=== PATIENT | male | born 1965 | race Caucasian/White ===

== ENCOUNTER 2017-03-09 23:55 | Emergency (ER) | payer MEDICARE, MEDICAID, SELFPAY ==
[2017-03-10 00:05] VITALS: BP 138/107; PULSE 102; RESP 16; TEMP 36.5; O2SAT 100; BMI 23.1
--- NOTE | 2017-03-10 01:13 | PC.NURSE ---
PT WALKED OUT STATED HE WAS LEAVING AND HE HAD NOT BEEN SEEN.
== END 2017-03-10 01:16 | disposition left against medical advice (07) ==
PROVIDERS: Emergency Provider Emergency Medicine; Family Provider Family Medicine
DX: Z53.29 Procedure and treatment not carried out because of patient's decision for other reasons (principal)
CPT/HCPCS: 99282

== ENCOUNTER 2017-05-23 21:53 | Emergency (ER) | payer MEDICARE, MEDICAID, SELFPAY ==
[2017-05-23 22:00] VITALS: BP 139/90; PULSE 92; RESP 20; TEMP 37.1; O2SAT 98; BMI 23.1
--- NOTE | 2017-05-23 22:14 | HMH.EDGENADL ---
ED Disposition Clinical Impression: IDDM (insulin dependent diabetes mellitus) Sinusitis Qualifiers: Sinusitis location: unspecified location Chronicity: acute Recurrence: not specified as recurrent Qualified Code(s): J01.90 - Acute sinusitis, unspecified Disposition: Home, Self-Care Condition on Discharge: Good Instructions: DI for Sinusitis Additional Instructions: use meds and see pcp this week and use regular meds Prescriptions: cephALEXin [Keflex 500mg Cap] 500 mg PO QID #40 cap Sulfamethoxazole/Trimethoprim [Bactrim DS tablet] 1 each PO BID #20 tab Referrals: Madelin Franz MD [Primary Care Provider] - - Critical Care Critical Care Time: No Attestation: On , the high probability of a clinically significant, sudden or life threatening deterioration of the following system(s) required my full and direct attention, intervention and personal management. The time I documented below is in addition to time spent performing reported procedures but includes the following listed in this critical care notation. Medical Decision Making - Medical Records Medical records reviewed: Yes: I reviewed the patient's medical records. - [place] Inquiry Pt receiving controlled substance: No Vital Signs: 05/23/17 22:00 Temperature 98.7 F Temperature Source Oral Pulse Rate [Right Radial] 92 H Respiratory Rate 20 Blood Pressure [Right Arm] 139/90 Blood Pressure Mean [Right Arm] 106 Blood Pressure Position [Right Arm] Sitting 02 Sat by Pulse Oximetry 98 - Lab Data Lab results reviewed: Yes: I reviewed the patient's lab results. Lab Results 05/23/17 22:30: WBC 8.6, RBC 5.48, Hgb 16.9, Hct 52.0, MCV 94.9 H, MCH 30.9, MCHC 32.6, RDW 12.4, Plt Count 168, MPV 8.7, Neut % (Auto) 79.0, Lymph % (Auto) 13.7, [place] % (Auto) 3.9, Eos % (Auto) 2.9, Baso % (Auto) 0.4, Neut # (Auto) 6.8, Lymph # (Auto) 1.2, [place] # (Auto) 0.3, Eos # (Auto) 0.3, Baso # (Auto) 0.0, ESR 15 05/23/17 22:30: Sodium 128 L, Potassium 4.0, Chloride 90 L, Carbon Dioxide 32, Anion Gap 10.0, BUN 12, Creatinine 1.23, Estimated Creat Clear 89, Estimated GFR 63, Est GFR ( Amer) 76, Glucose 731 H*, Calcium 9.4, Total Bilirubin 0.3, AST 16, ALT 37, Alkaline Phosphatase 173 H, Total Protein 7.6, Albumin 3.5, Globulin 4.1 H, Albumin/Globulin Ratio 0.9 L Result diagrams: 05/23/17 22:30 05/23/17 22:30 Orders (Tests/Meds): ED MEDICATIONS Discontinued Medications Generic Name Dose Route Start Last Admin Trade Name Diomedesq PRN Reason Stop Dose Admin Insulin Human Regular 8 unit 05/23/17 22:59 05/23/17 23:06 Humulin R Insulin 100 Units/Ml 10ml Vial IVP 05/23/17 23:00 8 unit ONCE ONE Administration ORDERS Category Date Time Status CT facial bones wo con Stat Cat Scan 05/23/17 22:15 Taken Blood Culture Stat Micro 05/23/17 22:30 Received - CT Data CT Scan: Sinus Time Received: 23:[address] Reviewed: Yes: I have viewed the radiologist's interpretation Preliminary Findings: Abnormal (sinusitis) General Adult HPI - General Chief complaint: PAIN Stated complaint: pain in left face,neck,shoulder Time Seen by Provider: 05/23/17 22:14 Mode of Arrival: Family Vehicle Source of Information: Patient, Spouse, Medical Record Limitations: No Limitations Description of Symptoms (Recalled from ER Triage Doc. by RN): left sided facial pain that begins above left eyebrow and radiates into left face, neck, and left shoulder. family member states that she seen some white puffy infection like stuff in the left upper mouth. - History of Present Illness HPI narrative: lt facial pain with no trauma and no fever or rash - pt with hx of prev infection and he has iddm - no sz or focal neuro sx Onset (ago): day(s) Location: face Severity: moderate - Related Data Home Medications Medication Instructions Recorded Confirmed Baclofen [Lioresal 10mg tablet] 1 tab PO TID 03/10/17 05/23/17 Cetirizine HCl [Zyrtec] 10 mg PO DAILY 03/10
--- NOTE | 2017-05-23 22:15 | CT_ITS ---
CT facial bones wo con CLINICAL INDICATION: Facial pain ITS.REASON: facial pain ORDERING PHYSICIAN: Eran Mitchell MD PATIENT AGE: 51 years COMPARISON: None TECHNIQUE:Axial, sagittal, and coronal images are generated and reviewed without contrast. All CT scans at the facility use one or more dose reduction, viz: automated exposure control; ma/kV adjustment per patient size (including targeted exams where dose is matched to indication; i.e. head); or iterative reconstruction technique. FINDINGS: Moderate mucosal thickening involving the left maxillary sinus and frontal ethmoid recess. There is occlusion of left ostiomeatal complex. No air-fluid levels are evident. No bony destructive process. There is mild leftward nasal septal deviation with a small septal spur projecting toward the left involving the bony nasal septum. There is mild opacification of left mastoid sinus inferiorly and posteriorly. The orbits have an unremarkable appearance. There is degenerative disc disease cervical spine at C3-C4 and C5-C6. IMPRESSION: 1. Left maxillary and frontoethmoid sinus mucosal thickening consistent with inflammatory change. 2. Mild opacification of left mastoid sinus.
[2017-05-23 22:38] LABS: Basophils % 0.4 % (0.1-2.0); Eosinophils # 0.3 K/mm3 (0.0-0.4); Eosinophils % 2.9 % (0.1-12.0); Hemoglobin 16.9 g/dL (14.1-18.0); Lymphocytes # 1.2 K/mm3 (0.7-4.5); Lymphocytes % 13.7 K/mm3 (10-50); Mean Corpuscular HGB Conc 32.6 g/dL (31.8-35.4); Mean Corpuscular Hemoglobin 30.9 pg (27.0-31.2); Mean Corpuscular Volume 94.9 fl (80-94); Mean Platelet Volume 8.7 fl (7.4-10.4); Monocytes # 0.3 K/mm3 (0.1-1.0); Monocytes % 3.9 % (1.7-9.3); Neutrophils # 6.8 K/mm3 (1.8-7.8); Platelet Count 168 K/mm3 (142-424); Red Blood Count 5.48 M/mm3 (4.60-6.20); Red Cell Distribution Width 12.4 % (11.5-17.5); White Blood Count 8.6 K/mm3 (4.8-10.8)
[2017-05-23 22:52] LABS: Alanine Aminotransferase 37 U/L (12-78); Albumin Level 3.5 gm/dL (3.4-5.0); Albumin/Globulin Ratio 0.9 (1.1-1.8); Alkaline Phosphatase 173 U/L (46-116); Aspartate Amino Transferase 16 U/L (15-37); Bilirubin,Total 0.3 mg/dL (0.2-1.0); Blood Urea Nitrogen 12 mg/dL (7-18); Calcium 9.4 mg/dL (8.5-10.1); Carbon Dioxide 32 mmol/L (21.0-32.0); Chloride 90 mmol/L (98-107); Creatinine Clearance Estimated 89 mL/min (0-300); Creatinine,Serum 1.23 mg/dL (0.70-1.30); Estimated Glomerular Filt Rate 63 ml/min (>60); GFR (African American) 76 ML/MIN (>60); Globulin 4.1 gm/dl (1.3-3.2); Sodium 128 mmol/L (136-145); Total Protein,Serum 7.6 gm/dL (6.4-8.2)
[2017-05-23 22:54] LABS: Glucose 731 mg/dL (74-106)
[2017-05-23 23:19] LABS: Erythrocyte Sedimentation Rate 15 mm/hr (0-15)
[2017-05-24 00:07] VITALS: BP 135/96; PULSE 93; RESP 15; TEMP 36.7; O2SAT 99
== END 2017-05-24 00:07 | disposition home or self-care (01) ==
PROVIDERS: Emergency Provider Emergency Medicine; Family Provider Family Medicine; PCP Family Medicine
DX: J01.90 Acute sinusitis, unspecified (principal); E11.65 Type 2 diabetes mellitus with hyperglycemia; Z79.4 Long term (current) use of insulin; I10 Essential (primary) hypertension; Z88.1 Allergy status to other antibiotic agents; Z88.6 Allergy status to analgesic agent; Z88.8 Allergy status to other drugs, medicaments and biological substances; F17.210 Nicotine dependence, cigarettes, uncomplicated
CPT/HCPCS: 70486; 80053; 85025; 85651; 87040; 96365; 96375; 99283

== ENCOUNTER 2019-02-21 01:59 | Observation (INO) ==
--- NOTE | 2019-02-21 02:09 | Emergency Department Note ---
ED Disposition Instructions: DI for Syncope in Adults (Fainting), DI for Syncope in Children (Fainting) Referrals: Maged Aburto MD [Primary Care Provider] - Attestation: On 02/21/19, the high probability of a clinically significant, sudden or life threatening deterioration of the following system(s) required my full and direct attention, intervention and personal management. The time I documented below is in addition to time spent performing reported procedures but includes the following listed in this critical care notation. Syncope HPI - General Chief Complaint: Syncope Stated Complaint: syncope - Related Data Home Medications Medication Instructions Recorded Confirmed Baclofen [Lioresal 10mg tablet] 1 tab PO TID 03/10/17 01/17/19 Cetirizine HCl [Zyrtec] 10 mg PO DAILY 03/10/17 01/17/19 Mirtazapine 1 tab PO DAILY 03/10/17 01/17/19 Omeprazole [Omeprazole 40mg 1 tab PO DAILY 03/10/17 01/17/19 Capsule] Ondansetron HCl [Ondansetron 4mg 4 mg PO Q8HP PRN 03/10/17 01/17/19 Tab] Sitagliptin Phos/Metformin HCl 1 tab PO BID 03/10/17 01/17/19 [Janumet 50-500 mg Tablet] Trazodone HCl 150 mg PO HS 03/10/17 01/17/19 lisinopriL [Lisinopril 2.5mg Tab] 4 tab PO DAILY 03/10/17 01/17/19 Duloxetine HCl 60 mg PO DAILY 11/24/17 01/17/19 Cane 1 each MC DIRECTED 01/17/19 01/17/19 Cane Tips 1 each MC DIRECTED 01/17/19 01/17/19 Allergies Allergy/AdvReac Type Severity Reaction Status Date / Time levofloxacin [From LEVAQUIN] Allergy Unknown Verified 01/17/19 11:06 metformin [METFORMIN] Allergy Unknown Verified 01/17/19 11:06 NSAIDS (Non-Steroidal Allergy Unknown UNKNOWN Verified 01/17/19 11:06 Anti-Inflamma [NSAIDS (NON-STEROIDAL ANTI-INFLAMMA] morphine Allergy Verified 01/17/19 11:06 [facility] History - Hepatitis A Screen Attestation statement:: This patient has been screened for Hepatitis A risk factors. Medical History: Reports:: Diabetes Mellitus Type 2 Denies:: Cancer, Diabetes Mellitus Type 1, MRSA Amputation: No Fractures: No - Social History Smoking Status: Current every day smoker Tobacco Type: cigarettes # Packs/Day (cigarettes): 1 Alcohol Intake: never Occupational Status: disabled Housing: house Household Members: spouse
[2019-02-21 02:40] LABS: Basophils % 0.6 % (0.1-2.0); Eosinophils # 0.1 K/mm3 (0.0-0.4); Eosinophils % 1.6 % (0.1-12.0); Hematocrit 43.1 % (42.0-52.0); Hemoglobin 14.6 g/dL (14.1-18.0); Lymphocytes % 14.9 % (10-50); Mean Corpuscular HGB Conc 33.8 g/dL (31.8-35.4); Mean Corpuscular Volume 89.6 fl (80-94); Mean Platelet Volume 11.6 fl (7.4-10.4); Monocytes # 0.6 K/mm3 (0.1-1.0); Monocytes % 9.4 % (1.7-9.3); Neutrophils # 4.8 K/mm3 (1.8-7.8); Neutrophils % 73.6 % (37.0-80.0); Platelet Count 180 K/mm3 (142-424); Red Blood Count 4.81 M/mm3 (4.60-6.20); Red Cell Distribution Width 13.1 % (11.5-17.5); White Blood Count 6.6 K/mm3 (4.8-10.8)
--- NOTE | 2019-02-21 02:44 | Emergency Department Note ---
ED Disposition Clinical Impression: IDDM (insulin dependent diabetes mellitus), RBBB Syncope Qualifiers: Syncope type: unspecified Qualified Code(s): R55 - Syncope and collapse Disposition: Admitted as Observation Condition on Discharge: Good Instructions: DI for Syncope in Adults (Fainting), DI for Syncope in Children (Fainting) Referrals: Maged Aburto MD [Primary Care Provider] - - Critical Care Critical Care Time: No Attestation: On 02/21/19, the high probability of a clinically significant, sudden or life threatening deterioration of the following system(s) required my full and direct attention, intervention and personal management. The time I documented below is in addition to time spent performing reported procedures but includes the following listed in this critical care notation. Medical Decision Making - Medical Records Medical records reviewed: Yes: I reviewed the patient's medical records. - [place] Inquiry Pt receiving controlled substance: No Vital Signs: 02/21/19 02:02 Temperature 98.1 F Temperature Source Oral Pulse Rate [Right Brachial] 108 H Respiratory Rate 20 Blood Pressure [Right Arm] 95/56 L Blood Pressure Mean [Right Arm] 69 Blood Pressure Source [Right Arm] Automatic Cuff Blood Pressure Position [Right Arm] Sitting 02 Sat by Pulse Oximetry 97 Oxygen Delivery Method Room Air - Lab Data Lab results reviewed: Yes: I reviewed the patient's lab results. Lab Results 02/21/19 02:10: WBC 6.6, RBC 4.81, Hgb 14.6, Hct 43.1, MCV 89.6, MCH 30.3, MCHC 33.8, RDW 13.1, Plt Count 180, MPV 11.6 H, Neut % (Auto) 73.6, Lymph % (Auto) 14.9, [place] % (Auto) 9.4 H, Eos % (Auto) 1.6, Baso % (Auto) 0.6, Neut # (Auto) 4.8, Lymph # (Auto) 1.0, [place] # (Auto) 0.6, Eos # (Auto) 0.1, Baso # (Auto) 0.0, ESR 37 H 02/21/19 02:10: Lactate 1.5 02/21/19 02:50: Sodium 135 L, Potassium 4.0, Chloride 96 L, Carbon Dioxide 30, Anion Gap 13.0, BUN 15, Creatinine 0.84, Estimated Creat Clear 120, Estimated GFR 96, Est GFR ( Amer) 117, Glucose 163 H, Calcium 8.6, Total Bilirubin 0.3, AST 9 L, ALT 23, Alkaline Phosphatase 74, Troponin I < 0.02, C-Reactive Protein 15.4 H, Total Protein 6.7, Albumin 2.6 L, Globulin 4.1 H, Albumin/Globulin Ratio 0.6 L Result diagrams: 02/21/19 02:10 02/21/19 02:50 Orders (Tests/Meds): ED MEDICATIONS Generic Name Dose Route Start Last Admin Trade Name Freq PRN Reason Stop Dose Admin Sodium Chloride 1,000 mls @ 999 mls/hr 02/21/19 02:15 02/21/19 02:24 Sod Chlor 0.9% 1000ml Bag IV 02/21/19 03:15 999 mls/hr .Q1H1M JAVIER Administration ORDERS Category Date Time Status Troponin I Q3H Lab 02/21/19 05:15 Ordered Troponin I Q3H Lab 02/21/19 08:15 Ordered Blood Culture Stat Micro 02/21/19 02:12 Received - ECG Data Tracing #1 Normal Sinus Rhythm: Yes Ischemic changes: non-specific ST-T wave changes Conduction abnormalities present: RBBB - Physician Consults Physician Consulted: juana Reason -: Admission Syncope HPI - General Chief Complaint: Syncope Stated Complaint: syncope Time Seen by Provider: 02/21/19 02:10 Mode of Arrival: EMS Source of Information: Patient, Relative, EMS, Medical Record Limitations: No Limitations Description of Symptoms (Recalled from ER Triage Doc. by RN): PATIENT PRESENTS TO TRAUMA 2 VIA EMS FROM HOME AFTER A SYNCOPAL EPISODE. PATIENT REPORTS RECENTLY BEING DIAGNOSED WITH UTI ON TUESDAY AND HAS GENERALLY FELT UNWELL OVER THE LAST COUPLE OF DAYS. TONIGHT, EMS REPORTS PATIENT ATTEMPTED TO GET UP FROM THE BED TO HIS WHEELCHAIR WHEN HE BECAME DIAPHORETIC AND HAD A SYNCOPAL EPISODE PROMPTING FAMILY TO CALL EMS. PATIENT IS A/OX4 UPON ARRIVAL. FSBS 120. PATIENT HAS HAD A RECENT STROKE ON 01/17/19. - History of Present Illness HPI narrative: pt with episode of syncope when he was transfering from bed to wheelchair - family member was present and reported pt becane apnea and nonresponsive over about a few sec but was confused for about 5 minutes and was hyperventilating and diaphoresis- family reports had recent dx of uti and on abx but has had dec po intake - recent admit to for cva and then rehab and back home for 2 weeks complaint: loss of consciousness Onset (ago): minute(s) Duration of episode: 10 -: minutes(s) Description of event: post-event confusion Witnessed: yes - by bystander Context: getting out of bed Injuries sustained associated with event: none Current symptoms: back to baseline Treatments prior to arrival: none - Related Data Home Medications Medication Instructions Recorded Confirmed lisinopriL [Lisinopril 2.5mg Tab] 5 mg PO DAILY 03/10/17 02/21/19 Aspirin [Aspirin EC 325mg Tab] 325 mg PO DAILY 02/21/19 02/21/19 Atorvastatin Calcium [Atorvastatin 40 mg PO HS 02/21/19 02/21/19 40mg Tab] Baclofen [Lioresal 10mg tablet] 10 mg PO TID 02/21/19 02/21/19 Clopidogrel Bisulfate [Clopidogrel 75 mg PO DAILY 02/21/19 02/21/19 75mg Tab] Duloxetine HCl [Cymbalta] 90 mg PO DAILY 02/21/19 02/21/19 Insulin Aspart [Novolog Flexpen] 8 unit SQ TID 02/21/19 02/21/19 Insulin Detemir [Levemir 35 unit SQ HS 02/21/19 02/21/19 100units/mL 3mL flexpen] Metoclopramide HCl [Reglan 5mg 5 mg PO AC 02/21/19 02/21/19 Tablet] Pantoprazole Sodium [Protonix 40mg 40 mg PO DAILY 02/21/19 02/21/19 tablet] Sennosides/Docusate Sodium 1 each PO BID 02/21/19 02/21/19 [Docusate Sodium-Sennosides Tab] Sulfamethoxazole/Trimethoprim 1 each PO BID 02/21/19 02/21/19 [Bactrim DS tablet] Tramadol HCl [Ultram 50mg 50 mg PO Q6H PRN 02/21/19 02/21/19 tablet] Trazodone HCl 150 mg PO HS 02/21/19 02/21/19 Allergies Allergy/AdvReac Type Severity Reaction Status Date / Time levofloxacin [From LEVAQUIN] Allergy Unknown Verified 01/17/19 11:06 metformin [METFORMIN] Allergy Unknown Verified 01/17/19 11:06 NSAIDS (Non-Steroidal Allergy Unknown UNKNOWN Verified 01/17/19 11:06 Anti-Inflamma [NSAIDS (NON-STEROIDAL ANTI-INFLAMMA] morphine Allergy Verified 01/17/19 11:06 [facility] History - Hepatitis A Screen Drug use history?: No High risk sexual behaviors?: No History of sexually transmitted infection?: No Currently employed?: No Childcare worker?: No Do you have indoor plumbing?: Yes Do you have electricity?: Yes Attestation statement:: This patient has been screened for Hepatitis A risk factors. I have reviewed the patient's past medical history: Yes Medical History: Reports:: Diabetes Mellitus Type 2 Denies:: Cancer, Diabetes Mellitus Type 1, MRSA Amputation: No Fractures: No - Social History Smoking Status: Current every day smoker Tobacco Type: cigarettes # Packs/Day (cigarettes): 1 Alcohol Intake: never Alcohol Intake Frequency:: 0-2 drinks per day Substance Use Type: denies use Occupational Status: disabled Housing: house Household Members: spouse ROS Obtained: Yes All systems reviewed & no additional complaints - Constitutional Constitutional: Denies fever(s) - Eyes Eyes: Denies change in vision - ENT Ears, Nose, Mouth, and Throat: Denies sore throat - Cardiovascular Cardiovascular: Denies chest pain, Denies dyspnea - Respiratory Respiratory: No cough - Gastrointestinal Gastrointestingal: Denies: abdominal pain, vomiting - Genitourinary Male Genitourinary: Denies flank pain - Musculoskeletal Musculoskeletal: Denies joint pain - Integumentary/Breasts Skin/Breast: Denies rash - Neurologic Neurologic: Denies confusion, Denies focal weakness, Denies seizure-like activity Physical Exam - General General appearance: alert, in no apparent distress - Head Head exam: normocephalic - Eye Eye exam: Present: PERRL, EOMI. Absent: scleral icterus, nystagmus - ENT ENT exam: Present: mucous membranes dry - Neck Neck exam: Present: trachea midline - Respiratory Respiratory exam: Present: normal lung sounds bilaterally. Absent: respiratory distress - Cardiovascular Cardiovascular exam: Present: regular rate, systolic murmur, +S4 - Abdominal Exam Abdominal exam: Present: soft - Extremities Exam Extremities exam: Present: full ROM - Neurological Exam Neurological exam: Present: alert, CN II-XII intact - Psychiatric Psychiatric exam: Present: normal affect - Skin Skin exam: Absent: rash
[2019-02-21 03:04] LABS: Erythrocyte Sedimentation Rate 37 mm/hr (0-20)
[2019-02-21 03:11] LABS: Alanine Aminotransferase 23 U/L (12-78); Albumin Level 2.6 gm/dL (3.4-5.0); Albumin/Globulin Ratio 0.6 (1.1-1.8); Alkaline Phosphatase 74 U/L (46-116); Aspartate Amino Transferase 9 U/L (15-37); Bilirubin,Total 0.3 mg/dL (0.2-1.0); Blood Urea Nitrogen 15 mg/dL (7-18); Calcium 8.6 mg/dL (8.5-10.1); Carbon Dioxide 30 mmol/L (21.0-32.0); Chloride 96 mmol/L (98-107); Globulin 4.1 gm/dl (1.3-3.2); Glucose 163 mg/dL (74-106); Sodium 135 mmol/L (136-145); Total Protein,Serum 6.7 gm/dL (6.4-8.2)
[2019-02-21 03:15] LABS: C-Reactive Protein 15.4 mg/dL (0.0-0.9)
[2019-02-21 05:22] LABS: Basophils # 0.1 K/mm3 (0-0.2); Basophils % 0.7 % (0.1-2.0); Eosinophils # 0.1 K/mm3 (0.0-0.4); Eosinophils % 1.2 % (0.1-12.0); Hematocrit 42.3 % (42.0-52.0); Hemoglobin 13.7 g/dL (14.1-18.0); Lymphocytes # 0.6 K/mm3 (0.7-4.5); Lymphocytes % 9.3 % (10-50); Mean Corpuscular HGB Conc 32.3 g/dL (31.8-35.4); Mean Corpuscular Volume 92.3 fl (80-94); Mean Platelet Volume 8.6 fl (7.4-10.4); Monocytes # 0.5 K/mm3 (0.1-1.0); Monocytes % 7.1 % (1.7-9.3); Neutrophils # 5.6 K/mm3 (1.8-7.8); Neutrophils % 81.7 % (37.0-80.0); Platelet Count 161 K/mm3 (142-424); Red Blood Count 4.58 M/mm3 (4.60-6.20); Red Cell Distribution Width 13.2 % (11.5-17.5); White Blood Count 6.9 K/mm3 (4.8-10.8)
[2019-02-21 05:32] LABS: Anion Gap 13.5 mEq/L (5-15); Calcium 8.7 mg/dL (8.5-10.1)
--- NOTE | 2019-02-21 08:29 | History & Physical Report ---
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 Patient was transferring f rom bed to wheelchair when he became lightheaded, diaphoretic. His daughter was at home with him and witnessed this. Patient became pale as well as eyes rolled back in his head and he lost consciousness for what is believed to be approximately 1 minute. Patient was brought to the emergency department. Patient himself has been battling a urinary tract infection that was diagnosed less than 48 hours prior in the office. His reports patient has had poor p.o. intake over the last 4 to 5 days and his activity level has been low with mostly laying in bed. Patient underwent evaluation in the emergency department and is subsequently been admitted for observation, IV fluids, telemetry monitoring. [facility] History I have reviewed the patient's past medical history: Yes Medical History: Reports:: Diabetes Mellitus Type 2 Denies:: Cancer, Diabetes Mellitus Type 1, Internal Pacemaker, MRSA *Have you ever received a pneumonia vaccine?: Yes *Have you received a flu vaccine this season?: Yes Other Medical History: Reports: Arthritis Other Surgeries: No: Pacemaker Amputation: No Fractures: No - *Social History Educational Level: Attended College Smoking Status: Current every day smoker Tobacco Type: cigarettes # Packs/Day (cigarettes): 1 Alcohol Intake: never Alcohol Intake Frequency:: 0-2 drinks per day Substance Use Type: denies use *Occupational Status:: disabled Housing: house Household Members: spouse *Travel in the last 8 weeks: None Family Hx:: Non-contributory Review of Systems - Constitutional Reports anorexia, Reports fatigue, Reports malaise, Reports weakness, Denies body ache(s), Denies chills, Denies fever(s) - *Cardiovascular Denies chest pain - *Respiratory Denies change in phlegm color - *Gastrointestinal Denies abdominal pain - *Genitourinary Reports difficulty urinating - *Musculoskeletal Reports abnormal walking, Reports joint pain - *Neurologic Reports lack of coordination, Reports tingling/numbness/burning sensations (From diabetic neuropathy), Reports weakness, Denies confusion, Denies localized weakness, Denies seizure-like activity - Psychiatric Reports abnormal sleep pattern, Reports lack of enjoyment Meds Home Medications Medication Instructions Recorded Confirmed Type lisinopriL [Lisinopril 2.5mg Tab] 5 mg PO DAILY 03/10/17 02/21/19 History Aspirin [Aspirin EC 325mg Tab] 325 mg PO DAILY 02/21/19 02/21/19 History Atorvastatin Calcium [Atorvastatin 40 mg PO HS 02/21/19 02/21/19 History 40mg Tab] Baclofen [Lioresal 10mg tablet] 10 mg PO TID 02/21/19 02/21/19 History Clopidogrel Bisulfate [Clopidogrel 75 mg PO DAILY 02/21/19 02/21/19 History 75mg Tab] Duloxetine HCl [Cymbalta] 90 mg PO DAILY 02/21/19 02/21/19 History Insulin Aspart [Novolog Flexpen] 8 unit SQ TID 02/21/19 02/21/19 History Insulin Detemir [Levemir 35 unit SQ HS 02/21/19 02/21/19 History 100units/mL 3mL flexpen] Metoclopramide HCl [Reglan 5mg 5 mg PO AC 02/21/19 02/21/19 History Tablet] Pantoprazole Sodium [Protonix 40mg 40 mg PO DAILY 02/21/19 02/21/19 History tablet] Sennosides/Docusate Sodium 1 each PO BID 02/21/19 02/21/19 History [Docusate Sodium-Sennosides Tab] Sulfamethoxazole/Trimethoprim 1 each PO BID 02/21/19 02/21/19 History [Bactrim DS tablet] Tramadol HCl [Ultram 50mg 50 mg PO Q6H PRN 02/21/19 02/21/19 History tablet] Trazodone HCl 150 mg PO HS 02/21/19 02/21/19 History Allergies Allergy/AdvReac Type Severity Reaction Status Date / Time levofloxacin [From LEVAQUIN] Allergy Unknown Verified 01/17/19 11:06 metformin [METFORMIN] Allergy Unknown Verified 01/17/19 11:06 NSAIDS (Non-Steroidal Allergy Unknown UNKNOWN Verified 01/17/19 11:06 Anti-Inflamma [NSAIDS (NON-STEROIDAL ANTI-INFLAMMA] morphine Allergy Verified 01/17/19 11:06 Exam Vital signs and Labs for Last 24 Hours: Temp Pulse Resp BP Pulse Ox 97.8 F 95 H 18 104/55 L 97 02/21/19 08:00 02/21/19 08:00 02/21/19 08:00 02/21/19 08:00 02/21/19 08:00 Laboratory Results - last 24 hr 02/21/19 02:10: WBC 6.6, RBC 4.81, Hgb 14.6, Hct 43.1, MCV 89.6, MCH 30.3, MCHC 33.8, RDW 13.1, Plt Count 180, MPV 11.6 H, Neut % (Auto) 73.6, Lymph % (Auto) 14.9, [place] % (Auto) 9.4 H, Eos % (Auto) 1.6, Baso % (Auto) 0.6, Neut # (Auto) 4.8, Lymph # (Auto) 1.0, [place] # (Auto) 0.6, Eos # (Auto) 0.1, Baso # (Auto) 0.0, ESR 37 H 02/21/19 02:10: Lactate 1.5 02/21/19 02:50: Sodium 135 L, Potassium 4.0, Chloride 96 L, Carbon Dioxide 30, Anion Gap 13.0, BUN 15, Creatinine 0.84, Estimated Creat Clear 120, Estimated GFR 96, Est GFR ( Amer) 117, Glucose 163 H, Calcium 8.6, Total Bilirubin 0.3, AST 9 L, ALT 23, Alkaline Phosphatase 74, Troponin I < 0.02, C-Reactive Protein 15.4 H, Total Protein 6.7, Albumin 2.6 L, Globulin 4.1 H, Albumin/Globulin Ratio 0.6 L 02/21/19 05:11: Troponin I < 0.02 02/21/19 05:11: WBC 6.9, RBC 4.58 L, Hgb 13.7 L, Hct 42.3, MCV 92.3, MCH 29.9, MCHC 32.3, RDW 13.2, Plt Count 161, MPV 8.6, Neut % (Auto) 81.7 H, Lymph % (Auto) 9.3 L, [place] % (Auto) 7.1, Eos % (Auto) 1.2, Baso % (Auto) 0.7, Neut # (Auto) 5.6, Lymph # (Auto) 0.6 L, [place] # (Auto) 0.5, Eos # (Auto) 0.1, Baso # (Auto) 0.1 02/21/19 05:11: Sodium 135 L, Potassium 4.5, Chloride 96 L, Carbon Dioxide 30, Anion Gap 13.5, BUN 16, Creatinine 0.88, Estimated Creat Clear 112, Estimated GFR 91, Est GFR ( Amer) 110, Glucose 196 H D, Calcium 8.7, Magnesium 1.6 02/21/19 05:47: POC Glucose 180 H I & O for Last 24 hours: Intake & Output 02/18/19 02/19/19 02/20/19 02/21/19 11:59 11:59 11:59 11:59 Intake Total 701 / 701 Balance 701 / 701 Weight 175 lb 2 oz Narrative: Adult male laying in bed. He appears older than his stated age. Pupils are margareth ctive to light. Extraocular movements are intact. Oropharynx is moist and clear. Tongue is midline. Neck is without lymphadenopathy. Lungs are clear. Heart has a regular rate and rhythm with murmur heard at the right second intercostal space. Abdomen is thin and soft. Extremities are warm to the touch and there is no edema. Musculoskeletal exam is significant for 4 out of 5 strength in the muscles of the left arm and leg when compared to the right. Assessment and Plan (1) Syncope Current visit: Yes Status: Acute Qualifiers: Syncope type: unspecified Qualified Code(s): R55 - Syncope and collapse Category: Medical Code(s): R55 - Syncope and collapse (2) Urinary tract infection Current visit: Yes Status: Acute Category: Medical Code(s): N39.0 - Urinary tract infection, site not specified (3) Type 2 diabetes mellitus, with long-term current use of insulin Current visit: Yes Status: Acute Category: Medical Code(s): E11.9 - Type 2 diabetes mellitus without complications; Z79.4 - nursing home (current) use of insulin (4) History of cerebrovascular accident (CVA) from right carotid artery occlusion involving right middle cerebral artery territory Current visit: Yes Status: Acute Category: Medical Code(s): Z86.73 - Perso nal history of transient ischemic attack (TIA), and cerebral infarction without residual deficits - Assessment and plan all Dx Assessment and Plan for all problems:: 1. Patient is been admitted for rehydration and we will continue cardiac cath technologist for the next 24 hours. Patient be given IV fluids of normal saline at 150 mL's per hour. I have spoken with nursing staff about patient's ability to ambulate and be out of bed to chair later today 2. Start IV Rocephin for urinary tract infection diagnosis outpatient 3. Continue home medicines except for lisinopril. This will be held due to patient's hypotension
--- NOTE | 2019-02-21 09:26 | Pharmacy Consult Notes ---
[facility] Pharmacy VTE Monitoring - Patient Demographics Admission date: 02/21/19 Report Date: 02/21/19 Time: 09:26 Allergies/Adverse Reactions: Patient Allergies levofloxacin [From LEVAQUIN] Allergy (Unknown, Verified 01/17/19 11:06) metformin [METFORMIN] Allergy (Unknown, Verified 01/17/19 11:06) NSAIDS (Non-Steroidal Anti-Inflamma [NSAIDS (NON-STEROIDAL ANTI-INFLAMMA] Allergy (Unknown, Verified 01/17/19 11:06) UNKNOWN morphine Allergy (Verified 01/17/19 11:06) Height: 1.93 m Weight: 79.435 kg Patient Problems: Current Active Problems IDDM (insulin dependent diabetes mellitus) (Acute) RBBB (Acute) Syncope (Acute) Urinary tract infection (Acute) Type 2 diabetes mellitus, with long-term current use of insulin (Acute) History of cerebrovascular accident (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
--- NOTE | 2019-02-22 07:09 | Discharge Summary ---
General - General Admission date:: 02/21/19 Discharge date: 02/22/19 HPI HPI: 53-year-old male with recent stroke after right carotid artery thrombosis who rehabbed at [facility] and is now transition to home presented to the emergency department after syncopal event at home. Patient was transferring from bed to wheelchair when he became lightheaded, diaphoretic. His daughter was at home with him and witnessed this. Patient became pale as well as eyes rolled back in his head and he lost consciousness for what is believed to be approximately 1 minute. Patient was brought to the emergency department. Patient himself has been battling a urinary tract infection that was diagnosed less than 48 hours prior in the office. His reports patient has had poor p.o. intake over the last 4 to 5 days and his activity level has been low with raj bar laying in bed. Patient underwent evaluation in the emergency department and is subsequently been admitted for observation, IV fluids, telemetry monitoring. Hospital Course Hospital Course: Patient was admitted on telemetry and started on normal saline at 150 mL's per hour. This adequately rehydrated the patient over the course of his hospitalization and patient felt better after rehydration. Telemetry monitoring did not detect any cardiac arrhythmias. The morning of the the patient complained of left flank pain and does have a history of kidney stones. CT abdomen and pelvis without contrast was ordered to rule out kidney stone. CT scan was negative for stone. Patient was discharged home later in the day. Prior to discharge family requested investigation into placement in prison facility but this became cost prohibitive Objective Vital signs: Temp Pulse Resp BP Pulse Ox 97.9 F 97 H 18 158/89 H 98 02/22/19 04:00 02/22/19 04:00 02/22/19 04:00 02/22/19 04:00 02/22/19 04:00 no acute distress - *Routine Respiratory Exam Present: CTA bilaterally - *Routine Cardiovascular Exam Present: RRR, Normal S1, Normal S2 - *Routine Abdominal Exam Present: soft, normoactive bowel sounds. Absent: tenderness - Routine Back/Spine/Pelvis Exam Back/Spine: Absent: CVA tenderness Results Labs on day of discharge: Labs from last 24 hours 02/22/19 02/21/19 02/21/19 05:45 21:21 17:03 POC Glucose 184 H 196 H 146 H Troponin I 02/21/19 02/21/19 11:32 08:15 POC Glucose 247 H Troponin I < 0.02 DS: Diagnosis - Discharge Diagnosis (1) Syncope Status: Acute (2) Urinary tract infection Status: Acute (3) Type 2 diabetes mellitus, with long-term current use of insulin Status: Acute (4) History of cerebrovascular accident (CVA) from right carotid artery occlusion involving right middle cerebral artery territory Status: Acute Discharge Plan - Patient Discharge Instructions ACTIVITY: Continue current activity DIET: continue same diet Patient Instructions: DI for Syncope in Adults (Fainting), Fainting, DI for Urinary Tract Infection (UTI) - Follow up Plan Follow up with: Maged Aburto MD [Primary Care Provider] - (Follow-up as previously scheduled) Disposition: Home, Self-[facility] Medications: Home Medications Medication Instructions Recorded Confirmed Type Aspirin [Aspirin 81mg EC Tab] 81 mg PO DAILY 02/21/19 02/21/19 History Atorvastatin Calcium [Atorvastatin 40 mg PO HS 02/21/19 02/21/19 History 40mg Tab] Baclofen [Lioresal 10mg tablet] 10 mg PO TID 02/21/19 02/21/19 History Clopidogrel Bisulfate [Clopidogrel 75 mg PO DAILY 02/21/19 02/21/19 History 75mg Tab] Duloxetine HCl 30 mg PO DAILY 02/21/19 02/21/19 History Insulin Aspart [Novolog Flexpen] 8 unit SQ TID 02/21/19 02/21/19 History Insulin Detemir [Levemir 35 unit SQ HS 02/21/19 02/21/19 History 100units/mL 3mL flexpen] Metoclopramide HCl [Reglan 5mg 5 mg PO AC 02/21/19 02/21/19 History Tablet] Pantoprazole Sodium [Protonix 40mg 40 mg PO DAILY 02/21/19 02/21/19 History tablet] Sennosides/Docusate Sodium 1 each PO BID 02/21/19 02/21/19 History [Docusate Sodium-Sennosides Tab] Sulfamethoxazole/Trimethoprim 1 each PO BID 02/21/19 02/21/19 History [Bactrim DS tablet] Tramadol HCl [Ultram 50mg 100 mg PO Q6H PRN 02/21/19 02/21/19 History tablet] Trazodone HCl 150 mg PO HS 02/21/19 02/21/19 History lisinopriL [Lisinopril 5mg 5 mg PO DAILY 02/21/19 02/21/19 History Tablet] Prescriptions/Medication Reconciliation: Continued Baclofen [Lioresal 10mg tablet] 10 mg PO TID Insulin Aspart [Novolog Flexpen] 8 unit SQ TID Metoclopramide HCl [Reglan 5mg Tablet] 5 mg PO AC Sennosides/Docusate Sodium [Docusate Sodium-Sennosides Tab] 1 each PO BID Tramadol HCl [Ultram 50mg tablet] 100 mg PO Q6H PRN PRN Reason: PAIN Trazodone HCl 150 mg PO HS lisinopriL [Lisinopril 5mg Tablet] 5 mg PO DAILY Atorvastatin Calcium [Atorvastatin 40mg Tab] 40 mg PO HS Clopidogrel Bisulfate [Clopidogrel 75mg Tab] 75 mg PO DAILY Insulin Detemir [Levemir 100units/mL 3mL flexpen] 35 unit SQ HS Pantoprazole Sodium [Protonix 40mg tablet] 40 mg PO DAILY Sulfamethoxazole/Trimethoprim [Bactrim DS tablet] 1 each PO BID Aspirin [Aspirin 81mg EC Tab] 81 mg PO DAILY Duloxetine HCl 30 mg PO DAILY - Problem Reconciliation Problems Reviewed?: Yes
--- NOTE | 2019-02-25 14:36 | Electrocardiograph Report ---
APPROVED REPORT Exam: Resting ECG HR:98 bpm ECG Measurements Heart Rate 98 AXES AZ 142 P 54 QRSd 136 QRS -54 QT 396 T49 QTc 505 <Conclusion> Normal sinus rhythm Left axis deviation Right bundle branch block Abnormal ECG Electronically signed by : Maged Bermudez, 02/25/2019 14:35:29
--- NOTE | 2019-02-25 14:36 | Electrocardiograph Report ---
APPROVED REPORT Exam: Resting ECG HR:105 bpm ECG Measurements Heart Rate 105 AXES FL 128 P 44 QRSd 134 QRS -62 QT 382 T61 QTc 504 <Conclusion> Sinus tachycardia Left axis deviation Right bundle branch block Abnormal ECG Electronically signed by : Maged Bermudez, 02/25/2019 14:35:34
== END 2019-02-22 14:39 | disposition home or self-care (01) ==
LOC: 2ND 01:59 → ER 01:59 → 2ND 04:05
PROVIDERS: ADMIT Internal Medicine Adolescent Medicine; ATTEND Family Medicine
CPT/HCPCS: 36415; 74176; 80048; 80053; 82962; 83605; 83735; 84484; 85025; 85651; 86140; 87040; 93005; 96365; 99284; G0378

== ENCOUNTER → 2019-03-22 11:19 | Outpatient (CLI) | payer MEDICARE, SELFPAY ==
[2019-03-22 11:28] LABS: Microscopic, Urine URINE MICROSCOPIC (MICROSCOPIC)
[2019-03-22 11:35] LABS: Bilirubin,Urine Negative (Negative); Blood, Urine 1+ (Negative); Color,Urine YELLOW (Yellow); Glucose,Urine (UA) 1+ (Negative); Ketones,Urine Negative (Negative); Leukocyte Esterase,Urine 2+ (Negative); Nitrate,Urine Negative (Negative); Protein,Urine Negative (Negative); Specific Gravity, Urine 1.025 (1.005-1.030); Urobilinogen,Urine 0.2 EU/dl (0.2)
[2019-03-22 11:38] LABS: Appearance,Urine Cloudy (Clear)
[2019-03-22 11:46] LABS: Bacteria,Urine 4+ /lpf; Mucus,Urine 1+ /lpf; RBC,Urine TNTC #/hpf (0-3)
== END ==
PROVIDERS: Visit Provider Family Medicine
DX: N39.0 Urinary tract infection, site not specified (principal)
CPT/HCPCS: 81001; 87086; 87088; 87186

== ENCOUNTER 2019-07-20 17:45 | Emergency (ER) | payer MEDICARE, SELFPAY ==
[2019-07-20 17:48] VITALS: BP 142/106; PULSE 98; RESP 18; TEMP 36.7; O2SAT 99; BMI 19.1
--- NOTE | 2019-07-20 17:56 | XR_ITS ---
PROCEDURE: XR RIBS LT MIN 3V W CXR1V CLINICAL INDICATION: FALL With injury and pain posttraumatic pain, fall COMPARISON: WO CT CHEST W/O CONTRAST from 07/05/2013 CXR2 XR chest AP from 04/22/2018 XR CHEST PORTABLE from 10/17/2018 XR CHEST PORTABLE from 03/16/2019 FINDINGS: Frontal view of the chest shows no acute finding. Multiple views of the left ribs are obtained. On series 6 there is a lucency along the anterior aspect of the left 9th rib. This may only be due to a Mach line. Please correlate with patient's area of pain and tenderness. Otherwise negative. If pain persists, CT may provide further evaluation. IMPRESSION: No definite acute finding. Please see above for detail Dictated by: Srikanth Shepherd MD 07/20/2019 19:39 Electronically signed by Srikanth Shepherd MD in [place] 07/20/2019 19:39
[2019-07-20 18:50] VITALS: BP 135/96; PULSE 99; RESP 18; O2SAT 98
--- NOTE | 2019-07-20 19:00 | HMH.EDGENADL ---
ED Disposition Clinical Impression: Rib injury Disposition: Home, Self-Care Condition on Discharge: Good Instructions: DI for Acute Pain -- Adult Prescriptions: Oxycodone HCl/Acetaminophen [Percocet 10-325 mg Tablet] 1 tab PO Q4H PRN 3 Days #16 tab PRN Reason: Breakthru Moderate Pain Prescription Printed Referrals: Maged Aburto MD [Primary Care Provider] - - Critical Care Critical Care Time: No Attestation: On 07/20/19, the high probability of a clinically significant, sudden or life threatening deterioration of the following system(s) required my full and direct attention, intervention and personal management. The time I documented below is in addition to time spent performing reported procedures but includes the following listed in this critical care notation. Medical Decision Making - Medical Records Medical records reviewed: Yes: I reviewed the patient's medical records. - [place] Inquiry Pt receiving controlled substance: No Vital Signs: 07/20/19 17:48 07/20/19 18:50 Temperature 98.1 F Temperature Source Oral Pulse Rate [Right Radial] 98 H 99 H Respiratory Rate 18 18 Blood Pressure [Right Arm] 142/106 H 135/96 H Blood Pressure Mean [Right Arm] 118 109 Blood Pressure Source [Right Arm] Automatic Cuff Automatic Cuff Blood Pressure Position [Right Arm] Sitting Supine 02 Sat by Pulse Oximetry 99 98 Oxygen Delivery Method Room Air - Lab Data Lab results reviewed: Yes: I reviewed the patient's lab results. Orders (Tests/Meds): ORDERS Category Date Time Status XR ribs LT min 3V w CXR1V Stat Exams 07/20/19 17:56 Taken General Adult HPI - General Chief complaint: PAIN Stated complaint: fall Time Seen by Provider: 07/20/19 19:00 Mode of Arrival: EMS Limitations: No Limitations Description of Symptoms (Recalled from ER Triage Doc. by RN): PT BROUGHT IN VIA EMS AFTER HE REPORTEDLY FELL WHILE GOING TO THE BATHROOM 0300 THIS AM, COULDN'T GET BACK UP UNTIL APPROX 0600 THIS AM (D/T PREVIOUS STROKE CAUSING LT SIDE DEFECIT). PT NOW C/O LT RIB PAIN. PT ADVISES THAT HE HIT A NIGHTSTAND ON HIS WAY DOWN TO THE FLOOR WHEN HE FELL. PT ADVISES THAT HE DID NOT FEEL BAD WHEN HE FELL. PT ADVISES THAT HE JUST LOST HIS BALANCE. - History of Present Illness HPI narrative: 53-year-old male presents the ED after a fall in the bathroom earlier this morning. He states that he was trying to get into the shower and he slipped and fell and landed on his left side of his rib cage and is having significant pain presently. He states that he only has some left-sided weakness secondary to his CVA but he states he is getting better. Patient denies any other trauma patient also denies any other symptoms. Onset (ago): hour(s) Location: chest Radiation: non-radiation Severity: moderate Severity scale (1-10): 6 Quality: stabbing Consistency: constant Relieving factors: none Exacerbating factors: none Associated symptoms: denies other symptoms - Related Data Home Medications Medication Instructions Recorded Confirmed Aspirin [Aspirin 81mg EC Tab] 81 mg PO DAILY 02/21/19 02/21/19 Atorvastatin Calcium [Atorvastatin 40 mg PO HS 02/21/19 02/21/19 40mg Tab] Baclofen [Lioresal 10mg tablet] 10 mg PO TID 02/21/19 02/21/19 Clopidogrel Bisulfate [Clopidogrel 75 mg PO DAILY 02/21/19 02/21/19 75mg Tab] Duloxetine HCl 30 mg PO DAILY 02/21/19 02/21/19 Insulin Aspart [Novolog Flexpen] 8 unit SQ TID 02/21/19 02/21/19 Insulin Detemir [Levemir 35 unit SQ HS 02/21/19 02/21/19 100units/mL 3mL flexpen] Metoclopramide HCl [Reglan 5mg 5 mg PO AC 02/21/19 02/21/19 Tablet] Pantoprazole Sodium [Protonix 40mg 40 mg PO DAILY 02/21/19 02/21/19 tablet] Sennosides/Docusate Sodium 1 each PO BID 02/21/19 02/21/19 [Docusate Sodium-Sennosides Tab] Sulfamethoxazole/Trimethoprim 1 each PO BID 02/21/19 02/21/19 [Bactrim DS tablet] Tramadol HCl [Ultram 50mg 100 mg PO Q6H PRN 02/21/19 02/21/19 tablet*
[2019-07-20 19:33] VITALS: BP 128/82; PULSE 100; RESP 17; TEMP 36.7; O2SAT 100
== END 2019-07-20 19:36 | disposition home or self-care (01) ==
PROVIDERS: Emergency Provider Family Medicine; PCP Family Medicine
DX: S20.212A Contusion of left front wall of thorax, initial encounter (principal); W18.2XXA Fall in (into) shower or empty bathtub, initial encounter; Y92.012 Bathroom of single-family (private) house as the place of occurrence of the external cause; E11.9 Type 2 diabetes mellitus without complications; Z79.4 Long term (current) use of insulin; I10 Essential (primary) hypertension; Z86.73 Personal history of transient ischemic attack (TIA), and cerebral infarction without residual deficits; Z79.899 Other long term (current) drug therapy; Z88.5 Allergy status to narcotic agent; Z88.6 Allergy status to analgesic agent
CPT/HCPCS: 71101; 99283

== ENCOUNTER 2019-08-20 17:04 | Observation (INO) | payer MEDICARE, SELFPAY ==
[2019-08-20 17:05] VITALS: BP 170/108; BP 187/107; PULSE 89; PULSE 92; RESP 16; RESP 18; TEMP 36.6; O2SAT 97; O2SAT 98; BMI 21.9
--- NOTE | 2019-08-20 17:31 | CT_ITS ---
PROCEDURE: CT ABDOMEN PELVIS WO CON CLINICAL INDICATION: abd pain COMPARISON: CT ABDOMEN PELVIS WO CON from 02/22/2019 TECHNIQUE: Axial images obtained with sagittal and coronal reformats. All CT scans at the facility use one or more dose reduction, viz: automated exposure control, ma/kV adjustment per patient size (including targeted exams where dose is matched to indication, i.e. head), or iterative reconstruction technique. FINDINGS: Lung bases are unremarkable. There is a small hiatal hernia. Unenhanced liver, spleen, adrenal glands, pancreas, kidneys, and gallbladder is unremarkable. There is a segment of the descending colon measuring 8 centimeters which displays abnormal mucosal thickening. The soft tissues and the bony structures are remarkable. There is no significant adenopathy. CT scan of the pelvis without contrast: Bladder is distended. Prostate, seminal vesicles, soft issues, and the bony structures are intact. IMPRESSION: Probable mid descending colitis Dictated by: Richard Ireland 08/21/2019 09:29 Electronically signed by Richard Ireland in [place] 08/21/2019 09:29
[2019-08-20 17:39] LABS: Basophils # 0.1 K/mm3 (0-0.2); Basophils % 0.7 % (0.1-2.0); Eosinophils # 0.2 K/mm3 (0.0-0.4); Eosinophils % 3.2 % (0.1-12.0); Hematocrit 46.1 % (42.0-52.0); Hemoglobin 15.6 g/dL (14.1-18.0); Lymphocytes # 1.2 K/mm3 (0.7-4.5); Lymphocytes % 16.6 % (10-50); Mean Corpuscular HGB Conc 33.8 g/dL (31.8-35.4); Mean Corpuscular Hemoglobin 30.7 pg (27.0-31.2); Mean Corpuscular Volume 90.8 fl (80-94); Monocytes # 0.3 K/mm3 (0.1-1.0); Monocytes % 4.6 % (1.7-9.3); Neutrophils # 5.2 K/mm3 (1.8-7.8); Platelet Count 168 K/mm3 (142-424); Red Blood Count 5.08 M/mm3 (4.60-6.20); Red Cell Distribution Width 13.6 % (11.5-17.5); White Blood Count 6.9 K/mm3 (4.8-10.8)
--- NOTE | 2019-08-20 17:44 | PC.NURSE ---
PT TO RAD
[2019-08-20 17:56] LABS: Alanine Aminotransferase 55 U/L (12-78); Albumin Level 4.1 g/dl (3.5-5.0); Albumin/Globulin Ratio 1.5 (1.1-1.8); Alkaline Phosphatase 106 U/L (38-126); Amylase 55 U/L (30-110); Anion Gap 12.1 mEq/L (5-15); Aspartate Amino Transferase 51 U/L (17-59); Bilirubin,Total 0.4 mg/dl (0.2-1.3); Blood Urea Nitrogen 12 mg/dl (9-20); Calcium 9.3 mg/dl (8.4-10.2); Carbon Dioxide 32 mmol/L (22.0-30.0); Chloride 97 mmol/L (98-107); Creatinine Clearance Estimated 166 mL/min (50-200); Estimated Glomerular Filt Rate 141 ml/min (>60); GFR (African American) 171 ML/MIN (>60); Globulin 2.8 g/dL (1.3-3.2); Glucose 303 mg/dl (74-100); Lipase 111 U/L (23-300); Potassium 4.1 mmoL/L (3.5-5.1); Sodium 137 mmol/L (136-145); Total Protein,Serum 6.9 g/dl (6.3-8.2)
--- NOTE | 2019-08-20 18:36 | PC.NURSE ---
paged dr vivas
--- NOTE | 2019-08-20 19:01 | HMH.EDABDPAI ---
ED Disposition Clinical Impression: Colitis, Intractable abdominal pain, Strain of neck muscle Disposition: Admitted as Observation Condition on Discharge: Good Instructions: DI for Acute Abdomen Referrals: Maged Aburto MD [Primary Care Provider] - - Critical Care Critical Care Time: No Attestation: On 08/20/19, the high probability of a clinically significant, sudden or life threatening deterioration of the following system(s) required my full and direct attention, intervention and personal management. The time I documented below is in addition to time spent performing reported procedures but includes the following listed in this critical care notation. Medical Decision Making - Medical Records Medical records reviewed: Yes: I reviewed the patient's medical records. - [place] Inquiry Pt receiving controlled substance: No Vital Signs: 08/20/19 17:05 Temperature 98 F Temperature Source Oral Pulse Rate [Left Radial] 92 H Respiratory Rate 18 Blood Pressure [Right Arm] 170/108 H Blood Pressure Mean [Right Arm] 128 Blood Pressure Position [Right Arm] Supine 02 Sat by Pulse Oximetry 97 Oxygen Delivery Method Room Air - Lab Data Lab results reviewed: Yes: I reviewed the patient's lab results. Lab Results 08/20/19 17:14: WBC 6.9, RBC 5.08, Hgb 15.6, Hct 46.1, MCV 90.8, MCH 30.7, MCHC 33.8, RDW 13.6, Plt Count 168, MPV 8.0, Neut % (Auto) 75.0, Lymph % (Auto) 16.6, Humphreys % (Auto) 4.6, Eos % (Auto) 3.2, Baso % (Auto) 0.7, Neut # (Auto) 5.2, Lymph # (Auto) 1.2, Humphreys # (Auto) 0.3, Eos # (Auto) 0.2, Baso # (Auto) 0.1 08/20/19 17:14: Sodium 137, Potassium 4.1, Chloride 97 L, Carbon Dioxide 32 H, Anion Gap 12.1, BUN 12, Creatinine 0.60 L, Estimated Creat Clear 166, Estimated GFR 141, Est GFR ( Amer) 171, Glucose 303 H, Calcium 9.3, Total Bilirubin 0.4, AST 51, ALT 55, Alkaline Phosphatase 106, Total Protein 6.9, Albumin 4.1, Globulin 2.8, Albumin/Globulin Ratio 1.5, Amylase 55, Lipase 111 Result diagrams: 08/20/19 17:14 08/20/19 17:14 Orders (Tests/Meds): ORDERS Category Date Time Status CT abdomen pelvis wo con Stat Cat Scan 08/20/19 17:31 Taken Urinalysis and Microscopic Stat Lab 08/20/19 17:16 Ordered - CT Data CT Scan: Abdomen, Pelvis Time Received: 19:[address] Reviewed: Yes: I have viewed the radiologist's interpretation Preliminary Findings: Abnormal (Gallbladder wall thickening, inflammation of the transverse and descending colon significant for mild to moderate colitis) Medical Decision Narrative: Given the fact patient had intractable nausea and vomiting when he presented and abdominal pain secondary to this illness even though laboratory markers were more normal we will go ahead and get this patient in for observation for IV fluid therapy antiemetics pain control and antibiotics. I spoke to Dr. Aburto for admission for this patient and he also agreed with this assessment and plan and will cover the patient also on high insulin sliding scale. Abdominal Pain HPI - General Chief Complaint: Abdominal Pain Stated Complaint: Abd pain Time Seen by Provider: 08/20/19 19:00 Mode of Arrival: Ambulatory Source of Information: Patient Limitations: Physical Limitations Description of Symptoms (Recalled from ER Triage Doc. by RN): to ed pre pvt car with c/o generalized abd pain denies any nausea, vomiting, fever, chills. caregiver states last BM today. pt with hx of cva - History of Present Illness HPI narrative: A pleasant 54-year-old gentleman presents here to the ED complaining of progressively worsening abdominal pain. He really cannot isolate anywhere on his abdomen with the specific pain is more of a generalized pain. He states at its crescendo it is a very sharp pressure-like sensation and rates this pain 8 out of 10. Exacerbating factors do include increasing intra-abdominal pressure and movement alleviating factors do include vomiting and flexion at the waist. Patient also states
[2019-08-20 19:26] VITALS: BP 169/102; PULSE 85; RESP 18; TEMP 36.7; O2SAT 99
[2019-08-20 19:44] VITALS: BP 154/101; PULSE 91; RESP 17; TEMP 36.7; O2SAT 99; BMI 21.3
--- NOTE | 2019-08-20 20:02 | PC.NURSE ---
MD specified he wanted the antibiotics to be given on the floor after the patient went up. Only pain medicine to be given in ED.
[2019-08-20 20:26] LABS: POC Glucose,Bedside 252 (70-110)
[2019-08-20 20:30] VITALS: O2SAT 99
[2019-08-20 21:06] VITALS: BP 150/91
--- NOTE | 2019-08-21 03:21 | PC.NURSE ---
A&OX4. PT HAS TOLERATED ROOM AIR WELL THROUGHOUT SHIFT. PERIODS OF INCREASED RESPIRATIONS. PT HAS HISTORY OF ANXIETY. DR WAS CALLED AND HE STATED TO MONITOR PT THROUGHOUT NIGHT BUT IT IS PROBABLY DUE TO ANIXETY AND ILLNESS. SINCE ADMISSION, PT IS BACK TO REGULAR AND UNLABORED RESPIRATIONS. DIMINISHED LUNG SOUNDS NOTED THROUGHOUT. NO COUGH NOTED. HEART RATE REGULAR. +2 PULSES NOTED THROUGHOUT. +1 PITTING EDEMA NOTED TO LLE. NONPITTING EDEMA NOTED TO RLE. WEAKNESS NOTED TO LEFT SIDE R/T HISTORY OF STROKE. PT HAS HAD PAIN THROUGHOUT SHIFT IN BACK AND ABDOMEN. DILAUDID ADMINISTERED PER APR AND ON REASSESSMENT, PT WAS RESTING W EYES CLOSED. PT VOIDS PER URINAL. PT HAS HAD NO URINE OUTPUT THUS FAR. WILL CONTINUE TO MONITOR. NS INFUSING AT 125ML/HR. PT RECEIVED LEVAQUIN PER APR. CALLED DOCTOR TO ENSURE ADMINSTRATION WAS OK AND HE STATED IT WAS. PT TOLERATED WELL. TRAZODONE 150MG AND DIAZEPAM 10MG WERE ORDERED FOR A ONE TIME DOSE BY THE DOCTOR REQUESTED BY THE PT FOR ANXIETY AND SLEEP. PT TOLERATED WELL. PT HAS HAD NO COMPLAINTS OF NAUSEA THROUGHOUT SHIFT. BED IN LOWEST POSITION. CALL LIGHT WITHIN REACH. VSS. NO CONCERNS AT THIS TIME. WILL CONTINUE TO MONITOR.
[2019-08-21 04:00] VITALS: BP 135/77; PULSE 79; RESP 17; TEMP 36.7; O2SAT 95
[2019-08-21 05:57] LABS: Basophils # 0.1 K/mm3 (0-0.2); Eosinophils # 0.2 K/mm3 (0.0-0.4); Eosinophils % 4.5 % (0.1-12.0); Hematocrit 44.2 % (42.0-52.0); Hemoglobin 14.7 g/dL (14.1-18.0); Lymphocytes # 1.4 K/mm3 (0.7-4.5); Lymphocytes % 29.2 % (10-50); Mean Corpuscular HGB Conc 33.3 g/dL (31.8-35.4); Mean Corpuscular Hemoglobin 30.8 pg (27.0-31.2); Mean Corpuscular Volume 92.5 fl (80-94); Mean Platelet Volume 8.3 fl (7.4-10.4); Monocytes # 0.3 K/mm3 (0.1-1.0); Monocytes % 5.3 % (1.7-9.3); Neutrophils # 2.8 K/mm3 (1.8-7.8); Platelet Count 148 K/mm3 (142-424); Red Blood Count 4.78 M/mm3 (4.60-6.20); Red Cell Distribution Width 13.5 % (11.5-17.5); White Blood Count 4.7 K/mm3 (4.8-10.8)
[2019-08-21 06:01] LABS: Chloride 97 mmol/L (98-107); Potassium 3.7 mmoL/L (3.5-5.1); Sodium 137 mmol/L (136-145)
[2019-08-21 06:04] LABS: Alanine Aminotransferase 34 U/L (12-78); Albumin Level 3.3 g/dl (3.5-5.0); Albumin/Globulin Ratio 1.4 (1.1-1.8); Alkaline Phosphatase 70 U/L (38-126); Anion Gap 8.7 mEq/L (5-15); Aspartate Amino Transferase 26 U/L (17-59); Bilirubin,Total 0.4 mg/dl (0.2-1.3); Blood Urea Nitrogen 13 mg/dl (9-20); Carbon Dioxide 35 mmol/L (22.0-30.0); Creatinine Clearance Estimated 139 mL/min (50-200); Estimated Glomerular Filt Rate 118 ml/min (>60); GFR (African American) 143 ML/MIN (>60); Globulin 2.4 g/dL (1.3-3.2); Total Protein,Serum 5.7 g/dl (6.3-8.2)
[2019-08-21 06:05] LABS: Calcium 8.5 mg/dl (8.4-10.2); Glucose 125 mg/dl (74-100)
[2019-08-21 06:19] LABS: POC Glucose,Bedside 120 (70-110)
--- NOTE | 2019-08-21 06:52 | HMH.HP ---
*Admission Date: 08/20/19 *Chief complaint: Abdominal pain *History of present illness: 54-year-old male with history of prior stroke with chronic left hemiplegia presented to the emergency department with 3 to 4 days of abdominal pain. Patient reports pain is rather diffuse. Pain would increase in intensity at times throughout the day but seem to be unaffected by eating, urinating, having a bowel movement. Patient denies passing any blood. Patient denies fevers and chills. Patient presented to the emergency department for evaluation and seem to be in quite severe pain. Work-up revealed unremarkable labs except for hyperglycemia but a CT scan has showed transverse and descending colon colitis. Patient was admitted for pain control, IV fluids, IV antibiotics. Review of systems is positive for nausea, chronic constipation, recurrent UTIs Review of systems is negative for vomiting [facility] History I have reviewed the patient's past medical history: Yes Medical History: Reports:: Cerebrovascular Accident (Cerebrovascular accidents has been treated with is no), Diabetes Mellitus Type 2, Hypertension, MRSA, Urinary Tract Infection (Since the urinary tract infections) Denies:: Cancer, Diabetes Mellitus Type 1, Internal Pacemaker *Have you ever received a pneumonia vaccine?: Yes *Have you received a flu vaccine this season?: No Other Medical History: Reports: Arthritis Other Surgeries: No: Pacemaker Amputation: No Fractures: No - *Social History Educational Level: Attended College Smoking Status: Current every day smoker Tobacco Type: cigarettes # Packs/Day (cigarettes): 1 Alcohol Intake: never Alcohol Intake Frequency:: 0-2 drinks per day Substance Use Type: denies use *Occupational Status:: disabled Housing: apartment Household Members: spouse, children *Travel in the last 8 weeks: None Family Hx:: Cancer, Coronary Artery Disease, Diabetes, Heart Attack, Hyperlipidemia, Hypertension, Stroke Review of Systems - Review of Systems Review of systems:: pertinent systems reviewed and negative unless documented below Meds Home Medications Medication Instructions Recorded Confirmed Type Aspirin [Aspirin 81mg EC Tab] 81 mg PO DAILY 02/21/19 08/20/19 History Baclofen [Lioresal 10mg tablet] 20 mg PO TID 02/21/19 08/20/19 History Clopidogrel Bisulfate [Clopidogrel 75 mg PO DAILY 02/21/19 08/20/19 History 75mg Tab] Duloxetine HCl 90 mg PO DAILY 02/21/19 08/20/19 History Insulin Aspart [Novolog Flexpen] 8 unit SQ TID PRN 02/21/19 08/20/19 History Insulin Detemir [Levemir 35 unit SQ HS 02/21/19 08/20/19 History 100units/mL 3mL flexpen] Metoclopramide HCl [Reglan 5mg 10 mg PO AC 02/21/19 08/20/19 History Tablet] Pantoprazole Sodium [Protonix 40mg 40 mg PO DAILY 02/21/19 08/20/19 History tablet] Trazodone HCl 150 mg PO HS 02/21/19 08/20/19 History Cranberry Fruit Extract [Cran-Max] 500 mg PO DAILY 08/20/19 08/20/19 History Diclofenac Sodium [Diclofenac Sod 1 applicatio TP QID 08/20/19 08/20/19 History 100gm Topical Gel] Lactobacillus Rhamnosus GG 1 each PO DAILY 08/20/19 08/20/19 History [Culturelle] Ondansetron [Zofran 4mg ODT] 4 mg PO BID PRN 08/20/19 08/20/19 History diazePAM [Valium] 10 mg PO BID PRN 08/20/19 08/20/19 History Allergies Allergy/AdvReac Type Severity Reaction Status Date / Time levofloxacin [From LEVAQUIN] Allergy Unknown Verified 08/20/19 21:18 metformin [METFORMIN] Allergy Unknown Verified 08/20/19 21:18 NSAIDS (Non-Steroidal Allergy Unknown UNKNOWN Verified 08/20/19 21:18 Anti-Inflamma [NSAIDS (NON-STEROIDAL ANTI-INFLAMMA] morphine Allergy Verified 08/20/19 21:18 Exam Vital signs and Labs for Last 24 Hours: Temp Pulse Resp BP Pulse Ox 98.0 F 79 17 135/77 95 08/21/19 04:00 08/21/19 04:00 08/21/19 04:00 08/21/19 04:00 08/21/19 04:00 Laboratory Results - last 24 hr 08/20/19 17:14: WBC 6.9, RBC 5.08, Hgb 15.6, Hct 46.1, MCV 90.8, MCH 30
--- NOTE | 2019-08-21 07:03 | P.CONPHA_ITS ---
[facility] Pharmacy VTE Monitoring - Patient Demographics Admission date: 08/20/19 Report Date: 08/21/19 Time: 07:03 Allergies/Adverse Reactions: Patient Allergies levofloxacin [From LEVAQUIN] Allergy (Unknown, Verified 08/20/19 21:18) metformin [METFORMIN] Allergy (Unknown, Verified 08/20/19 21:18) NSAIDS (Non-Steroidal Anti-Inflamma [NSAIDS (NON-STEROIDAL ANTI-INFLAMMA] Allergy (Unknown, Verified 08/20/19 21:18) UNKNOWN morphine Allergy (Verified 08/20/19 21:18) Height: 1.93 m Weight: 79.605 kg Patient Problems: Current Active Problems Strain of neck muscle (Acute) Colitis (Acute) Intractable abdominal pain (Acute) History of stroke (Acute) - VTE Risk Labs: VTE Related Lab Results Hgb 14.7 g/dL (14.1-18.0) 08/21/19 05:44 Hct 44.2 % (42.0-52.0) 08/21/19 05:44 Plt Count 148 K/mm3 (142-424) 08/21/19 05:44 BUN 13 mg/dl (9-20) 08/21/19 05:44 Creatinine 0.70 mg/dl (0.66-1.25) 08/21/19 05:44 Estimated Creat Clear 139 mL/min (50-200) 08/21/19 05:44 Was VTE Risk Assessment Performed: Yes VTE Score: 4 VTE Risk Level: Low Risk - Prophylaxis VTE Prophylaxis Ordered?: Yes Types of VTE Prophylaxis: TEDS Knee High Location of Applied Device: Bilateral Lower Extremeties - VTE Diagnosis Confirmed Treatment or plan recommended: Continue Current Treatment
[2019-08-21 07:35] VITALS: BP 109/65; PULSE 79; RESP 16; TEMP 36.4; O2SAT 93
[2019-08-21 11:02] LABS: POC Glucose,Bedside 224 (70-110)
[2019-08-21 15:38] VITALS: BP 160/96; PULSE 91; RESP 20; TEMP 36.4; O2SAT 98
[2019-08-21 16:26] LABS: POC Glucose,Bedside 144 (70-110)
--- NOTE | 2019-08-21 16:46 | PC.NURSE ---
Pt stable this shift with minimal right sided abd pain. Right abd is tender upon palpation. Required 2 doses of prn Percocet 5/325. HTN noted. SBP 160 @ 1530. FSBS @ 1100 was 224 which required coverage of 7 units SSI. At 1630, FSBS was 144 requiring no intervention. He is tolerating a full liquid diet. Has voided x3 this shift using urinal. No other issues noted.
[2019-08-21 19:29] VITALS: BP 176/110; PULSE 98; RESP 16; TEMP 36.4; O2SAT 97
[2019-08-21 19:48] VITALS: O2SAT 97
[2019-08-21 19:48] LABS: POC Glucose,Bedside 235 (70-110)
--- NOTE | 2019-08-22 03:37 | PC.NURSE ---
He has been resting in bed. His was here earlier in the shift. He received PRN medication for abdominal pain. No BM this shift. He continues on RA.
[2019-08-22 04:00] VITALS: BP 178/102; PULSE 91; RESP 16; TEMP 36.3; O2SAT 97
--- NOTE | 2019-08-22 04:33 | PC.NURSE ---
Primary RN S. Call notified of elevated manual BP of 178/102.
[2019-08-22 04:50] VITALS: BP 180/96
[2019-08-22 05:00] VITALS: BMI 22.8
[2019-08-22 05:07] LABS: POC Glucose,Bedside 109 (70-110)
[2019-08-22 06:30] VITALS: BP 164/97; PULSE 86
[2019-08-22 08:00] VITALS: BP 120/74; PULSE 99; RESP 17; TEMP 36.6; O2SAT 95
--- NOTE | 2019-08-22 08:10 | HMH.DCSUM ---
General - General Admission date:: 08/20/19 Discharge date: 08/22/19 HPI HPI: 54-year-old male with history of prior stroke with chronic left hemiplegia presented to the emergency department with 3 to 4 days of abdominal pain. Patient reports pain is rather diffuse. Pain would increase in intensity at times throughout the day but seem to be unaffected by eating, urinating, having a bowel movement. Patient denies passing any blood. Patient denies fevers and chills. Patient presented to the emergency department for evaluation and seem to be in quite severe pain. Work-up revealed unremarkable labs except for hyperglycemia but a CT scan has showed transverse and descending colon colitis. Patient was admitted for pain control, IV fluids, IV antibiotics. Review of systems is positive for nausea, chronic constipation, recurrent UTIs Review of systems is negative for vomiting Hospital Course Hospital Course: Patient was admitted for treatment of colitis with Levaquin and Flagyl. By the following morning his symptoms had improved. Diet was advanced to full liquids which he tolerated without incident. On the evening of August 20 diet was advanced further to a low residue diet. Patient did have mild increase in pain after eating supper. He did well overnight and did not require any extra doses of pain medication. The following morning (August 21) patient tolerated his low residue diet without increase in pain. Patient had not had a bowel movement but does suffer from chronic constipation. He did have signs of bowel function. Labs remained stable. Patient was discharged home. He will continue a course of Flagyl and Levaquin. Follow-up in the office in 1 week. Patient's blood pressure was elevated during hospitalization which is generally the opposite of his blood pressures at home. This was attributed to anxiety about hospitalization. His will continue to monitor his blood pressures. Patient has diabetes and was covered with sliding scale insulin during his hospitalization. Objective Vital signs: Temp Pulse Resp BP Pulse Ox 97.4 F L 86 16 164/97 H 97 08/22/19 04:00 08/22/19 06:30 08/22/19 04:00 08/22/19 06:30 08/22/19 04:00 no acute distress - *Routine Respiratory Exam Present: CTA bilaterally - *Routine Cardiovascular Exam Present: RRR - *Routine Abdominal Exam Present: soft, normoactive bowel sounds. 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 Status: Chronic (3) Type 2 diabetes mellitus, with long-term current use of insulin Status: Chronic Discharge Plan - Patient Discharge Instructions ACTIVITY: Continue current activity DIET: continue same diet Patient Instructions: Strokes (Alternative Therapy), DI for Abdominal Pain-Adult, DI for Colitis - Follow up Plan Follow up with: Maged Aburto MD [Primary Care Provider] - 1 week Disposition: Home, Self-Senior Living Medications: Home Medications Medication Instructions Recorded Confirmed Type Aspirin [Aspirin 81mg EC Tab] 81 mg PO DAILY 02/21/19 08/21/19 History Baclofen [Lioresal 10mg tablet] 20 mg PO TID 02/21/19 08/20/19 History Clopidogrel Bisulfate [Clopidogrel 75 mg PO DAILY 02/21/19 08/21/19 History 75mg Tab] Duloxetine HCl 30 mg PO DAILY 02/21/19 08/21/19 History Insulin Aspart [Novolog Flexpen] 8 unit SQ TID PRN 02/21/19 08/20/19 History Insulin Detemir [Levemir 35 unit SQ HS 02/21/19 08/20/19 History 100units/mL 3mL flexpen] Pantoprazole Sodium [Protonix 40mg 40 mg PO DAILY 02/21/19 08/21/19 History tablet] Trazodone HC
--- NOTE | 2019-08-22 09:18 | HMH.PHAINT ---
DISCHARGE COUNSELING COMPLETED.
== END 2019-08-22 09:15 | disposition home or self-care (01) ==
LOC: ER 19:06 → 2ND 21:20
PROVIDERS: Admitting Provider Family Medicine; Emergency Provider Family Medicine; PCP Family Medicine; Visit Provider Family Medicine
DX: K52.9 Noninfective gastroenteritis and colitis, unspecified (principal); E11.9 Type 2 diabetes mellitus without complications; I10 Essential (primary) hypertension; Z79.4 Long term (current) use of insulin; Z79.82 Long term (current) use of aspirin; Z79.02 Long term (current) use of antithrombotics/antiplatelets; Z88.8 Allergy status to other drugs, medicaments and biological substances; Z72.0 Tobacco use; I69.354 Hemiplegia and hemiparesis following cerebral infarction affecting left non-dominant side
CPT/HCPCS: 36415; 74176; 80053; 82150; 82962; 83690; 85025; 96374; 96375; 99283; G0378; J1956

== ENCOUNTER 2019-10-11 09:15 | Emergency (ER) | payer MEDICARE, MEDICAID, SELFPAY ==
[2019-10-11] VITALS (15 sets, daily range): BP systolic 141–208; BP diastolic 81–126; PULSE 97–110; RESP 16–18; TEMP 37; O2SAT 96–98; BMI 25.0
--- NOTE | 2019-10-11 09:20 | PC.NURSE ---
BLOOD SUGAR 238
--- NOTE | 2019-10-11 09:20 | ECG_ITS ---
APPROVED REPORT Exam: Resting ECG HR:105 bpm ECG Measurements Heart Rate 105 AXES AL 134 P 48 QRSd 128 QRS -77 QT 370 T 58 QTc 489 <Conclusion> Sinus tachycardia Left axis deviation Right bundle branch block Abnormal ECG Electronically signed by : Maged Bermudez, 10/12/2019 07:53:22
--- NOTE | 2019-10-11 09:28 | HMH.EDGENADL ---
ED Disposition Clinical Impression: Hypertensive emergency Altered mental status Qualifiers: Altered mental status type: disorientation Qualified Code(s): R41.0 - Disorientation, unspecified Disposition: Xfer Short-Term Hosp Condition on Discharge: Serious Instructions: DI for Altered Mental Status Referrals: Maged Aburto MD [Primary Care Provider] - Forms: Transfer Record - ED - Critical Care Critical Care Time: Yes Attestation: On 10/11/19, the high probability of a clinically significant, sudden or life threatening deterioration of the following system(s) required my full and direct attention, intervention and personal management. The time I documented below is in addition to time spent performing reported procedures but includes the following listed in this critical care notation. Total Critical Care Time: 60 Vital system(s) involved:: Circulatory Failure, Central Nervous System My critical care processes included: Assessment & monitoring of V/S, Initial and Re-exams, Data Review/Interpretation, Coordinating Care, Medication Orders and management, Documentation Medical Decision Making - [place] Inquiry Pt receiving controlled substance: No Vital Signs: 10/11/19 09:15 10/11/19 10:30 10/11/19 10:42 Temperature 98.6 F Temperature Source Rectal Pulse Rate [Left Radial] 104 H 103 H 105 H Respiratory Rate 18 Blood Pressure [Right Arm] 184/114 H 208/120 H 203/113 H Blood Pressure Mean [Right Arm] 137 149 143 Blood Pressure Source [Right Arm] Blood Pressure Position [Right Arm] Sitting Sitting 02 Sat by Pulse Oximetry 98 Oxygen Delivery Method Room Air 10/11/19 10:48 10/11/19 10:50 10/11/19 11:01 Temperature Temperature Source Pulse Rate [Left Radial] 105 H 102 H 104 H Respiratory Rate Blood Pressure [Right Arm] 183/120 H 183/120 H 191/121 H Blood Pressure Mean [Right Arm] 141 141 144 Blood Pressure Source [Right Arm] Automatic Cuff Automatic Cuff Blood Pressure Position [Right Arm] Sitting Sitting Sitting 02 Sat by Pulse Oximetry 97 97 Oxygen Delivery Method Room Air Room Air 10/11/19 11:16 10/11/19 11:20 10/11/19 11:25 Temperature Temperature Source Pulse Rate [Left Radial] 107 H 108 H 110 H Respiratory Rate Blood Pressure [Right Arm] 162/81 H 144/92 H 191/126 H Blood Pressure Mean [Right Arm] 108 109 147 Blood Pressure Source [Right Arm] Automatic Cuff Automatic Cuff Automatic Cuff Blood Pressure Position [Right Arm] Sitting Sitting Sitting 02 Sat by Pulse Oximetry 97 96 Oxygen Delivery Method Room Air Room Air 10/11/19 11:28 10/11/19 11:30 10/11/19 11:37 Temperature Temperature Source Pulse Rate [Left Radial] 105 H 106 H Respiratory Rate Blood Pressure [Right Arm] 144/95 H 144/95 H 154/96 H Blood Pressure Mean [Right Arm] 111 111 115 Blood Pressure Source [Right Arm] Automatic Cuff Blood Pressure Position [Right Arm] Sitting Sitting 02 Sat by Pulse Oximetry 96 Oxygen Delivery Method Room Air 10/11/19 11:42 10/11/19 12:17 Temperature Temperature Source Pulse Rate [Left Radial] 105 H 97 H Respiratory Rate Blood Pressure [Right Arm] 141/96 H 160/94 H Blood Pressure Mean [Right Arm] 111 116 Blood Pressure Source [Right Arm] Blood Pressure Position [Right Arm] 02 Sat by Pulse Oximetry Oxygen Delivery Method - Lab Data Lab Results 10/11/19 09:22: WBC 7.8, RBC 5.24, Hgb 16.1, Hct 46.5, MCV 88.8, MCH 30.6, MCHC 34.5, RDW 14.1, Plt Count 168, MPV 7.6, Neut % (Auto) 77.0, Lymph % (Auto) 16.7, [place] % (Auto) 4.2, Eos % (Auto) 1.5, Baso % (Auto) 0.6, Neut # (Auto) 6.0, Lymph # (Auto) 1.3, [place] # (Auto) 0.3, Eos # (Auto) 0.1, Baso # (Auto) 0.0 10/11/19 09:22: Sodium 140, Potassium 4.2, Chloride 101, Carbon Dioxide 35 H, Anion Gap 8.2, BUN 14, Creatinine 0.70, Estimated Creat Clear 154, Estimated GFR 118, Est GFR ( Amer) 143, Glucose 237 H, Calcium 9.7, Total Bilirubin 0.4, AST 33, ALT 40, Alkaline Phosphatase 95,
--- NOTE | 2019-10-11 09:40 | CT_ITS ---
PROCEDURE: CT HEAD/BRAIN WO CON CLINICAL INDICATION: altered mental status Altered mental status, altered level of consciousness, confusion, disorientation History of stroke and right carotid stent COMPARISON: CT CT HEAD/BRAIN WO CON from 03/16/2019 TECHNIQUE: Axial images obtained. All CT scans at the facility use one or more dose reduction, viz: automated exposure control, ma/kV adjustment per patient size (including targeted exams where dose is matched to indication, i.e. head), or iterative reconstruction technique. FINDINGS: No midline shift, mass effect, intracranial hemorrhage, hydrocephalus, or extra-axial fluid collection is evident. the calvarium has an unremarkable appearance. No mastoid effusion. Mild mucosal thickening involves the ethmoid sinuses. The small osteoma is present in the mid aspect of the left ethmoid sinus. IMPRESSION: No acute intracranial finding Dictated b Srikanth Shepherd MD 10/11/2019 10:44 Srikanth Shepherd MD in [facility] 10/11/2019 10:44
--- NOTE | 2019-10-11 09:47 | XR_ITS ---
PROCEDURE: XR CHEST PORTABLE CLINICAL HISTORY: AMS Altered mental status COMPARISON: CT CHWO CT CHEST W/O CONTRAST from 07/05/2013 CR XR CHEST PORTABLE from 10/17/2018 CR XR CHEST PORTABLE from 03/16/2019 CR XR RIBS LT MIN 3V W CXR1V from 07/20/2019 FINDINGS: The cardiomediastinal silhouette and pulmonary vascularity are within normal limits. The lungs are clear without infiltrates, suspicious nodules, or pleural effusions. No acute bony abnormalities. IMPRESSION: No acute findings. Dictated b Srikanth Shepherd MD 10/11/2019 11:04 Srikanth Shepherd MD in [facility] 10/11/2019 11:04
[2019-10-11 09:50] LABS: Chloride 101 mmol/L (98-107)
[2019-10-11 09:51] LABS: Basophils % 0.6 % (0.1-2.0); Eosinophils # 0.1 K/mm3 (0.0-0.4); Eosinophils % 1.5 % (0.1-12.0); Hematocrit 46.5 % (42.0-52.0); Hemoglobin 16.1 g/dL (14.1-18.0); Lymphocytes # 1.3 K/mm3 (0.7-4.5); Lymphocytes % 16.7 % (10-50); Mean Corpuscular HGB Conc 34.5 g/dL (31.8-35.4); Mean Corpuscular Hemoglobin 30.6 pg (27.0-31.2); Mean Corpuscular Volume 88.8 fl (80-94); Mean Platelet Volume 7.6 fl (7.4-10.4); Monocytes # 0.3 K/mm3 (0.1-1.0); Monocytes % 4.2 % (1.7-9.3); Platelet Count 168 K/mm3 (142-424); Potassium 4.2 mmoL/L (3.5-5.1); Red Blood Count 5.24 M/mm3 (4.60-6.20); Red Cell Distribution Width 14.1 % (11.5-17.5); Sodium 140 mmol/L (136-145); White Blood Count 7.8 K/mm3 (4.8-10.8)
[2019-10-11 09:53] LABS: Alanine Aminotransferase 40 U/L (12-78); Aspartate Amino Transferase 33 U/L (17-59); Blood Urea Nitrogen 14 mg/dl (9-20); Creatinine Clearance Estimated 154 mL/min (50-200); Estimated Glomerular Filt Rate 118 ml/min (>60); GFR (African American) 143 ML/MIN (>60)
--- NOTE | 2019-10-11 09:53 | CT_ITS ---
Procedure: CT ANGIO NECK CT ANGIO HEAD CLINICAL HISTORY: AMS Altered mental status, altered level of consciousness, confusion, disorientation History of stroke with carotid stent. Evaluate patency COMPARISON: No exams were available for comparison TECHNIQUE: IV Contrast: 100ml Optiray 350 Axial images obtained with sagittal and coronal reformats. All CT scans at the facility use one or more dose reduction, viz: automated exposure control, ma/kV adjustment per patient size (including targeted exams where dose is matched to indication, i.e. head), or iterative reconstruction technique. FINDINGS: Aortic arch and great vessels: Mild stenosis of the ostium of the right subclavian artery of 25 percent. Mild stenosis ostium of left subclavian artery 33 percent. Dominant right vertebral artery. Small left vertebral artery. Right carotid: The common carotid is unremarkable. There is mild amount of soft plaque at the ostium of the right internal carotid artery without significant stenosis. There is a stent in place within distal aspect of the the right internal carotid artery nearly 5 cm cephalad to the carotid bifurcation. The stent does appear patent. The stent is somewhat angulated medially forming a kink within the carotid artery at the level of the stent. The internal density of the stent appears less than that of the vessel outside of the stent however, this measures nearly the same Hounsfield units approximately 320-340 Hounsfield units. 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 The left common and internal carotid artery have an unremarkable appearance. No stenotic lesions are evident. CT a of the head: Mild atheromatous changes of the carotids at the cavernous portions on both sides. No aneurysm or major intracranial occlusive process. The vertebral basilar system has an unremarkable appearance No evidence of sinus thrombosis. No enhancing lesions midline shift or mass effect. The the. IMPRESSION: 1. No significant carotid stenosis evident. Please see above for detail. 2. Right internal carotid artery stent appears intact. The stent is somewhat angulated medially causing a kink in the vessel proximally at the vessel stent junction. 3. 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 Please correlate with pre and postoperative angiographic findings. 4. No aneurysm, AVM or major intracranial occlusive process. Srikanth Chand MD 10/11/2019 11:03 Srikanth Shepherd MD in [place] 10/11/2019 11:03
[2019-10-11 09:54] LABS: Albumin Level 3.8 g/dl (3.5-5.0); Albumin/Globulin Ratio 1.3 (1.1-1.8); Alkaline Phosphatase 95 U/L (38-126); Anion Gap 8.2 mEq/L (5-15); Bilirubin,Total 0.4 mg/dl (0.2-1.3); Calcium 9.7 mg/dl (8.4-10.2); Carbon Dioxide 35 mmol/L (22.0-30.0); Globulin 2.9 g/dL (1.3-3.2); Glucose 237 mg/dl (74-100); Total Protein,Serum 6.7 g/dl (6.3-8.2)
[2019-10-11 09:54] LABS: Microscopic, Urine URINE MICROSCOPIC (MICROSCOPIC)
[2019-10-11 09:57] LABS: Appearance,Urine CLEAR (Clear); Bilirubin,Urine Negative (Negative); Blood, Urine 2+ (Negative); Color,Urine YELLOW (Yellow); Glucose,Urine (UA) 2+ (Negative); Ketones,Urine Negative (Negative); Leukocyte Esterase,Urine Negative (Negative); Nitrate,Urine Negative (Negative); Protein,Urine TRACE (Negative)
[2019-10-11 10:07] LABS: Lactic Acid 1.2 mmol/L (0.7-2.1); Troponin I 0.01 ng/ml (0.00-0.034)
[2019-10-11 10:08] LABS: Amphetamine/Metha Screen,Urine Negative ng/ml (<1000); Benzodiazepines Screen,Urine Positive ng/ml (<200)
[2019-10-11 10:09] LABS: Barbiturates Screen,Urine Negative ng/ml (<200)
[2019-10-11 10:10] LABS: Cannabinoid Screen,Urine Negative ng/ml (<50); Cocaine Screen,Urine Negative ng/ml (<300)
[2019-10-11 10:11] LABS: Methadone Screen,Urine Negative ng/ml (<300); Opiate Screen,Urine Positive ng/ml (<300)
[2019-10-11 10:12] LABS: Phencyclidine Screen,Urine Negative ng/ml (<25)
[2019-10-11 10:14] LABS: Bacteria,Urine 2+ /lpf
--- NOTE | 2019-10-11 10:25 | PC.NURSE ---
AT BEDSIDE STATES PT WOKE UP THIS AM AT 8-830 CONFUSED C/O MIGRAINE H/A AND BECAME MORE CONFUSED TIME WENT ON . STATES SHE GAVE PT POOJA AND AN EXCEDRIN THIS AM
--- NOTE | 2019-10-11 11:00 | PC.NURSE ---
PT CONTINUES TO BE CONFUSED. PT WILL NOT ANSWER QUESTIONS OR FOLLOW COMMANDS.
--- NOTE | 2019-10-11 11:13 | PC.NURSE ---
Pt's comes to nurses station and states that pt now does not know who she is. Dr North at bedside at this time.
--- NOTE | 2019-10-11 11:14 | PC.NURSE ---
Calling Dr Aburto office at this time.
--- NOTE | 2019-10-11 11:15 | PC.NURSE ---
UPSET, YELLING AT DR MARCUM STATING THAT HE IS GOING [place] AND YOU ARE DOING NOTHING ABOUT IT
--- NOTE | 2019-10-11 11:15 | PC.NURSE ---
Pt's is upset and yelling at Dr North, she demands pt be transferred right now Calling [facility] at this time.
--- NOTE | 2019-10-11 11:18 | PC.NURSE ---
CARDENE DRIP STOPPED DUE TO BLOOD PRESSURE OF 144/92
--- NOTE | 2019-10-11 11:55 | PC.NURSE ---
[employer] accepted flight and advised 12 min ETA plus lift off
--- NOTE | 2019-10-11 12:07 | PC.NURSE ---
[employer] called and advised they would be here in 7 minutes
--- NOTE | 2019-10-11 12:19 | PC.NURSE ---
UPDATED ON PLAN OF CARE
--- NOTE | 2019-10-11 12:21 | PC.NURSE ---
Flight crew at bedside
--- NOTE | 2019-10-11 12:23 | PC.NURSE ---
REPORT CALLED TO [facility]
== END 2019-10-11 12:35 | disposition short-term general hospital (02) ==
PROVIDERS: Emergency Provider Emergency Medicine; PCP Family Medicine
DX: I16.1 Hypertensive emergency (principal); Z86.73 Personal history of transient ischemic attack (TIA), and cerebral infarction without residual deficits; E11.9 Type 2 diabetes mellitus without complications; Z79.4 Long term (current) use of insulin; F17.210 Nicotine dependence, cigarettes, uncomplicated; Z79.899 Other long term (current) drug therapy; Z88.5 Allergy status to narcotic agent; Z88.6 Allergy status to analgesic agent; Z88.8 Allergy status to other drugs, medicaments and biological substances
CPT/HCPCS: 70450; 70496; 70498; 71045; 80053; 80305; 81001; 83605; 84484; 85025; 87040; 87086; 93005; 96365; 96367; 96375; 99285; J2405; Q9967

== ENCOUNTER → 2019-11-06 09:56 | Outpatient (CLI) | payer MEDICARE, MEDICAID, SELFPAY ==
--- NOTE | 2019-11-06 | US_ITS ---
APPROVED REPORT Exam Type: Lower Extremity Segmental Pressures Polishing Machine Tender: Karly Wilks RDCS Indications Claudication: Rest Pain: Numbness/Tingling Current Smoker History of Smoking Risk Factors Hypertension Hyperlipidemia DiabetesStroke Current Smoker Pressures/Indices Right Indices Left Indices Brachial 154.00 mmHg Brachial 155.00 mmHg Low Thigh 169.00 mmHg 1.09 Low Thigh 182.00 mmHg 1.17 Calf 189.00 mmHg 1.22 Calf 181.00 mmHg 1.17 Ankle(PT) 195.00 mmHg 1.26 Ankle(PT) 185.00 mmHg 1.19 Ankle(DP) 185.00 mmHg 1.19 Ankle(DP) 179.00 mmHg 1.15 Digit 147.00 mmHg 0.95 Digit 163.00 mmHg 1.05 Findings R GIANNI 1.3 L GIANNI 1.2 R TBI 1.0 L TBI 1.1 DP PULSES DIMINISHED WAVEFORMS NORMAL Conclusion R GIANNI 1.3 L GIANNI 1.2 R TBI 1.0 L TBI 1.1 DP PULSES DIMINISHED WAVEFORMS NORMAL Electronically signed by : Srikanth Shepherd MD 11/06/2019 15:52:32
== END ==
PROVIDERS: PCP Family Medicine; Visit Provider Family Medicine
DX: I73.9 Peripheral vascular disease, unspecified (principal)
CPT/HCPCS: 93923

== ENCOUNTER 2020-01-15 14:00 | Outpatient (RCR) | payer MEDICARE, MEDICAID, SELFPAY ==
--- NOTE | 2019-12-03 16:05 | HMH.OTOPEV ---
OT Inpatient Evaluation Rehab OT Outpatient Eval Start: 12/03/19 15:37 Freq: Status: Active Protocol: Document 12/03/19 15:38 CHARISJASMIN (Rec: 12/03/19 15:44 JOANNEYARY [id number]) Electronically Signed By Gena Junior OT 12/03/19 15:38 Outpatient Therapy Subjective History Subjective History 54 year old male with a hx of chronic left hemiplegia Dec 2018 with chronic pain. Patient verbalize, I have pain all over. verbalize since CVA, Patient has recieved OT and PT from [facility] and . 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 Patient has diffculty completing everyday ADL tasks and requires to assistance 75-100% of time. Patient verbalize, He can only feed himself. Thats about it. Patient is currently seeing PT OP services as well. DME at home: w/c, walker, BSC, shower chair, hand-held shower head and grab bars in bathroom. 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 Symptom Type Ache,Sharp Symptoms Relieved By Nothing Symptoms Aggravated By Physical Activity Prior Functional Limitations None Current Functional Limitations Lifting Symptom Description Constant and Continuous Level of pain today (0-10) 7 Pain scale - at its best (0-10) 7 Pain scale - at its worst (0-10) 10 Shoulder/Elbow Eval Shoulder Objective Measurements Shoulder ROM Right Shoulder Abduction Active Range of 90 Motion (degrees) Shoulder Flexion Active Range of Motion 130 (degrees) Query Text: Shoulder External Rotation Active Range 50 of Motion (degrees) Shoulder Internal Rotation Active Range 40 of Motion (degrees) Left Shoulder Abduction Active Range of 75 Motion (degrees) Shoulder Flexion Active Range of Motion 100 (degrees) Query Text: Shoulder External Rotation Active Range 40 of Motion (degrees) Shoulder Internal Rotation Active Range 50 of Motion (degrees) pain with active ROM shoulder exam bilateral standard Shoulder MMT Bilateral Shoulder Abduction Strength Gr
--- NOTE | 2020-01-15 15:09 | HMH.RHREAS ---
Rehab Reassessment Rehab OP Re-assessment Start: 01/15/20 14:55 Freq: Status: Active Protocol: Document 01/15/20 14:55 JOANNEYARY (Rec: 01/15/20 14:56 HIPOLITO [id number]) Electronically Signed By Gena Junior OT 01/15/20 14:55 Rehab Re-assessment Subjective Subjective I can feel like my arms can move better. Objective Objective Notes Patient has participated well in skilled OP OT services from 12/03/19-12/31/19 with having 4 sessions 2* patient has missed several appointments with conflict scheduling. Patient has completed therapeutic activities and therapeutic exer with focus on improving B UE AROM, B UE strength, decrease pain in UE and increase endurance. Assessment Progress Assessment Progressing as Expected Assessment Notes Patient has showed progress with B UE ABD, ER and IR of AROM, UE strength, endurance and verbalize decrease pain levels. AROM of B UE L flex: 130 R flex: 130 L ABD: 100 R ABD: 100 L ER: 65 R ER: 60 L IR: 60 R IR: 65 Patient verbalize pain in B UE 4/10 at worst. Patient demonstrates endurance to 30 mins of exer prior to RB. Patient goals met B UE AROM of flex, ER and IR. Decrease pain at worst 4/10. B UE strength throughout 3+ to 4-/5 Endurance of 30 mins of exer prior to RB Goals Not Met AROM of B UE flex Revised Goals B UE AROM Flex: 140 ABD: 110 ER: 70 IR: 70 3/10 pain at worst in B UE Endurance to 40 mins of exer prior to RB Plan Plan Continue POC
== END 2020-01-15 14:05 | disposition home or self-care (01) ==
LOC: OT 14:00
PROVIDERS: PCP Family Medicine; Visit Provider Family Medicine
DX: I63.9 Cerebral infarction, unspecified (principal); Z86.73 Personal history of transient ischemic attack (TIA), and cerebral infarction without residual deficits
CPT/HCPCS: 97110; 97164; 97166; 97530

== ENCOUNTER 2020-01-19 14:17 | Emergency (ER) | payer MEDICARE, MEDICAID, SELFPAY ==
[2020-01-19 14:20] VITALS: BP 147/107; PULSE 87; RESP 17; TEMP 36.7; O2SAT 92; BMI 24.5
--- NOTE | 2020-01-19 14:24 | CT_ITS ---
PROCEDURE: CT HEAD/BRAIN WO CON CLINICAL INDICATION: ams COMPARISON: CT HEADWO CT head/brain wo con from 11/24/[address] ANGIO HEAD from 10/11/[address] ANGIO NECK from 10/11/2019 TECHNIQUE: Axial images obtained. All CT scans at the facility use one or more dose reduction, viz: automated exposure control, ma/kV adjustment per patient size (including targeted exams where dose is matched to indication, i.e. head), or iterative reconstruction technique. FINDINGS: No midline shift, mass effect, intracranial hemorrhage, hydrocephalus, or extra-axial fluid collection is evident. Age in the sequence bone windows there is apparent stent in the right internal carotid artery just below the entrance into the cavernous sinus. Review of the CT angiogram of the brain from 10/11/2019 this stent is seen on that exam in the coronal projection. The basilar cisterns are mildly prominent. The sylvian fissures and cortical sulci are mildly prominent. There are no significant ischemic white matter changes noted. The calvarium has an unremarkable appearance. No mastoid effusion. No sinus air-fluid level. IMPRESSION: No acute intracranial finding, findings of mild age-appropriate cortical atrophy Dictated by: Dr. Jordon Coffman MD 01/19/2020 15:21 Dr. Jordon Coffman MD in [place] 01/19/2020 15:21
--- NOTE | 2020-01-19 14:24 | XR_ITS ---
PROCEDURE: XR CHEST PORTABLE CLINICAL HISTORY: ams COMPARISON: CT [facility] CT CHEST W/O CONTRAST from 07/05/2013 CR XR CHEST PORTABLE from 03/16/2019 CR XR RIBS LT MIN 3V W CXR1V from 07/20/2019 CR XR CHEST PORTABLE from 10/11/2019 FINDINGS: The cardiomediastinal silhouette and pulmonary vascularity are within normal limits. The lungs are clear without infiltrates, suspicious nodules, or pleural effusions. No acute bony abnormalities. IMPRESSION: No acute findings. Dictated by: Dr. Jordon Coffman MD 01/19/2020 15:21 Dr. Jordon Coffman MD in [place] 01/19/2020 15:21
--- NOTE | 2020-01-19 14:34 | HMH.EDAMS ---
ED Disposition Clinical Impression: Transient confusion Disposition: Home, Self-Care Condition on Discharge: Good Instructions: DI for Altered Mental Status Additional Instructions: Patient is demonstrated no hallucinations or confusion during his observatory period in the emergency department. CT reveals no acute intercranial abnormality. No infectious etiology noted on chest x-ray or urinalysis. Lab work is unremarkable with exception of mildly elevated blood glucose of 166. Arterial blood gas did show moderately elevated carboxyhemoglobin however patient has heavy smoker. Patient did receive nonrebreather during his observatory period in the emergency department. UA did show evidence of volume contraction with a urine specific gravity of 1.030 as well as few hyaline cast, as such patient will be volume expanded with IV normal saline. Pill counts performed in the emergency department was offer his narcotics prescribed as such this could be the etiology of his short-term confusion. Referrals: Provider,Referral, [Referring] - - Critical Care Critical Care Time: No Attestation: On 01/19/20, the high probability of a clinically significant, sudden or life threatening deterioration of the following system(s) required my full and direct attention, intervention and personal management. The time I documented below is in addition to time spent performing reported procedures but includes the following listed in this critical care notation. Medical Decision Making - Medical Records Medical records reviewed: Yes: I reviewed the patient's medical records. - [place] Inquiry Pt receiving controlled substance: No Vital Signs: 01/19/20 14:20 01/19/20 15:56 Temperature 98.1 F Temperature Source Oral Pulse Rate [Right Radial] 87 87 Respiratory Rate 17 18 Blood Pressure [Right Arm] 147/107 H 147/80 H Blood Pressure Mean [Right Arm] 120 102 Blood Pressure Source [Right Arm] Automatic Cuff Blood Pressure Position [Right Arm] Sitting 02 Sat by Pulse Oximetry 92 L 100 Oxygen Delivery Method Room Air Non-Rebreather Oxygen Flow Rate (LPM) 15 - Lab Data Lab results reviewed: Yes: I reviewed the patient's lab results. Lab Results 01/19/20 14:24: Specimen Source Left radial, O2 % room air, ABG pH 7.36, ABG pCO2 45.7 H, ABG pO2 129.4 H, ABG HCO3 25.4, ABG Total CO2 26.8, ABG O2 Saturation 98, ABG Base Excess 0.0, Srikanth Test Acceptable 01/19/20 14:30: WBC 6.3, RBC 4.80, Hgb 14.0 L, Hct 46.5, MCV 96.7 H, MCH 29.1, MCHC 30.1 L, RDW 14.0, Plt Count 141 L, MPV 8.5, Neut % (Auto) 61.0, Lymph % (Auto) 28.4, [place] % (Auto) 6.4, Eos % (Auto) 2.9, Baso % (Auto) 1.2, Neut # (Auto) 3.8, Lymph # (Auto) 1.8, [place] # (Auto) 0.4, Eos # (Auto) 0.2, Baso # (Auto) 0.1 01/19/20 14:30: Sodium 139, Potassium 3.8, Chloride 102, Carbon Dioxide 33 H, Anion Gap 7.8, BUN 16, Creatinine 0.80, Estimated Creat Clear 140, Estimated GFR 102, Est GFR ( Amer) 123, Glucose 166 H, Calcium 9.4, Total Bilirubin 0.4, AST 23, ALT 21, Alkaline Phosphatase 116, Total Protein 6.6, Albumin 3.9, Globulin 2.7, Albumin/Globulin Ratio 1.4 01/19/20 14:30: Lactate 1.6 01/19/20 14:30: Ammonia < 9 L 01/19/20 14:30: SARS-CoV-2 IgG Ab (Rapid) Negative, SARS-CoV-2 IgM Ab (Rapid) Negative 01/19/20 15:25: Urine Color Yellow, Urine Appearance Clear, Urine pH 5.5, Ur Specific [place] >= 1.030, Urine Protein 1+, Urine Glucose (UA) 2+, Urine Ketones Negative, Urine Blood 2+, Urine Nitrate Negative, Urine Bilirubin Negative, Urine Urobilinogen 0.2, Ur Leukocyte Esterase Negative, Urine RBC 5-10, Urine WBC Occasional, Ur Squamous Epith Cells 10-20, Amorphous Sediment 1+, Urine Bacteria None, Hyaline Casts 3-5, Urine Mucus 1+ 01/19/20 15:25: Urine Opiates Screen Positive H, Urine Methadone Screen Negative, Ur Barbituates Screen Negative, Ur Phencyclidine Scrn Negative, Ur Amphetamines Screen Negative, U Benzodiazepines Scrn Positive H, U Marijuana (THC) Screen Negative Result diagrams:
[2020-01-19 14:46] LABS: Basophils # 0.1 K/mm3 (0-0.2); Basophils % 1.2 % (0.1-2.0); Eosinophils # 0.2 K/mm3 (0.0-0.4); Eosinophils % 2.9 % (0.1-12.0); Hematocrit 46.5 % (42.0-52.0); Lymphocytes # 1.8 K/mm3 (0.7-4.5); Lymphocytes % 28.4 % (10-50); Mean Corpuscular HGB Conc 30.1 g/dL (31.8-35.4); Mean Corpuscular Hemoglobin 29.1 pg (27.0-31.2); Mean Corpuscular Volume 96.7 fl (80-94); Mean Platelet Volume 8.5 fl (7.4-10.4); Monocytes # 0.4 K/mm3 (0.1-1.0); Monocytes % 6.4 % (1.7-9.3); Neutrophils # 3.8 K/mm3 (1.8-7.8); Platelet Count 141 K/mm3 (142-424); White Blood Count 6.3 K/mm3 (4.8-10.8)
[2020-01-19 14:50] LABS: Chloride 102 mmol/L (98-107)
[2020-01-19 14:51] LABS: Potassium 3.8 mmoL/L (3.5-5.1); Sodium 139 mmol/L (136-145)
[2020-01-19 14:53] LABS: Alanine Aminotransferase 21 U/L (12-78); Aspartate Amino Transferase 23 U/L (17-59); Blood Urea Nitrogen 16 mg/dl (9-20); Creatinine Clearance Estimated 140 mL/min (50-200); Estimated Glomerular Filt Rate 102 ml/min (>60); GFR (African American) 123 ML/MIN (>60); Lactic Acid 1.6 mmol/L (0.7-2.1)
[2020-01-19 14:54] LABS: Albumin Level 3.9 g/dl (3.5-5.0); Albumin/Globulin Ratio 1.4 (1.1-1.8); Alkaline Phosphatase 116 U/L (38-126); Ammonia < 9 umol/L (9-30); Anion Gap 7.8 mEq/L (5-15); Bilirubin,Total 0.4 mg/dl (0.2-1.3); Calcium 9.4 mg/dl (8.4-10.2); Carbon Dioxide 33 mmol/L (22.0-30.0); Globulin 2.7 g/dL (1.3-3.2); Glucose 166 mg/dl (74-100); Total Protein,Serum 6.6 g/dl (6.3-8.2)
[2020-01-19 15:00] LABS: ABG HCO3 25.4 mmhg (22.0-26.0); ABG Oxygen Saturation 98 % (90-100); ABG PCO2 45.7 mmhg (35.0-45.0); ABG PH 7.36 mmol/L (7.35-7.45); ABG PO2 129.4 mmhg (80-100); ABG TCO2 26.8 mmhg (23-27)
[2020-01-19 15:02] LABS: Allen's Test Acceptable; Oxygen room air %; Source Left Radial
[2020-01-19 15:14] LABS: Coronavirus 19 IgG Antibody Negative (Negative); Coronavirus 19 IgM Antibody Negative (Negative)
[2020-01-19 15:35] LABS: Microscopic, Urine URINE MICROSCOPIC (MICROSCOPIC)
[2020-01-19 15:39] LABS: Appearance,Urine CLEAR (Clear); Bilirubin,Urine Negative (Negative); Blood, Urine 2+ (Negative); Color,Urine YELLOW (Yellow); Glucose,Urine (UA) 2+ (Negative); Ketones,Urine Negative (Negative); Leukocyte Esterase,Urine Negative (Negative); Nitrate,Urine Negative (Negative); PH,Urine 5.5 (5.0-8.5); Protein,Urine 1+ (Negative); Specific Gravity, Urine >= 1.030 (1.005-1.030); Urobilinogen,Urine 0.2 EU/dl (0.2)
[2020-01-19 15:45] LABS: Amorphous Sediment,Urine 1+ /lpf; Mucus,Urine 1+ /lpf; WBC,Urine Occasional #/hpf (0-3)
[2020-01-19 15:47] LABS: Amphetamine/Metha Screen,Urine Negative ng/ml (<1000)
[2020-01-19 15:48] LABS: Barbiturates Screen,Urine Negative ng/ml (<200)
[2020-01-19 15:49] LABS: Benzodiazepines Screen,Urine Positive ng/ml (<200); Cannabinoid Screen,Urine Negative ng/ml (<50)
[2020-01-19 15:50] LABS: Methadone Screen,Urine Negative ng/ml (<300)
[2020-01-19 15:51] LABS: Opiate Screen,Urine Positive ng/ml (<300)
[2020-01-19 15:52] LABS: Phencyclidine Screen,Urine Negative ng/ml (<25)
[2020-01-19 15:56] VITALS: BP 147/80; PULSE 87; RESP 18; O2SAT 100
[2020-01-19 16:11] LABS: Cocaine Screen,Urine Negative ng/ml (<300)
[2020-01-19 16:44] VITALS: BP 135/70; PULSE 80; RESP 17; TEMP 36.7; O2SAT 96
== END 2020-01-19 16:45 | disposition home or self-care (01) ==
PROVIDERS: Emergency Provider Emergency Medicine; PCP Family Medicine
DX: R44.2 Other hallucinations (principal); F44.89 Other dissociative and conversion disorders; Z01.84 Encounter for antibody response examination; E11.9 Type 2 diabetes mellitus without complications; I10 Essential (primary) hypertension; Z79.899 Other long term (current) drug therapy; F17.210 Nicotine dependence, cigarettes, uncomplicated; F11.10 Opioid abuse, uncomplicated; Z88.5 Allergy status to narcotic agent; Z88.6 Allergy status to analgesic agent; Z79.4 Long term (current) use of insulin
CPT/HCPCS: 70450; 71045; 80053; 80305; 81001; 82140; 82803; 83605; 85025; 86328; 87040; 96365; 99284

== ENCOUNTER 2020-02-01 13:00 | Outpatient (RCR) | payer MEDICARE, MEDICAID, SELFPAY ==
--- NOTE | 2019-11-12 15:19 | HMH.PTOPEV ---
PT Outpatient Evaluation Rehab PT Outpatient Evaluation Start: 11/12/19 15:02 Freq: Status: Active Protocol: Document 11/12/19 15:02 JOHN (Rec: 11/12/19 15:19 JOHN [id number]) Electronically Signed By Kashif Lainez, PT 11/12/19 15:02 Outpatient Therapy Subjective History Subjective History Pt is 54 yowm who presents with c/o difficulty transfering, difficulty walking, and poor balance after CVA with L hemiplegia that occurred 12/2018. He reports hx of chronic LB pain, DM-II with severe neuropathy, HTN, R carotid artery stent. He does ambulate with RW at home for short distances, but mainly uses a w/c for mobility . Chief Complaint Stiff,Weakness Symptom Type Numbness,Tingling Symptoms Relieved By Nothing Symptoms Aggravated By Physical Activity Prior Functional Limitations None Current Functional Limitations Reaching,Lifting,Housework, Standing,Recreation Activity, Walking,Balance Symptom Description Constant but Variable Balance Eval Gait/Posture Asssessment General Gait Observation Wide Based Gait Assistive Devices Rolling / Wheeled Walker Level of Transfer Assist Standby Assistance Ankle/Foot Observation in Gait Swing Decreased Foot Clearance Ankle/Foot Observation in Gait Stance No Deviation,Decreased Heel Strike Timed Up and Go Test 1. Is the Timed Up and Go test result > yes or = to 12 seconds? [place] Feet Together/Eyes open/Stable Surface fail Feet Together/Eyes Closed/Stable Surface fail Feet Together/Eyes open/Unstable Surface fail Feet Together/Eyes Closed/Unstable fail Surface Outpatient Therapy Assessment Impairments Problems/Impairmments Impaired Range of Motion, Impaired Strength,Impaired Endurance,Impaired Transfers, Impaired Gait Pattern,Impaired Walking,Impaired Standing, Impaired Stair Climbing, Impaired Recreational Activities,Increased Edema, Subjective C/O Pain,Impaired Self Care/Self Management Prognosis Rehab Potential Fair Clinical Impression Consistent with Diagnosis Yes Short Term Goals Number of Weeks 4
--- NOTE | 2019-12-26 15:26 | HMH.RHREAS ---
Rehab Reassessment Rehab OP Re-assessment Start: 12/26/19 15:22 Freq: Status: Active Protocol: Document 12/26/19 15:22 JOHN (Rec: 12/26/19 15:26 PHOJASON [id number]) Electronically Signed By Kashif Lainez, PT 12/26/19 15:22 Rehab Re-assessment Subjective Subjective Pt reports he feels he is walking better and able to tolerate more activity. Objective Objective Notes Pt TUG test= 28 sec. Pt standing endurance increased to 20 min at home. Pt ambulating with Straight Cane during therapy for ~ 50 ft with CGA x 1. Assessment Progress Assessment Progressing as Expected Assessment Notes Steadily improving endurance and ambulation ability. Gait pattern shoes some increase in heel strike B. Patient goals met none Goals Not Met STG: all LTG: all Revised Goals none Plan Plan Continue per initial POC. Frequency of Therapy 2 x/wk Duration of therapy 8 wks Time and Billing Re-Eval Time 15 Re-Eval Billing Units 1 PHYSICIAN CERTIFICATION: I certify the specified therapy services for Eran Dove are required, authorized, and reviewed every 30 days.
== END 2020-02-01 13:05 | disposition home or self-care (01) ==
LOC: PT 13:00
PROVIDERS: PCP Family Medicine; Visit Provider Family Medicine
DX: R26.89 Other abnormalities of gait and mobility (principal); G81.94 Hemiplegia, unspecified affecting left nondominant side; Z86.73 Personal history of transient ischemic attack (TIA), and cerebral infarction without residual deficits
CPT/HCPCS: 97110; 97112; 97116; 97140; 97163; 97164; 97530

== ENCOUNTER 2020-03-01 10:32 | Emergency (ER) | payer MEDICARE, OTHER, SELFPAY ==
[2020-03-01] VITALS (8 sets, daily range): BP systolic 132–188; BP diastolic 70–103; PULSE 74–95; RESP 16–20; TEMP 36.6–36.7; O2SAT 89–100; BMI 25.5
--- NOTE | 2020-03-01 13:01 | XR_ITS ---
PROCEDURE: XR FINGER RT MIN 2V CLINICAL INDICATION: Right index finger red/swollen COMPARISON: No exams were available for comparison FINDINGS: No fracture or dislocation. No lytic or blastic change. There is normal mineralization. The joint spaces are well-preserved. No significant degenerative/arthritic changes. There is focal soft tissue swelling ulnar side of the phalanx index finger which would be consistent with a blister. IMPRESSION: Probable focal blister next finger as described, no underlying bony abnormality seen Dictated by: Dr. Jordon Coffman MD 03/01/2020 13:34 Dr. Jordon Coffman MD in [place] 03/01/2020 13:34
--- NOTE | 2020-03-01 13:05 | PC.NURSE ---
pt to rad
[2020-03-01 13:11] LABS: Basophils # 0.1 K/mm3 (0-0.2); Basophils % 0.7 % (0.1-2.0); Eosinophils # 0.2 K/mm3 (0.0-0.4); Eosinophils % 2.9 % (0.1-12.0); Hematocrit 45.7 % (42.0-52.0); Hemoglobin 15.1 g/dL (14.1-18.0); Lymphocytes # 0.9 K/mm3 (0.7-4.5); Lymphocytes % 12.7 % (10-50); Mean Corpuscular HGB Conc 33.1 g/dL (31.8-35.4); Mean Corpuscular Hemoglobin 31.2 pg (27.0-31.2); Mean Corpuscular Volume 94.3 fl (80-94); Mean Platelet Volume 8.2 fl (7.4-10.4); Monocytes # 0.5 K/mm3 (0.1-1.0); Monocytes % 6.8 % (1.7-9.3); Neutrophils # 5.5 K/mm3 (1.8-7.8); Neutrophils % 76.8 % (37.0-80.0); Platelet Count 143 K/mm3 (142-424); Red Blood Count 4.84 M/mm3 (4.60-6.20); Red Cell Distribution Width 14.5 % (11.5-17.5); White Blood Count 7.1 K/mm3 (4.8-10.8)
[2020-03-01 13:16] LABS: Alanine Aminotransferase 15 U/L (12-78); Albumin Level 3.7 g/dl (3.5-5.0); Albumin/Globulin Ratio 1.3 (1.1-1.8); Alkaline Phosphatase 114 U/L (38-126); Anion Gap 6.6 mEq/L (5-15); Aspartate Amino Transferase 20 U/L (17-59); Bilirubin,Total 0.6 mg/dl (0.2-1.3); Blood Urea Nitrogen 11 mg/dl (9-20); Calcium 9.3 mg/dl (8.4-10.2); Carbon Dioxide 34 mmol/L (22.0-30.0); Chloride 98 mmol/L (98-107); Creatinine Clearance Estimated 194 mL/min (50-200); Estimated Glomerular Filt Rate 141 ml/min (>60); GFR (African American) 171 ML/MIN (>60); Globulin 2.9 g/dL (1.3-3.2); Glucose 203 mg/dl (74-100); Potassium 3.6 mmoL/L (3.5-5.1); Sodium 135 mmol/L (136-145); Total Protein,Serum 6.6 g/dl (6.3-8.2)
[2020-03-01 13:17] LABS: Lactic Acid 1.1 mmol/L (0.7-2.1)
--- NOTE | 2020-03-01 13:18 | HMH.EDGENADL ---
ED Disposition Clinical Impression: Skin pustule Disposition: Home, Self-Care Condition on Discharge: Good Additional Instructions: Keep areas clean and dry, clean with soap and water daily. Clindamycin as prescribed. Follow-up recheck by your primary care doctor on Tuesday. Return to the emergency department if temperature greater than 100.4 degrees, worsening redness, swelling, pain, or red streaks. Prescriptions: clindamycin HCL [Clindamycin HCl] 300 mg PO QID #40 cap Transmission Status: Pending to [facility] Referrals: Maged Aburto MD [Primary Care Provider] - - Critical Care Critical Care Time: No Attestation: On 03/01/20, the high probability of a clinically significant, sudden or life threatening deterioration of the following system(s) required my full and direct attention, intervention and personal management. The time I documented below is in addition to time spent performing reported procedures but includes the following listed in this critical care notation. Medical Decision Making - [place] Inquiry Pt receiving controlled substance: No Vital Signs: 03/01/20 10:36 03/01/20 12:14 Temperature 98 F 98.0 F Temperature Source Oral Oral Pulse Rate [Right] 74 74 Respiratory Rate 16 16 Blood Pressure [Right Arm] 132/70 132/70 Blood Pressure Mean [Right Arm] 90 90 Blood Pressure Source [Right Arm] Automatic Cuff Automatic Cuff Blood Pressure Position [Right Arm] Sitting Supine 02 Sat by Pulse Oximetry 89 L 89 L Oxygen Delivery Method Room Air Room Air - Lab Data Lab Results 03/01/20 12:46: WBC 7.1, RBC 4.84, Hgb 15.1, Hct 45.7, MCV 94.3 H, MCH 31.2, MCHC 33.1, RDW 14.5, Plt Count 143, MPV 8.2, Neut % (Auto) 76.8, Lymph % (Auto) 12.7, [place] % (Auto) 6.8, Eos % (Auto) 2.9, Baso % (Auto) 0.7, Neut # (Auto) 5.5, Lymph # (Auto) 0.9, [place] # (Auto) 0.5, Eos # (Auto) 0.2, Baso # (Auto) 0.1 03/01/20 12:46: Sodium 135 L, Potassium 3.6, Chloride 98, Carbon Dioxide 34 H, Anion Gap 6.6, BUN 11, Creatinine 0.60 L, Estimated Creat Clear 194, Estimated GFR 141, Est GFR ( Amer) 171, Glucose 203 H, Calcium 9.3, Total Bilirubin 0.6, AST 20, ALT 15, Alkaline Phosphatase 114, Total Protein 6.6, Albumin 3.7, Globulin 2.9, Albumin/Globulin Ratio 1.3 03/01/20 12:46: Lactate 1.1 Result diagrams: 03/01/20 12:46 03/01/20 12:46 Orders (Tests/Meds): ORDERS Category Date Time Status Finger XR right minimum 2 views [XR finger RT min 2V] Exams 03/01/20 13:01 Taken Stat Blood Culture Stat Micro 03/01/20 12:46 Received - Radiology Data #1 Image(s): Finger(s)/Thumb Soft tissue swelling noted, no bony abnormality. No fracture, no foreign body, no signs of osteomyelitis, no subcutaneous/soft tissue air. General Adult HPI - General Chief complaint: Wound/Laceration Stated complaint: rt hand sore spot Time Seen by Provider: 03/01/20 13:18 Mode of Arrival: Wheelchair Limitations: No Limitations Description of Symptoms (Recalled from ER Triage Doc. by RN): pt had blister on his finger that opened up this am. concerned because patient is diabetic, wants to go ahead and start antibiotics. - History of Present Illness HPI narrative: Skin sores for a few days. Initially started out with redness on the roof of his mouth, then some sores on the corners of his mouth and crustiness of his eyes. Then developed sores on his right hand. Currently the worst one is on his right index finger which has a large blister. It is the only painful lesion. He has a couple of other smaller lesions on the dorsum of his right hand and his right forearm. 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 He is diabetic. No fever. He is able to move his finger, no numbness. Seen in the urgent treatment center and sent to the emergency room. - Related Data Home Medications Medication Instructions Recorded Confirmed Aspirin [Aspirin 81mg EC Tab] 81 mg PO DAILY 02/21/1901/18/
--- NOTE | 2020-03-01 13:50 | PC.NURSE ---
notified pharmacy of vanc consult
== END 2020-03-01 16:35 | disposition home or self-care (01) ==
LOC: UTC 11:54 → ER 11:58
PROVIDERS: Emergency Provider Emergency Medicine; PCP Family Medicine
DX: S60.420A Blister (nonthermal) of right index finger, initial encounter (principal); A48.8 Other specified bacterial diseases; E11.9 Type 2 diabetes mellitus without complications; Z79.4 Long term (current) use of insulin; I10 Essential (primary) hypertension; F17.210 Nicotine dependence, cigarettes, uncomplicated; Z88.5 Allergy status to narcotic agent; Z88.8 Allergy status to other drugs, medicaments and biological substances
CPT/HCPCS: 73140; 80053; 83605; 85025; 87040; 87070; 87077; 87186; 87205; 96365; 99284; J3370

== ENCOUNTER → 2020-03-14 11:58 | Outpatient (CLI) | payer MEDICARE, OTHER, SELFPAY ==
[2020-03-15 11:34] LABS: Covid-19 Nasal PCR Sendout P&C Negative
== END ==
PROVIDERS: PCP Family Medicine; Visit Provider Family Medicine
DX: Z20.822 Contact with and (suspected) exposure to COVID-19 (principal)
CPT/HCPCS: U0004

== ENCOUNTER 2020-03-17 15:00 | Emergency (ER) | payer MEDICARE, OTHER, SELFPAY ==
[2020-03-17 15:05] VITALS: BP 135/71; PULSE 84; RESP 16; TEMP 36.7; O2SAT 97; BMI 26.7
--- NOTE | 2020-03-17 15:16 | ECG_ITS ---
APPROVED REPORT Exam: Resting ECG HR:87 bpm ECG Measurements Heart Rate 87 AXES OR 142 P 35 QRSd 146 QRS -60 QT 408 T 48 QTc 490 Conclusion Sinus rhythm with fusion complexes and premature atrial complexes Right bundle branch block Left anterior fascicular block Bifascicular block Abnormal ECG Electronically signed by : Maged Bermudez, 03/17/2020 19:35:09
--- NOTE | 2020-03-17 15:21 | XR_ITS ---
PROCEDURE: XR CHEST PORTABLE CLINICAL HISTORY: cough COMPARISON: CT [facility] CT CHEST W/O CONTRAST from 07/05/2013 CR XR RIBS LT MIN 3V W CXR1V from 07/20/2019 CR XR CHEST PORTABLE from 10/11/2019 CR XR CHEST PORTABLE from 01/19/2020 FINDINGS: The cardiomediastinal silhouette and pulmonary vascularity are within normal limits. There are atelectatic changes in the right lower lobe No acute bony abnormalities. IMPRESSION: Right lower lobe atelectasis Dictated by: Srikanth Shepherd MD 03/17/2020 16:37 Srikanth Shepherd MD in [place] 03/17/2020 16:37
[2020-03-17 15:48] LABS: Basophils # 0.1 K/mm3 (0-0.2); Basophils % 1.1 % (0.1-2.0); Eosinophils # 0.3 K/mm3 (0.0-0.4); Eosinophils % 3.8 % (0.1-12.0); Hematocrit 46.2 % (42.0-52.0); Hemoglobin 15.4 g/dL (14.1-18.0); Lymphocytes # 2.2 K/mm3 (0.7-4.5); Lymphocytes % 27.7 % (10-50); Mean Corpuscular HGB Conc 33.4 g/dL (31.8-35.4); Mean Corpuscular Hemoglobin 31.1 pg (27.0-31.2); Mean Corpuscular Volume 93.1 fl (80-94); Mean Platelet Volume 8.6 fl (7.4-10.4); Monocytes # 0.5 K/mm3 (0.1-1.0); Monocytes % 6.7 % (1.7-9.3); Neutrophils # 4.8 K/mm3 (1.8-7.8); Neutrophils % 60.7 % (37.0-80.0); Platelet Count 204 K/mm3 (142-424); Red Blood Count 4.96 M/mm3 (4.60-6.20); Red Cell Distribution Width 14.3 % (11.5-17.5)
[2020-03-17 16:09] LABS: Chloride 99 mmol/L (98-107); Potassium 3.2 mmoL/L (3.5-5.1); Sodium 139 mmol/L (136-145)
[2020-03-17 16:12] LABS: Alanine Aminotransferase 16 U/L (12-78); Albumin Level 4.1 g/dl (3.5-5.0); Albumin/Globulin Ratio 1.3 (1.1-1.8); Alkaline Phosphatase 100 U/L (38-126); Anion Gap 8.2 mEq/L (5-15); Aspartate Amino Transferase 24 U/L (17-59); Bilirubin,Total 0.5 mg/dl (0.2-1.3); Blood Urea Nitrogen 11 mg/dl (9-20); Calcium 9.3 mg/dl (8.4-10.2); Carbon Dioxide 35 mmol/L (22.0-30.0); Estimated Glomerular Filt Rate 102 ml/min (>60); GFR (African American) 123 ML/MIN (>60); Globulin 3.1 g/dL (1.3-3.2); Glucose 80 mg/dl (74-100); Total Protein,Serum 7.2 g/dl (6.3-8.2)
[2020-03-17 16:19] VITALS: BMI 26.7
[2020-03-17 16:28] LABS: Troponin I < 0.01 ng/ml (0.00-0.034)
[2020-03-17 16:43] VITALS: BP 154/89; PULSE 80; RESP 18; O2SAT 96
--- NOTE | 2020-03-17 16:53 | HMH.EDWEAK ---
ED Disposition Clinical Impression: Vasovagal near syncope Disposition: Home, Self-Care Condition on Discharge: Good Instructions: DI for Syncope in Adults (Fainting) Referrals: Maged Aburto MD [Primary Care Provider] - - Critical Care Critical Care Time: No Attestation: On 03/17/20, the high probability of a clinically significant, sudden or life threatening deterioration of the following system(s) required my full and direct attention, intervention and personal management. The time I documented below is in addition to time spent performing reported procedures but includes the following listed in this critical care notation. Medical Decision Making - Medical Records Medical records reviewed: Yes: I reviewed the patient's medical records. - [place] Inquiry Pt receiving controlled substance: No Vital Signs: 03/17/20 15:05 03/17/20 16:43 Temperature 98.0 F Temperature Source Oral Pulse Rate [Right Radial] 84 80 Respiratory Rate 16 18 Blood Pressure [Right Arm] 135/71 154/89 H Blood Pressure Mean [Right Arm] 92 110 Blood Pressure Source [Right Arm] Automatic Cuff Automatic Cuff Blood Pressure Position [Right Arm] Sitting Sitting 02 Sat by Pulse Oximetry 97 96 Oxygen Delivery Method Room Air Room Air - Lab Data Lab Results 03/17/20 15:32: WBC 8.0, RBC 4.96, Hgb 15.4, Hct 46.2, MCV 93.1, MCH 31.1, MCHC 33.4, RDW 14.3, Plt Count 204, MPV 8.6, Neut % (Auto) 60.7, Lymph % (Auto) 27.7, [place] % (Auto) 6.7, Eos % (Auto) 3.8, Baso % (Auto) 1.1, Neut # (Auto) 4.8, Lymph # (Auto) 2.2, [place] # (Auto) 0.5, Eos # (Auto) 0.3, Baso # (Auto) 0.1 03/17/20 15:32: Sodium 139, Potassium 3.2 L, Chloride 99, Carbon Dioxide 35 H, Anion Gap 8.2, BUN 11, Creatinine 0.80, Estimated GFR 102, Est GFR ( Amer) 123, Glucose 80, Calcium 9.3, Total Bilirubin 0.5, AST 24, ALT 16, Alkaline Phosphatase 100, Troponin I < 0.01, Total Protein 7.2, Albumin 4.1, Globulin 3.1, Albumin/Globulin Ratio 1.3 Result diagrams: 03/17/20 15:32 03/17/20 15:32 Orders (Tests/Meds): ED MEDICATIONS Discontinued Medications Generic Name Dose Route Start Last Admin Trade Name Johanna PRN Reason Stop Dose Admin Sodium Chloride 1,000 mls @ 999 mls/hr 03/17/20 15:30 03/17/20 16:21 Sod Chlor 0.9% 1000ml Bag IV 03/17/20 16:30 999 mls/hr .Q1H1M JAVIER Administration ORDERS Category Date Time Status Troponin I Q3H Lab 03/17/20 18:30 Ordered Troponin I Q3H Lab 03/17/20 21:30 Ordered - Radiology Data #1 Image(s): Chest Image Reviewed: Yes I reviewed the patient's radiology results, Yes I reviewed the patient's radiology image, Yes I have reviewed radiologist's interpretation Preliminary Findings: Normal/NAD, No Fracture Seen - ECG Data Tracing #1 ECG initial impression date: 03/17/20 ECG initial impression time: 15:15 ECG normal with no acute: arrhythmias, ischemia, conduction abnormalities, chamber hypertrophy - Reevaluation(s) Time: 17:52 Reevaluation #1: On reevaluation, the patient is feeling much better. Repeat neuro exam does not show any change from baseline. Patient is tolerating oral intake. I do believe his symptoms are likely secondary to vasovagal syncope. Patient is to follow-up with PCP in 24 hours. Given strict return precautions. Verbalized understanding. Medical Decision Narrative: 54-year-old male presented to the emergency department with weakness. The patient has what appears to be a vasovagal episode, could also be secondary to hypoglycemia. The patient is alert and appropriate at this time. Neurologic exam normal. Work-up initiated. Weakness HPI - General Chief complaint: Weakness Stated complaint: weakness, shaky Time Seen by Provider: 03/17/20 15:10 Mode of Arrival: Wheelchair Limitations: No Limitations Description of Symptoms (Recalled from ER Triage Doc. by RN): Pt was a rapid response in physical therapy. Staff states pt began lightheaded and weak. Staff states they
[2020-03-17 18:08] VITALS: BP 165/92; PULSE 91; RESP 16; TEMP 36.6; O2SAT 98
== END 2020-03-17 18:09 | disposition home or self-care (01) ==
PROVIDERS: Emergency Provider Emergency Medicine; PCP Family Medicine
DX: E11.649 Type 2 diabetes mellitus with hypoglycemia without coma (principal); I10 Essential (primary) hypertension; Z86.73 Personal history of transient ischemic attack (TIA), and cerebral infarction without residual deficits; Z88.5 Allergy status to narcotic agent; Z88.6 Allergy status to analgesic agent; F17.210 Nicotine dependence, cigarettes, uncomplicated; Z79.899 Other long term (current) drug therapy
CPT/HCPCS: 71045; 80053; 84484; 85025; 93005; 96365; 99283

== ENCOUNTER 2020-03-22 13:15 | Inpatient (IN) | payer MEDICARE, OTHER, SELFPAY ==
[2020-03-22] VITALS (27 sets, daily range): BP systolic 132–192; BP diastolic 74–146; PULSE 80–95; RESP 15–93; TEMP 36.7–37; O2SAT 92–98; BMI 24.3; BMI 26.8
--- NOTE | 2020-03-22 13:16 | PC.NURSE ---
notified Rad of Ct head order, stroke protocol
--- NOTE | 2020-03-22 13:17 | CT_ITS ---
PROCEDURE: CT HEAD/BRAIN WO CON CLINICAL INDICATION: confusion Confusion, stroke protocol COMPARISON: CT CT HEAD/BRAIN WO CON from 10/11/[address] HEAD/BRAIN WO CON from 01/19/2020 TECHNIQUE: Axial images obtained. All CT scans at the facility use one or more dose reduction, viz: automated exposure control, ma/kV adjustment per patient size (including targeted exams where dose is matched to indication, i.e. head), or iterative reconstruction technique. FINDINGS: No midline shift, mass effect, intracranial hemorrhage, hydrocephalus, or extra-axial fluid collection is evident. There is a small area of decreased attenuation in the right putamen anteriorly which is developed in the interval consistent with a small lacunar infarction which does not appear acute. The calvarium has an unremarkable appearance. There is mild opacification of the left mastoid sinus with a small air-fluid level no sinus air-fluid level. IMPRESSION: 1. No acute intracranial findings. 2. Small lacunar infarction suspected in the right basal ganglia which has developed in the interval but does not appear acute 3. Left mastoid sinus disease Dictated by: Srikanth Shepherd MD 03/22/2020 13:43 Srikanth Shepherd MD in [place] 03/22/2020 13:43
--- NOTE | 2020-03-22 13:22 | PC.NURSE ---
Pt to rad.
--- NOTE | 2020-03-22 13:39 | PC.NURSE ---
Pt returned from rad
[2020-03-22 13:42] LABS: Basophils # 0.1 K/mm3 (0-0.2); Basophils % 0.9 % (0.1-2.0); Eosinophils # 0.2 K/mm3 (0.0-0.4); Eosinophils % 3.2 % (0.1-12.0); Hematocrit 44.3 % (42.0-52.0); Hemoglobin 14.2 g/dL (14.1-18.0); Lymphocytes # 1.2 K/mm3 (0.7-4.5); Lymphocytes % 20.8 % (10-50); Mean Corpuscular HGB Conc 32.2 g/dL (31.8-35.4); Mean Corpuscular Hemoglobin 30.2 pg (27.0-31.2); Mean Platelet Volume 8.3 fl (7.4-10.4); Monocytes # 0.4 K/mm3 (0.1-1.0); Monocytes % 7.3 % (1.7-9.3); Neutrophils # 4.1 K/mm3 (1.8-7.8); Neutrophils % 67.8 % (37.0-80.0); Platelet Count 167 K/mm3 (142-424); Red Blood Count 4.71 M/mm3 (4.60-6.20)
[2020-03-22 13:46] LABS: Chloride 99 mmol/L (98-107); Potassium 3.7 mmoL/L (3.5-5.1); Sodium 138 mmol/L (136-145)
[2020-03-22 13:48] LABS: Bilirubin,Unconjugated 0.3 mg/dL (0.0-1.1); Blood Urea Nitrogen 11 mg/dl (9-20); Creatinine Clearance Estimated 139 mL/min (50-200); Estimated Glomerular Filt Rate 102 ml/min (>60); GFR (African American) 123 ML/MIN (>60)
[2020-03-22 13:49] LABS: Alanine Aminotransferase 12 U/L (12-78); Albumin Level 3.4 g/dl (3.5-5.0); Alkaline Phosphatase 89 U/L (38-126); Anion Gap 5.7 mEq/L (5-15); Aspartate Amino Transferase 18 U/L (17-59); Bilirubin,Direct 0.2 mg/dl (0.0-0.4); Bilirubin,Indirect 0.3 mg/dL (0.0-0.9); Bilirubin,Total 0.5 mg/dl (0.2-1.3); Calcium 9.4 mg/dl (8.4-10.2); Carbon Dioxide 37 mmol/L (22.0-30.0); Glucose 208 mg/dl (74-100); Total Protein,Serum 6.3 g/dl (6.3-8.2)
[2020-03-22 13:52] LABS: INR 1.14 (0.9-1.1); Prothrombin Time 12.5 seconds (9.4-11.8)
--- NOTE | 2020-03-22 13:54 | XR_ITS ---
PROCEDURE: XR CHEST PORTABLE CLINICAL HISTORY: confusion COMPARISON: CT [facility] CT CHEST W/O CONTRAST from 07/05/2013 CR XR CHEST PORTABLE from 10/11/2019 CR XR CHEST PORTABLE from 01/19/2020 CR XR CHEST PORTABLE from 03/17/2020 FINDINGS: The cardiomediastinal silhouette and pulmonary vascularity are within normal limits. Ground-glass attenuation noted in the right upper and left upper and left lower lobe with consolidation in the right lower lobe. Findings are suspicious for Covid19 pneumonia. Please correlate with clinical parameters. Other etiology such as influenza pneumonia, drug toxicity, and pulmonary hemorrhage would be included in the differential diagnosis No acute bony abnormalities. IMPRESSION: Bilateral airspace disease suspicious for Covid19 pneumonia Dictated by: Srikanth Shepherd MD 03/22/2020 14:19 Srikanth Shepherd MD in [place] 03/22/2020 14:19
--- NOTE | 2020-03-22 13:54 | HMH.EDGENADL ---
ED Disposition Clinical Impression: Hypertensive emergency Altered mental status Qualifiers: Altered mental status type: disorientation Qualified Code(s): R41.0 - Disorientation, unspecified CHF (congestive heart failure) Qualifiers: Heart failure type: unspecified Heart failure chronicity: acute Qualified Code(s): I50.9 - Heart failure, unspecified Disposition: Admitted As Inpatient Condition on Discharge: Serious - Critical Care Critical Care Time: Yes Attestation: On 03/22/20, the high probability of a clinically significant, sudden or life threatening deterioration of the following system(s) required my full and direct attention, intervention and personal management. The time I documented below is in addition to time spent performing reported procedures but includes the following listed in this critical care notation. Total Critical Care Time: 50 Vital system(s) involved:: Circulatory Failure, Central Nervous System My critical care processes included: Assessment & monitoring of V/S, Initial and Re-exams, Data Review/Interpretation, Coordinating Care, Medication Orders and management, Documentation Medical Decision Making - Medical Records Medical records reviewed: Yes: I reviewed the patient's medical records. - [place] Inquiry Pt receiving controlled substance: No Vital Signs: 03/22/20 13:16 03/22/20 13:39 03/22/20 14:10 Temperature 98.3 F Temperature Source Oral Pulse Rate Pulse Rate [Right Radial] 87 88 89 Respiratory Rate 16 Blood Pressure Blood Pressure [Right Arm] 161/108 H 181/117 H 175/113 H Blood Pressure Mean [Right Arm] 125 138 133 Blood Pressure Source Blood Pressure Source [Right Arm] Automatic Cuff Automatic Cuff Automatic Cuff Blood Pressure Position Blood Pressure Position [Right Arm] Sitting Sitting Sitting 02 Sat by Pulse Oximetry 94 L 95 92 L Oxygen Delivery Method Room Air Room Air Room Air 03/22/20 14:31 03/22/20 15:11 03/22/20 15:37 Temperature Temperature Source Pulse Rate Pulse Rate [Right Radial] 80 89 91 H Respiratory Rate Blood Pressure Blood Pressure [Right Arm] 187/116 H 170/109 H 191/120 H Blood Pressure Mean [Right Arm] 139 129 143 Blood Pressure Source Blood Pressure Source [Right Arm] Automatic Cuff Automatic Cuff Automatic Cuff Blood Pressure Position Blood Pressure Position [Right Arm] Sitting Sitting Sitting 02 Sat by Pulse Oximetry 95 96 98 Oxygen Delivery Method Room Air Room Air Room Air 03/22/20 16:10 03/22/20 16:34 03/22/20 17:04 Temperature Temperature Source Pulse Rate Pulse Rate [Right Radial] 89 90 91 H Respiratory Rate 18 Blood Pressure Blood Pressure [Right Arm] 185/113 H 192/122 H 170/101 H Blood Pressure Mean [Right Arm] 137 145 124 Blood Pressure Source Blood Pressure Source [Right Arm] Automatic Cuff Automatic Cuff Automatic Cuff Blood Pressure Position Blood Pressure Position [Right Arm] Sitting Sitting Sitting 02 Sat by Pulse Oximetry 96 94 L 94 L Oxygen Delivery Method Room Air Room Air Room Air 03/22/20 17:15 03/22/20 17:32 03/22/20 18:01 Temperature Temperature Source Pulse Rate Pulse Rate [Right Radial] 90 92 H 94 H Respiratory Rate Blood Pressure Blood Pressure [Right Arm] 158/98 H 132/76 141/87 H Blood Pressure Mean [Right Arm] 118 94 105 Blood Pressure Source Blood Pressure Source [Right Arm] Automatic Cuff Automatic Cuff Blood Pressure Position Blood Pressure Position [Right Arm] Sitting Supine Sitting 02 Sat by Pulse Oximetry 93 L 94 L Oxygen Delivery Method Room Air Room Air 03/22/20 18:33 03/22/20 19:00 03/22/20 19:30 Temperature Temperature Source Pulse Rate Pulse Rate [Right Radial] 95 H 95 H 94 H Respiratory Rate 93 H 15 Blood Pressure Blood Pressure [Right Arm] 172/110 H 155/92 H 149/94 H Blood Pressure Mean [Right Arm] 130 113 112 Blood Pressure Source Blood Pressure Source [Right Arm] Automatic Cuff A
--- NOTE | 2020-03-22 13:55 | PC.NURSE ---
PORFIRIO KAPOOR at
--- NOTE | 2020-03-22 13:56 | PC.NURSE ---
notified RAD of xray order
--- NOTE | 2020-03-22 14:07 | PC.NURSE ---
Rad at bedside
--- NOTE | 2020-03-22 14:14 | PC.NURSE ---
juvenile corrections officer for [place] paged at this time.
--- NOTE | 2020-03-22 14:28 | PC.NURSE ---
PORFIRIO KAPOOR speaking with Dr. Robledo
--- NOTE | 2020-03-22 14:49 | CT_ITS ---
Procedure: CT ANGIO NECK CLINICAL HISTORY: AMS Confusion, stroke protocol COMPARISON: CT CT ANGIO HEAD from 03/22/2020 TECHNIQUE: IV Contrast: 100ml Isovue 370 Axial images obtained with sagittal and coronal reformats. All CT scans at the facility use one or more dose reduction, viz: automated exposure control, ma/kV adjustment per patient size (including targeted exams where dose is matched to indication, i.e. head), or iterative reconstruction technique. FINDINGS: Study is nondiagnostic for CT angiography of the neck due to bolus timing. There is intense opacification of the main pulmonary artery. There are posterior layering bilateral pleural effusions. Small nodes are present in the neck. No midline shift, mass effect, intracranial hemorrhage, or hydrocephalus is evident. IMPRESSION: Nondiagnostic for angiographic evaluation of the carotid arteries. Posterior layering effusions right slightly larger than the left. Dictated by: Srikanth Shepherd MD 03/26/2020 09:24 Srikanth Shepherd MD in [place] 03/26/2020 09:24
--- NOTE | 2020-03-22 14:49 | CT_ITS ---
Procedure: CT ANGIO HEAD CLINICAL HISTORY: AMS , Confusion, COMPARISON: CT CT ANGIO HEAD from 10/11/[address] HEAD/BRAIN WO CON from 03/22/2020 TECHNIQUE: IV Contrast: 100ml Isovue 370 Axial images obtained with sagittal and coronal reformats. All CT scans at the facility use one or more dose reduction, viz: automated exposure control, ma/kV adjustment per patient size (including targeted exams where dose is matched to indication, i.e. head), or iterative reconstruction technique. FINDINGS: The arterial opacification is less than optimal. No large aneurysms AVMs or major occlusive process apparent. Consider repeating exam with appropriate bolus timing.. No enhancing lesion apparent. IMPRESSION: Limited exam. No gross intracranial arterial abnormalities. Consider repeating exam with appropriate bolus timing. Dictated by: Srikanth Shepherd MD 03/23/2020 09:42 Srikanth Shepherd MD in [facility] 03/23/2020 09:42
--- NOTE | 2020-03-22 15:14 | PC.NURSE ---
Entered room to initiate Nicardipine drip as ordered per MAR by ER MD, pt BP 170/109, pt currently sititing up in bed. Notified ER MD who is currently speaking with Dr. Robledo, no new orders obtained at this time, will continue to monitor.
--- NOTE | 2020-03-22 15:29 | PC.NURSE ---
ER MD states to Hold Nicardipine drip and he has ordered oral medication for bp
--- NOTE | 2020-03-22 15:36 | PC.NURSE ---
Pt returned from rad.
--- NOTE | 2020-03-22 16:07 | PC.NURSE ---
pt bed changed at this time pt began urinating before able to get a urinal to him.
[2020-03-22 16:20] LABS: Adenovirus,PCR Not Detected (NotDetected); Bordetella Pertussis Not Detected (NotDetected); Chlamydophila Pneumoniae, PCR Not Detected (NotDetected); Coronavirus 19, PCR Not Detected (NotDetected); Coronavirus 229E Not Detected (NotDetected); Coronavirus NL63 Not Detected (NotDetected); Coronavirus OC43 Not Detected (NotDetected); Coronovirus HKU1,PCR Not Detected (NotDetected); Human Metapneumovirus Not Detected (NotDetected); Influenza A, PCR Not Detected (NotDetected); Influenza AH1, 2009 Not Detected (NotDetected); Influenza AH1, PCR Not Detected (NotDetected); Influenza AH3,PCR Not Detected (NotDetected); Influenza B, PCR Not Detected (NotDetected); Mycoplasma Pneumoniae, PCR Not Detected (NotDetected); Parainfluenza 1, PCR Not Detected (NotDetected); Parainfluenza 2, PCR Not Detected (NotDetected); Parainfluenza 3, PCR Not Detected (NotDetected); Parainfluenza 4, PCR Not Detected (NotDetected); Respiratory Syncytial Virus Not Detected (NotDetected); Rhinovirus/Enterovirus Not Detected (NotDetected)
--- NOTE | 2020-03-22 16:29 | PC.NURSE ---
notified ER MD of pt elevated BP 192/122 ER MD states to started Nicardipine drip as ordered
--- NOTE | 2020-03-22 16:32 | ECG_ITS ---
APPROVED REPORT Exam: Resting ECG HR:91 bpm ECG Measurements Heart Rate 91 AXES KS 154 P 31 QRSd 138 QRS -64 QT 412 T 50 QTc 506 Conclusion Normal sinus rhythm Right bundle branch block Left anterior fascicular block Bifascicular block Abnormal ECG Electronically signed by : Maged Bermudez, 03/23/2020 08:40:05
[2020-03-22 16:35] LABS: Procalcitonin 0.046 ng/mL (0.0-2.0)
[2020-03-22 16:46] LABS: Coronavirus 19 IgG Antibody Negative (Negative); Coronavirus 19 IgM Antibody Negative (Negative)
--- NOTE | 2020-03-22 17:02 | PC.NURSE ---
titrated Nicardipine drip to 7.5 mg/hr (75mL/hr) at this time r/t parameter goal of sbp <150
[2020-03-22 17:06] LABS: NT Pro Brain Natriuretic Pep. 1940 pg/mL (0-125)
[2020-03-22 17:06] LABS: Lactic Acid 1.1 mmol/L (0.7-2.1)
[2020-03-22 17:17] LABS: Troponin I 0.01 ng/ml (0.00-0.034)
--- NOTE | 2020-03-22 17:33 | PC.NURSE ---
Huyen in lab called stating pt full resp panel swab failed, states she will place it back on to rerun at this time
--- NOTE | 2020-03-22 17:44 | PC.NURSE ---
notified ER MD of Sbp 132, nicardipine drip at 7.5mg/hr (75mL/hr). Asked ER MD if would like to keep drip currently at 7.5mg/hr or lower back to 5mg/hr. ER MD states to lower Nicardipine drip back to 5 mg/hr (50 mL/hr) to monitor for hypotension. Nicardipine drip lower to 5 mg/hr (50mL/hr) at this time, will continue to monitor
--- NOTE | 2020-03-22 17:49 | PC.NURSE ---
ER MD gave verbal order to stop Nicardipine drip at this time, states he is placing order for Nitro drip.
--- NOTE | 2020-03-22 17:58 | PC.NURSE ---
Nicardipine drip stopped at this time.
--- NOTE | 2020-03-22 18:23 | PC.NURSE ---
monorail car operator paging Dr. Robledo who is network applications specialist for Dr. Aburto per ER request
--- NOTE | 2020-03-22 18:32 | PC.NURSE ---
Nitroglycerin drip increased to 10 mcg/min at this time (3mL/hr) will continue to monitor
--- NOTE | 2020-03-22 18:32 | PC.NURSE ---
Dr North speaking to Dr Robledo.
--- NOTE | 2020-03-22 18:40 | PC.NURSE ---
notified nanny/household manager of admission status
--- NOTE | 2020-03-22 19:04 | PC.NURSE ---
notified housecalls nurse pt covid swab is negative.
--- NOTE | 2020-03-22 19:25 | PC.NURSE ---
notified ER pt c/o headache, ER MD gave verbal order for tylenol
--- NOTE | 2020-03-22 19:51 | PC.NURSE ---
patient up to floor via stretcher.
[2020-03-22 20:15] LABS: Troponin I < 0.01 ng/ml (0.00-0.034)
[2020-03-22 23:21] LABS: POC Glucose,Bedside 179 (70-110)
--- NOTE | 2020-03-22 23:40 | PC.NURSE ---
Condom catheter applied r/t frequent urination because of lasix. urine is noted to be clear and pale. no distress noted at this time.
[2020-03-22 23:42] LABS: Troponin I < 0.01 ng/ml (0.00-0.034)
[2020-03-23] VITALS (30 sets, daily range): BP systolic 108–183; BP diastolic 63–117; PULSE 76–101; RESP 16–21; TEMP 36.7; O2SAT 91–100; BMI 25.8
--- NOTE | 2020-03-23 00:46 | PC.NURSE ---
pt was aggitated at this time in bed, drip increased from 10 to 12mcg/min
--- NOTE | 2020-03-23 00:50 | PC.NURSE ---
Pt PM meds given at this time.
[2020-03-23 06:31] LABS: Chloride 98 mmol/L (98-107); Potassium 3.7 mmoL/L (3.5-5.1); Sodium 136 mmol/L (136-145)
[2020-03-23 06:34] LABS: Anion Gap 6.7 mEq/L (5-15); Blood Urea Nitrogen 9 mg/dl (9-20); Calcium 9.5 mg/dl (8.4-10.2); Carbon Dioxide 35 mmol/L (22.0-30.0); Creatinine Clearance Estimated 196 mL/min (50-200); Estimated Glomerular Filt Rate 141 ml/min (>60); GFR (African American) 171 ML/MIN (>60); Glucose 204 mg/dl (74-100)
[2020-03-23 07:06] LABS: POC Glucose,Bedside 189 (70-110)
--- NOTE | 2020-03-23 07:41 | HMH.HP ---
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 When asked directly this morning patient continues to claim I was confused . He cannot remember the day of the week at home and was unfamiliar with, and every day things at home. Patient was brought to the ER and was found to have severe hypertension. Attempts were made in the emergency department to bring the patient's blood pressure down. CT angiogram of the head and neck raise concern over possible congestive heart failure and patient was subsequently admitted with diagnosis of hypertensive encephalopathy and suspected congestive heart failure. Patient was placed on a nitroglycerin drip and admitted to the stepdown unit. Overnight patient's blood pressures have decreased compared to admission although still fluctuate at times. Patient has developed a headache. Other than his headache he denies pain including chest pain. He denies visual deficits. Patient required application of protective mittens overnight as he was pulling at IVs, cardiac monitor technician. A condom catheter was placed to monitor patient's urine output. [facility] History I have reviewed the patient's past medical history: Yes Medical History: Reports:: Cerebrovascular Accident (Cerebrovascular accidents has been treated with is no), Diabetes Mellitus Type 2, Hyperlipidemia, Hypertension, MRSA, Urinary Tract Infection (Since the urinary tract infections) Denies:: Cancer, Diabetes Mellitus Type 1, Internal Pacemaker Comment Only: Carotid Stenosis (Carotid disection and stent) *Have you ever received a pneumonia vaccine?: Yes *Have you received a flu vaccine this season?: Yes Other Medical History: Reports: Arthritis Other Surgeries: No: Pacemaker Amputation: No Fractures: No - *Social History Last grade of school completed: Some college Smoking Status: Current every day smoker Tobacco Type: cigarettes # Packs/Day (cigarettes): 2 Alcohol Intake: never Alcohol Intake Frequency:: 0-2 drinks per day Substance Use Type: denies use *Occupational Status:: disabled Housing: other Household Members: spouse *Travel in the last 8 weeks: None Family Hx:: Cancer, Coronary Artery Disease, Diabetes, Heart Attack, Hyperlipidemia, Hypertension, Stroke Review of Systems - Constitutional Reports anorexia, Reports lack of energy, Reports malaise, Denies body ache(s), Denies chills - Eyes Denies blurry vision, Denies change in vision - ENT Denies abnormal hearing, Denies difficulty swallowing - *Cardiovascular Reports shortness of breath, Denies chest pain, Denies chest pain at rest, Denies chest pain with activity, Denies leg pain with activity, Denies excessive sweating - *Respiratory Reports shortness of breath, Denies chest congestion, Denies cough - *Gastrointestinal Denies abdominal pain, Denies belching, Denies bloating - *Genitourinary Reports difficulty urinating, Denies painful urination - *Musculoskeletal Reports abnormal walking, Reports joint pain, Reports back pain, Reports muscle weakness (Left arm and leg) - *Neurologic Reports abnormal walking, Reports confusion, Reports other (no new focal deficits noted by .) Meds Home Medications Medication Instructions Recorded Confirmed Type Aspirin [Aspirin 81mg EC Tab] 81 mg PO DAILY 02/21/19 03/22/20 History Baclofen [Lioresal 10mg tablet] 20 mg PO TID 02/21/19 03/22/20 History Clopidogrel Bisulfate [Clopidogrel 75 mg PO DAILY 02/21/19 03/22/20 History 75mg Tab] Insulin Aspart [Novolog Flexpen] 10 unit SQ TID PRN 02/21/19 03/22/20 History Insulin Detemir [Levemir 40 unit SQ HS 02/21/19 03/22/20 History 100units/mL 3mL flexpen] Pantoprazole Sodium [Protonix 40mg 40 mg PO DAILY 02/21/19 03/22/20 History tablet] Ondansetron [Zofran 4mg ODT] 4 m
--- NOTE | 2020-03-23 08:15 | PC.NURSE ---
Nitro drip titrated from 12-20 at approx 0200 titrated from 20-23 at approx 0330
[2020-03-23 12:11] LABS: POC Glucose,Bedside 200 (70-110)
--- NOTE | 2020-03-23 13:26 | PC.NURSE ---
GTT TURNED OFF AT THIS PER MD GUERRERO. REQUEST PT BP TO STAY BELOW 150SBP
--- NOTE | 2020-03-23 15:20 | HMH.PHAVTE ---
[facility] Pharmacy VTE Monitoring - Patient Demographics Admission date: 03/22/20 Report Date: 03/23/20 Time: 15:20 Allergies/Adverse Reactions: Patient Allergies metformin [METFORMIN] Allergy (Unknown, Verified 01/19/20 14:24) Unknown allergy reaction NSAIDS (Non-Steroidal Anti-Inflamma [NSAIDS (NON-STEROIDAL ANTI-INFLAMMA] Allergy (Unknown, Verified 01/19/20 14:24) UNKNOWN morphine Allergy (Verified 01/19/20 14:24) Unknown allergy reaction Height: 1.93 m Weight: 96.303 kg Patient Problems: Current Active Problems Hyperglycemia due to type 2 diabetes mellitus (Acute) History of stroke (Acute) Altered mental status (Acute) Hypertensive emergency (Acute) CHF (congestive heart failure) (Acute) Hypertensive encephalopathy (Acute) Long-term insulin use (Acute) Hypertension, essential (Acute) - VTE Risk Labs: VTE Related Lab Results Hgb 14.2 g/dL (14.1-18.0) 03/22/20 13:20 Hct 44.3 % (42.0-52.0) 03/22/20 13:20 Plt Count 167 K/mm3 (142-424) 03/22/20 13:20 PT 12.5 seconds (9.4-11.8) H 03/22/20 13:20 INR 1.14 (0.9-1.1) H 03/22/20 13:20 BUN 9 mg/dl (9-20) 03/23/20 05:35 Creatinine 0.60 mg/dl (0.66-1.25) L D 03/23/20 05:35 Estimated Creat Clear 196 mL/min (50-200) 03/23/20 05:35 Was VTE Risk Assessment Performed: Yes VTE Score: 2 VTE Risk Level: Very Low Risk - Prophylaxis VTE Prophylaxis Ordered?: Yes Types of VTE Prophylaxis: TEDS Knee High Location of Applied Device: Bilateral Lower Extremeties
--- NOTE | 2020-03-23 15:26 | HMH.PHAINT ---
MEDICATION RECONCILIATION COMPLETED ON PATIENT USING EXTERNAL FILL HISTORY FROM PHARMACY. -ARPIT LOERA, IVANNAD
[2020-03-23 16:17] LABS: POC Glucose,Bedside 173 (70-110)
--- NOTE | 2020-03-23 19:01 | PC.NURSE ---
pt has done well today. pt is alert now. bp's have been WNL PER MD ORDER. PT HAS HAD 2625 OF UOP THIS SHIFT. PT C/O OF HEADACHE X1 THIS SHIFT. MEDICATED PER APR. VSS. WILL CONT. TO MONITOR.
[2020-03-23 22:45] LABS: POC Glucose,Bedside 125 (70-110)
[2020-03-24] VITALS (14 sets, daily range): BP systolic 140–170; BP diastolic 66–109; PULSE 70–95; RESP 16–20; TEMP 36.5–36.8; O2SAT 91–98
[2020-03-24 07:04] LABS: POC Glucose,Bedside 112 (70-110)
--- NOTE | 2020-03-24 07:21 | HMH.ACPN2 ---
Internal Medicine - PN: Subj *Date: 03/24/20 *Time: 07:21 Interval history: Patient remained on nicardipine drip yesterday after transitioning from nitroglycerin drip for approximately 4 hours before blood pressures decreased to 109 systolic at the lowest. Nicardipine was discontinued and patient continued to have hourly blood pressure checks. Patient did well throughout the day but as the night progressed patient's blood pressures gradually began to rise to the 150s and 160s systolic and 90s and 100s diastolic. No changes in mental status were noted at that time and just prior to my examination this morning nursing staff reported patient was oriented to day but still not year. The patient reports to me overall pain which is not new. He is unsure of date, day, year. He denies headache this morning. Exam Vital signs and Labs for Last 24 Hours: Temp Pulse Resp BP Pulse Ox 98.1 F 82 18 164/86 H 96 03/23/20 21:00 03/24/20 06:00 03/24/20 06:00 03/24/20 06:00 03/24/20 06:00 Laboratory Results - last 24 hr 03/23/20 12:04: POC Glucose 200 H 03/23/20 16:10: POC Glucose 173 H 03/23/20 22:22: POC Glucose 125 H 03/24/20 06:21: POC Glucose 112 H I & O for Last 24 hours: Intake & Output 03/21/20 03/22/20 03/23/20 03/24/20 11:59 11:59 11:59 11:59 Intake Total 41 / 41 240 / 240 Output Total 1400 / 1400 2350 / 2350 Balance -1359 / -1359 -2110 / -2110 Weight 212 lb 5 oz - Constitutional no acute distress - *Routine HEENT Exam Head: Present: normocephalic Eye: Present: EOMI, PERRL ENT: Present: mucous membranes moist - *Routine Respiratory Exam Present: CTA bilaterally - *Routine Cardiovascular Exam Present: RRR - *Routine Neurological Exam Present: altered mental status (Patient seemed a little confused this morning and as I was speaking to him he fell asleep). Absent: oriented X3 Assessment and Plan (1) Hypertensive emergency Status: Resolved Category: Medical Code(s): I16.1 - Hypertensive emergency (2) Hypertensive encephalopathy Status: Acute Category: Medical Code(s): I67.4 - Hypertensive encephalopathy (3) Long-term insulin use Status: Acute Category: Medical Code(s): Z79.4 - ad terminal makeup operator (current) use of insulin (4) Hypertension, essential Status: Acute Category: Medical Code(s): I10 - Essential (primary) hypertension (5) Altered mental status Status: Acute Qualifiers: Altered mental status type: disorientation Qualified Code(s): R41.0 - Disorientation, unspecified Category: Medical Code(s): R41.82 - Altered mental status, unspecified (6) History of stroke Status: Acute Category: Medical Code(s): Z86.73 - Personal history of transient ischemic attack (TIA), and cerebral infarction without residual deficits (7) Hyperglycemia due to type 2 diabetes mellitus Status: Acute Qualifiers: Diabetes mellitus penitentiary insulin use: without terminal block assembler use Qualified Code(s): E11.65 - Type 2 diabetes mellitus with hyperglycemia Category: Medical Code(s): E11.65 - Type 2 diabetes mellitus with hyperglycemia (8) Hypertensive heart disease Status: Suspected Qualifiers: Heart failure presence: with heart failure Heart failure type: diastolic Category: Medical Code(s): I11.9 - Hypertensive heart disease without heart failure - Assessment and plan all Dx Assessment and Plan for all problems:: 1. Echocardiogram today 2. MRI of the brain without contrast 3. Hold gabapentin, baclofen, and decrease dose of [place] to 7.5 mg due to altered mental status. 4. Increase carvedilol to 12-1/2 mg twice daily
--- NOTE | 2020-03-24 07:54 | MR_ITS ---
PROCEDURE: MR HEAD/BRAIN WO CON CLINICAL INDICATION: ALTERED MENTAL STATUS, NEW INFARCT ON CT COMPARISON: No exams were available for comparison TECHNIQUE: Routine multiplanar multi echo sequences are performed without gadolinium enhancement. FINDINGS: This exam is very limited as the patient could not tolerate the entire exam. Axial diffusion and T2 weighted images and sagittal T2 weighted images are obtained. The diffusion-weighted images show no evidence of acute infarction. Specifically, the lacunar infarction that has developed in the interval in the right basal ganglia does not appear acute There is generalized atrophy. No midline shift or mass effect is evident. No hydrocephalus. There is an old lacunar infarction in the right basal ganglia. Fluid is present in the left mastoid sinus. IMPRESSION: 1. Limited exam. No evidence of acute infarction. 2. Atrophy with old lacunar infarction of the right basal ganglia 3. Small amount fluid in left mastoid sinus Dictated by: Srikanth Shepherd MD 03/24/2020 10:34 Srikanth Shepherd MD in [place] 03/24/2020 10:34
--- NOTE | 2020-03-24 08:00 | CA_ITS ---
APPROVED REPORT EXAM: Comprehensive 2D, Doppler, and color-flow Echocardiogram Security Guards Dispatcher: Divina Epstein Ht: 6 ft 3 in Wt: 212lbs BSA: 2.25 BP: 167/97 mmHg Indications: smoker, DM, HTN, AMS, hyperlipidemia, CHF, CAD, cardiac stent 2D Dimensions IVSd 1.19 cm M: 0.6-1.2 LVEF (Visual) 31.60 % PWd 0.92 cm M: 0.6 - 1.2 LVDd 4.08 cm M: 4.2 - 5.9 LVDs 3.48 cm M: 2.5 - 4.0 Left Atrium 3.18 cm M: 3.0 - 4.0 LVOT 2.08 cm (M/F) 1.5-2.5 M-Mode Dimensions LA Diam 3.66 cm (1.9-4.0) Ao Diam 3.91 cm (2.0-3.7) LVDs 5.36 cm (3.5-5.7) EPSs 0.79 cm ESV (Teich) 138.90 mL LV Diastology E Decel Time 180.00 (160-240 msec) E/A Ratio 1.09 MED E' 5.90 (< 7 cm/sec) MED A' 10.20 cm/s E'/MED E' Ratio 16.17 (>14) LAT E' 5.30 (<10 cm/sec) LAT A' 9.50 cm/s E/LAT E' Ratio 18.00 (>14) Pulm Vein s 37.00 cm/sec Pulm Vein d 28.00 cm/sec Aortic Valve AoV Peak Ros[place]. 228.00 (50-130 cm/s) AO Peak GR. 20.80 mmHg AO Mean GR. 12.80 (<5 mmHg) AO VTI 42.35 (18-25 cm) Mitral Valve MV A Velocity 88.00 (40-130 cm/s) E/A Ratio 1.09 MV Decel. Time 180.00 (160-240 ms) Pulmonary Valve PV Peak Velocity 73.00 (50-150 cm/s) Tricuspid Valve TR P. Velocity 203.00 cm/s RAP Estimate 10.00 mmHg RVSP 26.50 mmHg Left Ventricle Left atrium is mildly enlarged, left ventricle is mildly dilated, there is reduced left ventricular systolic function, visually estimated ejection fraction approximately 40%, left ventricle appears to be globally hypokinetic. Grade 2 diastolic dysfunction seen with tissue Doppler evidence of raise left atrial pressure. Right Ventricle Right atrium and right ventricle are normal size and contractility. Aortic Valve Aortic valve appears to be bicuspid, with severe restriction in the leaflet mobility, the leaflets are calcified, the mean gradient across aortic valve is only 12 mmHg, calculated valve area is around 1.0 cm???, this likely represents low-flow low gradient likely severe aortic stenosis. There is no significant aortic insufficiency P seen. Mitral Valve Mitral valve leaflets are minimally thickened, there is mild mitral regurgitation. Tricuspid Valve Tricuspid valve is grossly normal, Pulmonic Valve Pulmonic valve is poorly visualized. Great Vessels Aortic root is normal size. Pericardium No significant pericardial effusion noted. Conclusion 1. Mildly low left atrium, mildly dilated left ventricle, visually estimated ejection fraction approximately 40%, left ventricle is globally hypokinetic. Grade 2 diastolic dysfunction seen with tissue Doppler evidence of raise left atrial pressure. 2. Thickened and calcified likely bicuspid aortic valve, there appears to be low flow low gradient severe aortic stenosis as described above, there is no significant aortic insufficiency. 3. Mild mitral and tricuspid regurgitation. 4. No significant pericardial effusion noted. Electronically signed by : Holger Gordon, 03/25/2020 05:39:02
--- NOTE | 2020-03-24 10:28 | PC.NURSE ---
PATIENT HAS REFUSED ALL PO MEDICATIONS AT THIS TIME. THIS RN ENCOURAGED PATIENT TO USE CALL LIGHT WHEN READY.
[2020-03-24 11:17] LABS: Basophils % 0.4 % (0.1-2.0); Eosinophils # 0.2 K/mm3 (0.0-0.4); Eosinophils % 1.7 % (0.1-12.0); Hematocrit 49.3 % (42.0-52.0); Hemoglobin 16.2 g/dL (14.1-18.0); Lymphocytes # 1.1 K/mm3 (0.7-4.5); Lymphocytes % 12.2 % (10-50); Mean Corpuscular HGB Conc 32.8 g/dL (31.8-35.4); Mean Corpuscular Hemoglobin 30.6 pg (27.0-31.2); Mean Corpuscular Volume 93.2 fl (80-94); Mean Platelet Volume 8.6 fl (7.4-10.4); Monocytes # 0.5 K/mm3 (0.1-1.0); Monocytes % 5.9 % (1.7-9.3); Neutrophils # 7.2 K/mm3 (1.8-7.8); Neutrophils % 79.7 % (37.0-80.0); Platelet Count 173 K/mm3 (142-424); Red Blood Count 5.29 M/mm3 (4.60-6.20); Red Cell Distribution Width 14.3 % (11.5-17.5)
[2020-03-24 11:37] LABS: Chloride 98 mmol/L (98-107); Sodium 139 mmol/L (136-145)
[2020-03-24 11:38] LABS: Potassium 3.4 mmoL/L (3.5-5.1)
[2020-03-24 11:41] LABS: Anion Gap 9.4 mEq/L (5-15); Blood Urea Nitrogen 14 mg/dl (9-20); Calcium 9.7 mg/dl (8.4-10.2); Carbon Dioxide 35 mmol/L (22.0-30.0); Creatinine Clearance Estimated 147 mL/min (50-200); Estimated Glomerular Filt Rate 102 ml/min (>60); GFR (African American) 123 ML/MIN (>60); Glucose 158 mg/dl (74-100)
[2020-03-24 19:56] LABS: POC Glucose,Bedside 177 (70-110)
--- NOTE | 2020-03-24 20:32 | PC.NURSE ---
PATIENT IS A&O X3, LUNGS ARE DIMINISHED, PULSES ARE EQUAL. PATIENT HAD BECOME NAUSEA DURING MRI, MALT ROASTER, ARTI ADMINISTERED ZOFRAN. PATIENT HAD SOME RELIEF WHEN HE ARRIVED BACK ON THE FLOOR. THIS RN WENT TO ADMINISTER HIS PO MEDICATION AND PATIENT REFUSED. THIS RN ENCOURAGE PATIENT TO DRINK SOME WATER AND EDUCATED PATIENT AND SPOUSE THE IMPORTANCE OF DRINKING AFTER CONTRAST ADMINISTRATION. PATIENT WAS ABLE TO DRINK WATER WITH NO NAUSEA, PATIENT CALLED TO INFORM HER THAT THE PATIENT WAS READY FOR HIS MEDICATION. THIS RN ADMINISTERED MEDICATIONS, NO NAUSEA OR VOMITING. PATIENT COMPLAINED OF A GAINES 2X DURING THIS RN SHIFT, PATIENT REQUESTED TYLENOL, THIS RN ADMINISTERED TYLENOL. THERE ARE NO OTHER CONCERNS AT THIS TIME.
[2020-03-24 21:58] LABS: POC Glucose,Bedside 173 (70-110)
[2020-03-24 22:03] LABS: POC Glucose,Bedside 174 (70-110)
[2020-03-25] VITALS (20 sets, daily range): BP systolic 93–149; BP diastolic 53–95; PULSE 65–83; RESP 14–19; TEMP 36.5–37.1; O2SAT 91–98; BMI 25.1
--- NOTE | 2020-03-25 | IR_ITS ---
APPROVED REPORT Patient Location: Inpatient [facility] Guide: SAUL Sherwood RT (R) PROCEDURES Left heart catheterization Left ventriculogram Selective coronary angiogram INDICATION Systolic heart failure, Low output severe aortic stenosis, Preoperative evaluation for aortic valve replacement, Informed consent was obtained prior to the procedure. COMPLICATIONS none Estimated Blood Loss: less than 10 mls TECHNIQUE One percent lidocaine was used to anesthetize the right groin. The right femoral artery was accessed via the Seldinger technique. A 4-[place] sheath was placed in the right femoral artery. The JL-4 and JR-4 catheter was also used to perform left heart catheterization left ventriculogram and selective coronary angiogram. At the end of the procedure the patient was transferred to the post-op holding area in stable condition for arterial sheath removal. ANGIOGRAPHIC RESULTS The left main artery Has a distal 60 to 70% concentric stenosis The left anterior descending artery Has a long proximal 70 to 80% stenosis with mid vessel 60 to 70% stenoses The circumflex artery Is a nondominant vessel with mild 10 to 20% proximal stenosis The right coronary artery Is a large dominant vessel with a proximal concentric 80% stenosis followed by mid vessel 30 to 40% stenosis The CLOUD ventriculogram reveals Dilated ventricle reduced ejection fraction less than 30% The left ventricular end-diastolic pressure 40 mmHg with a 20 mm transaortic valve gradient IMPRESSION Severe three-vessel coronary disease as described above Dilated ventricle with severely reduced ejection fraction accompanied by low output severe aortic stenosis Severely elevated LVEDP PLAN 1. Patient requires surgical aortic valve replacement with surgical coronary artery revascularization 2. Patient be referred to [facility] and transferred during this hospitalization for surgical corrective therapy Electronically signed by : Lefty Alegre, 03/25/2020 15:20:03
--- NOTE | 2020-03-25 04:41 | PC.NURSE ---
PT. ABLE TO STATE NAME, , PLACE AND YEAR. PT. ABLE TO FOLLOW COMMANDS AND STATE NEEDS. +2 PITTING EDEMA NOTED TO LLE AND +1 NONPITTING TO RLE. PT. HAS NOT C/O N/V/D, DIZZINESS OR SOA.
[2020-03-25 06:24] LABS: Basophils # 0.1 K/mm3 (0-0.2); Basophils % 0.8 % (0.1-2.0); Eosinophils # 0.1 K/mm3 (0.0-0.4); Hematocrit 43.4 % (42.0-52.0); Lymphocytes # 1.4 K/mm3 (0.7-4.5); Mean Corpuscular HGB Conc 33.2 g/dL (31.8-35.4); Mean Corpuscular Hemoglobin 30.9 pg (27.0-31.2); Mean Corpuscular Volume 93.2 fl (80-94); Mean Platelet Volume 8.7 fl (7.4-10.4); Monocytes # 0.5 K/mm3 (0.1-1.0); Monocytes % 7.6 % (1.7-9.3); Neutrophils # 4.4 K/mm3 (1.8-7.8); Neutrophils % 67.6 % (37.0-80.0); Platelet Count 159 K/mm3 (142-424); Red Blood Count 4.66 M/mm3 (4.60-6.20); Red Cell Distribution Width 14.3 % (11.5-17.5); White Blood Count 6.6 K/mm3 (4.8-10.8)
[2020-03-25 06:34] LABS: Hemoglobin 14.4 g/dL (14.1-18.0)
[2020-03-25 06:36] LABS: Anion Gap 9.2 mEq/L (5-15); Blood Urea Nitrogen 20 mg/dl (9-20); Carbon Dioxide 35 mmol/L (22.0-30.0); Chloride 96 mmol/L (98-107); Creatinine Clearance Estimated 88 mL/min (50-200); Estimated Glomerular Filt Rate 58 ml/min (>60); GFR (African American) 70 ML/MIN (>60); Glucose 142 mg/dl (74-100); Potassium 3.2 mmoL/L (3.5-5.1); Sodium 137 mmol/L (136-145)
--- NOTE | 2020-03-25 07:25 | HMH.ACPN2 ---
Internal Medicine - PN: Subj *Date: 03/25/20 *Time: 07:25 Interval history: Patient reports feeling better this morning. He reports minimal pain at present. Nursing staff is concerned about the patient's urine output overnight. Patient has a condom catheter in at the beginning of the shift his bed was soaked and since that time he has had no urine output and denies any sensation of having to urinate. Patient confirms this with me. Echocardiogram has revealed a hypokinetic left ventricle and EF of 40%. Overnight patient has gone from being hypertensive to near hypotensive. Exam Vital signs and Labs for Last 24 Hours: Temp Pulse Resp BP Pulse Ox 98.7 F 70 17 93/53 L 93 L 03/25/20 03:56 03/25/20 04:00 03/25/20 03:56 03/25/20 03:56 03/25/20 03:56 Laboratory Results - last 24 hr 03/24/20 11:01: WBC 9.0 D, RBC 5.29, Hgb 16.2, Hct 49.3, MCV 93.2, MCH 30.6, MCHC 32.8, RDW 14.3, Plt Count 173, MPV 8.6, Neut % (Auto) 79.7, Lymph % (Auto) 12.2, [place] % (Auto) 5.9, Eos % (Auto) 1.7, Baso % (Auto) 0.4, Neut # (Auto) 7.2, Lymph # (Auto) 1.1, [place] # (Auto) 0.5, Eos # (Auto) 0.2, Baso # (Auto) 0.0 03/24/20 11:01: Sodium 139, Potassium 3.4 L, Chloride 98, Carbon Dioxide 35 H, Anion Gap 9.4, BUN 14 D, Creatinine 0.80 D, Estimated Creat Clear 147, Estimated GFR 102, Est GFR ( Amer) 123 D, Glucose 158 H, Calcium 9.7 03/24/20 11:38: POC Glucose 177 H 03/24/20 17:16: POC Glucose 174 H 03/24/20 21:40: POC Glucose 173 H 03/25/20 05:58: WBC 6.6 D, RBC 4.66, Hgb 14.4 D, Hct 43.4, MCV 93.2, MCH 30.9, MCHC 33.2, RDW 14.3, Plt Count 159, MPV 8.7, Neut % (Auto) 67.6, Lymph % (Auto) 22.0, [place] % (Auto) 7.6, Eos % (Auto) 2.0, Baso % (Auto) 0.8, Neut # (Auto) 4.4, Lymph # (Auto) 1.4, [place] # (Auto) 0.5, Eos # (Auto) 0.1, Baso # (Auto) 0.1 03/25/20 05:58: Sodium 137, Potassium 3.2 L, Chloride 96 L, Carbon Dioxide 35 H, Anion Gap 9.2, BUN 20 D, Creatinine 1.30 H D, Estimated Creat Clear 88, Estimated GFR 58 L, Est GFR ( Amer) 70 D, Glucose 142 H, Calcium 9.0 I & O for Last 24 hours: Intake & Output 03/22/20 03/23/20 03/24/20 03/25/20 11:59 11:59 11:59 11:59 Intake Total 41 / 41 240 / 240 360 / 360 Output Total 1400 / 1400 2350 / 2350 1400 / 1400 Balance -1359 / -1359 -2110 / -2110 -1040 / -1040 Weight 212 lb 5 oz 206 lb 2 oz Microbiology Reports for the Last 24 Hours: Microbiology 03/22/20 16:30 Blood Blood Culture - Preliminary NO GROWTH AFTER 48 HOURS 03/22/20 16:06 Blood Blood Culture - Preliminary NO GROWTH AFTER 48 HOURS 03/22/20 21:30 Anus CRE Surveillance Culture - Final Negative - Constitutional no acute distress - *Routine Respiratory Exam Present: CTA bilaterally - *Routine Cardiovascular Exam Present: RRR - *Routine Abdominal Exam Present: soft, normoactive bowel sounds. Absent: tenderness - *Routine Neurological Exam Patient is more alert this morning than previous days. He is oriented to person, place, time. Assessment and Plan (1) Acute congestive heart failure Status: Acute Category: Medical Code(s): I50.9 - Heart failure, unspecified (2) Hypertensive emergency Status: Resolved Category: Medical Code(s): I16.1 - Hypertensive emergency (3) Hypertensive encephalopathy Status: Resolved Category: Medical Code(s): I67.4 - Hypertensive encephalopathy (4) Long-term insulin use Status: Acute Category: Medical Code(s): Z79.4 - half-way (current) use of insulin (5) Hypertension, essential Status: Acute Category: Medical Code(s): I10 - Essential (primary) hypertension (6) Altered mental status Status: Resolved Qualifiers: Altered mental status type: disorientation Qualified Code(s): R41.0 - Disorientation, unspecified Category: Medical Code(s): R41.82 - Altered mental status, unspecified (7) History of stroke Status: Acute Cat
--- NOTE | 2020-03-25 08:34 | HMH.CNCARD ---
History of Present Illness Consult date: 03/25/20 Requesting physician: Maged Aburto Consult reason: aortic stenosis Chief complaint: Reduced LV systolic 40% Additional Medical History:: 1. Mental status change (03/25/20) 2. Hyperglycemia due to type 2 diabetes.(03/25/20) 3. Reduced LV systolic dysfunction 40% with a grade 2 diastolic dysfunction (03/25/20) a. Echo (03/24/20) b. Severe aortic stenosis (03/24/20) 4. History of stroke a. Left side hemoparesis 5. Acute congestive heart failure (03/24/20) 6. Hypertensive emergency (03/24/20) 7. Acute renal insufficiency (03/24/20) a. Creatinine 1.30 8. Decreased urine output (03/24/20) 9. Hyperlipidemia a. Patient is on a statin History of present illness: 54-year-old male admitted to [facility] on 03/24/2020 for hyperglycemia due to type 2 diabetes and hypertensive emergency. Cardiology was consulted this morning for reduced LV systolic dysfunction at 40% with a grade 2 diastolic dysfunction. Severe aortic stenosis also noted with no aortic insufficiency. Mild MR and TR also noted. Patient is alert and oriented x3. Patient did have a CVA a few years ago. CVA has left him left-sided hemiparesis. At the time of his stroke he was transferred to [facility] in which he underwent a right carotid stent. He believes that was in 2016 or 2017. Patient denies chest pain, tightness or pressure. Patient denies shortness of breath. Slight swelling of the lower extremities noted. Patient stated this is not new for him. Patient does need assistance with daily activities. While staying here at the hospital patient was noted to have acute congestive heart failure. PCP stated patient had decreased urine output throughout the night. Creatinine was noted to 0.80 upon admission, creatinine today 1.30. Patient noted as hypotensive this morning. But denies any weakness or dizziness. Initial EKG represented normal sinus with a right bundle branch block with left anterior vascular block with a heart rate of 90 bpm. Patient denies any history of cardiac disease. Patient does smoke at least 1 pack/day and has for 20+ years. Patient denies any alcohol intake. Discussed plan of care with Dr. Alegre and Dr. Aburto. Due to the reduced LV function and grade 2 diastolic dysfunction patient, would benefit from a left heart catheterization. Discussed with the patient the risk and benefits of a left heart catheterization. is not at bedside. Nurse stated she will try to have come in to see him so we can discuss the left heart catheterization. Management of acute renal insufficiency deferred to PCP. PCP stated that he will start normal saline on the patient. Will defer management of diabetes to PCP. Will defer management of CVA to PCP. Management of hypertension to PCP. Pending on the results of the left heart catheterization, recommendations may be made for medication and treatment changes.. Thank you for letting cardiology participate in the care of this patient. [facility] History I have reviewed the patient's past medical history: Yes Medical History: Reports:: Cerebrovascular Accident (Cerebrovascular accidents has been treated with is no), Diabetes Mellitus Type 2, Hyperlipidemia, Hypertension, MRSA, Urinary Tract Infection (Since the urinary tract infections) Denies:: Cancer, Diabetes Mellitus Type 1, Internal Pacemaker Comment Only: Carotid Stenosis (Carotid disection and stent) *Have you ever received a pneumonia vaccine?: Yes *Have you received a flu vaccine this season?: Yes Other Medical History: Reports: Arthritis Other Surgeries: No: Pacemaker Amputation: No Fractures: No - *Social History Last grade of school completed: Some college Smoking Status: Current every day smoker Tobacco Type: cigarettes # Packs/Day (cigarettes): 2 Alcohol Intake: never Alcohol Intake Frequency:: 0-2 drinks per day Substance Use Type: denies use *Occupationa
[2020-03-25 12:35] LABS: POC Glucose,Bedside 141 (70-110)
[2020-03-25 12:35] LABS: POC Glucose,Bedside 172 (70-110)
[2020-03-25 14:01] LABS: POC Glucose,Bedside 162 (70-110)
[2020-03-25 15:53] LABS: POC Glucose,Bedside 142 (70-110)
--- NOTE | 2020-03-25 16:26 | HMH.DCSUM ---
General - General Admission date:: 03/22/20 Discharge date: 03/26/20 HPI HPI: 54-year-old male with history of stroke resulting in left hemiplegia presented to the emergency department after he was discovered by his to be confused. When asked directly this morning patient continues to claim I was confused . He cannot remember the day of the week at home and was unfamiliar with, and every day things at home. Patient was brought to the ER and was found to have severe hypertension. Attempts were made in the emergency department to bring the patient's blood pressure down. CT angiogram of the head and neck raise concern over possible congestive heart failure and patient was subsequently admitted with diagnosis of hypertensive encephalopathy and suspected congestive heart failure. Patient was placed on a nitroglycerin drip and admitted to the stepdown unit. Overnight patient's blood pressures have decreased compared to admission although still fluctuate at times. Patient has developed a headache. Other than his headache he denies pain including chest pain. He denies visual deficits. 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 A condom catheter was placed to monitor patient's urine output. Hospital Course Hospital Course: Patient was initially admitted and placed on nitroglycerin drip for hypertensive emergency and hypertensive encephalopathy. Nitroglycerin drip did help reduce blood pressure but patient developed headache. On the morning of the patient had his lisinopril increased to 40 mg, was given Lasix 40 mg IV, and was started on carvedilol 6.25 mg twice daily. Patient was also placed on a nicardipine drip but within 4 hours of starting the nicardipine drip patient's blood pressures had improved and after discontinuation. Patient remained on the oral regimen of lisinopril and carvedilol along with intravenous Lasix until the morning of the . While patient's hypertension improved his encephalopathy was slower to recover. Patient remained mildly confused and oriented to person and place only until the morning of the at which point patient had returned to his baseline and was oriented to person place and time. As part of the patient's work-up he underwent a CT scan in the emergency department which showed a new but not acute basal ganglia infarct. This was confirmed during hospitalization with limited MRI due to patient's ability to cooperate secondary to confusion. As part of patient's evaluation he underwent echocardiogram on the which revealed global hypokinesis and an ejection fraction of 40%. Cardiology service was consulted and patient was taken to the Com[employer] on the with findings as follows: ANGIOGRAPHIC RESULTS The left main artery Has a distal 60 to 70% concentric stenosis The left anterior descending artery Has a long proximal 70 to 80% stenosis with mid vessel 60 to 70% stenoses The circumflex artery Is a nondominant vessel with mild 10 to 20% proximal stenosis The right coronary artery Is a large dominant vessel with a proximal concentric 80% stenosis followed by mid vessel 30 to 40% stenosis The CLOUD ventriculogram reveals Dilated ventricle reduced ejection fraction less than 30% The left ventricular end-diastolic pressure 40 mmHg with a 20 mm transaortic valve gradient IMPRESSION Severe three-vessel coronary disease as described above Dilated ventricle with severely reduced ejection fraction accompanied by low output severe aortic stenosis Severely elevated LVEDP PLAN 1. Patient requires surgical aortic valve replacement with surgical coronary artery revascularization 2. Patient be referred to [facility] and transferred during this hospitalization for surgical corrective therapy Dr. Alegre arranged for transfer to the [facility] after speaking with Dr. García. Patient was subsequently transfe
--- NOTE | 2020-03-25 22:16 | PC.NURSE ---
PATIENT IS A&O X3 WITH INTERMITTENT CONFUSION, LUNGS ARE DIMINISHED, PULSES ARE EQUAL. FEET HAVE A 2+ PITTING EDEMA WHEN UP TO CHAIR. THIS RN ENCOURAGED PATIENT TO ELEVATE HIS FEET DUE TO THE EDEMA, PATIENT REFUSED WHEN IN CHAIR. 1350 PATIENT'S SPOUSE ASKED FOR PATIENT FSBS, THIS RN CHECKED REQUESTED. FSBS WAS 162, TEMPERATURE WAS 97.9 AND PATIENT WAS DIAPHORETIC. THIS RN SPOKE WITH DR. GUERRERO, REPORTED FINDINGS. ORDERED TO ADMINISTER 650MG TYLENOL. THIS RN ATTEMPTED TO ADMINISTER TYLENOL, AMY LEMUS FROM [employer] REQUESTED THAT MEDICATION BE GIVEN AT A LATER TIME. AWARE. BUSINESS FUNCTIONAL ANALYST AMY NUNO INSTRUCTED THIS RN THAT PATIENT IS NOT TO HAVE ANY IV FLUIDS, THAT PATIENT WOULD BE TRANSFERRED WHEN A BED IS AVAILABLE. PATIENT TOLERATED POST BUSINESS FUNCTIONAL ANALYST. NO NEW CONCERNS AT THIS TIME.
[2020-03-25 23:12] LABS: POC Glucose,Bedside 189 (70-110)
[2020-03-26] VITALS (11 sets, daily range): BP systolic 110–152; BP diastolic 64–84; PULSE 68–81; RESP 17–20; TEMP 36.6–36.8; O2SAT 97–99
--- NOTE | 2020-03-26 01:15 | PC.NURSE ---
spoke with [facility] at this time. update given. no beds available at this time
[2020-03-26 05:17] LABS: POC Glucose,Bedside 197 (70-110)
--- NOTE | 2020-03-26 06:22 | HMH.ACPN2 ---
Internal Medicine - PN: Subj *Date: 03/26/20 *Time: 06:22 Interval history: Patient has no complaints this morning and states he feels good . Denies chest pain or shortness of breath. Nursing staff reports the [facility] contacted the hospital this morning and is hopeful a bed may be available later this morning Exam Vital signs and Labs for Last 24 Hours: Temp Pulse Resp BP Pulse Ox 98.0 F 81 18 127/84 97 03/26/20 04:00 03/26/20 04:00 03/26/20 05:24 03/26/20 04:00 03/26/20 04:00 Laboratory Results - last 24 hr 03/25/20 05:58: WBC 6.6 D, RBC 4.66, Hgb 14.4 D, Hct 43.4, MCV 93.2, MCH 30.9, MCHC 33.2, RDW 14.3, Plt Count 159, MPV 8.7, Neut % (Auto) 67.6, Lymph % (Auto) 22.0, [place] % (Auto) 7.6, Eos % (Auto) 2.0, Baso % (Auto) 0.8, Neut # (Auto) 4.4, Lymph # (Auto) 1.4, [place] # (Auto) 0.5, Eos # (Auto) 0.1, Baso # (Auto) 0.1 03/25/20 05:58: Sodium 137, Potassium 3.2 L, Chloride 96 L, Carbon Dioxide 35 H, Anion Gap 9.2, BUN 20 D, Creatinine 1.30 H D, Estimated Creat Clear 88, Estimated GFR 58 L, Est GFR ( Amer) 70 D, Glucose 142 H, Calcium 9.0 03/25/20 06:08: POC Glucose 141 H 03/25/20 10:53: POC Glucose 172 H 03/25/20 13:53: POC Glucose 162 H 03/25/20 15:44: POC Glucose 142 H 03/25/20 22:45: POC Glucose 189 H 03/26/20 05:05: POC Glucose 197 H I & O for Last 24 hours: Intake & Output 03/23/20 03/24/20 03/25/20 03/26/20 11:59 11:59 11:59 11:59 Intake Total 41 / 41 240 / 240 360 / 360 0 / 0 Output Total 1400 / 1400 2350 / 2350 1800 / 1800 200 / 200 Balance -1359 / -1359 -2110 / -2110 -1440 / -1440 -200 / -200 Weight 212 lb 5 oz 206 lb 2 oz - Constitutional no acute distress - *Routine HEENT Exam Head: Present: normocephalic Eye: Present: EOMI, PERRL ENT: Present: mucous membranes moist - *Routine Neck Exam Present: supple. Absent: lymphadenopathy - *Routine Respiratory Exam Present: CTA bilaterally - *Routine Cardiovascular Exam Present: RRR Assessment and Plan (1) Coronary artery disease Status: Acute Category: Medical Code(s): I25.10 - Atherosclerotic heart disease of [place] coronary artery without angina pectoris (2) Severe aortic stenosis Status: Acute Category: Medical Code(s): I35.0 - Nonrheumatic aortic (valve) stenosis (3) Acute congestive heart failure Status: Acute Category: Medical Code(s): I50.9 - Heart failure, unspecified (4) Hypertensive emergency Status: Resolved Category: Medical Code(s): I16.1 - Hypertensive emergency (5) Hypertensive encephalopathy Status: Resolved Category: Medical Code(s): I67.4 - Hypertensive encephalopathy (6) Long-term insulin use Status: Acute Category: Medical Code(s): Z79.4 - manager long term care (current) use of insulin (7) Hypertension, essential Status: Acute Category: Medical Code(s): I10 - Essential (primary) hypertension (8) Altered mental status Status: Resolved Qualifiers: Altered mental status type: disorientation Qualified Code(s): R41.0 - Disorientation, unspecified Category: Medical Code(s): R41.82 - Altered mental status, unspecified (9) History of stroke Status: Acute Category: Medical Code(s): Z86.73 - Personal history of transient ischemic attack (TIA), and cerebral infarction without residual deficits (10) Hypertensive heart disease Status: Suspected Qualifiers: Heart failure presence: with heart failure Heart failure type: combined systolic and diastolic Category: Medical Code(s): I11.9 - Hypertensive heart disease without heart failure (11) Type 2 diabetes mellitus with hyperglycemia, with long-term current use of insulin Status: Acute Category: Medical Code(s): E11.65 - Type 2 diabetes mellitus with hyperglycemia; Z79.4 - halfway (current) use of insulin (12) Cigarette smoker Status: Acute Category: Social Hx Code(s): F17.210 - Nicotine dependence, cigarettes, uncomplicated (13) Acute kidney in
--- NOTE | 2020-03-26 06:36 | PC.NURSE ---
pt has been restless all night. requesting to smoke. pt educated that this is a smoke free facility. intermittent confusion. iv patent. pt voided once this shift. vss. telemetry shows no changes. awaiting bed at . call light in reach. cath sites with no bleeding noted to dressings. vss. will continue to monitor
[2020-03-26 11:27] LABS: POC Glucose,Bedside 235 (70-110)
[2020-03-26 12:22] LABS: Basophils % 0.6 % (0.1-2.0); Eosinophils # 0.1 K/mm3 (0.0-0.4); Eosinophils % 2.4 % (0.1-12.0); Hematocrit 41.2 % (42.0-52.0); Hemoglobin 13.2 g/dL (14.1-18.0); Lymphocytes # 1.1 K/mm3 (0.7-4.5); Lymphocytes % 19.7 % (10-50); Mean Corpuscular HGB Conc 32.2 g/dL (31.8-35.4); Mean Corpuscular Hemoglobin 30.2 pg (27.0-31.2); Mean Platelet Volume 8.5 fl (7.4-10.4); Monocytes # 0.4 K/mm3 (0.1-1.0); Monocytes % 6.9 % (1.7-9.3); Neutrophils # 4.1 K/mm3 (1.8-7.8); Neutrophils % 70.4 % (37.0-80.0); Platelet Count 137 K/mm3 (142-424); Red Blood Count 4.38 M/mm3 (4.60-6.20); Red Cell Distribution Width 13.8 % (11.5-17.5); White Blood Count 5.8 K/mm3 (4.8-10.8)
[2020-03-26 12:23] LABS: Chloride 96 mmol/L (98-107); Potassium 3.3 mmoL/L (3.5-5.1); Sodium 136 mmol/L (136-145)
[2020-03-26 12:26] LABS: Blood Urea Nitrogen 30 mg/dl (9-20); Creatinine Clearance Estimated 104 mL/min (50-200); Estimated Glomerular Filt Rate 70 ml/min (>60); GFR (African American) 85 ML/MIN (>60)
[2020-03-26 12:27] LABS: Anion Gap 8.3 mEq/L (5-15); Carbon Dioxide 35 mmol/L (22.0-30.0); Glucose 207 mg/dl (74-100)
--- NOTE | 2020-03-26 16:39 | PC.NURSE ---
Pt has been somewhat uncooperative this shift. Pt continuously tries to get OOB without assistance and bed safety alarm is in place. Alert to person and occasionally alert to place. No complaints of pain or SOA. Pt is on room air with sats. >90%. Lungs CTA. 1 + pitting edema noted to BLE. Pt ambulates with assistance X1 and uses a walker. Pt reports 1 small, soft, brown BM this shift. Pt has sat up in the chair intermittently. Pt pulled his IV out and a new 18 G peripheral IV was inserted in his RT AC. Telemetry reveals SA/BBB. VSS. Call light within reach. Will continue to monitor.
[2020-03-26 16:53] LABS: POC Glucose,Bedside 213 (70-110)
--- NOTE | 2020-03-26 19:45 | PC.NURSE ---
report called to dionisio at . transfer order placed. transportation called at this time.
[2020-03-26 21:09] LABS: POC Glucose,Bedside 128 (70-110)
== END 2020-03-26 21:14 | disposition short-term general hospital (02) | DRG 286 ==
LOC: ER 13:32 → 2ND 18:55
PROVIDERS: Internal Medicine; Admitting Provider Internal Medicine Adolescent Medicine; Emergency Provider Emergency Medicine; PCP Family Medicine; Visit Provider Family Medicine
PROC: 4A023N7 Measurement of Cardiac Sampling and Pressure, Left Heart, Percutaneous Approach (ICD-10-PCS; principal; 2020-03-25 13:00)
DX: I35.0 Nonrheumatic aortic (valve) stenosis (principal); I50.41 Acute combined systolic (congestive) and diastolic (congestive) heart failure; I69.354 Hemiplegia and hemiparesis following cerebral infarction affecting left non-dominant side; I67.4 Hypertensive encephalopathy; N17.9 Acute kidney failure, unspecified; I16.1 Hypertensive emergency; I11.0 Hypertensive heart disease with heart failure; Z72.0 Tobacco use; E11.9 Type 2 diabetes mellitus without complications; Z88.8 Allergy status to other drugs, medicaments and biological substances; Z79.4 Long term (current) use of insulin; Z88.5 Allergy status to narcotic agent; Z79.02 Long term (current) use of antithrombotics/antiplatelets; Z79.82 Long term (current) use of aspirin; Z79.899 Other long term (current) drug therapy; I25.10 Atherosclerotic heart disease of native coronary artery without angina pectoris
CPT/HCPCS: 36415; 70450; 70496; 70498; 70551; 71045; 80048; 80076; 82962; 83605; 83880; 84145; 84484; 85025; 85610; 86328; 87040; 87081; 87581; 87633; 87798; 93005; 93306; 93458; 96365; 96367; 97140; 97530; 99152; 99153; 99285; C1725; C1769; J1644; J2405; Q9967; U0003

== ENCOUNTER 2020-03-28 13:00 | Outpatient (RCR) | payer MEDICARE, OTHER, SELFPAY ==
--- NOTE | 2020-03-17 16:04 | HMH.PTOPEV ---
PT Outpatient Evaluation Rehab PT Outpatient Evaluation Start: 03/17/20 15:47 Freq: Status: Active Protocol: Document 03/17/20 15:47 RADHAVENKAT (Rec: 03/17/20 16:04 TORI [id number]) Electronically Signed By Alex Aranda PT 03/17/20 15:47 Outpatient Therapy Subjective History Subjective History This is the initial Physical THerapy evaluation for Erna Dove. Pt is a 54 y/o male referred to PT for c/o weakness, decreased endurance and significant balance issues . Pt reports original problem began in 2018. Pt reports he had a tear in the lining of R carotid artery. 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 Pt also reports he has significant BUE and BLE neuropathy due to years of uncontrolled diabetes w/ non- compliance to treatment. Chief Complaint Paresthesia,Weakness,Other, Decreased Coordination Symptom Type Other Symptoms Relieved By Rest/Positioning Symptoms Aggravated By Standing,Physical Activity, Walking Prior Functional Limitations None Current Functional Limitations Housework,Standing,Squatting, Recreation Activity,Walking, Stairs,Balance Balance Eval Subjective Hx of Complaint Comment CVA w/ L side affect Chief Complaint vertigo No Did you feel dizzy, unsteady or faint? Yes Prior Functional Limitations Prior Functional [place] Level Independent Current Functional Limitations Comment assist w/ all ADL Hx of Falls Hx Falls Yes Number in last 6 months 4 Gait/Posture Asssessment General Gait Observation Shuffling Step,Hips Posterior to BHARAT Assistive Devices Rolling / Wheeled Walker Level of Transfer Assist Assistance x1 Hip Observation in Gait Stance Excess Flexion Ankle/Foot Observation in Gait Swing No Heel Off,Decreased Foot Clearance Hip Posture Standing Position (L) Flexed,(R) Flexed Body Alignment Posture Rigid,Leaning,Forward Head [place] Feet Together/Eyes open/Stable Surface fail Feet Together/Eyes Closed/Stable Surface fail Feet Together/Eyes open/Unstable Surface fail Feet Together/Eyes Closed/Unstable fail Surface
== END 2020-03-28 13:05 | disposition home or self-care (01) ==
LOC: PT 13:00
PROVIDERS: PCP Family Medicine; Visit Provider Family Medicine
DX: R26.89 Other abnormalities of gait and mobility (principal); Z86.73 Personal history of transient ischemic attack (TIA), and cerebral infarction without residual deficits
CPT/HCPCS: 97110; 97140; 97163; 97530

== ENCOUNTER → 2020-04-11 15:31 | Outpatient (CLI) | payer MEDICARE, OTHER, SELFPAY | PROVIDERS: PCP Family Medicine; Visit Provider Family Medicine | DX: Z20.822 Contact with and (suspected) exposure to COVID-19 (principal) | CPT/HCPCS: U0003 ==

== ENCOUNTER 2020-05-13 20:51 | Observation (INO) | payer MEDICARE, OTHER, SELFPAY ==
[2020-05-13] VITALS (11 sets, daily range): BP systolic 155–186; BP diastolic 97–118; PULSE 84–89; RESP 11–19; TEMP 36.7; O2SAT 96–100; BMI 26.7
--- NOTE | 2020-05-13 20:37 | CT_ITS ---
PROCEDURE: CT HEAD/BRAIN WO CON CLINICAL INDICATION: ams Altered mental status, altered level of consciousness, confusion, disorientation COMPARISON: CT CT HEAD/BRAIN WO CON from 03/22/[address] ANGIO HEAD from 03/22/2020 TECHNIQUE: Axial images obtained. All CT scans at the facility use one or more dose reduction, viz: automated exposure control, ma/kV adjustment per patient size (including targeted exams where dose is matched to indication, i.e. head), or iterative reconstruction technique. FINDINGS: No midline shift, mass effect, intracranial hemorrhage, hydrocephalus, or extra-axial fluid collection is evident. There is mild generalized atrophy with hypoattenuation of the periventricular white matter consistent with microangiopathic changes. Old small lacunar infarct in the right basal ganglia once again noted. The calvarium has an unremarkable appearance. Small amount fluid is present in the left mastoid sinus.. No sinus air-fluid level. IMPRESSION: No acute intracranial finding Dictated by: Srikanth Shepherd MD 05/14/2020 11:16 Srikanth Shepherd MD in [facility] 05/14/2020 11:16
--- NOTE | 2020-05-13 20:37 | HMH.EDAMS ---
ED Disposition Clinical Impression: IDDM (insulin dependent diabetes mellitus), RBBB, Hypertensive urgency Altered mental status Qualifiers: Altered mental status type: unspecified Qualified Code(s): R41.82 - Altered mental status, unspecified Disposition: Admitted as Observation Condition on Discharge: Good - Critical Care Critical Care Time: No Attestation: On , the high probability of a clinically significant, sudden or life threatening deterioration of the following system(s) required my full and direct attention, intervention and personal management. The time I documented below is in addition to time spent performing reported procedures but includes the following listed in this critical care notation. Medical Decision Making - Medical Records Medical records reviewed: Yes: I reviewed the patient's medical records. - [place] Inquiry Pt receiving controlled substance: No Vital Signs: 05/13/20 20:27 05/13/20 20:29 05/13/20 20:30 Temperature 98.1 F Temperature Source Oral Pulse Rate 88 87 Pulse Rate [Left Radial] 86 Respiratory Rate 18 Blood Pressure 167/100 H Blood Pressure [Right Arm] 166/98 H Blood Pressure Mean 119 Blood Pressure Mean [Right Arm] 120 Blood Pressure Source [Right Arm] Automatic Cuff Blood Pressure Position [Right Arm] Supine 02 Sat by Pulse Oximetry 99 98 98 Oxygen Delivery Method Room Air 05/13/20 20:45 05/13/20 21:00 05/13/20 21:30 Temperature Temperature Source Pulse Rate 84 87 88 Pulse Rate [Left Radial] Respiratory Rate 16 11 L Blood Pressure 159/97 H 178/106 H Blood Pressure [Right Arm] Blood Pressure Mean 124 130 Blood Pressure Mean [Right Arm] Blood Pressure Source [Right Arm] Blood Pressure Position [Right Arm] 02 Sat by Pulse Oximetry 98 97 100 Oxygen Delivery Method 05/13/20 22:04 05/13/20 22:30 05/13/20 22:59 Temperature Temperature Source Pulse Rate Pulse Rate [Left Radial] Respiratory Rate 13 19 Blood Pressure 155/109 H 186/113 H 169/108 H Blood Pressure [Right Arm] Blood Pressure Mean 124 133 124 Blood Pressure Mean [Right Arm] Blood Pressure Source [Right Arm] Blood Pressure Position [Right Arm] 02 Sat by Pulse Oximetry 96 Oxygen Delivery Method 05/13/20 23:00 05/13/20 23:30 05/14/20 00:00 Temperature Temperature Source Pulse Rate 89 Pulse Rate [Left Radial] 89 Respiratory Rate 16 16 12 Blood Pressure 182/118 H Blood Pressure [Right Arm] 165/100 H Blood Pressure Mean 129 Blood Pressure Mean [Right Arm] 121 Blood Pressure Source [Right Arm] Manual Cuff/ Auscultation Blood Pressure Position [Right Arm] Supine 02 Sat by Pulse Oximetry 99 97 Oxygen Delivery Method Room Air 05/14/20 00:01 05/14/20 00:28 05/14/20 00:31 Temperature Temperature Source Pulse Rate Pulse Rate [Left Radial] Respiratory Rate 12 14 Blood Pressure 169/109 H 160/92 H Blood Pressure [Right Arm] Blood Pressure Mean 129 114 Blood Pressure Mean [Right Arm] Blood Pressure Source [Right Arm] Blood Pressure Position [Right Arm] 02 Sat by Pulse Oximetry Oxygen Delivery Method - Lab Data Lab results reviewed: Yes: I reviewed the patient's lab results. Lab Results 05/13/20 20:46: WBC 6.9, RBC 4.75, Hgb 14.0 L, Hct 43.4, MCV 91.5, MCH 29.5, MCHC 32.2, RDW 14.3, Plt Count 143, MPV 8.4, Neut % (Auto) 74.9, Lymph % (Auto) 16.5, [place] % (Auto) 5.9, Eos % (Auto) 2.3, Baso % (Auto) 0.5, Neut # (Auto) 5.2, Lymph # (Auto) 1.1, [place] # (Auto) 0.4, Eos # (Auto) 0.2, Baso # (Auto) 0.0 05/13/20 20:46: Sodium 138, Potassium 4.0, Chloride 102, Carbon Dioxide 34 H, Anion Gap 6.0, BUN 16, Creatinine 0.70, Estimated Creat Clear 174, Estimated GFR 118, Est GFR ( Amer) 143, Glucose 237 H, Calcium 9.2, Total Bilirubin 0.5, AST 22, ALT 15, Alkaline Phosphatase 126, Total Protein 6.7, Albumin 3.6, Globulin 3.1, Albumin/Globulin Ratio 1.2, Salicylates <
--- NOTE | 2020-05-13 20:55 | ECG_ITS ---
APPROVED REPORT Exam: Resting ECG HR:87 bpm ECG Measurements Heart Rate 87 AXES RI 164 P 33 QRSd 146 QRS -61 QT 422 T 60 QTc 507 Conclusion Normal sinus rhythm Right bundle branch block Left anterior fascicular block Bifascicular block Minimal voltage criteria for LVH, may be normal variant Abnormal ECG Electronically signed by : Maged Bermudez, 05/14/2020 17:58:02
[2020-05-13 20:57] LABS: Basophils % 0.5 % (0.1-2.0); Eosinophils # 0.2 K/mm3 (0.0-0.4); Eosinophils % 2.3 % (0.1-12.0); Hematocrit 43.4 % (42.0-52.0); Lymphocytes # 1.1 K/mm3 (0.7-4.5); Lymphocytes % 16.5 % (10-50); Mean Corpuscular HGB Conc 32.2 g/dL (31.8-35.4); Mean Corpuscular Hemoglobin 29.5 pg (27.0-31.2); Mean Corpuscular Volume 91.5 fl (80-94); Mean Platelet Volume 8.4 fl (7.4-10.4); Monocytes # 0.4 K/mm3 (0.1-1.0); Monocytes % 5.9 % (1.7-9.3); Neutrophils # 5.2 K/mm3 (1.8-7.8); Neutrophils % 74.9 % (37.0-80.0); Platelet Count 143 K/mm3 (142-424); Red Blood Count 4.75 M/mm3 (4.60-6.20); Red Cell Distribution Width 14.3 % (11.5-17.5); White Blood Count 6.9 K/mm3 (4.8-10.8)
[2020-05-13 21:14] LABS: Chloride 102 mmol/L (98-107); Sodium 138 mmol/L (136-145)
[2020-05-13 21:16] LABS: Alanine Aminotransferase 15 U/L (12-78); Aspartate Amino Transferase 22 U/L (17-59); Blood Urea Nitrogen 16 mg/dl (9-20); Creatinine Clearance Estimated 174 mL/min (50-200); Estimated Glomerular Filt Rate 118 ml/min (>60); GFR (African American) 143 ML/MIN (>60)
[2020-05-13 21:17] LABS: Acetaminophen < 10 ug/ml (10-30); Albumin Level 3.6 g/dl (3.5-5.0); Albumin/Globulin Ratio 1.2 (1.1-1.8); Alkaline Phosphatase 126 U/L (38-126); Bilirubin,Total 0.5 mg/dl (0.2-1.3); Calcium 9.2 mg/dl (8.4-10.2); Carbon Dioxide 34 mmol/L (22.0-30.0); Globulin 3.1 g/dL (1.3-3.2); Glucose 237 mg/dl (74-100); Salicylate < 1.0 mg/dL (2.0-20.0); Total Protein,Serum 6.7 g/dl (6.3-8.2)
[2020-05-13 21:22] LABS: Ethyl Alcohol < 10 mg/dl (0-10)
--- NOTE | 2020-05-13 22:16 | PC.NURSE ---
Pt had urinated on himself. Pt cleaned and linen changed. Pt refuses urinary cath to obtain UA.
[2020-05-13 23:34] LABS: Adenovirus,PCR Not Detected (NotDetected); Bordetella Pertussis Not Detected (NotDetected); Chlamydophila Pneumoniae, PCR Not Detected (NotDetected); Coronavirus 19, PCR Not Detected (NotDetected); Coronavirus 229E Not Detected (NotDetected); Coronavirus NL63 Not Detected (NotDetected); Coronavirus OC43 Not Detected (NotDetected); Coronovirus HKU1,PCR Not Detected (NotDetected); Human Metapneumovirus Not Detected (NotDetected); Influenza A, PCR Not Detected (NotDetected); Influenza AH1, 2009 Not Detected (NotDetected); Influenza AH1, PCR Not Detected (NotDetected); Influenza AH3,PCR Not Detected (NotDetected); Influenza B, PCR Not Detected (NotDetected); Mycoplasma Pneumoniae, PCR Not Detected (NotDetected); Parainfluenza 1, PCR Not Detected (NotDetected); Parainfluenza 2, PCR Not Detected (NotDetected); Parainfluenza 3, PCR Not Detected (NotDetected); Parainfluenza 4, PCR Not Detected (NotDetected); Respiratory Syncytial Virus Not Detected (NotDetected); Rhinovirus/Enterovirus Not Detected (NotDetected)
[2020-05-14] VITALS (13 sets, daily range): BP systolic 160–185; BP diastolic 81–151; PULSE 79–89; RESP 12–20; TEMP 36.7–37.6; O2SAT 95–98; BMI 26.1; BMI 26.2; BMI 26.3
--- NOTE | 2020-05-14 01:55 | PC.NURSE ---
Pt removed IV. New IV to right wrist obtained at this time.
--- NOTE | 2020-05-14 01:56 | PC.NURSE ---
patient up to floor via stretcher.
--- NOTE | 2020-05-14 04:07 | PC.NURSE ---
pt alert to self and place. does not know year or why he is here. spoke with pt regarding code state- states he wants to be a DNR, verified with 2 rn's, Gonzaol Ramirez RN and myself. pt will not keep a gown on, cont. to pull that and his blankets off. pt has pulled another iv out. a new 22g placed in his RAC. safety alarm in place.
[2020-05-14 05:02] LABS: Microscopic, Urine URINE MICROSCOPIC (MICROSCOPIC)
[2020-05-14 05:24] LABS: POC Glucose,Bedside 272 (70-110)
[2020-05-14 05:44] LABS: Appearance,Urine CLEAR (Clear); Bilirubin,Urine Negative (Negative); Blood, Urine 3+ (Negative); Color,Urine YELLOW (Yellow); Glucose,Urine (UA) 2+ (Negative); Ketones,Urine Negative (Negative); Leukocyte Esterase,Urine Negative (Negative); Nitrate,Urine Negative (Negative); Protein,Urine 2+ (Negative); Specific Gravity, Urine 1.025 (1.005-1.030)
[2020-05-14 05:47] LABS: RBC,Urine 20-50 #/hpf (0-3)
[2020-05-14 06:53] LABS: Barbiturates Screen,Urine Negative ng/ml (<200)
[2020-05-14 06:54] LABS: Amphetamine/Metha Screen,Urine Negative ng/ml (<1000); Benzodiazepines Screen,Urine Positive ng/ml (<200)
[2020-05-14 06:55] LABS: Methadone Screen,Urine Negative ng/ml (<300)
[2020-05-14 06:56] LABS: Cannabinoid Screen,Urine Negative ng/ml (<50); Cocaine Screen,Urine Negative ng/ml (<300)
[2020-05-14 06:57] LABS: Opiate Screen,Urine Positive ng/ml (<300); Phencyclidine Screen,Urine Negative ng/ml (<25)
--- NOTE | 2020-05-14 07:35 | HMH.PHAVTE ---
[facility] Pharmacy VTE Monitoring - Patient Demographics Admission date: 05/14/20 Report Date: 05/14/20 Time: 07:35 Allergies/Adverse Reactions: Patient Allergies metformin [METFORMIN] Allergy (Unknown, Verified 04/23/20 10:59) Unknown allergy reaction NSAIDS (Non-Steroidal Anti-Inflamma [NSAIDS (NON-STEROIDAL ANTI-INFLAMMA] Allergy (Unknown, Verified 04/23/20 10:59) UNKNOWN morphine Allergy (Verified 04/23/20 10:59) Unknown allergy reaction Height: 1.93 m Weight: 97.749 kg Patient Problems: Current Active Problems IDDM (insulin dependent diabetes mellitus) (Acute) RBBB (Acute) Hypertensive urgency (Acute) Altered mental status (Acute) - VTE Risk Labs: VTE Related Lab Results Hgb 14.0 g/dL (14.1-18.0) L 05/13/20 20:46 Hct 43.4 % (42.0-52.0) 05/13/20 20:46 Plt Count 143 K/mm3 (142-424) 05/13/20 20:46 BUN 16 mg/dl (9-20) 05/13/20 20:46 Creatinine 0.70 mg/dl (0.66-1.25) 05/13/20 20:46 Estimated Creat Clear 174 mL/min (50-200) 05/13/20 20:46 Was VTE Risk Assessment Performed: Yes VTE Score: 3 VTE Risk Level: Low Risk Clinical Trial Participant: No - Prophylaxis VTE Prophylaxis Ordered?: Yes Types of VTE Prophylaxis: TEDS Knee High Location of Applied Device: Refused
--- NOTE | 2020-05-14 07:36 | HMH.HP ---
*Admission Date: 05/14/20 *Chief complaint: Mental status change *History of present illness: 54-year-old male with history of stroke and coronary artery disease presented to the emergency department after family witnessed some strange behaviors at home. Patient had poured a soft drink into his ashtray, thrown his cigarette butts into his portable urinal and did try to urinate into a soft drink can. Patient seems slightly disoriented as well and he was brought to the emergency department. In the emergency department work-up was unremarkable. Patient remained oriented to person and place but not date. Patient was unable to maintain focus in the ER. Blood pressure was noted to be elevated. With his history of stroke and his mental status changes along with hypertension patient was diagnosed with hypertensive encephalopathy and admitted for further observation and blood pressure monitoring. This morning the patient awakens easily and is oriented to person and place. He remains disoriented regarding date patient has been awake intermittently throughout the night. He is removed multiple IVs. He has repeatedly removed his hospital gown. While no overt hallucinations have been seen when speaking with the patient he does initially believe someone else is in the room with him. He is correct about the location of his during the interview who was at work.. [facility] History I have reviewed the patient's past medical history: Yes Medical History: Reports:: Carotid Stenosis, Coronary Artery Disease, Cerebrovascular Accident, Diabetes Mellitus Type 2, Hyperlipidemia, Hypertension, MRSA, Urinary Tract Infection Denies:: Cancer, Diabetes Mellitus Type 1, Internal Pacemaker *Have you ever received a pneumonia vaccine?: No *Have you received a flu vaccine this season?: Yes Other Medical History: Reports: Arthritis Other Surgeries: Yes: Angiogram, Cardiac Catheterization, Coronary Stent. No: Pacemaker Amputation: No Fractures: No - *Social History Smoking Status: Current every day smoker Tobacco Type: cigarettes # Packs/Day (cigarettes): 1 Alcohol Intake: never Alcohol Intake Frequency:: 0-2 drinks per day Substance Use Type: denies use *Occupational Status:: disabled Housing: other Household Members: spouse *Travel in the last 8 weeks: None Family Hx:: Cancer, Coronary Artery Disease, Diabetes, Heart Attack, Hyperlipidemia, Hypertension, Stroke Review of Systems - Constitutional Denies anorexia, Denies body ache(s), Denies chills, Denies lack of energy - ENT Denies difficulty swallowing - *Cardiovascular Denies chest pain, Denies chest pain at rest - *Respiratory Denies change in phlegm color, Denies chest congestion, Denies cough - *Gastrointestinal Denies abdominal pain, Denies belching, Denies bloating - *Genitourinary Denies difficulty urinating - *Musculoskeletal Reports abnormal walking, Reports joint pain, Reports decreased muscle mass, Reports back pain - Integumentary/Breasts Denies hair loss - *Neurologic Denies confusion, Denies dizziness, Denies localized weakness, Denies headache(s), Denies seizure-like activity - Psychiatric Reports abnormal sleep pattern, Reports anxiety, Reports behavioral changes, Reports difficulty concentrating - Endocrine Denies cold intolerance, Denies excessive sweating Meds Home Medications Medication Instructions Recorded Confirmed Type Aspirin [Aspirin 81mg EC Tab] 81 mg PO DAILY 02/21/19 05/13/20 History Clopidogrel Bisulfate [Clopidogrel 75 mg PO DAILY 02/21/19 05/13/20 History 75mg Tab] Insulin Aspart [Novolog Flexpen] 10 unit SQ TIDP PRN 02/21/19 05/13/20 History Insulin Detemir [Levemir 40 unit SQ HS 02/21/19 05/13/20 History 100units/mL 3mL flexpen] Pantoprazole Sodium [Protonix 40mg 40 mg PO DAILY 02/21/19 05/13/20 History tablet] Ondansetron [Zofran 4mg ODT] 4 mg PO Q8HP PRN 08/20/19 05/13/20 History Duloxetine HCl 120 mg PO DAILY 08/21/19 05/13/20 His
[2020-05-14 09:02] LABS: Basophils % 0.4 % (0.1-2.0); Eosinophils # 0.1 K/mm3 (0.0-0.4); Hematocrit 45.2 % (42.0-52.0); Hemoglobin 14.9 g/dL (14.1-18.0); Lymphocytes % 11.2 % (10-50); Mean Corpuscular HGB Conc 32.9 g/dL (31.8-35.4); Mean Corpuscular Hemoglobin 30.1 pg (27.0-31.2); Mean Corpuscular Volume 91.5 fl (80-94); Mean Platelet Volume 8.3 fl (7.4-10.4); Monocytes # 0.5 K/mm3 (0.1-1.0); Monocytes % 5.8 % (1.7-9.3); Neutrophils # 7.2 K/mm3 (1.8-7.8); Neutrophils % 81.5 % (37.0-80.0); Platelet Count 157 K/mm3 (142-424); Red Blood Count 4.94 M/mm3 (4.60-6.20); Red Cell Distribution Width 14.3 % (11.5-17.5); White Blood Count 8.9 K/mm3 (4.8-10.8)
[2020-05-14 09:32] LABS: Chloride 104 mmol/L (98-107)
[2020-05-14 09:33] LABS: Sodium 139 mmol/L (136-145)
[2020-05-14 09:35] LABS: Blood Urea Nitrogen 11 mg/dl (9-20); Creatinine Clearance Estimated 199 mL/min (50-200); Estimated Glomerular Filt Rate 141 ml/min (>60); GFR (African American) 171 ML/MIN (>60)
[2020-05-14 09:36] LABS: Calcium 9.3 mg/dl (8.4-10.2); Carbon Dioxide 33 mmol/L (22.0-30.0); Glucose 214 mg/dl (74-100)
[2020-05-14 12:18] LABS: POC Glucose,Bedside 203 (70-110)
--- NOTE | 2020-05-14 15:04 | PC.NURSE ---
HE ANSWERS TO HIS NAME AND AN TELL IS BIRTHDAY WHEN ASKED, HE HAS REMOVED HIS GOWN MULTIPLE TIMES THIS SHIFT, ONE EPISODE OS BLADDER INCONTINENCE THUS FAR, HE HAS NOT REQUIRED O2 SUPPORT, HE HAS NOT HAS MUCH OF AN APPETITE THIS SHIFT, HE STATED THAT HE FELT NAUSEOUS SO PRN ABDELRAHMAN ADMIN PER MAR, PT STATED DESIRE EFFECT ACHIEVED, SAFETY MEASURES IN PLACE, WILL CONTINUE TO MONITOR.
[2020-05-14 19:40] LABS: POC Glucose,Bedside 200 (70-110)
[2020-05-14 21:00] LABS: POC Glucose,Bedside 220 (70-110)
[2020-05-15 03:54] VITALS: BP 172/99; PULSE 84; RESP 16; TEMP 36.6; O2SAT 97
--- NOTE | 2020-05-15 04:12 | PC.NURSE ---
PT WAS MORE ALERT TO QUESTIONS THIS SHIFT THAN PREVIOUS. HE HAS SLEPT WELL. PT HAS A LARGE BM THIS SHIFT. NO REPORTS OF PAIN, SOA, OR N/V/D. SAFETY IN PLACE, CALL LIGHT WITHIN REACH. VSS. WILL CONT. TO MONITOR.
[2020-05-15 05:17] VITALS: BMI 25.7
[2020-05-15 05:25] LABS: POC Glucose,Bedside 204 (70-110)
--- NOTE | 2020-05-15 07:15 | HMH.DCSUM ---
General - General Admission date:: 05/14/20 Discharge date: 05/15/20 HPI HPI: 54-year-old male with history of stroke and coronary artery disease presented to the emergency department after family witnessed some strange behaviors at home. Patient had poured a soft drink into his ashtray, thrown his cigarette butts into his portable urinal and did try to urinate into a soft drink can. Patient seems slightly disoriented as well and he was brought to the emergency department. In the emergency department work-up was unremarkable. Patient remained oriented to person and place but not date. Patient was unable to maintain focus in the ER. Blood pressure was noted to be elevated. With his history of stroke and his mental status changes along with hypertension patient was diagnosed with hypertensive encephalopathy and admitted for further observation and blood pressure monitoring. This morning the patient awakens easily and is oriented to person and place. He remains disoriented regarding date patient has been awake intermittently throughout the night. He is removed multiple IVs. He has repeatedly removed his hospital gown. While no overt hallucinations have been seen when speaking with the patient he does initially believe someone else is in the room with him. He is correct about the location of his during the interview who was at work.. Hospital Course Hospital Course: Patient was diagnosed with hypertensive encephalopathy and admitted for observation. Patient's lisinopril was increased to 20 mg daily and carvedilol was increased to 12-1/2 mg twice daily. On the during the day patient did remain confused, requiring redirection, and frequently removing his hospital gown. Patient seemed to become more lucid later in the evening and did well overnight on the . On the morning of the patient was oriented to person place and time. He did recall some of his odd behaviors but not all of his odd behaviors. Blood pressure remained essentially the same despite the increase in his antihypertensives. On the morning of the patient was gotten out of bed and allowed to eat breakfast. He remained lucid. He was discharged home. Objective Vital signs: Temp Pulse Resp BP Pulse Ox 97.9 F 84 16 172/99 H 97 05/15/20 03:54 05/15/20 03:54 05/15/20 03:54 05/15/20 03:54 05/15/20 03:54 no acute distress - *Routine Respiratory Exam Present: CTA bilaterally - *Routine Cardiovascular Exam Present: RRR, Normal S1, Normal S2 - *Routine Abdominal Exam Present: soft, normoactive bowel sounds - *Routine Neurological Exam Present: alert, oriented X3, CN II-XII intact, motor deficit (Left arm and leg weakness). Absent: sensory deficit Results Labs on day of discharge: Labs from last 24 hours 05/15/20 05/14/20 05/14/20 05:18 20:52 16:53 WBC RBC Hgb Hct MCV MCH MCHC RDW Plt Count MPV Neut % (Auto) Lymph % (Auto) [place] % (Auto) Eos % (Auto) Baso % (Auto) Neut # (Auto) Lymph # (Auto) [place] # (Auto) Eos # (Auto) Baso # (Auto) Sodium Potassium Chloride Carbon Dioxide Anion Gap BUN Creatinine Estimated Creat Clear Estimated GFR Est GFR ( Amer) Glucose POC Glucose 204 H 220 H 200 H Calcium 05/14/20 05/14/20 05/14/20 11:48 08:32 08:32 WBC 8.9 D RBC 4.94 Hgb 14.9 Hct 45.2 MCV 91.5 MCH 30.1 MCHC 32.9 RDW 14.3 Plt Count 157 MPV 8.3 Neut % (Auto) 81.5 H Lymph % (Auto) 11.2 [place] % (Auto) 5.8 Eos % (Auto) 1.0 Baso % (Auto) 0.4 Neut # (Auto) 7.2 Lymph # (Auto) 1.0 [place] # (Auto) 0.5 Eos # (Auto) 0.1 Baso # (Auto) 0.0 Sodium 139 Potassium 4.0 Chloride 104 Carbon Dioxide 33 H Anion Gap 6.0 BUN 11 D Creatinine 0.60 L Estimated Creat Clear 199 Estimated GFR 141 Est GFR ( Amer) 171
[2020-05-15 07:38] VITALS: BP 168/102; PULSE 79; RESP 18; TEMP 36.7; O2SAT 97
[2020-05-15 09:22] VITALS: BP 150/100
== END 2020-05-15 10:30 | disposition home or self-care (01) ==
LOC: ER 21:37 → 2ND 23:47
PROVIDERS: Admitting Provider Emergency Medicine; Emergency Provider Emergency Medicine; PCP Family Medicine; Visit Provider Family Medicine
DX: I67.4 Hypertensive encephalopathy (principal); I25.10 Atherosclerotic heart disease of native coronary artery without angina pectoris; Z72.0 Tobacco use; E11.9 Type 2 diabetes mellitus without complications; Z79.4 Long term (current) use of insulin; Z79.02 Long term (current) use of antithrombotics/antiplatelets; Z95.5 Presence of coronary angioplasty implant and graft; Z79.899 Other long term (current) drug therapy
CPT/HCPCS: 36415; 70450; 80048; 80053; 80305; 80329; 81001; 82962; 85025; 87081; 87581; 87633; 87798; 93005; 96365; 99284; G0378; J2405

== ENCOUNTER → 2020-06-01 18:31 | Outpatient (CLI) | payer MEDICARE, OTHER, SELFPAY ==
[2020-06-01 18:42] LABS: Microscopic, Urine URINE MICROSCOPIC (MICROSCOPIC)
[2020-06-01 19:01] LABS: Appearance,Urine CLEAR (Clear); Bilirubin,Urine Negative (Negative); Blood, Urine 3+ (Negative); Color,Urine YELLOW (Yellow); Glucose,Urine (UA) 1+ (Negative); Ketones,Urine Negative (Negative); Leukocyte Esterase,Urine Negative (Negative); Nitrate,Urine Negative (Negative); Protein,Urine 2+ (Negative); Urobilinogen,Urine 0.2 EU/dl (0.2)
[2020-06-01 19:09] LABS: RBC,Urine 20-50 #/hpf (0-3)
== END ==
LOC: LAB 18:33 → LAB.DROPOF 06-02 11:52
PROVIDERS: PCP Family Medicine; Visit Provider Family Medicine
DX: R30.0 Dysuria (principal)
CPT/HCPCS: 81001

== ENCOUNTER 2020-07-16 22:41 | Observation (INO) | payer MEDICARE, OTHER, SELFPAY ==
--- NOTE | 2020-07-16 22:36 | ECG_ITS ---
APPROVED REPORT Exam: Resting ECG HR:75 bpm ECG Measurements Heart Rate 75 AXES PA 140 P 33 QRSd 138 QRS -74 QT 466 T 49 QTc 520 Conclusion Normal sinus rhythm Left axis deviation Right bundle branch block Abnormal ECG Electronically signed by : Maged Bermudez, 07/18/2020 09:07:20
[2020-07-16 22:40] VITALS: BP 176/107; PULSE 75; RESP 16; TEMP 36.6; O2SAT 97; BMI 22.7
--- NOTE | 2020-07-16 23:02 | CT_ITS ---
PROCEDURE INFORMATION: Exam: CT Abdomen And Pelvis With Contrast Exam date and time: 07/16/2020 11:02 PM Age: 54 years old Clinical indication: Abdominal tenderness and nausea and vomiting; Abdominal pain; Generalized; Prior surgery; Surgery date: 6+ months; Surgery type: Back surgery; Patient HX: Nausea, vomiting, diabetic; Additional info: N/v, flatulence TECHNIQUE: Imaging protocol: Computed tomography of the abdomen and pelvis with contrast. Total images: 343 Radiation optimization: All CT scans at this facility use at least one of these dose optimization techniques: automated exposure control; mA and/or kV adjustment per patient size (includes targeted exams where dose is matched to clinical indication); or iterative reconstruction. Contrast material: ISOVUE; Contrast volume: 75 ml; Contrast route: IV; COMPARISON: CT ABDOMEN PELVIS WO CON 08/20/2019 5:46 PM FINDINGS: Lungs: 4.5 mm noncalcified nodule in the posterolateral left lower lobe is decreased in size since 08/20/2019 and does not require further imaging evaluation. Heart: Heart size normal. Coronary artery stents in the LAD and proximal RCA distribution. Moderate aortic valvular calcification, with possible bicuspid valvular configuration and mild aneurysmal dilatation of the ascending aorta measuring 4.3 cm diameter. Consider aortic stenosis, correlate clinically for systolic ejection murmur. Mediastinal space: The visualized distal esophagus is normal. Liver: Normal contour. 8 mm low-density lesion in the posterolateral right lobe on series 3, image 33 with some early peripheral contrast puddling suggesting a small hemangioma, unchanged to slightly decreased in size from 08/20/2019. No intrahepatic biliary ductal dilatation. Gallbladder and bile ducts: Normal. No calcified stones. No ductal dilation. Pancreas: Mild pancreatic atrophy without acute abnormality. No pancreatic ductal dilatation. Spleen: Normal. No splenomegaly. Adrenal glands: Normal. No adrenal mass. Kidneys and ureters: Mild bilateral perirenal stranding with trace perinephric fluid, felt to be mildly increased from 08/20/2019. Correlate clinically for evidence of medical renal disease. No evidence of pyelonephritis or renal abscess. There is a simple left renal cortical cyst. No further imaging evaluation is required. No hydronephrosis or hydroureter. No urinary tract stones are identified. Stomach and bowel: The stomach is unremarkable. The small bowel is nondilated with no gross abnormality. There is mild colonic wall thickening in the mid and proximal colonic segments suggesting colitis, with no evidence of perforation or abscess. There is moderate stool in the sigmoid colon and rectum with moderate fecal distention of the rectum measuring 9 cm diameter. There is associated rectal wall thickening and mild perirectal stranding suspicious for an element of stercoral colitis with no evidence of perforation or abscess. Appendix: The appendix is normal in caliber and demonstrates no evidence of appendicitis. Intraperitoneal space: No free fluid or air. Vasculature: Mild atherosclerotic aortoiliac calcification without aneurysm. Lymph nodes: No adenopathy. Urinary bladder: Unremarkable as visualized. Reproductive: Unremarkable as visualized. Bones/joints: No acute osseous abnormalities. L5 laminectomy. Mild-moderate central canal stenosis L2-L3 through L4-L5 secondary to congenitally short pedicles and mild annular disc bulges. Soft tissues: Unremarkable. IMPRESSION: 1. There is evidence of colitis in the mid and proximal colon without evidence of perforation or abscess. 2. There is
[2020-07-16 23:09] LABS: Basophils # 0.1 K/mm3 (0-0.2); Basophils % 0.6 % (0.1-2.0); Eosinophils % 0.2 % (0.1-12.0); Hematocrit 46.9 % (42.0-52.0); Hemoglobin 15.6 g/dL (14.1-18.0); Lymphocytes # 0.7 K/mm3 (0.7-4.5); Lymphocytes % 8.8 % (10-50); Mean Corpuscular HGB Conc 33.2 g/dL (31.8-35.4); Mean Corpuscular Hemoglobin 29.9 pg (27.0-31.2); Mean Platelet Volume 8.3 fl (7.4-10.4); Monocytes # 0.3 K/mm3 (0.1-1.0); Monocytes % 3.1 % (1.7-9.3); Neutrophils # 7.2 K/mm3 (1.8-7.8); Neutrophils % 87.2 % (37.0-80.0); Platelet Count 116 K/mm3 (142-424); Red Blood Count 5.21 M/mm3 (4.60-6.20); Red Cell Distribution Width 13.9 % (11.5-17.5); White Blood Count 8.3 K/mm3 (4.8-10.8)
[2020-07-16 23:11] LABS: MANUAL DIFFERENTIAL MANUAL DIFFERENTIAL (MANUAL DIFF)
[2020-07-16 23:16] LABS: POC Glucose,Bedside 317 (70-110)
[2020-07-16 23:20] LABS: Alanine Aminotransferase 40 U/L (12-78); Albumin/Globulin Ratio 1.5 (1.1-1.8); Alkaline Phosphatase 124 U/L (38-126); Amylase 37 U/L (30-110); Anion Gap 11.8 mEq/L (5-15); Aspartate Amino Transferase 37 U/L (17-59); Bilirubin,Total 1.4 mg/dl (0.2-1.3); Blood Urea Nitrogen 15 mg/dl (9-20); Calcium 9.2 mg/dl (8.4-10.2); Carbon Dioxide 31 mmol/L (22.0-30.0); Chloride 98 mmol/L (98-107); Creatinine Clearance Estimated 107 mL/min (50-200); Estimated Glomerular Filt Rate 102 ml/min (>60); GFR (African American) 123 ML/MIN (>60); Globulin 2.7 g/dL (1.3-3.2); Glucose 346 mg/dl (74-100); Lipase 30 U/L (23-300); Potassium 3.8 mmoL/L (3.5-5.1); Sodium 137 mmol/L (136-145); Total Protein,Serum 6.7 g/dl (6.3-8.2)
[2020-07-16 23:26] LABS: Lymphocytes % 10 % (10-50); Monocytes % 1 % (2-9); Neutrophils % 89 % (42-76); Platelet Estimate Slight Decrease; RBC Morphology Normal; Total Cells Counted 100
[2020-07-16 23:31] VITALS: BP 213/110; PULSE 71; RESP 20; O2SAT 100
[2020-07-16 23:32] LABS: Troponin I 0.02 ng/ml (0.00-0.034)
[2020-07-16 23:45] VITALS: BP 200/120; PULSE 83; RESP 14; O2SAT 100
--- NOTE | 2020-07-16 23:50 | HMH.EDNVD ---
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 The time I documented below is in addition to time spent performing reported procedures but includes the following listed in this critical care notation. Medical Decision Making - Medical Records Medical records reviewed: Yes: I reviewed the patient's medical records. - [place] Inquiry Pt receiving controlled substance: No Vital Signs: 07/16/20 22:40 07/16/20 23:31 07/16/20 23:45 Temperature 97.8 F Temperature Source Oral Pulse Rate 71 83 Pulse Rate [Left Brachial] 75 Respiratory Rate 16 20 14 Blood Pressure 213/110 H 200/120 H Blood Pressure [Left Arm] 176/107 H Blood Pressure Mean Blood Pressure Mean [Left Arm] 130 Blood Pressure Source Manual Cuff/ Auscultation Blood Pressure Source [Left Arm] Automatic Cuff Blood Pressure Position Sitting Blood Pressure Position [Left Arm] Sitting 02 Sat by Pulse Oximetry 97 100 100 Oxygen Delivery Method Room Air 07/17/20 00:07 07/17/20 00:11 07/17/20 00:38 Temperature Temperature Source Pulse Rate 87 78 78 Pulse Rate [Left Brachial] Respiratory Rate 11 L 16 14 Blood Pressure 193/98 H 193/98 H 199/114 H Blood Pressure [Left Arm] Blood Pressure Mean Blood Pressure Mean [Left Arm] Blood Pressure Source Automatic Cuff Manual Cuff/ Auscultation Blood Pressure Source [Left Arm] Blood Pressure Position Sitting Supine Blood Pressure Position [Left Arm] 02 Sat by Pulse Oximetry 96 98 99 Oxygen Delivery Method Room Air 07/17/20 00:43 07/17/20 01:01 07/17/20 02:04 Temperature Temperature Source Pulse Rate 87 88 Pulse Rate [Left Brachial] Respiratory Rate 16 13 Blood Pressure 189/97 H 174/101 H 187/110 H Blood Pressure [Left Arm] Blood Pressure Mean 146 Blood Pressure Mean [Left Arm] Blood Pressure Source Blood Pressure Source [Left Arm] Blood Pressure Position Blood Pressure Position [Left Arm] 02 Sat by Pulse Oximetry 94 L 96 Oxygen Delivery Method 07/17/20 02:22 Temperature Temperature Source Pulse Rate 88 Pulse Rate [Left Brachial] Respiratory Rate 20 Blood Pressure 160/92 H Blood Pressure [Left Arm] Blood Pressure Mean Blood Pressure Mean [Left Arm] Blood Pressure Source Manual Cuff/ Auscultation Blood Pressure Source [Left Arm] Blood Pressure Position Supine Blood Pressure Position [Left Arm] 02 Sat by Pulse Oximetry 97 Oxygen Delivery Method Room Air - Lab Data Lab results reviewed: Yes: I reviewed the patient's lab results. Lab Results 07/16/20 22:50: WBC 8.3, RBC 5.21, Hgb 15.6, Hct 46.9, MCV 90.0, MCH 29.9, MCHC 33.2, RDW 13.9, Plt Count 116 L, MPV 8.3, Neut % (Auto) 87.2 H, Lymph % (Auto) 8.8 L, [place] % (Auto) 3.1, Eos % (Auto) 0.2, Baso % (Auto) 0.6, Neut # (Auto) 7.2, Lymph # (Auto) 0.7, [place] # (Auto) 0.3, Eos # (Auto) 0.0, Baso # (Auto) 0.1, Total Counted 100, Neutrophils % (Manual) 89 H, Lymphocytes % (Manual) 10, Monocytes % (Manual) 1 L, Platelet Estimate Slight decrease, RBC Morphology Normal 07/16/20 22:50: Sodium 137, Potassium 3.8, Chloride 98, Carbon Diox
--- NOTE | 2020-07-16 23:52 | PC.NURSE ---
AWARE OF BP. MANUAL PRESSURE PERFORMED
[2020-07-17] VITALS (18 sets, daily range): BP systolic 148–200; BP diastolic 69–114; PULSE 70–88; RESP 11–20; TEMP 36.4–37.7; O2SAT 92–99; BMI 23.9
--- NOTE | 2020-07-17 00:16 | PC.NURSE ---
patient to radiology at this time
[2020-07-17 01:36] LABS: Microscopic, Urine URINE MICROSCOPIC (MICROSCOPIC)
[2020-07-17 01:38] LABS: Appearance,Urine CLEAR (Clear); Bilirubin,Urine Negative (Negative); Blood, Urine 3+ (Negative); Color,Urine YELLOW (Yellow); Glucose,Urine (UA) 3+ (Negative); Ketones,Urine 1+ (Negative); Leukocyte Esterase,Urine Negative (Negative); Nitrate,Urine Negative (Negative); PH,Urine 7.5 (5.0-8.5); Protein,Urine 2+ (Negative)
[2020-07-17 01:54] LABS: WBC,Urine Occasional #/hpf (0-3)
[2020-07-17 01:55] LABS: Bacteria,Urine Trace /lpf; RBC,Urine 20-50 #/hpf (0-3); Squamous Epithelial Cell,Urine Occasional #/hpf (0-5)
[2020-07-17 02:17] LABS: Troponin I 0.03 ng/ml (0.00-0.034)
--- NOTE | 2020-07-17 03:35 | PC.NURSE ---
patient up to floor via stretcher.
[2020-07-17 05:51] LABS: POC Glucose,Bedside 375 (70-110)
[2020-07-17 05:57] LABS: Basophils % 0.2 % (0.1-2.0); Eosinophils % 0.1 % (0.1-12.0); Hematocrit 45.1 % (42.0-52.0); Hemoglobin 15.3 g/dL (14.1-18.0); Lymphocytes # 0.6 K/mm3 (0.7-4.5); Lymphocytes % 6.6 % (10-50); Mean Corpuscular HGB Conc 33.9 g/dL (31.8-35.4); Mean Corpuscular Hemoglobin 30.5 pg (27.0-31.2); Mean Platelet Volume 8.5 fl (7.4-10.4); Monocytes # 0.4 K/mm3 (0.1-1.0); Neutrophils # 8.1 K/mm3 (1.8-7.8); Neutrophils % 89.2 % (37.0-80.0); Platelet Count 113 K/mm3 (142-424); Red Blood Count 5.01 M/mm3 (4.60-6.20); Red Cell Distribution Width 13.8 % (11.5-17.5); White Blood Count 9.1 K/mm3 (4.8-10.8)
[2020-07-17 06:02] LABS: Anion Gap 8.8 mEq/L (5-15); Blood Urea Nitrogen 17 mg/dl (9-20); Calcium 8.8 mg/dl (8.4-10.2); Carbon Dioxide 32 mmol/L (22.0-30.0); Chloride 101 mmol/L (98-107); Creatinine Clearance Estimated 136 mL/min (50-200); Estimated Glomerular Filt Rate 102 ml/min (>60); GFR (African American) 123 ML/MIN (>60); Glucose 336 mg/dl (74-100); Potassium 3.8 mmoL/L (3.5-5.1); Sodium 138 mmol/L (136-145)
[2020-07-17 06:15] LABS: Troponin I 0.04 ng/ml (0.00-0.034)
--- NOTE | 2020-07-17 07:26 | P.CONPHA_ITS ---
[facility] Pharmacy VTE Monitoring - Patient Demographics Admission date: 07/17/20 Report Date: 07/17/20 Time: 07:26 Allergies/Adverse Reactions: Patient Allergies metformin [METFORMIN] Allergy (Unknown, Verified 04/23/20 10:59) Unknown allergy reaction NSAIDS (Non-Steroidal Anti-Inflamma [NSAIDS (NON-STEROIDAL ANTI-INFLAMMA] Allergy (Unknown, Verified 04/23/20 10:59) UNKNOWN morphine Allergy (Verified 04/23/20 10:59) Unknown allergy reaction Height: 1.93 m Weight: 89.131 kg Patient Problems: Current Active Problems RBBB (Acute) Hypertensive urgency (Acute) Type 2 diabetes mellitus, with long-term current use of insulin (Chronic) Colitis (Acute) - VTE Risk Labs: VTE Related Lab Results Hgb 15.3 g/dL (14.1-18.0) 07/17/20 05:38 Hct 45.1 % (42.0-52.0) 07/17/20 05:38 Plt Count 113 K/mm3 (142-424) L 07/17/20 05:38 BUN 17 mg/dl (9-20) 07/17/20 05:38 Creatinine 0.80 mg/dl (0.66-1.25) 07/17/20 05:38 Estimated Creat Clear 136 mL/min (50-200) 07/17/20 05:38 Was VTE Risk Assessment Performed: Yes VTE Score: 3 VTE Risk Level: Low Risk - Prophylaxis VTE Prophylaxis Ordered?: Yes Types of VTE Prophylaxis: TEDS Knee High Location of Applied Device: Bilateral Lower Extremeties
--- NOTE | 2020-07-17 07:33 | HMH.HP ---
*Admission Date: 07/17/20 *Chief complaint: Vomiting and confusion *History of present illness: 54-year-old male was brought to the emergency department after multiple episodes of vomiting at home with rising blood pressure. Patient has a history of hypertensive emergency and hypertensive encephalopathy. Patient was oriented in the emergency department but blood pressure was elevated and vomiting persisted. History is taken from the ER note as this morning patient can answer questions but cannot give much significant history but can only confirm what is repeated back to him from the ER note. No family is at bedside yet. Staff is reported overnight patient has been restless and has already pulled out 1 IV. Patient underwent a work-up that included a CT of the abdomen and pelvis because of his vomiting and was diagnosed with colitis. CT scan also showed significant stool burden in the rectosigmoid and left colon. Patient cannot confirm he has nausea this morning. [facility] History I have reviewed the patient's past medical history: Yes Medical History: Reports:: Carotid Stenosis, Coronary Artery Disease, Cerebrovascular Accident, Depression, Diabetes Mellitus Type 2, Heart Murmur, Hyperlipidemia, Hypertension, MRSA, Urinary Tract Infection, Valvular Heart Disease Denies:: Cancer, Diabetes Mellitus Type 1, Internal Pacemaker *Have you ever received a pneumonia vaccine?: Yes *Have you received a flu vaccine this season?: Yes Other Medical History: Reports: Arthritis Other Surgeries: Yes: Angiogram, Cardiac Catheterization, Coronary Stent. No: Pacemaker Amputation: No Fractures: No - *Social History Smoking Status: Current every day smoker Tobacco Type: cigarettes # Packs/Day (cigarettes): 1 Alcohol Intake: current Alcohol Intake Frequency:: holidays/special occasions only Substance Use Type: denies use *Occupational Status:: disabled Housing: other Household Members: spouse *Travel in the last 8 weeks: None Family Hx:: Coronary Artery Disease, Diabetes, Heart Attack, Hyperlipidemia, Hypertension, Stroke Review of Systems - Review of Systems Review of systems:: unable to obtain - *Neurologic Denies localized weakness, Denies seizure-like activity Meds Home Medications Medication Instructions Recorded Confirmed Type Aspirin [Aspirin 81mg EC Tab] 81 mg PO DAILY 02/21/19 07/16/20 History Clopidogrel Bisulfate [Clopidogrel 75 mg PO DAILY 02/21/19 07/16/20 History 75mg Tab] Insulin Aspart [Novolog Flexpen] 12 unit SQ TIDP PRN 02/21/19 07/16/20 History Insulin Detemir [Levemir 40 unit SQ HS 02/21/19 07/16/20 History 100units/mL 3mL flexpen] Pantoprazole Sodium [Protonix 40mg 40 mg PO DAILY 02/21/19 07/16/20 History tablet] Duloxetine HCl 120 mg PO DAILY 08/21/19 07/16/20 History Metoclopramide HCl [Metoclopramide 10 mg PO ACHS 08/21/19 07/16/20 History 10mg Tablet] Gabapentin [Gabapentin 100mg Cap] 300 mg PO TID 01/19/20 07/16/20 History Hydrocodone/Acetaminophen 1 each PO Q6HP PRN 03/22/20 07/16/20 History [Hydrocodone-Acetamin 7.5-325] Baclofen 20 mg PO TID 03/23/20 07/16/20 History diazePAM [diazePAM 5mg Tablet] 5 mg PO BIDP PRN 03/23/20 07/16/20 History atorvastatin 80 mg tablet 80 mg PO HS 04/23/20 07/16/20 History docusate sodium 100 mg tablet 100 mg PO DAILYP PRN 04/23/20 07/16/20 History carvediloL [Coreg 12.5mg 12.5 mg PO BID 07/16/20 07/16/20 History Tablet] lisinopriL [Zestril 20mg tab] 20 mg PO DAILY 07/16/20 07/16/20 History Allergies Allergy/AdvReac Type Severity Reaction Status Date / Time metformin [METFORMIN] Allergy Unknown Unknown Verified 04/23/20 10:59 allergy reaction NSAIDS (Non-Steroidal Allergy Unknown UNKNOWN Verified 04/23/20 10:59 Anti-Inflamma [NSAIDS (NON-STEROIDAL ANTI-INFLAMMA] morphine Allergy Unknown Verified 04/23/20 10:59 allergy reaction Exam Vital signs and Labs for Last 24 Hours: Temp Pulse Resp BP P
[2020-07-17 11:45] LABS: POC Glucose,Bedside 259 (70-110)
[2020-07-17 17:14] LABS: POC Glucose,Bedside 198 (70-110)
[2020-07-17 21:07] LABS: POC Glucose,Bedside 240 (70-110)
[2020-07-18] VITALS: PULSE 80
[2020-07-18 03:53] VITALS: BP 172/79; PULSE 83; RESP 17; TEMP 37.1; O2SAT 100
[2020-07-18 04:00] VITALS: PULSE 70
--- NOTE | 2020-07-18 04:49 | PC.NURSE ---
pt has slept this shift. no complaints. no acute changes. lentz in place and draining dark yellow urine. iv patent and infusing per mar. vss. bed alarm on. call light in reach. will continue to monitor
--- NOTE | 2020-07-18 04:51 | PC.NURSE ---
all charting and care by sujatha vega supervised by fam lynn
[2020-07-18 05:00] VITALS: BMI 24.1
[2020-07-18 05:14] LABS: POC Glucose,Bedside 252 (70-110)
[2020-07-18 06:46] LABS: Basophils % 0.3 % (0.1-2.0); Eosinophils # 0.1 K/mm3 (0.0-0.4); Eosinophils % 0.8 % (0.1-12.0); Hematocrit 42.7 % (42.0-52.0); Hemoglobin 14.1 g/dL (14.1-18.0); Lymphocytes # 1.5 K/mm3 (0.7-4.5); Lymphocytes % 16.2 % (10-50); Mean Corpuscular HGB Conc 33.1 g/dL (31.8-35.4); Mean Corpuscular Hemoglobin 29.7 pg (27.0-31.2); Mean Corpuscular Volume 89.6 fl (80-94); Mean Platelet Volume 8.7 fl (7.4-10.4); Monocytes # 0.4 K/mm3 (0.1-1.0); Monocytes % 4.8 % (1.7-9.3); Neutrophils # 7.1 K/mm3 (1.8-7.8); Neutrophils % 77.9 % (37.0-80.0); Platelet Count 110 K/mm3 (142-424); Red Blood Count 4.77 M/mm3 (4.60-6.20); Red Cell Distribution Width 14.2 % (11.5-17.5); White Blood Count 9.1 K/mm3 (4.8-10.8)
--- NOTE | 2020-07-18 06:48 | HMH.ACPN2 ---
Internal Medicine - PN: Subj *Date: 07/18/20 *Time: 06:48 Interval history: Patient without complaints this morning. No additional problems over the last 24 hours. Patient has become more lucid. This morning he denies pain. He does recall some of the events of the last 36 hours but not specific details. He does recall that his blood pressure was getting elevated. He recalls that he had vomiting at home. Exam Vital signs and Labs for Last 24 Hours: Temp Pulse Resp BP Pulse Ox 98.8 F 70 17 172/79 H 100 07/18/20 03:53 07/18/20 04:00 07/18/20 03:53 07/18/20 03:53 07/18/20 03:53 Laboratory Results - last 24 hr 07/17/20 11:07: POC Glucose 259 H 07/17/20 16:55: POC Glucose 198 H 07/17/20 20:51: POC Glucose 240 H 07/18/20 05:01: POC Glucose 252 H I & O for Last 24 hours: Intake & Output 07/15/20 07/16/20 07/17/20 07/18/20 11:59 11:59 11:59 11:59 Intake Total 2100 / 2100 542 / 542 Output Total 3900 / 3900 100 / 100 Balance -1800 / -1800 442 / 442 Weight 196 lb 8 oz 198 lb 7 oz Narrative: Patient appears at baseline. He answers questions appropriately. Lungs are clear to auscultation. Heart has regular rate and rhythm. Abdomen is soft with active bowel sounds. Lower extremities have no edema. Assessment and Plan (1) Hypertensive encephalopathy Status: Resolved Category: Medical Code(s): I67.4 - Hypertensive encephalopathy (2) Chronic constipation Status: Acute Category: Medical Code(s): K59.09 - Other constipation (3) Vomiting Status: Acute Category: Medical Code(s): R11.10 - Vomiting, unspecified (4) Major depression in partial remission Status: Acute Category: Medical Code(s): F32.4 - Major depressive disorder, single episode, in partial remission (5) Colitis Status: Suspected Category: Medical Code(s): K52.9 - Noninfective gastroenteritis and colitis, unspecified (6) Type 2 diabetes mellitus, with long-term current use of insulin Status: Chronic Qualifiers: Diabetes mellitus complication status: with other specified complication Qualified Code(s): E11.69 - Type 2 diabetes mellitus with other specified complication; Z79.4 - exterminator termite (current) use of insulin Category: Medical Code(s): E11.9 - Type 2 diabetes mellitus without complications; Z79.4 - exterminator termite (current) use of insulin (7) Aortic stenosis Status: Acute Category: Medical Code(s): I35.0 - Nonrheumatic aortic (valve) stenosis (8) Coronary artery disease Status: Acute Category: Medical Code(s): I25.10 - Atherosclerotic heart disease of [place] coronary artery without angina pectoris (9) Hypertensive heart disease Status: Suspected Qualifiers: Heart failure presence: with heart failure Heart failure type: combined systolic and diastolic Category: Medical Code(s): I11.9 - Hypertensive heart disease without heart failure - Assessment and plan all Dx Assessment and Plan for all problems:: 1. Patient is returned to his baseline cognitive function. 2. Patient's blood pressure remains elevated. Carvedilol will be increased to 25 mg twice daily. Patient will have hydrochlorothiazide 12-1/2 mg added to his regimen. 3. Diet will be advanced. If patient can tolerate breakfast and lunch he may be discharged home as long as blood pressure is acceptable. 4. Patient suffers from chronic constipation and will begin a fiber bowel regimen
--- NOTE | 2020-07-18 06:51 | HMH.DCSUM ---
General - General Admission date:: 07/17/20 Discharge date: 07/18/20 HPI HPI: 54-year-old male was brought to the emergency department after multiple episodes of vomiting at home with rising blood pressure. Patient has a history of hypertensive emergency and hypertensive encephalopathy. Patient was oriented in the emergency department but blood pressure was elevated and vomiting persisted. History is taken from the ER note as this morning patient can answer questions but cannot give much significant history but can only confirm what is repeated back to him from the ER note. No family is at bedside yet. Staff is reported overnight patient has been restless and has already pulled out 1 IV. Patient underwent a work-up that included a CT of the abdomen and pelvis because of his vomiting and was diagnosed with colitis. CT scan also showed significant stool burden in the rectosigmoid and left colon. Patient cannot confirm he has nausea this morning. Hospital Course Hospital Course: Patient was admitted with diagnosis of hypertensive emergency which had been addressed to the emergency department and hypertensive encephalopathy. On the morning of July 17 patient remained encephalopathic. Patient could answer questions but was not alert. Blood pressures had improved in the emergency department and remained between 130s and 170s during the remainder of patient's hospitalization. By the morning of July 18 patient had returned to his baseline mental status and cognitive function. While hospitalized he was given increased dose of lisinopril. At discharge patient's carvedilol will be increased to 25 mg twice daily HCTZ 12-1/2 mg daily will be added to his regimen. Patient will continue lisinopril. Patient presented with vomiting and diarrhea and CT scan of the abdomen and pelvis was concerning for colitis and possibly stercoral colitis. Patient admits to once weekly bowel movements. Patient does suffer from chronic constipation. Vomiting resolved upon admission. Patient's diet was advanced to clear liquids and then a diabetic diet. Once the patient was tolerating diet he was felt to be safe to discharge. Regarding chronic constipation patient will begin a fiber bowel regimen. Patient is a longtime diabetic. Patient's long-acting insulin was held during hospitalization and he was covered with sliding scale insulin. Patient will resume his home regimen at discharge. Patient has coronary artery disease. CAD was stable during hospitalization and patient was kept on his home medications Objective Vital signs: Temp Pulse Resp BP Pulse Ox 98.8 F 70 17 172/79 H 100 07/18/20 03:53 07/18/20 04:00 07/18/20 03:53 07/18/20 03:53 07/18/20 03:53 no acute distress - *Routine Respiratory Exam Present: CTA bilaterally - *Routine Cardiovascular Exam Present: RRR - *Routine Abdominal Exam Present: soft, normoactive bowel sounds. Absent: tenderness - *Routine Extremities Exam Absent: cyanosis, clubbing, edema Results Labs on day of discharge: Labs from last 24 hours 07/18/20 07/18/20 07/17/20 06:02 05:01 20:51 WBC 9.1 RBC 4.77 Hgb 14.1 Hct 42.7 MCV 89.6 MCH 29.7 MCHC 33.1 RDW 14.2 Plt Count 110 L MPV 8.7 Neut % (Auto) 77.9 Lymph % (Auto) 16.2 [place] % (Auto) 4.8 Eos % (Auto) 0.8 Baso % (Auto) 0.3 Neut # (Auto) 7.1 Lymph # (Auto) 1.5 [place] # (Auto) 0.4 Eos # (Auto) 0.1 Baso # (Auto) 0.0 POC Glucose 252 H 240 H 07/17/20 07/17/20 16:55 11:07 WBC RBC Hgb Hct MCV MCH MCHC RDW Plt Count MPV Neut % (Auto) Lymph % (Auto) [place] % (Auto) Eos % (Auto) Baso % (Auto) Neut # (Auto) Lymph # (Auto) [place] # (Auto) Eos # (Auto) Baso # (Auto) POC Glucose 198 H 259 H DS: Diagnosis - Discharge Diagnosis (1) Hypertensive encephalopathy Status: Resolved (2) Chronic constipation S
[2020-07-18 06:55] LABS: Calcium 8.5 mg/dl (8.4-10.2); Chloride 101 mmol/L (98-107); Creatinine Clearance Estimated 122 mL/min (50-200); Estimated Glomerular Filt Rate 89 ml/min (>60); GFR (African American) 107 ML/MIN (>60); Glucose 245 mg/dl (74-100); Sodium 139 mmol/L (136-145)
[2020-07-18 07:26] LABS: Anion Gap 4.8 mEq/L (5-15); Blood Urea Nitrogen 20 mg/dl (9-20); Carbon Dioxide 36 mmol/L (22.0-30.0)
[2020-07-18 07:36] VITALS: BMI 24.1
[2020-07-18 07:37] LABS: Potassium 2.8 mmoL/L (3.5-5.1)
[2020-07-18 08:00] VITALS: BP 134/74; PULSE 67; PULSE 70; RESP 18; TEMP 36.6; O2SAT 95; O2SAT 98
--- NOTE | 2020-07-18 09:34 | SW/DCPLANNER ---
PATIENT MAY DISCHARGE LATER IN THE AFTERNOON, HE RESIDES AT HOME WITH HIS AND AT THIS TIME THERE ARE NO HOME CARE SERVICES WARRANTED.. IF THIS SHOULD CHANGE IT WILL BE SET UP AT TIME OF DISPOSITION...
[2020-07-18 12:00] VITALS: BP 100/52; PULSE 67; RESP 16; TEMP 36.7; O2SAT 100
[2020-07-18 18:44] LABS: POC Glucose,Bedside 297 (70-110)
[2020-07-18 18:44] LABS: POC Glucose,Bedside 335 (70-110)
--- NOTE | 2020-07-18 19:42 | PC.NURSE ---
Pt's called with question regarding Lisinopril. Pt's discharge paperwork said to continue Lisinopril 10mg but patient was taking Lisinopril 20mg at home- she stated they did not catch this while going over discharge education. I spoke with Dr. Aburto to clarify and he stated to continue to Lisinopril 20mg daily, continue the increased dose of Coreg that is now ordered, but do not take the HCTZ at this time. Pt's was called back (with pt also there) and given information per Dr. Aburto and also advised to monitor BP closely at home. Pt's repeated back information and verbalized understanding.
== END 2020-07-18 15:19 | disposition home or self-care (01) ==
LOC: ER 22:45 → 2ND 07-17 02:32
PROVIDERS: Admitting Provider Internal Medicine Adolescent Medicine; Emergency Provider Emergency Medicine; PCP Family Medicine; Visit Provider Family Medicine
DX: I16.1 Hypertensive emergency (principal); I35.0 Nonrheumatic aortic (valve) stenosis; K52.9 Noninfective gastroenteritis and colitis, unspecified; I67.4 Hypertensive encephalopathy; F32.4 Major depressive disorder, single episode, in partial remission; I11.0 Hypertensive heart disease with heart failure; I25.10 Atherosclerotic heart disease of native coronary artery without angina pectoris; Z79.4 Long term (current) use of insulin; Z86.73 Personal history of transient ischemic attack (TIA), and cerebral infarction without residual deficits; F17.210 Nicotine dependence, cigarettes, uncomplicated; Z95.5 Presence of coronary angioplasty implant and graft; Z79.899 Other long term (current) drug therapy; E11.9 Type 2 diabetes mellitus without complications; E78.5 Hyperlipidemia, unspecified; Z88.5 Allergy status to narcotic agent; Z91.048 Other nonmedicinal substance allergy status; I50.40 Unspecified combined systolic (congestive) and diastolic (congestive) heart failure
CPT/HCPCS: 36415; 74177; 80048; 80053; 81001; 82150; 82962; 83690; 84484; 85007; 85025; 87081; 93005; 96365; 96366; 96367; 96375; 99283; G0378; J1335; J2405; Q9967; U0003

== ENCOUNTER 2020-07-19 14:57 | Emergency (ER) | payer MEDICARE, OTHER, SELFPAY ==
[2020-07-19] VITALS (7 sets, daily range): BP systolic 82–153; BP diastolic 54–100; PULSE 61–79; RESP 14–18; TEMP 36.7–36.8; O2SAT 94–98; BMI 26.7
--- NOTE | 2020-07-19 14:59 | HMH.EDGENADL ---
ED Disposition Clinical Impression: Seizure-like activity Disposition: Home, Self-Care Condition on Discharge: Good Referrals: Maged Aburto MD [Primary Care Provider] - 3 days Time of Disposition: 19:31 - Critical Care Critical Care Time: No Attestation: On , the high probability of a clinically significant, sudden or life threatening deterioration of the following system(s) required my full and direct attention, intervention and personal management. The time I documented below is in addition to time spent performing reported procedures but includes the following listed in this critical care notation. Medical Decision Making - Medical Records Medical records reviewed: Yes: I reviewed the patient's medical records. - [place] Inquiry Pt receiving controlled substance: No Vital Signs: 07/19/20 14:59 07/19/20 15:19 07/19/20 15:31 Temperature 98.2 F Temperature Source Oral Pulse Rate 61 Pulse Rate [Orthostatic Sitting] 61 Pulse Rate [Radial] 61 61 Respiratory Rate 16 14 Blood Pressure 133/75 Blood Pressure [Orthostatic Sitting] 82/54 L Blood Pressure [Right Arm] 105/65 L 105/65 L Blood Pressure Mean 94 Blood Pressure Mean [Right Arm] 78 Blood Pressure Position [Right Arm] Supine 02 Sat by Pulse Oximetry 97 96 Oxygen Delivery Method Room Air 07/19/20 16:00 07/19/20 16:30 Temperature Temperature Source Pulse Rate 61 61 Pulse Rate [Orthostatic Sitting] Pulse Rate [Radial] Respiratory Rate 16 16 Blood Pressure 153/81 H 130/68 Blood Pressure [Orthostatic Sitting] Blood Pressure [Right Arm] Blood Pressure Mean 96 82 Blood Pressure Mean [Right Arm] Blood Pressure Position [Right Arm] 02 Sat by Pulse Oximetry 97 94 L Oxygen Delivery Method - Lab Data Lab results reviewed: Yes: I reviewed the patient's lab results. Lab Results 07/19/20 15:20: WBC 6.5 D, RBC 4.58 L, Hgb 13.9 L, Hct 41.0 L, MCV 89.5, MCH 30.3, MCHC 33.9, RDW 14.3, Plt Count 107 L, MPV 8.9, Neut % (Auto) 69.0, Lymph % (Auto) 23.2, [place] % (Auto) 4.9, Eos % (Auto) 2.3, Baso % (Auto) 0.6, Neut # (Auto) 4.5, Lymph # (Auto) 1.5, [place] # (Auto) 0.3, Eos # (Auto) 0.2, Baso # (Auto) 0.0 07/19/20 15:20: Sodium 136, Potassium 3.3 L, Chloride 101, Carbon Dioxide 31 H, Anion Gap 7.3, BUN 21 H, Creatinine 0.80, Estimated Creat Clear 152, Estimated GFR 102, Est GFR ( Amer) 123, Glucose 218 H, Calcium 8.5, Total Bilirubin 0.7, AST 23 D, ALT 19 D, Alkaline Phosphatase 82, Total Protein 5.7 L, Albumin 3.3 L, Globulin 2.4, Albumin/Globulin Ratio 1.4 07/19/20 17:50: Urine Color Yellow, Urine Appearance Clear, Urine pH 6.5, Ur Specific [place] 1.015, Urine Protein 1+, Urine Glucose (UA) 1+, Urine Ketones Negative, Urine Blood 2+, Urine Nitrate Negative, Urine Bilirubin Negative, Urine Urobilinogen 2.0, Ur Leukocyte Esterase Negative, Urine RBC 3-5, Urine WBC None, Ur Squamous Epith Cells Occasional, Ur Transition Epith Cell 3-5, Urine Bacteria None 07/19/20 17:50: Urine Opiates Screen Positive H, Urine Methadone Screen Negative, Ur Barbituates Screen Negative, Ur Phencyclidine Scrn Negative, Ur Amphetamines Screen Negative, U Benzodiazepines Scrn Negative, Urine Cocaine Screen Negative, U Marijuana (THC) Screen Negative Result diagrams: 07/19/20 15:20 07/19/20 15:20 Orders (Tests/Meds): ED MEDICATIONS Discontinued Medications Generic Name Dose Route Start Last Admin Trade Name Johanna PRN Reason Stop Dose Admin Levetiracetam 1,500 mg/ Sodium 115 mls @ 230 mls/hr 07/19/20 19:09 07/19/20 19:23 Chloride IV 07/19/20 19:10 230 mls/hr ONCE ONE Administration - CT Data CT Scan: Head Time Received: 18:[address] Reviewed: Yes: I have reviewed the patient's CT results Preliminary Findings: Normal/NAD Medical Decision Narrative: 54yo M evaluated for low blood pressure and tonic-clonic movement. Patient's symptoms, per his , sound very much like seizure activity. Patient has no history of seiz
[2020-07-19 15:31] LABS: Basophils % 0.6 % (0.1-2.0); Eosinophils # 0.2 K/mm3 (0.0-0.4); Eosinophils % 2.3 % (0.1-12.0); Hemoglobin 13.9 g/dL (14.1-18.0); Lymphocytes # 1.5 K/mm3 (0.7-4.5); Lymphocytes % 23.2 % (10-50); Mean Corpuscular HGB Conc 33.9 g/dL (31.8-35.4); Mean Corpuscular Hemoglobin 30.3 pg (27.0-31.2); Mean Corpuscular Volume 89.5 fl (80-94); Mean Platelet Volume 8.9 fl (7.4-10.4); Monocytes # 0.3 K/mm3 (0.1-1.0); Monocytes % 4.9 % (1.7-9.3); Neutrophils # 4.5 K/mm3 (1.8-7.8); Platelet Count 107 K/mm3 (142-424); Red Blood Count 4.58 M/mm3 (4.60-6.20); Red Cell Distribution Width 14.3 % (11.5-17.5); White Blood Count 6.5 K/mm3 (4.8-10.8)
[2020-07-19 15:37] LABS: Chloride 101 mmol/L (98-107); Potassium 3.3 mmoL/L (3.5-5.1); Sodium 136 mmol/L (136-145)
[2020-07-19 15:39] LABS: Alanine Aminotransferase 19 U/L (12-78); Aspartate Amino Transferase 23 U/L (17-59); Blood Urea Nitrogen 21 mg/dl (9-20); Creatinine Clearance Estimated 152 mL/min (50-200); Estimated Glomerular Filt Rate 102 ml/min (>60); GFR (African American) 123 ML/MIN (>60)
[2020-07-19 15:40] LABS: Albumin Level 3.3 g/dl (3.5-5.0); Albumin/Globulin Ratio 1.4 (1.1-1.8); Alkaline Phosphatase 82 U/L (38-126); Anion Gap 7.3 mEq/L (5-15); Bilirubin,Total 0.7 mg/dl (0.2-1.3); Calcium 8.5 mg/dl (8.4-10.2); Carbon Dioxide 31 mmol/L (22.0-30.0); Globulin 2.4 g/dL (1.3-3.2); Glucose 218 mg/dl (74-100); Total Protein,Serum 5.7 g/dl (6.3-8.2)
--- NOTE | 2020-07-19 15:43 | CT_ITS ---
PROCEDURE INFORMATION: Exam: CT Head Without Contrast Exam date and time: 07/19/2020 4:10 PM Age: 54 years old Clinical indication: Syncope and collapse; Patient HX: Blood pressure dropping, passing out and possible CVA yesterday TECHNIQUE: Imaging protocol: Computed tomography of the head without contrast. 3D rendering (Not supervised by radiologist): MIP and/or 3D reconstructed images were created by the technologist. Radiation optimization: All CT scans at this facility use at least one of these dose optimization techniques: automated exposure control; mA and/or kV adjustment per patient size (includes targeted exams where dose is matched to clinical indication); or iterative reconstruction. COMPARISON: CT HEAD/BRAIN WO CON 07/19/2020 4:06 PM FINDINGS: Brain: There is age-appropriate cerebral atrophy. Mild changes of chronic small vessel ischemia within the cerebral white matter regions bilaterally. No acute infarct or hemorrhage. Cerebral ventricles: No ventriculomegaly. Bones/joints: Unremarkable. No acute fracture. Paranasal sinuses: Visualized sinuses are unremarkable. No fluid levels. Mastoid air cells: Minor left mastoid air cell disease. Soft tissues: Unremarkable. IMPRESSION: 1. No acute intracranial abnormality. 2. Minor left mastoid air cell disease.
--- NOTE | 2020-07-19 15:47 | ECG_ITS ---
APPROVED REPORT Exam: Resting ECG HR:62 bpm ECG Measurements Heart Rate 62 AXES IL 142 P -17 QRSd 154 QRS -57 QT 490 T 75 QTc 497 Conclusion Normal sinus rhythm Right bundle branch block Left anterior fascicular block Bifascicular block Abnormal ECG Electronically signed by : Maged Bermudez, 07/20/2020 07:09:10
--- NOTE | 2020-07-19 17:00 | PC.NURSE ---
[facility]. offers no c/o at present
[2020-07-19 17:58] LABS: Microscopic, Urine URINE MICROSCOPIC (MICROSCOPIC)
[2020-07-19 18:01] LABS: Appearance,Urine CLEAR (Clear); Bilirubin,Urine Negative (Negative); Blood, Urine 2+ (Negative); Color,Urine YELLOW (Yellow); Glucose,Urine (UA) 1+ (Negative); Ketones,Urine Negative (Negative); Leukocyte Esterase,Urine Negative (Negative); Nitrate,Urine Negative (Negative); PH,Urine 6.5 (5.0-8.5); Protein,Urine 1+ (Negative); Specific Gravity, Urine 1.015 (1.005-1.030)
[2020-07-19 18:09] LABS: Squamous Epithelial Cell,Urine Occasional #/hpf (0-5)
[2020-07-19 18:13] LABS: Barbiturates Screen,Urine Negative ng/ml (<200)
[2020-07-19 18:14] LABS: Amphetamine/Metha Screen,Urine Negative ng/ml (<1000); Benzodiazepines Screen,Urine Negative ng/ml (<200)
[2020-07-19 18:15] LABS: Cannabinoid Screen,Urine Negative ng/ml (<50)
[2020-07-19 18:16] LABS: Cocaine Screen,Urine Negative ng/ml (<300); Methadone Screen,Urine Negative ng/ml (<300)
[2020-07-19 18:17] LABS: Opiate Screen,Urine Positive ng/ml (<300); Phencyclidine Screen,Urine Negative ng/ml (<25)
--- NOTE | 2020-07-19 18:25 | PC.NURSE ---
Called regarding CT results, they advised it had been noted as non emergent, they were going to change it and that it was being read.
--- NOTE | 2020-07-19 18:50 | PC.NURSE ---
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
--- NOTE | 2020-07-19 19:06 | PC.NURSE ---
PORFIRIO KAPOOR speaking with Dr. Aburto
== END 2020-07-19 20:14 | disposition home or self-care (01) ==
PROVIDERS: Emergency Provider Family Medicine; PCP Family Medicine
DX: R56.9 Unspecified convulsions (principal); E11.65 Type 2 diabetes mellitus with hyperglycemia; I25.10 Atherosclerotic heart disease of native coronary artery without angina pectoris; I10 Essential (primary) hypertension; E78.5 Hyperlipidemia, unspecified; Z86.73 Personal history of transient ischemic attack (TIA), and cerebral infarction without residual deficits; Z88.5 Allergy status to narcotic agent; Z88.8 Allergy status to other drugs, medicaments and biological substances; Z79.899 Other long term (current) drug therapy
CPT/HCPCS: 70450; 80053; 80305; 81001; 85025; 93005; 96374; 99282; J1953

== ENCOUNTER 2020-08-04 00:26 | Observation (INO) | payer MEDICARE, OTHER, SELFPAY ==
[2020-08-04] VITALS (21 sets, daily range): BP systolic 132–205; BP diastolic 82–117; PULSE 67–82; RESP 14–20; TEMP 36.6–37; O2SAT 95–100; BMI 24.3; BMI 31.3
--- NOTE | 2020-08-04 00:32 | CT_ITS ---
Limitations: Motion artifact - mild. PROCEDURE INFORMATION: Exam: CT Head Without Contrast Exam date and time: 08/04/2020 12:32 AM Age: 55 years old Clinical indication: Altered mental status/memory loss; Patient HX: AMS TECHNIQUE: Imaging protocol: Computed tomography of the head without contrast. Radiation optimization: All CT scans at this facility use at least one of these dose optimization techniques: automated exposure control; mA and/or kV adjustment per patient size (includes targeted exams where dose is matched to clinical indication); or iterative reconstruction. COMPARISON: CT HEAD/BRAIN WO CON 07/19/2020 4:10 PM FINDINGS: Brain: Mild atrophy. No intracranial hemorrhage. No mass. Few scattered foci of decreased attenuation within periventricular/subcortical white matter. Probable chronic lacunar infarct about RIGHT basal ganglia. No definite edema. Cerebral ventricles: No hydrocephalus. Paranasal sinuses: No acute sinusitis. Mastoid air cells: Minimal fluid within LEFT mastoid, stable. Orbital cavity: Unremarkable as visualized. Bones/joints: No acute fracture. Soft tissues: Unremarkable. IMPRESSION: Probable chronic microvascular ischemic changes. If symptoms persist, consider MRI.
--- NOTE | 2020-08-04 00:32 | XR_ITS ---
PROCEDURE INFORMATION: Exam: XR Chest Exam date and time: 08/04/2020 12:32 AM Age: 55 years old Clinical indication: Other: AMS TECHNIQUE: Imaging protocol: XR of the chest. Views: 1 view. COMPARISON: CR XR CHEST PORTABLE 03/22/2020 2:17 PM FINDINGS: Tubes, catheters and devices: Leads overlying chest. Lungs: Mild underinflation. No consolidation. Pleural spaces: No significant pleural effusion. No pneumothorax. Heart/Mediastinum: No cardiomegaly. Bones/joints: No displaced fracture. Soft tissues: Unremarkable. IMPRESSION: No definite acute cardiopulmonary disease.
--- NOTE | 2020-08-04 00:32 | ECG_ITS ---
APPROVED REPORT Exam: Resting ECG HR:66 bpm ECG Measurements Heart Rate 66 AXES WI 146 P -2 QRSd 144 QRS -60 QT 466 T 56 QTc 488 Conclusion Normal sinus rhythm Right bundle branch block Left anterior fascicular block Bifascicular block Abnormal ECG Electronically signed by : Maged Bermudez, 08/05/2020 22:03:43
[2020-08-04 00:45] LABS: Basophils # 0.1 K/mm3 (0-0.2); Basophils % 1.2 % (0.1-2.0); Eosinophils # 0.1 K/mm3 (0.0-0.4); Eosinophils % 2.6 % (0.1-12.0); Hematocrit 40.6 % (42.0-52.0); Hemoglobin 13.6 g/dL (14.1-18.0); Lymphocytes # 1.4 K/mm3 (0.7-4.5); Lymphocytes % 24.7 % (10-50); Mean Corpuscular HGB Conc 33.6 g/dL (31.8-35.4); Mean Corpuscular Hemoglobin 30.1 pg (27.0-31.2); Mean Corpuscular Volume 89.6 fl (80-94); Mean Platelet Volume 8.5 fl (7.4-10.4); Monocytes # 0.3 K/mm3 (0.1-1.0); Monocytes % 4.9 % (1.7-9.3); Neutrophils # 3.6 K/mm3 (1.8-7.8); Neutrophils % 66.7 % (37.0-80.0); Platelet Count 134 K/mm3 (142-424); Red Blood Count 4.53 M/mm3 (4.60-6.20); Red Cell Distribution Width 14.3 % (11.5-17.5); White Blood Count 5.5 K/mm3 (4.8-10.8)
[2020-08-04 00:49] LABS: Alanine Aminotransferase 23 U/L (12-78); Albumin Level 3.6 g/dl (3.5-5.0); Albumin/Globulin Ratio 1.3 (1.1-1.8); Alkaline Phosphatase 116 U/L (38-126); Anion Gap 4.7 mEq/L (5-15); Aspartate Amino Transferase 23 U/L (17-59); Bilirubin,Total 0.5 mg/dl (0.2-1.3); Blood Urea Nitrogen 20 mg/dl (9-20); Carbon Dioxide 36 mmol/L (22.0-30.0); Chloride 103 mmol/L (98-107); Creatinine Clearance Estimated 100 mL/min (50-200); Estimated Glomerular Filt Rate 88 ml/min (>60); GFR (African American) 107 ML/MIN (>60); Globulin 2.7 g/dL (1.3-3.2); Glucose 132 mg/dl (74-100); Potassium 3.7 mmoL/L (3.5-5.1); Sodium 140 mmol/L (136-145); Total Protein,Serum 6.3 g/dl (6.3-8.2)
[2020-08-04 00:54] LABS: C-Reactive Protein 1.1 mg/L (0-4)
[2020-08-04 01:03] LABS: Troponin I 0.11 ng/ml (0.00-0.034)
--- NOTE | 2020-08-04 01:11 | HMH.EDNEU ---
ED Disposition Clinical Impression: RBBB, Hypertensive crisis, Elevated troponin, IDDM (insulin dependent diabetes mellitus) Transient cerebral ischemia Qualifiers: Transient cerebral ischemia type: unspecified Qualified Code(s): G45.9 - Transient cerebral ischemic attack, unspecified Disposition: Admitted as Observation Condition on Discharge: Fair Instructions: DI for Altered Mental Status Referrals: Maged Aburto MD [Primary Care Provider] - - Critical Care Critical Care Time: No Attestation: On 08/04/20, the high probability of a clinically significant, sudden or life threatening deterioration of the following system(s) required my full and direct attention, intervention and personal management. The time I documented below is in addition to time spent performing reported procedures but includes the following listed in this critical care notation. Medical Decision Making - Medical Records Medical records reviewed: Yes: I reviewed the patient's medical records. - [place] Inquiry Pt receiving controlled substance: No Vital Signs: 08/04/20 00:23 08/04/20 01:30 08/04/20 02:00 Temperature 97.8 F Temperature Source Oral Pulse Rate 70 71 Pulse Rate [Right] 67 Respiratory Rate 17 14 14 Blood Pressure 162/98 H 161/96 H Blood Pressure [Right Arm] 132/82 Blood Pressure Mean 119 120 Blood Pressure Mean [Right Arm] 98 Blood Pressure Source Blood Pressure Source [Right Arm] Automatic Cuff Blood Pressure Position 02 Sat by Pulse Oximetry 99 98 98 Oxygen Delivery Method Room Air Room Air Room Air 08/04/20 02:30 08/04/20 02:35 08/04/20 02:36 Temperature Temperature Source Pulse Rate 76 Pulse Rate [Right] Respiratory Rate 16 Blood Pressure 197/115 H 196/114 H 192/116 H Blood Pressure [Right Arm] Blood Pressure Mean Blood Pressure Mean [Right Arm] Blood Pressure Source Manual Cuff/ Auscultation Manual Cuff/ Auscultation Blood Pressure Source [Right Arm] Blood Pressure Position Supine Supine 02 Sat by Pulse Oximetry 99 Oxygen Delivery Method 08/04/20 03:00 08/04/20 03:07 08/04/20 03:15 Temperature Temperature Source Pulse Rate 81 79 82 Pulse Rate [Right] Respiratory Rate 16 14 16 Blood Pressure 203/113 H 205/114 H 202/117 H Blood Pressure [Right Arm] Blood Pressure Mean 143 142 145 Blood Pressure Mean [Right Arm] Blood Pressure Source Blood Pressure Source [Right Arm] Blood Pressure Position 02 Sat by Pulse Oximetry 100 98 98 Oxygen Delivery Method Room Air Room Air Room Air 08/04/20 03:30 Temperature Temperature Source Pulse Rate 80 Pulse Rate [Right] Respiratory Rate 19 Blood Pressure 205/115 H Blood Pressure [Right Arm] Blood Pressure Mean 152 Blood Pressure Mean [Right Arm] Blood Pressure Source Blood Pressure Source [Right Arm] Blood Pressure Position 02 Sat by Pulse Oximetry 100 Oxygen Delivery Method Room Air - Lab Data Lab results reviewed: Yes: I reviewed the patient's lab results. Lab Results 08/04/20 00:15: WBC 5.5, RBC 4.53 L, Hgb 13.6 L, Hct 40.6 L, MCV 89.6, MCH 30.1, MCHC 33.6, RDW 14.3, Plt Count 134 L, MPV 8.5, Neut % (Auto) 66.7, Lymph % (Auto) 24.7, [place] % (Auto) 4.9, Eos % (Auto) 2.6, Baso % (Auto) 1.2, Neut # (Auto) 3.6, Lymph # (Auto) 1.4, [place] # (Auto) 0.3, Eos # (Auto) 0.1, Baso # (Auto) 0.1, ESR 16 08/04/20 00:15: Sodium 140, Potassium 3.7, Chloride 103, Carbon Dioxide 36 H, Anion Gap 4.7 L, BUN 20, Creatinine 0.90, Estimated Creat Clear 100, Estimated GFR 88, Est GFR ( Amer) 107, Glucose 132 H, Calcium 9.0, Total Bilirubin 0.5, AST 23, ALT 23, Alkaline Phosphatase 116, Troponin I 0.11 H, C-Reactive Protein 1.1, Total Protein 6.3, Albumin 3.6, Globulin 2.7, Albumin/Globulin Ratio 1.3 08/04/20 01:30: Chlamy pneumoniae PCR Not detected, Adenovirus (PCR) Not detected, B. pertussis DNA (PCR) Not detected, Coronavirus OC43 (PCR) Not detected, Coronavirus HKU1 (PCR) Not detected,
[2020-08-04 01:57] LABS: Adenovirus,PCR Not Detected (NotDetected); Bordetella Pertussis Not Detected (NotDetected); Chlamydophila Pneumoniae, PCR Not Detected (NotDetected); Coronavirus 19, PCR Not Detected (NotDetected); Coronavirus 229E Not Detected (NotDetected); Coronavirus NL63 Not Detected (NotDetected); Coronavirus OC43 Not Detected (NotDetected); Coronovirus HKU1,PCR Not Detected (NotDetected); Human Metapneumovirus Not Detected (NotDetected); Influenza A, PCR Not Detected (NotDetected); Influenza AH1, 2009 Not Detected (NotDetected); Influenza AH1, PCR Not Detected (NotDetected); Influenza AH3,PCR Not Detected (NotDetected); Influenza B, PCR Not Detected (NotDetected); Mycoplasma Pneumoniae, PCR Not Detected (NotDetected); Parainfluenza 1, PCR Not Detected (NotDetected); Parainfluenza 2, PCR Not Detected (NotDetected); Parainfluenza 3, PCR Not Detected (NotDetected); Parainfluenza 4, PCR Not Detected (NotDetected); Respiratory Syncytial Virus Not Detected (NotDetected); Rhinovirus/Enterovirus Not Detected (NotDetected)
[2020-08-04 02:04] LABS: Erythrocyte Sedimentation Rate 16 mm/hr (0-20)
[2020-08-04 02:08] LABS: Lactic Acid 1.2 mmol/L (0.7-2.1)
[2020-08-04 02:25] LABS: Microscopic, Urine URINE MICROSCOPIC (MICROSCOPIC)
[2020-08-04 02:27] LABS: Appearance,Urine SL CLOUDY (Clear); Bilirubin,Urine Negative (Negative); Blood, Urine 3+ (Negative); Color,Urine YELLOW (Yellow); Glucose,Urine (UA) 3+ (Negative); Ketones,Urine Negative (Negative); Leukocyte Esterase,Urine Negative (Negative); Nitrate,Urine Negative (Negative); PH,Urine 6.5 (5.0-8.5); Protein,Urine 2+ (Negative); Specific Gravity, Urine 1.015 (1.005-1.030)
[2020-08-04 02:39] LABS: RBC,Urine 20-50 #/hpf (0-3)
[2020-08-04 04:08] LABS: Troponin I 0.09 ng/ml (0.00-0.034)
--- NOTE | 2020-08-04 04:58 | PC.NURSE ---
Called report to Leatha REYES
--- NOTE | 2020-08-04 05:14 | PC.NURSE ---
PT ARRIVED TO FLOOR VIA STRETCHER FROM ED W/STAFF AT [id number]
[2020-08-04 06:38] LABS: POC Glucose,Bedside 196 (70-110)
--- NOTE | 2020-08-04 07:03 | HMH.HP ---
*Admission Date: 08/04/20 *Chief complaint: Confusion, slurred speech *History of present illness: 55-year-old male with diabetes, coronary artery disease, history of strokes, aortic stenosis presented to the emergency department early this morning after an episode at home where the patient felt something was wrong . History is taken from the ER record as patient cannot provide much significant history at this time and no family is available at bedside. Nonetheless patient had this abnormal feeling which was reportedly followed by slurred speech and possibly facial drooping. EMS was called. By the time EMS arrived at the patient's home symptoms had resolved although blood pressure remained elevated. Due to patient's history of hypertensive encephalopathy and stroke patient was brought to the emergency department. Initially blood pressures were in the 160s over 90s but brenden during assessment in the ER and required treatment with IV enalapril. Patient's blood pressure did respond appropriately. Patient had no slurred speech or facial asymmetry in the ER. Decision was made to admit the patient for continued observation and monitoring of patient's blood pressure. The patient himself does not recall what happened overnight [facility] History I have reviewed the patient's past medical history: Yes Medical History: Reports:: Carotid Stenosis, Coronary Artery Disease, Cerebrovascular Accident, Depression, Diabetes Mellitus Type 2, Heart Murmur, Hyperlipidemia, Hypertension, MRSA, Urinary Tract Infection, Valvular Heart Disease (Aortic stenosis) Denies:: Cancer, Diabetes Mellitus Type 1, Internal Pacemaker *Have you ever received a pneumonia vaccine?: No *Have you received a flu vaccine this season?: Yes Other Medical History: Reports: Arthritis Other Surgeries: Yes: Angiogram, Cardiac Catheterization, Coronary Stent. No: Pacemaker Amputation: No Fractures: No - *Social History Smoking Status: Current every day smoker Tobacco Type: cigarettes # Packs/Day (cigarettes): 1 Alcohol Intake: current Alcohol Intake Frequency:: holidays/special occasions only Substance Use Type: denies use *Occupational Status:: disabled Housing: other Household Members: spouse *Travel in the last 8 weeks: None - Psychiatric History Pschychiatric History:: Reports:: Depression Family Hx:: Coronary Artery Disease, Diabetes, Heart Attack, Hyperlipidemia, Hypertension, Stroke Review of Systems - Constitutional Denies anorexia, Denies body ache(s) - Eyes Denies blurry vision - ENT Denies abnormal hearing - *Cardiovascular Denies chest pain, Denies chest pain at rest - *Respiratory Denies change in phlegm color, Denies chest congestion, Denies shortness of breath - *Gastrointestinal Denies abdominal pain - *Genitourinary Denies difficulty urinating - *Musculoskeletal Reports abnormal walking, Reports back pain (Chronic), Reports limited joint movement - Integumentary/Breasts Denies hair loss - *Neurologic Reports abnormal speech, Reports confusion, Denies localized weakness, Denies frequent falls, Denies headache(s), Denies tingling/numbness/burning sensations, Denies seizure-like activity - Psychiatric Reports abnormal sleep pattern - Endocrine Denies cold intolerance Meds Home Medications Medication Instructions Recorded Confirmed Type Aspirin [Aspirin 81mg EC Tab] 81 mg PO DAILY 02/21/19 08/04/20 History Clopidogrel Bisulfate [Clopidogrel 75 mg PO DAILY 02/21/19 08/04/20 History 75mg Tab] Insulin Aspart [Novolog Flexpen] 14 unit SQ AC 02/21/19 08/04/20 History Pantoprazole Sodium [Protonix 40mg 40 mg PO DAILY 02/21/19 08/04/20 History tablet] Duloxetine HCl 120 mg PO DAILY 08/21/19 08/04/20 History Metoclopramide HCl [Metoclopramide 10 mg PO ACHS 08/21/19 08/04/20 History 10mg Tablet] Gabapentin [Gabapentin 100mg Cap] 300 mg PO TID 01/19/20 08/04/20 History Hydrocodone/Acetaminophen 1 each PO Q6HP PRN 03/22/20 06
--- NOTE | 2020-08-04 07:11 | HMH.PHAVTE ---
[facility] Pharmacy VTE Monitoring - Patient Demographics Admission date: 08/04/20 Report Date: 08/04/20 Time: 07:11 Allergies/Adverse Reactions: Patient Allergies metformin [METFORMIN] Allergy (Unknown, Verified 04/23/20 10:59) Unknown allergy reaction NSAIDS (Non-Steroidal Anti-Inflamma [NSAIDS (NON-STEROIDAL ANTI-INFLAMMA] Allergy (Unknown, Verified 04/23/20 10:59) UNKNOWN morphine Allergy (Verified 04/23/20 10:59) Unknown allergy reaction Height: 1.75 m Weight: 95.963 kg Patient Problems: Current Active Problems IDDM (insulin dependent diabetes mellitus) (Acute) RBBB (Acute) Transient cerebral ischemia (Acute) Hypertensive crisis (Acute) Elevated troponin (Acute) - VTE Risk Labs: VTE Related Lab Results Hgb 13.6 g/dL (14.1-18.0) L 08/04/20 00:15 Hct 40.6 % (42.0-52.0) L 08/04/20 00:15 Plt Count 134 K/mm3 (142-424) L 08/04/20 00:15 BUN 20 mg/dl (9-20) 08/04/20 00:15 Creatinine 0.90 mg/dl (0.66-1.25) 08/04/20 00:15 Estimated Creat Clear 100 mL/min (50-200) 08/04/20 00:15 - Prophylaxis VTE Prophylaxis Ordered?: Yes Types of VTE Prophylaxis: TEDS Knee High Location of Applied Device: Bilateral Lower Extremeties
--- NOTE | 2020-08-04 09:00 | HMH.PHAINT ---
MEDICATION RECONCILIATION COMPLETED ON PATIENT USING EXTERNAL FILL HISTORY FROM PHARMACY AND DISCHARGE SUMMARY FROM PREVIOUS VISIT. -IVANNA ROWELLD
[2020-08-04 10:06] LABS: Troponin I 0.07 ng/ml (0.00-0.034)
[2020-08-04 12:23] LABS: POC Glucose,Bedside 109 (70-110)
[2020-08-04 16:32] LABS: POC Glucose,Bedside 205 (70-110)
--- NOTE | 2020-08-04 17:50 | PC.NURSE ---
Pt has been pleasant and cooperative this shift. A&O X4. Pt has complained of back pain X2 and anxiety, both complaints have been addressed with Satsuma/Valium per MAR with favorable results. Pt is on room air with sats. >90%. Lungs CTA. No edema noted. Skin is C/D/I. Telemetry reveals NSR + BBB. Pt ambulates with stand-by assistance. Pt has sat up in the recliner for a few hours today. F/C is patent and draining clear, yellow urine at bedside to gravity. No BM thus far today. 20 G peripheral IV in the LT AC is patent and SL. 20 G peripheral IV in the RT forearm is patent and SL. B/P elevated this AM. After medication administration vital signs have been stable. Call light within reach. Will continue to monitor.
[2020-08-05] VITALS (8 sets, daily range): BP systolic 146–185; BP diastolic 77–107; PULSE 70–87; RESP 16–19; TEMP 36.3–37.1; O2SAT 97–99; BMI 30.8
[2020-08-05 00:53] LABS: POC Glucose,Bedside 202 (70-110)
[2020-08-05 02:49] LABS: POC Glucose,Bedside 207 (70-110)
[2020-08-05 05:34] LABS: POC Glucose,Bedside 204 (70-110)
--- NOTE | 2020-08-05 06:12 | PC.NURSE ---
Patient vomited x 1 and was diaphoretic (patient stated he was hot); check BS 207 and elevated BP manual 200/110; patient able to answer questions with no slurring of speech; denied pain, SOA, repeated manual BP 180/102 with patient resting with eyes closed showing no acute distress at this time.
--- NOTE | 2020-08-05 07:00 | HMH.ACPN2 ---
Internal Medicine - PN: Subj *Date: 08/05/20 *Time: 07:00 Interval history: Patient is more awake and alert this morning. He is unable to provide any additional history about the events that led to hospitalization. I did speak with his yesterday who confirmed the story present in the ER note. Patient's blood pressure has been between 160 and 180 systolic over the last 24 hours. Echocardiogram was ordered yesterday with no results available at the moment. Exam Vital signs and Labs for Last 24 Hours: Temp Pulse Resp BP Pulse Ox 98.4 F 70 16 180/102 H 97 08/05/20 03:49 08/05/20 04:00 08/05/20 03:49 08/05/20 03:49 08/05/20 03:49 Laboratory Results - last 24 hr 08/04/20 09:32: Troponin I 0.07 H 08/04/20 11:56: POC Glucose 109 08/04/20 16:16: POC Glucose 205 H 08/05/20 00:27: POC Glucose 202 H 08/05/20 02:38: POC Glucose 207 H 08/05/20 05:22: POC Glucose 204 H I & O for Last 24 hours: Intake & Output 08/02/20 08/03/20 08/04/20 08/05/20 11:59 11:59 11:59 11:59 Intake Total 1000 / 1000 720 / 720 Output Total 1550 / 1550 2049 / 2049 Balance -550 / -550 -1330 / -1330 Weight 211 lb 9 oz 208 lb 2 oz Narrative: Patient is in no distress and sitting up in bed. He answers questions appropriately but seems unfocused. Lungs are clear. Heart has a regular rate and rhythm. Abdomen is soft. Assessment and Plan (1) Hypertensive encephalopathy Status: Resolved Category: Medical Code(s): I67.4 - Hypertensive encephalopathy (2) Hypertensive heart disease Status: Suspected Qualifiers: Heart failure presence: with heart failure Heart failure type: combined systolic and diastolic Category: Medical Code(s): I11.9 - Hypertensive heart disease without heart failure (3) Aortic stenosis Status: Acute Category: Medical Code(s): I35.0 - Nonrheumatic aortic (valve) stenosis (4) Coronary artery disease Status: Acute Category: Medical Code(s): I25.10 - Atherosclerotic heart disease of [place] coronary artery without angina pectoris (5) Transient confusion Status: Acute Category: Medical Code(s): R41.0 - Disorientation, unspecified (6) Type 2 diabetes mellitus with hyperglycemia, with long-term current use of insulin Status: Acute Category: Medical Code(s): E11.65 - Type 2 diabetes mellitus with hyperglycemia; Z79.4 - long term acute care registered nurse (current) use of insulin (7) History of cerebrovascular accident (CVA) from right carotid artery occlusion involving right middle cerebral artery territory Status: Chronic Category: Medical Code(s): Z86.73 - Personal history of transient ischemic attack (TIA), and cerebral infarction without residual deficits - Assessment and plan all Dx Assessment and Plan for all problems:: 1. EEG today to assess possibility of seizures 2. Await echo results 3. BMP CBC ordered 4. DC cardiac nurse specialist and Nelson catheter 5. PT eval
[2020-08-05 08:14] LABS: Chloride 102 mmol/L (98-107); Potassium 4.1 mmoL/L (3.5-5.1); Sodium 138 mmol/L (136-145)
[2020-08-05 08:17] LABS: Blood Urea Nitrogen 14 mg/dl (9-20); Creatinine Clearance Estimated 190 mL/min (50-200); Estimated Glomerular Filt Rate 141 ml/min (>60); GFR (African American) 171 ML/MIN (>60)
[2020-08-05 08:18] LABS: Anion Gap 8.1 mEq/L (5-15); Carbon Dioxide 32 mmol/L (22.0-30.0); Glucose 194 mg/dl (74-100)
--- NOTE | 2020-08-05 08:49 | HMH.PTEV ---
Physical Therapy Evaluation Rehab PT IP Evaluation Start: 08/05/20 07:04 Freq: ONCE Status: Active Protocol: Document 08/05/20 08:44 TORI (Rec: 08/05/20 08:49 TORI [id number]) Subjective/History History History Per EMS, pt was at home with when he stated, something is wrong, I need some help and then he became confused and slurred speech was witnessed by . EMS stated that when they arrived, pt did not exhibit any slurring of speech but was confused. On exam by this RN, pt is A&O to person, place, - copied from ER note Subjective Subjective Pt reports he feels dizzy and lightheaded Rehab PT IP Eval Objective Appearance Patient Behavior Appropriate,Cooperative Patient Orientation Person,Place Difficulty following instructions mild Speech Pattern Appropriate,Delayed Ambulation Patient Able to Ambulate No Ambulation Observation IP General Gait Pattern Observation Ataxic Gait,Shuffling Step Ambulation Distance (feet) 2 Ambulation Ability Maximum x 1 (75% assist) Balance Ability to Arise Able, uses arms to help Sitting Balance Leans or slides in chair Standing Balance Unsteady Dynamic Sitting Balance Ability Fair Dynamic Standing Balance Ability Zero Transfers Chair Transfer Ability Supervision/Stand by Sit to Stand Chair Transfer Ability Minimal x 1 (25% assist) ROM All Extremities PT ROM Status WFL MMT All Extremities PT MMT WFL Rehab PT IP prob,goals,plan Problems Date of Evaluation: 08/05/20 PT IP Problems Transfers,Gait,Balance,Self care,Safety Rehab Potential Rehab Potential Fair Equipment Needs Assistive Devices Rolling / Wheeled Walker Plan PT Intervention Plan Bed Mobility,Transfers,Gait, Balance,Self care,Safety, Therapeutic Exercise PT Plan Frequency BID Duration LOS Discharge Goals Bed Transfer Ability Supervision/Stand by Sit to Stand Chair Transfer Ability Contact Guard/Hand Hold Ambulation Assistive Device Rolling Walker Ambulation Distance (feet) 5 Discharge Plan PT Discharge Plan At this time pt will require skilled rehab at SNF to allow
--- NOTE | 2020-08-05 09:30 | PC.NURSE ---
Pt tried to get out of bed again, alarm going off, legs over side rail.
--- NOTE | 2020-08-05 10:00 | PC.NURSE ---
pt tried to get oob again, alarm going off, legs over side rail.
--- NOTE | 2020-08-05 10:39 | PC.NURSE ---
Report to shane ponce.
--- NOTE | 2020-08-05 11:15 | PC.NURSE ---
Pt is currently getting an eeg done and is asleep. FS 216. Received report on pt @ 1030 from OB RN. Pts here and updated med list. CB in reach. Pts states he was confused when entering room this am. Bed safety is on for safety. VSS this am.
[2020-08-05 11:19] LABS: POC Glucose,Bedside 216 (70-110)
--- NOTE | 2020-08-05 15:16 | PC.NURSE ---
Have made Dr. Aburto aware of confusion episodes, although pt has been alert and oriented until now, he is unsure of the president and the exact hospital.. RR even and unlabored. Pt does appear to have some sleep apnea. Dr. Aburto also made aware of this. CB in reach. Have removed lentz. Bed alarm is on. This RN asked if Dr. Aburto would like an ABG? Awaiting response at this time. Awaiting results of echo and EEG. Meds given per apr. VSS. Mx continues.
[2020-08-05 16:02] LABS: POC Glucose,Bedside 255 (70-110)
--- NOTE | 2020-08-05 16:53 | CT_ITS ---
PROCEDURE INFORMATION: Exam: CT Head Without Contrast Exam date and time: 08/05/2020 4:53 PM Age: 55 years old Clinical indication: Injury or trauma; Fall; Blunt trauma (contusions or hematomas); Consciousness not specified; Additional info: Unwitinessed fall , mental status changs TECHNIQUE: Imaging protocol: Computed tomography of the head without contrast. Radiation optimization: All CT scans at this facility use at least one of these dose optimization techniques: automated exposure control; mA and/or kV adjustment per patient size (includes targeted exams where dose is matched to clinical indication); or iterative reconstruction. COMPARISON: CT HEAD/BRAIN WO CON 08/04/2020 1:18 AM FINDINGS: Brain: No intracranial bleed, suspicious mass, or mass effect. Ventricles appear unremarkable. There is low attenuation change in the white matter most consistent with chronic age related small vessel ischemic change. No acute territorial infarction is seen. These can be initially occult on head CT. Cerebral ventricles: See Brain finding. Paranasal sinuses: Visualized sinuses are unremarkable. No fluid levels. Mastoid air cells: Visualized mastoid air cells are well aerated. Bones/joints: Unremarkable. No acute fracture. Soft tissues: Unremarkable. IMPRESSION: 1. No intracranial bleed, suspicious mass, or mass effect. Ventricles appear unremarkable. 2. There is minimal low attenuation change in the white matter most consistent with chronic age related small vessel ischemic change. No acute territorial infarction is seen. These can be initially occult on head CT. Small old bilateral lacunar infarctions again evident.
--- NOTE | 2020-08-05 18:54 | PC.NURSE ---
Pt became more confused as the shift went on. This nurse notified Dr. Aburto of increased confusion and elevated BP's and a difference in the right and left side. CT results show no acute bleed, have made Dr. Aburto aware of the results and NNO were given. Bed alarm in place for safety. Did update of room change for safety. and this RN spoke with Dr. Aburto and made him aware of he concern with the carotid stenosis and the bp differences and he didnt feel like the ams was related. Mx continues at this time. Pt has voided x one mod incont void since indwelling cath was removed.
[2020-08-05 22:34] LABS: POC Glucose,Bedside 331 (70-110)
[2020-08-06] VITALS: BP 181/97; PULSE 85; RESP 18; TEMP 36.7; O2SAT 98
[2020-08-06 05:00] VITALS: BMI 30.2
[2020-08-06 06:59] LABS: Chloride 103 mmol/L (98-107); Potassium 3.8 mmoL/L (3.5-5.1); Sodium 138 mmol/L (136-145)
[2020-08-06 07:02] LABS: Anion Gap 5.8 mEq/L (5-15); Blood Urea Nitrogen 15 mg/dl (9-20); Calcium 9.2 mg/dl (8.4-10.2); Carbon Dioxide 33 mmol/L (22.0-30.0); Creatinine Clearance Estimated 140 mL/min (50-200); Estimated Glomerular Filt Rate 101 ml/min (>60); GFR (African American) 122 ML/MIN (>60); Glucose 150 mg/dl (74-100)
[2020-08-06 07:03] LABS: POC Glucose,Bedside 129 (70-110)
--- NOTE | 2020-08-06 07:06 | HMH.ACPN2 ---
Internal Medicine - PN: Subj *Date: 08/06/20 *Time: 07:06 Interval history: Patient awakens easily this morning. Over the last 24 hours patient had an unwitnessed fall. While he seemed slightly confused yesterday morning staff thought confusion worsened throughout the day so ultimately patient had a head CT to rule out intracranial hemorrhage. CT was negative for bleed. Patient reports his day did not go well primarily because of lack of sleep. Exam Vital signs and Labs for Last 24 Hours: Temp Pulse Resp BP Pulse Ox 98.0 F 85 18 181/97 H 98 08/06/20 00:00 08/06/20 00:00 08/06/20 00:00 08/06/20 00:00 08/06/20 00:00 Laboratory Results - last 24 hr 08/05/20 07:55: Sodium 138, Potassium 4.1, Chloride 102, Carbon Dioxide 32 H, Anion Gap 8.1, BUN 14 D, Creatinine 0.60 L D, Estimated Creat Clear 190, Estimated GFR 141, Est GFR ( Amer) 171 D, Glucose 194 H, Calcium 9.0 08/05/20 10:59: POC Glucose 216 H 08/05/20 15:40: POC Glucose 255 H 08/05/20 22:08: POC Glucose 331 H* 08/06/20 05:00: POC Glucose 129 H 08/06/20 06:26: Sodium 138, Potassium 3.8, Chloride 103, Carbon Dioxide 33 H, Anion Gap 5.8, BUN 15, Creatinine 0.80 D, Estimated Creat Clear 140, Estimated GFR 101, Est GFR ( Amer) 122 D, Glucose 150 H D, Calcium 9.2 I & O for Last 24 hours: Intake & Output 08/03/20 08/04/20 08/05/20 08/06/20 11:59 11:59 11:59 11:59 Intake Total 1000 / 1000 1080 / 1080 480 / 480 Output Total 1550 / 1550 3450 / 3450 200 / 200 Balance -550 / -550 -2370 / -2370 280 / 280 Weight 211 lb 9 oz 208 lb 2 oz 204 lb 9.6 oz Microbiology Reports for the Last 24 Hours: Microbiology 08/04/20 01:40 Blood Blood Culture - Preliminary NO GROWTH AFTER 48 HOURS 08/04/20 01:40 Blood Blood Culture - Preliminary NO GROWTH AFTER 48 HOURS Narrative: This morning the patient seems more focused. Answers to questions are more appropriate. Lungs are clear. Heart has a regular rate and rhythm. Abdomen is soft. Echocardiogram has a preliminary ejection fraction of 40 to 45% which is stable compared to his echo earlier in the year. Assessment and Plan (1) Hypertensive encephalopathy Status: Resolved Category: Medical Code(s): I67.4 - Hypertensive encephalopathy (2) Hypertensive heart disease Status: Suspected Qualifiers: Heart failure presence: with heart failure Heart failure type: combined systolic and diastolic Category: Medical Code(s): I11.9 - Hypertensive heart disease without heart failure (3) Aortic stenosis Status: Acute Category: Medical Code(s): I35.0 - Nonrheumatic aortic (valve) stenosis (4) Coronary artery disease Status: Acute Category: Medical Code(s): I25.10 - Atherosclerotic heart disease of [place] coronary artery without angina pectoris (5) Transient confusion Status: Acute Category: Medical Code(s): R41.0 - Disorientation, unspecified (6) Type 2 diabetes mellitus with hyperglycemia, with long-term current use of insulin Status: Acute Category: Medical Code(s): E11.65 - Type 2 diabetes mellitus with hyperglycemia; Z79.4 - halfway (current) use of insulin (7) History of cerebrovascular accident (CVA) from right carotid artery occlusion involving right middle cerebral artery territory Status: Chronic Category: Medical Code(s): Z86.73 - Personal history of transient ischemic attack (TIA), and cerebral infarction without residual deficits (8) Chronic left ventricular systolic dysfunction Status: Acute Category: Medical Code(s): I51.9 - Heart disease, unspecified - Assessment and plan all Dx Assessment and Plan for all problems:: 1. Blood pressure remains elevated. Increase spironolactone to 50 mg 2. For LV dysfunction (chronic congestive heart failure) patient will be started on Entresto 3. Continue PT 4. Await official echo and EEG reports
[2020-08-06 08:00] VITALS: BP 166/99; PULSE 72; RESP 16; TEMP 37.2; O2SAT 97; O2SAT 99
--- NOTE | 2020-08-06 10:03 | SW/DCPLANNER ---
Addendum entered by Bibiana Hobbs 08/06/20 13:37: RECEIVED A TEXT FROM [employer] AT [employer] AND SHE STATED [facility] HAS OUT OF NETWORK BENEFITS WITH HIS [employer]... HIS IS AN EMPLOYEE THERE AND THEY ARE STARTING THE AUTHORIZATION AND IF ACCEPTED HE CAN DISCHARGE BUT IS NOT ALLOWED TO SMOKE THERE AT THE FACILITY.. THIS MAY BE A PROBLEM SINCE PATIENT IS A BIG SMOKER.... Original Note: AFTER MAKING ROUNDS WITH DR GUERRERO THIS MORNING HE STATED [facility] IS GOING TO NEED TO GO SOMEWHERE FOR SOME SKILLED REHAB SERVICES...HIS WORKS AT [employer] AND WOULD LIKE FOR HIM TO BE THERE WITH HER BUT HE HAS A [employer] AND THEY ARE NOT IN NETWORK WITH HIS INSURANCE... I SPOKE WITH THE BUSINESS LEADER AND SHE IS GOING TO SEND IT IN TO [employer] TO SEE WHAT HIS OUT OF POCKET IS GOING TO BE AND SHE WILL LET ME KNOW... IF APPROVED AND CAN GO HE MAY DISCHARGE IN THE NEXT DAY OR TWO....
[2020-08-06 11:51] LABS: POC Glucose,Bedside 183 (70-110)
[2020-08-06 12:00] VITALS: BP 144/86; PULSE 68; RESP 18; TEMP 36.6; O2SAT 97
[2020-08-06 15:37] VITALS: BP 155/100; PULSE 70; RESP 16; TEMP 37
[2020-08-06 16:54] LABS: POC Glucose,Bedside 145 (70-110)
[2020-08-06 19:58] LABS: POC Glucose,Bedside 166 (70-110)
[2020-08-06 20:00] VITALS: BP 154/105; PULSE 76; RESP 16; TEMP 36.7; O2SAT 95
--- NOTE | 2020-08-06 20:27 | PC.NURSE ---
Earlier this shift this RN notified Dr. Aburto of EEG results and of pts LOC after valium and meds per mar given. Dr. Aburto also feels there could be some seizure activity going on with pt. He ordered 1 gm of keppra IV times one dose per mar and seizure pads are in place. Pt didnt have any notable seizing, although he will stare off and have episodes of AMS although alert and oriented at times as well. CB in reach and bed safety is on. It has been noted pt is having apnea lasting approx 20 secs, although 02 remains wnl 94-99%. When this was noted BP was 150/52, HR 80's, RR 20 and Sats 99-100% on RA. Pt has since then been awake and talking with and had no further episodes. Did notify of episode. Report given.
--- NOTE | 2020-08-06 20:32 | PC.NURSE ---
Pt does appear to have urinated some as well in brief. Staff to change pt.
[2020-08-07] VITALS: BP 140/85; PULSE 64; RESP 16; TEMP 36.8; O2SAT 95
--- NOTE | 2020-08-07 03:34 | PC.NURSE ---
No acute changes overnight. PT was able to rest well for most of the shift. Pt has periods of confusion with waking up. Pt has had periods of incontinence this shift, no BM. Lungs CTA, on room air, pt has had periods of apnea during sleep. Requested pain meds x1 with favorable results. VSS, call light in reach, no concerns at this time.
[2020-08-07 03:56] VITALS: BP 132/84; PULSE 65; RESP 16; TEMP 36.2; O2SAT 97
[2020-08-07 05:00] VITALS: BMI 30.3
--- NOTE | 2020-08-07 05:22 | PC.NURSE ---
Pt FSBG this AM was 69, pt was unsymptomatic. Given 4oz of orange juice, will reassess in 30 mins.
[2020-08-07 05:25] LABS: POC Glucose,Bedside 69 (70-110)
[2020-08-07 06:02] LABS: POC Glucose,Bedside 74 (70-110)
[2020-08-07 07:11] LABS: POC Glucose,Bedside 84 (70-110)
[2020-08-07 08:00] VITALS: BP 121/71; PULSE 72; RESP 18; TEMP 36.5; O2SAT 95
[2020-08-07 08:33] LABS: Basophils % 0.5 % (0.1-2.0); Eosinophils # 0.2 K/mm3 (0.0-0.4); Eosinophils % 2.4 % (0.1-12.0); Hematocrit 41.5 % (42.0-52.0); Hemoglobin 14.1 g/dL (14.1-18.0); Lymphocytes # 1.3 K/mm3 (0.7-4.5); Lymphocytes % 19.4 % (10-50); Mean Corpuscular Volume 88.5 fl (80-94); Mean Platelet Volume 8.7 fl (7.4-10.4); Monocytes # 0.4 K/mm3 (0.1-1.0); Monocytes % 5.5 % (1.7-9.3); Neutrophils # 4.8 K/mm3 (1.8-7.8); Neutrophils % 72.2 % (37.0-80.0); Platelet Count 126 K/mm3 (142-424); Red Blood Count 4.69 M/mm3 (4.60-6.20); Red Cell Distribution Width 14.1 % (11.5-17.5); White Blood Count 6.6 K/mm3 (4.8-10.8)
[2020-08-07 09:14] LABS: Microscopic, Urine URINE MICROSCOPIC (MICROSCOPIC)
[2020-08-07 09:26] LABS: Appearance,Urine CLOUDY (Clear); Bilirubin,Urine Negative (Negative); Blood, Urine 3+ (Negative); Color,Urine DK YELLOW (Yellow); Glucose,Urine (UA) Negative (Negative); Ketones,Urine Negative (Negative); Leukocyte Esterase,Urine Negative (Negative); Nitrate,Urine Negative (Negative); Protein,Urine 2+ (Negative)
[2020-08-07 09:56] LABS: RBC,Urine TNTC #/hpf (0-3)
[2020-08-07 09:57] LABS: Bacteria,Urine Trace /lpf
[2020-08-07 12:00] VITALS: BP 140/80; PULSE 78; RESP 18; TEMP 36.5; O2SAT 94
[2020-08-07 12:08] LABS: POC Glucose,Bedside 137 (70-110)
[2020-08-07 12:08] LABS: POC Glucose,Bedside 103 (70-110)
--- NOTE | 2020-08-07 14:54 | HMH.OTEV ---
OT Inpatient Evaluation Rehab OT IP Evaluation Start: 08/07/20 10:41 Freq: ONCE Status: Complete Protocol: Document 08/07/20 14:37 HIPOLITO (Rec: 08/07/20 14:53 HIPOLITO [id number]) Rehab OT IP Assessment Subjective History *Admission Date: 08/04/20 *Chief complaint: Confusion, slurred speech *History of present illness: 55-year-old male with diabetes , coronary artery disease, history of strokes, aortic stenosis presented to the emergency department early this morning after an episode at home where the patient felt something was wrong . History is taken from the ER record as patient cannot provide much significant history at this time and no family is available at bedside . Nonetheless patient had this abnormal feeling which was reportedly followed by slurred speech and possibly facial drooping. EMS was called. By the time EMS arrived at the patient's home symptoms had resolved although blood pressure remained elevated. Due to patient's history of hypertensive encephalopathy and stroke patient was brought to the emergency department. Initially blood pressures were in the 160s over 90s but brenden during assessment in the ER and required treatment with IV enalapril. Patient's blood pressure did respond appropriately. Patient had no slurred speech or facial asymmetry in the ER. Decision was made to admit the patient for continued observation and monitoring of patient's blood pressure. The patient himself does not recall what happened overnight
[2020-08-07 15:11] VITALS: BP 127/70; PULSE 75; RESP 18; TEMP 36.5; O2SAT 95
--- NOTE | 2020-08-07 18:10 | PC.NURSE ---
PT IS RESTING IN BED WITH AT BEDSIDE. PT HAS HAD A TOTAL OF 3 EPISODES THIS SHIFT THAT HE BECOMES VERY DISORIENTED/WEAK/DIAPHORETIC. DURING THESE EPISODES PT WILL TURN HIS HEAD TO LOOK BUT WILL NOT GIVE DIRECT EYE CONTACT. PT HAS ONLY HAD THESE EPISODES WHEN TRANSFERRING FROM SITTING TO STANDING. ORTHOSTATIC BP'S OBTAINED LYING 121/70, SITTING 140/80, STANDING WITH 2 ASSIST BP WOULD NOT READ. PT SLEEPS FOR SEVERAL HOURS AFTERWARDS. ACCORDING TO PT'S HE WOULD HAVE THESE SAME EPISODES AT HOME BUT IT SEEMS TO HER HE IS HAVING THEM MORE FREQUENTLY AND EACH EPISODE SEEMS TO BE LASTING LONGER. EACH TIME PT WAKES UP HE HAS ASKED FOR PAIN MEDICATION AND RATES HIS PAIN 7/10 (BACK AND NECK). PCP NOTIFIED. ORDERS NS @ 125 AND CARVEDILOL 6.25MG BID. PCP STATED PT NEEDS TO REMAIN BED REST TILL MORNING. PT DID NOT EAT ANY BREAKFAST OR LUNCH BUT DID SIT UP IN THE BED TO EAT 50% OF HIS DINNER. THIS MORNING ORDER WAS GIVEN TO INSERT CATHETER. URINE SAMPLE COLLECTED. URINE DARK/CLOUDY. PT WAS STARTED ON LEVAQUIN AND TORADOL WAS ORDERED FOR PT'S PAIN. WILL CONTINUE TO MONITOR.
[2020-08-07 20:00] VITALS: BP 161/90; PULSE 79; RESP 18; TEMP 36.7; O2SAT 98
[2020-08-08] VITALS: BP 163/73; PULSE 75; RESP 20; TEMP 36.9; O2SAT 96
[2020-08-08 02:27] LABS: POC Glucose,Bedside 189 (70-110)
[2020-08-08 02:27] LABS: POC Glucose,Bedside 96 (70-110)
[2020-08-08 02:27] LABS: POC Glucose,Bedside 101 (70-110)
[2020-08-08 04:00] VITALS: BP 131/55; PULSE 64; RESP 18; TEMP 36.8; O2SAT 94
[2020-08-08 05:00] VITALS: BMI 30.8
[2020-08-08 05:54] LABS: POC Glucose,Bedside 187 (70-110)
--- NOTE | 2020-08-08 05:54 | PC.NURSE ---
Pt has not had any episodes of AMS, weakness or diaphoresis this shift as previously. Pt has not been up OOB. Pt was emotional early in shift after stated that she was going home to get rest. Pt and requested for pt to have valium. 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 One time dose ordered and administered. Pt spoke with on phone as needed tonight. Has not had any additional episodes of anxiety. He has c/o discomfort this shift. Medicated per mar. No other concerns at this time. VS are currently stable. Will continue to monitor.
--- NOTE | 2020-08-08 06:50 | HMH.ACPN2 ---
Internal Medicine - PN: Subj *Date: 08/08/20 *Time: 06:50 Interval history: Over the last 24 hours patient had 3 episodes of confusion and mental status changes all associated with changes in position when patient was assisted getting out of bed and going to the bathroom or when participating with physical therapy. Patient would become disoriented with difficulty communicating. He would generally become diaphoretic and would be placed back in bed where it would take him up to 30 minutes or perhaps 2 to 3 hours to recover. These episodes are generally followed by the patient complaining of pain as he becomes more alert. Pain is generally spinal in origin either upper or lower spine. With his final event yesterday patient's blood pressure was so low it was not detectable and pulse brenden to 103. Patient was placed on bedrest. Nelson catheter was placed due to history of UTIs and collect an adequate urine sample. Patient was given IV fluids. This morning upon awakening patient states he is feeling well and feels like he can get out of bed head. He was reminded of the events of yesterday but states he feels stronger today. Blood pressures have been between 130 and 160 systolic with pulse between 60 and 80 Exam Vital signs and Labs for Last 24 Hours: Temp Pulse Resp BP Pulse Ox 98.3 F 64 18 131/55 L 94 L 08/08/20 04:00 08/08/20 04:00 08/08/20 04:00 08/08/20 04:00 08/08/20 04:00 Laboratory Results - last 24 hr 08/07/20 06:37: POC Glucose 84 08/07/20 08:25: WBC 6.6, RBC 4.69, Hgb 14.1, Hct 41.5 L, MCV 88.5, MCH 30.0, MCHC 34.0, RDW 14.1, Plt Count 126 L, MPV 8.7, Neut % (Auto) 72.2, Lymph % (Auto) 19.4, [place] % (Auto) 5.5, Eos % (Auto) 2.4, Baso % (Auto) 0.5, Neut # (Auto) 4.8, Lymph # (Auto) 1.3, [place] # (Auto) 0.4, Eos # (Auto) 0.2, Baso # (Auto) 0.0 08/07/20 08:25: Procalcitonin 0.090 08/07/20 08:29: POC Glucose 103 08/07/20 09:10: Urine Color Dk yellow, Urine Appearance Cloudy, Urine pH 7.0, Ur Specific [place] 1.020, Urine Protein 2+, Urine Glucose (UA) Negative, Urine Ketones Negative, Urine Blood 3+, Urine Nitrate Negative, Urine Bilirubin Negative, Urine Urobilinogen 1.0, Ur Leukocyte Esterase Negative, Urine RBC Tntc, Urine WBC 3-5, Ur Squamous Epith Cells None, Urine Bacteria Trace 08/07/20 11:56: POC Glucose 137 H 08/07/20 14:25: POC Glucose 101 08/07/20 16:45: POC Glucose 96 08/07/20 20:12: POC Glucose 189 H 08/08/20 05:43: POC Glucose 187 H I & O for Last 24 hours: Intake & Output 08/05/20 08/06/20 08/07/20 08/08/20 11:59 11:59 11:59 11:59 Intake Total 1080 / 1080 600 / 600 460 / 460 120 / 120 Output Total 3450 / 3450 200 / 200 750 / 750 Balance -2370 / -2370 400 / 400 460 / 460 -630 / -630 Weight 208 lb 2 oz 204 lb 9.6 oz 205 lb 1 oz 208 lb 4 oz Microbiology Reports for the Last 24 Hours: Microbiology 08/04/20 07:03 Anus CRE Surveillance Culture - Final Negative - Constitutional no acute distress - *Routine Respiratory Exam Present: CTA bilaterally - *Routine Cardiovascular Exam Present: RRR - *Routine Abdominal Exam Present: soft, normoactive bowel sounds. Absent: tenderness Assessment and Plan (1) Orthostatic hypotension Status: Acute Category: Medical Code(s): I95.1 - Orthostatic hypotension (2) Hypertensive encephalopathy Status: Resolved Category: Medical Code(s): I67.4 - Hypertensive encephalopathy (3) Hypertensive heart disease Status: Suspected Qualifiers: Heart failure presence: with heart failure Heart failure type: combined systolic and diastolic Category: Medical Code(s): I11.9 - Hypertensive heart disease without heart failure (4) Aortic stenosis Status: Acute Category: Medical Code(s): I35.0 - Nonrheumatic aortic (valve) stenosis (5) Coronary artery disease Status: Acute Category: Medical Code(s): I25.10 - Atherosclerotic heart disease of [place] coronary artery without angina pectoris
--- NOTE | 2020-08-08 06:58 | HMH.DCSUM ---
General - General Admission date:: 08/04/20 Discharge date: 08/08/20 HPI HPI: 55-year-old male with diabetes, coronary artery disease, history of strokes, aortic stenosis presented to the emergency department early this morning after an episode at home where the patient felt something was wrong . History is taken from the ER record as patient cannot provide much significant history at this time and no family is available at bedside. Nonetheless patient had this abnormal feeling which was reportedly followed by slurred speech and possibly facial drooping. EMS was called. By the time EMS arrived at the patient's home symptoms had resolved although blood pressure remained elevated. Due to patient's history of hypertensive encephalopathy and stroke patient was brought to the emergency department. Initially blood pressures were in the 160s over 90s but brenden during assessment in the ER and required treatment with IV enalapril. Patient's blood pressure did respond appropriately. Patient had no slurred speech or facial asymmetry in the ER. Decision was made to admit the patient for continued observation and monitoring of patient's blood pressure. The patient himself does not recall what happened overnight Hospital Course Hospital Course: Patient was admitted with a diagnosis of hypertensive encephalopathy. Following the morning of admission patient remains slightly confused. It took approximately 36 hours for the patient to become more alert. During this time adjustments were made to patient's antihypertensives. Echocardiogram was repeated due to history of LV dysfunction with ejection fraction of 40%. Echocardiogram performed during this hospitalization showed identical EF of 40 to 45%. Patient's lisinopril was discontinued in favor of Entresto and spironolactone 25 mg was added to the patient's regimen. This did improve patient's blood pressure control. However with improve blood pressure control came episodes of orthostatic hypotension which would lead to the patient being confused, disoriented, diaphoretic. Patient would take 30 minutes to several hours to recover from each episode of orthostasis. As he recovered he usually complained of some back pain. Initially orthostasis was difficult to detect during these episodes until August 07 when patient's blood pressure was not palpable and his pulse had risen to 103 despite use of beta-blockers. It was at this point the patient's medicines were decreased significantly. Carvedilol was cut back to 6.25 mg twice daily. Spironolactone was discontinued. He was kept on low-dose Entresto. Patient will have to have small adjustments made to his blood pressure regimen if needed over the course of the next several weeks. Because of the patient's level of debility, high risk for falls at home [facility] was sought [facility]. Patient was accepted at [facility]. BP should be checked three times per day. Patient should have 10minutes of sitting before rising to standing Objective Vital signs: Temp Pulse Resp BP Pulse Ox 98.3 F 64 18 131/55 L 94 L 08/08/20 04:00 08/08/20 04:00 08/08/20 04:00 08/08/20 04:00 08/08/20 04:00 no acute distress - *Routine Respiratory Exam Present: CTA bilaterally - *Routine Cardiovascular Exam Present: RRR - *Routine Abdominal Exam Present: soft, normoactive bowel sounds. Absent: tenderness Results Labs on day of discharge: Labs from last 24 hours 08/08/20 08/07/20 08/07/20 05:43 20:12 16:45 WBC RBC Hgb Hct MCV MCH MCHC RDW Plt Count MPV Neut % (Auto) Lymph % (Auto) [place] % (Auto) Eos % (Auto) Baso % (Auto) Neut # (Auto) Lymph # (Auto) [place] # (Auto) Eos # (Auto) Baso # (Auto) POC Glucose 187 H 189 H 96 Procalcitonin Urine Color Urine Appearance Urine pH Ur Specific [place] Urine Protein Ur
[2020-08-08 07:09] LABS: Basophils % 0.5 % (0.1-2.0); Eosinophils # 0.2 K/mm3 (0.0-0.4); Eosinophils % 2.4 % (0.1-12.0); Hematocrit 38.1 % (42.0-52.0); Hemoglobin 12.9 g/dL (14.1-18.0); Lymphocytes # 1.1 K/mm3 (0.7-4.5); Lymphocytes % 17.8 % (10-50); Mean Corpuscular HGB Conc 33.7 g/dL (31.8-35.4); Mean Corpuscular Hemoglobin 30.2 pg (27.0-31.2); Mean Corpuscular Volume 89.6 fl (80-94); Mean Platelet Volume 8.8 fl (7.4-10.4); Monocytes # 0.4 K/mm3 (0.1-1.0); Monocytes % 6.6 % (1.7-9.3); Neutrophils # 4.5 K/mm3 (1.8-7.8); Neutrophils % 72.6 % (37.0-80.0); Platelet Count 113 K/mm3 (142-424); Red Blood Count 4.26 M/mm3 (4.60-6.20); White Blood Count 6.2 K/mm3 (4.8-10.8)
[2020-08-08 07:28] LABS: Chloride 106 mmol/L (98-107)
[2020-08-08 07:29] LABS: Potassium 3.5 mmoL/L (3.5-5.1); Sodium 137 mmol/L (136-145)
[2020-08-08 07:31] LABS: Blood Urea Nitrogen 26 mg/dl (9-20); Creatinine Clearance Estimated 127 mL/min (50-200); Estimated Glomerular Filt Rate 88 ml/min (>60); GFR (African American) 107 ML/MIN (>60)
[2020-08-08 07:32] LABS: Anion Gap 7.5 mEq/L (5-15); Carbon Dioxide 27 mmol/L (22.0-30.0); Glucose 158 mg/dl (74-100)
[2020-08-08 08:00] VITALS: BP 170/98; PULSE 70; RESP 18; TEMP 36.7; O2SAT 97
[2020-08-08 08:59] LABS: Calcium 8.1 mg/dl (8.4-10.2)
[2020-08-08 12:00] LABS: POC Glucose,Bedside 103 (70-110)
--- NOTE | 2020-08-08 14:50 | PC.NURSE ---
PCP CALLED AND TALKED TO PT'S THIS MORNING ABOUT DISCHARGE TO [facility]. PT HAS BEEN MORE ALERT THIS SHIFT. PT DID NOT HAVE ANY EPISODES OF BECOMING DIAPHORETIC OR DISORIENTED. PARTICIPATED WITH PHYSICAL THERAPY WELL THIS MORNING. UNABLE TO TOLERATE SITTING UP LONGER THAN 30 MIN AT A TIME B/C PT STATES IT HURTS HIS BACK TO BAD. PT HAS BEEN ABLE TO ANSWER ALL QUESTIONS APPROPRIATELY. PT SEEMS TO WANT HIS WITH HIM AT ALL TIMES. WHEN PT'S IS NOT AROUND HE WILL ASK FREQUENTLY IF STAFF CAN CALL HER. PT WAS TRANSFERRED TO [facility] BY AMBULANCE. WAS CALLED AND SHE STATED SHE WAS AT [facility] WAITING FOR HIM TO ARRIVE.
[2020-08-08 16:40] LABS: Levetiracetam (Keppra) <1.0 ug/mL (10.0-40.0)
== END 2020-08-08 14:05 ==
LOC: ER 04:20 → 2ND 05:24
PROVIDERS: Admitting Provider Internal Medicine Adolescent Medicine; Emergency Provider Emergency Medicine; PCP Family Medicine; Visit Provider Family Medicine
DX: I16.1 Hypertensive emergency (principal); I67.4 Hypertensive encephalopathy; I11.9 Hypertensive heart disease without heart failure; I50.9 Heart failure, unspecified; E11.65 Type 2 diabetes mellitus with hyperglycemia; Z79.4 Long term (current) use of insulin; Z79.82 Long term (current) use of aspirin; Z79.899 Other long term (current) drug therapy; Z86.73 Personal history of transient ischemic attack (TIA), and cerebral infarction without residual deficits; I25.10 Atherosclerotic heart disease of native coronary artery without angina pectoris; Z79.02 Long term (current) use of antithrombotics/antiplatelets; Z95.5 Presence of coronary angioplasty implant and graft; F17.210 Nicotine dependence, cigarettes, uncomplicated; I35.0 Nonrheumatic aortic (valve) stenosis
CPT/HCPCS: 36415; 70450; 71045; 80048; 80053; 80177; 81001; 82962; 83605; 84145; 84484; 85025; 85651; 86140; 87040; 87081; 87086; 87088; 87186; 87581; 87633; 87798; 93005; 93306; 95816; 96365; 96375; 97162; 97165; 97530; 99284; G0378; J1953; J1956

== ENCOUNTER 2020-08-30 07:17 | Emergency (ER) | payer MEDICARE, SELFPAY ==
[2020-08-30] VITALS (7 sets, daily range): BP systolic 103–153; BP diastolic 73–92; PULSE 92–100; RESP 16–22; TEMP 36.8–36.9; O2SAT 96–99; BMI 26.4; BMI 35.7
--- NOTE | 2020-08-30 07:17 | CT_ITS ---
PROCEDURE INFORMATION: Exam: CT Head Without Contrast Exam date and time: 08/30/2020 7:17 AM Age: 55 years old Clinical indication: Speech disturbance; Slurred speech; Additional info: Left side facial droop, slurred speech, left side TECHNIQUE: Imaging protocol: Computed tomography of the head without contrast. 3D rendering (Not supervised by radiologist): MIP and/or 3D reconstructed images were created by the technologist. Radiation optimization: All CT scans at this facility use at least one of these dose optimization techniques: automated exposure control; mA and/or kV adjustment per patient size (includes targeted exams where dose is matched to clinical indication); or iterative reconstruction. Other technique: STROKE PROTOCOL was implemented. COMPARISON: CT HEAD/BRAIN WO CON 08/05/2020 5:37 PM FINDINGS: Brain: Normal. No hemorrhage. Age appropriate white matter. No mass effect. No focal mass. The menjivar-white matter junction is intact. Cerebral ventricles: No ventriculomegaly. Paranasal sinuses: Visualized sinuses are unremarkable. No fluid levels. Mastoid air cells: Visualized mastoid air cells are well aerated. Bones/joints: Unremarkable. No acute fracture. Soft tissues: Unremarkable. IMPRESSION: Normal examination of brain. There is no acute intracranial abnormality. There is no structural abnormality. ASSESSMENT: ASPECTS ([place] Stroke Program Early CT Score) is 10.
--- NOTE | 2020-08-30 07:19 | XR_ITS ---
PROCEDURE INFORMATION: Exam: XR Chest Exam date and time: 08/30/2020 7:19 AM Age: 55 years old Clinical indication: Other: Weakness; Additional info: AMS TECHNIQUE: Imaging protocol: XR of the chest. Views: 1 view. COMPARISON: CR XR CHEST PORTABLE 08/04/2020 1:11 AM FINDINGS: Lungs: Unremarkable. No consolidation. There is no focal mass. Pleural spaces: Unremarkable. No pleural effusion. No pneumothorax. Heart/Mediastinum: Unremarkable. No cardiomegaly. Bones/joints: Unremarkable. There is no acute fracture present. IMPRESSION: No evidence for acute cardiac or pulmonary process.
--- NOTE | 2020-08-30 07:48 | PC.NURSE ---
Dr Mitchell on with Dr Aburto
[2020-08-30 07:55] LABS: Basophils # 0.1 K/mm3 (0-0.2); Basophils % 1.2 % (0.1-2.0); Eosinophils # 0.4 K/mm3 (0.0-0.4); Eosinophils % 6.5 % (0.1-12.0); Hematocrit 32.5 % (42.0-52.0); Lymphocytes # 1.2 K/mm3 (0.7-4.5); Lymphocytes % 22.5 % (10-50); Mean Corpuscular HGB Conc 33.9 g/dL (31.8-35.4); Mean Corpuscular Hemoglobin 31.1 pg (27.0-31.2); Mean Corpuscular Volume 91.9 fl (80-94); Mean Platelet Volume 8.1 fl (7.4-10.4); Monocytes # 0.4 K/mm3 (0.1-1.0); Monocytes % 6.4 % (1.7-9.3); Neutrophils # 3.5 K/mm3 (1.8-7.8); Neutrophils % 63.4 % (37.0-80.0); Platelet Count 134 K/mm3 (142-424); Red Blood Count 3.54 M/mm3 (4.60-6.20); Red Cell Distribution Width 14.6 % (11.5-17.5); White Blood Count 5.5 K/mm3 (4.8-10.8)
[2020-08-30 08:03] LABS: Alanine Aminotransferase 31 U/L (12-78); Albumin Level 3.4 g/dl (3.5-5.0); Albumin/Globulin Ratio 1.4 (1.1-1.8); Alkaline Phosphatase 136 U/L (38-126); Anion Gap 9.7 mEq/L (5-15); Aspartate Amino Transferase 28 U/L (17-59); Bilirubin,Total 0.4 mg/dl (0.2-1.3); Blood Urea Nitrogen 20 mg/dl (9-20); Calcium 8.5 mg/dl (8.4-10.2); Carbon Dioxide 31 mmol/L (22.0-30.0); Chloride 103 mmol/L (98-107); Creatinine Clearance Estimated 133 mL/min (50-200); Estimated Glomerular Filt Rate 78 ml/min (>60); GFR (African American) 95 ML/MIN (>60); Globulin 2.5 g/dL (1.3-3.2); Glucose 230 mg/dl (74-100); Potassium 4.7 mmoL/L (3.5-5.1); Sodium 139 mmol/L (136-145); Total Protein,Serum 5.9 g/dl (6.3-8.2)
[2020-08-30 08:08] LABS: C-Reactive Protein 1.6 mg/L (0-4)
[2020-08-30 08:16] LABS: Erythrocyte Sedimentation Rate 23 mm/hr (0-20)
[2020-08-30 08:17] LABS: Troponin I 0.02 ng/ml (0.00-0.034)
[2020-08-30 08:22] LABS: Procalcitonin 0.078 ng/mL (0.0-2.0)
--- NOTE | 2020-08-30 08:23 | HMH.EDGENADL ---
ED Disposition Clinical Impression: TIA (transient ischemic attack), Hypotension Disposition: er SNF Condition on Discharge: Good Referrals: Maged Aburto MD [Primary Care Provider] - - Critical Care Critical Care Time: No Attestation: On 08/30/20, the high probability of a clinically significant, sudden or life threatening deterioration of the following system(s) required my full and direct attention, intervention and personal management. The time I documented below is in addition to time spent performing reported procedures but includes the following listed in this critical care notation. Medical Decision Making - Medical Records MR Comment: Patient had an old stroke on the left side and he has increased weakness in the left side that resolved within 1 hour. Skin of the head was unremarkable. His primary care physician was . Lamonte was called by Dr. Mitchell and he stated that because his blood pressure is low 88/50 it happened to him before and it improved with IV fluid. He was given 1 L of IV fluid and his blood pressure systolic improved to 144/80. Dr. Aburto said to [facility]. He had recureent symptoms like this due to hypotension. he is already on Plavix and aspirin daily. CT head was unremarkble. - [place] Inquiry Pt receiving controlled substance: No [place] was queried for this patient: No Vital Signs: 08/30/20 07:16 08/30/20 08:00 08/30/20 08:02 Temperature 98.4 F Temperature Source Oral Pulse Rate 92 H 95 H Pulse Rate [Right] 92 H Respiratory Rate 16 20 16 Blood Pressure 133/80 146/88 H Blood Pressure [Right Arm] 103/73 L Blood Pressure Mean 94 Blood Pressure Mean [Right Arm] 83 Blood Pressure Source Blood Pressure Source [Right Arm] Automatic Cuff Blood Pressure Position Supine Blood Pressure Position [Right Arm] Sitting 02 Sat by Pulse Oximetry 99 99 96 Oxygen Delivery Method Room Air Room Air 08/30/20 08:30 08/30/20 09:00 08/30/20 09:30 Temperature Temperature Source Pulse Rate 100 H 99 H 96 H Pulse Rate [Right] Respiratory Rate 18 18 18 Blood Pressure 144/90 H 153/92 H 146/88 H Blood Pressure [Right Arm] Blood Pressure Mean 104 Blood Pressure Mean [Right Arm] Blood Pressure Source Blood Pressure Source [Right Arm] Blood Pressure Position Blood Pressure Position [Right Arm] 02 Sat by Pulse Oximetry 99 99 99 Oxygen Delivery Method 08/30/20 11:03 Temperature 98.2 F Temperature Source Oral Pulse Rate 98 H Pulse Rate [Right] Respiratory Rate 22 Blood Pressure 144/89 H Blood Pressure [Right Arm] Blood Pressure Mean Blood Pressure Mean [Right Arm] Blood Pressure Source Automatic Cuff Blood Pressure Source [Right Arm] Blood Pressure Position Sitting Blood Pressure Position [Right Arm] 02 Sat by Pulse Oximetry Oxygen Delivery Method - Lab Data Lab Results 08/30/20 07:40: WBC 5.5, RBC 3.54 L, Hgb 11.0 L, Hct 32.5 L, MCV 91.9, MCH 31.1, MCHC 33.9, RDW 14.6, Plt Count 134 L, MPV 8.1, Neut % (Auto) 63.4, Lymph % (Auto) 22.5, [place] % (Auto) 6.4, Eos % (Auto) 6.5, Baso % (Auto) 1.2, Neut # (Auto) 3.5, Lymph # (Auto) 1.2, [place] # (Auto) 0.4, Eos # (Auto) 0.4, Baso # (Auto) 0.1 08/30/20 07:40: Sodium 139, Potassium 4.7, Chloride 103, Carbon Dioxide 31 H, Anion Gap 9.7, BUN 20, Creatinine 1.00, Estimated Creat Clear 133, Estimated GFR 78, Est GFR ( Amer) 95, Glucose 230 H, Calcium 8.5, Total Bilirubin 0.4, AST 28, ALT 31, Alkaline Phosphatase 136 H, Troponin I 0.02, C-Reactive Protein 1.6, Total Protein 5.9 L, Albumin 3.4 L, Globulin 2.5, Albumin/Globulin Ratio 1.4 08/30/20 07:40: ESR 23 H 08/30/20 07:40: Procalcitonin 0.078 08/30/20 08:25: Lactate 1.9 08/30/20 10:15: Troponin I 0.02 Result diagrams: 08/30/20 07:40 08/30/20 07:40 Orders (Tests/Meds): ED MEDICATIONS Discontinued Medications Generic Name Dose Route Start Last Admin Trade Name Freq PRN Reason Stop Dose Admin Sod
--- NOTE | 2020-08-30 08:40 | ECG_ITS ---
APPROVED REPORT Exam: Resting ECG HR:100 bpm ECG Measurements Heart Rate 100 AXES DE 158 P 37 QRSd 148 QRS -48 QT 404 T 43 QTc 521 Conclusion Normal sinus rhythm Right bundle branch block Left anterior fascicular block Abnormal ECG Electronically signed by : Maged Bermudez, 08/31/2020 08:36:39
--- NOTE | 2020-08-30 08:49 | PC.NURSE ---
Dr Cintron spoke with Dr Mitchell with consult to Dr Aburto, patient primary doctor, and patients symptoms have resolved. patient is stable and will be transferred back to [facility].
[2020-08-30 08:53] LABS: Lactic Acid 1.9 mmol/L (0.7-2.1)
--- NOTE | 2020-08-30 09:06 | PC.NURSE ---
DR ROBISON WOULD LIKE ANOTHER TWO HOUR TROPONIN ON PATIENT BEFORE TRANSFER. LAB WAS CALLED AND INFORMED OF 2 HOUR TROP COLLECTION AT 0945.
--- NOTE | 2020-08-30 09:42 | PC.NURSE ---
REPORT CALLED TO ALEIDA AT [facility].
--- NOTE | 2020-08-30 10:14 | PC.NURSE ---
LAB IN ROOM DRAWING SECOND TROP
--- NOTE | 2020-08-30 10:43 | PC.NURSE ---
CALLED LAB ABOUT RESULTING SECOND TROP, AND IT SHOULD BE RESULTED IN APPROX 9 MIN ACCORDING TO DUPLICATE MAKER
[2020-08-30 10:52] LABS: Troponin I 0.02 ng/ml (0.00-0.034)
== END 2020-08-30 11:00 ==
PROVIDERS: Emergency Provider Emergency Medicine; PCP Family Medicine
DX: G45.8 Other transient cerebral ischemic attacks and related syndromes (principal); I95.9 Hypotension, unspecified; Z86.73 Personal history of transient ischemic attack (TIA), and cerebral infarction without residual deficits; F17.200 Nicotine dependence, unspecified, uncomplicated; E11.9 Type 2 diabetes mellitus without complications; Z79.84 Long term (current) use of oral hypoglycemic drugs; Z79.899 Other long term (current) drug therapy
CPT/HCPCS: 36415; 70450; 71045; 80053; 83605; 84145; 84484; 85025; 85651; 86140; 87040; 93005; 96365; 99284

== ENCOUNTER → 2020-10-16 18:00 | Outpatient (CLI) | payer MEDICARE, SELFPAY ==
[2020-10-16 18:41] LABS: Basophils # 0.1 K/mm3 (0-0.2); Basophils % 0.9 % (0.1-2.0); Eosinophils # 0.6 K/mm3 (0.0-0.4); Eosinophils % 10.7 % (0.1-12.0); Hematocrit 33.2 % (42.0-52.0); Lymphocytes # 1.2 K/mm3 (0.7-4.5); Lymphocytes % 19.4 % (10-50); Mean Corpuscular Hemoglobin 30.6 pg (27.0-31.2); Mean Corpuscular Volume 92.6 fl (80-94); Mean Platelet Volume 8.2 fl (7.4-10.4); Monocytes # 0.4 K/mm3 (0.1-1.0); Monocytes % 6.5 % (1.7-9.3); Neutrophils # 3.8 K/mm3 (1.8-7.8); Neutrophils % 62.4 % (37.0-80.0); Platelet Count 180 K/mm3 (142-424); Red Blood Count 3.58 M/mm3 (4.60-6.20); Red Cell Distribution Width 15.2 % (11.5-17.5)
[2020-10-16 18:49] LABS: Alanine Aminotransferase 20 U/L (12-78); Albumin Level 3.9 g/dl (3.5-5.0); Albumin/Globulin Ratio 1.5 (1.1-1.8); Alkaline Phosphatase 117 U/L (38-126); Anion Gap 12.1 mEq/L (5-15); Aspartate Amino Transferase 20 U/L (17-59); Bilirubin,Total 0.4 mg/dl (0.2-1.3); Blood Urea Nitrogen 29 mg/dl (9-20); Calcium 8.7 mg/dl (8.4-10.2); Carbon Dioxide 30 mmol/L (22.0-30.0); Chloride 103 mmol/L (98-107); Estimated Glomerular Filt Rate 70 ml/min (>60); GFR (African American) 85 ML/MIN (>60); Globulin 2.6 g/dL (1.3-3.2); Glucose 347 mg/dl (74-100); Potassium 5.1 mmoL/L (3.5-5.1); Sodium 140 mmol/L (136-145); Total Protein,Serum 6.5 g/dl (6.3-8.2)
== END ==
PROVIDERS: Visit Provider Family Medicine
DX: F33.0 Major depressive disorder, recurrent, mild (principal)
CPT/HCPCS: 80053; 85025

== ENCOUNTER 2020-11-09 23:24 | Emergency (ER) | payer MEDICARE, SELFPAY ==
--- NOTE | 2020-11-09 22:34 | PC.NURSE ---
received report from [facility] of unstable bp's. waiting on arrival.
[2020-11-09 23:01] VITALS: BP 132/88; PULSE 79; RESP 17; TEMP 36.8; O2SAT 98; BMI 25.0
--- NOTE | 2020-11-09 23:09 | ECG_ITS ---
APPROVED REPORT Exam: Resting ECG HR:99 bpm ECG Measurements Heart Rate 99 AXES DE 164 P 29 QRSd 148 QRS -42 QT 408 T 43 QTc 523 Conclusion Normal sinus rhythm Left axis deviation Right bundle branch block Abnormal ECG Electronically signed by : Maged Bermudez MD 11/10/2020 18:08:08
[2020-11-09 23:17] LABS: Basophils # 0.1 K/mm3 (0-0.2); Basophils % 0.6 % (0.1-2.0); Eosinophils # 0.3 K/mm3 (0.0-0.4); Eosinophils % 3.4 % (0.1-12.0); Hematocrit 35.4 % (42.0-52.0); Hemoglobin 11.3 g/dL (14.1-18.0); Lymphocytes # 1.1 K/mm3 (0.7-4.5); Lymphocytes % 13.2 % (10-50); Mean Corpuscular Hemoglobin 30.6 pg (27.0-31.2); Mean Corpuscular Volume 95.7 fl (80-94); Mean Platelet Volume 7.8 fl (7.4-10.4); Monocytes # 0.6 K/mm3 (0.1-1.0); Monocytes % 6.6 % (1.7-9.3); Neutrophils # 6.3 K/mm3 (1.8-7.8); Neutrophils % 76.1 % (37.0-80.0); Platelet Count 229 K/mm3 (142-424); Red Cell Distribution Width 13.7 % (11.5-17.5); White Blood Count 8.3 K/mm3 (4.8-10.8)
[2020-11-09 23:19] LABS: Chloride 104 mmol/L (98-107); Potassium 4.7 mmoL/L (3.5-5.1); Sodium 140 mmol/L (136-145)
[2020-11-09 23:21] LABS: Alanine Aminotransferase 18 U/L (12-78); Aspartate Amino Transferase 22 U/L (17-59); Blood Urea Nitrogen 25 mg/dl (9-20); Creatinine Clearance Estimated 76 mL/min (50-200); Estimated Glomerular Filt Rate 53 ml/min (>60); GFR (African American) 64 ML/MIN (>60)
[2020-11-09 23:22] LABS: Albumin Level 3.5 g/dl (3.5-5.0); Albumin/Globulin Ratio 1.2 (1.1-1.8); Alkaline Phosphatase 133 U/L (38-126); Anion Gap 14.7 mEq/L (5-15); Calcium 8.6 mg/dl (8.4-10.2); Carbon Dioxide 26 mmol/L (22.0-30.0); Globulin 2.9 g/dL (1.3-3.2); Glucose 294 mg/dl (74-100); Total Protein,Serum 6.4 g/dl (6.3-8.2)
[2020-11-09 23:28] LABS: Bilirubin,Total < 0.1 mg/dl (0.2-1.3)
[2020-11-09 23:30] VITALS: BP 128/71; PULSE 95; RESP 15; O2SAT 95
[2020-11-10] VITALS: BP 151/85; PULSE 100; RESP 18; O2SAT 96
--- NOTE | 2020-11-10 00:01 | XR_ITS ---
PROCEDURE INFORMATION: Exam: XR Chest Exam date and time: 11/10/2020 12:01 AM Age: 55 years old Clinical indication: Other: Unstable blood pressure; Additional info: S/P episode of unstable BP TECHNIQUE: Imaging protocol: XR of the chest. Views: 1 view. COMPARISON: CR XR CHEST PORTABLE 08/30/2020 7:45 AM FINDINGS: Lungs: Unremarkable. No consolidation. Pleural spaces: Unremarkable. No pleural effusion. No pneumothorax. Heart/Mediastinum: Unremarkable. No cardiomegaly. Bones/joints: Unremarkable. IMPRESSION: No acute findings.
--- NOTE | 2020-11-10 00:39 | HMH.EDRECH ---
ED Disposition Clinical Impression: IDDM (insulin dependent diabetes mellitus), Chronic left ventricular systolic dysfunction, Elevated troponin, Renal insufficiency Disposition: Home, Self-Care Condition on Discharge: Good Instructions: DI for Heart Failure Additional Instructions: call pcp and card in am Referrals: Maged Aburto MD [Primary Care Provider] - - Critical Care Critical Care Time: No Attestation: On 11/09/20, the high probability of a clinically significant, sudden or life threatening deterioration of the following system(s) required my full and direct attention, intervention and personal management. The time I documented below is in addition to time spent performing reported procedures but includes the following listed in this critical care notation. Medical Decision Making - Medical Records Medical records reviewed: Yes: I reviewed the patient's medical records. - [place] Inquiry Pt receiving controlled substance: No Vital Signs: 11/09/20 23:01 Temperature 98.2 F Temperature Source Oral Pulse Rate [Right Brachial] 79 Respiratory Rate 17 Blood Pressure [Right Arm] 132/88 Blood Pressure Mean [Right Arm] 102 Blood Pressure Source [Right Arm] Automatic Cuff Blood Pressure Position [Right Arm] Sitting 02 Sat by Pulse Oximetry 98 Oxygen Delivery Method Room Air - Lab Data Lab results reviewed: Yes: I reviewed the patient's lab results. Lab Results 11/09/20 22:55: WBC 8.3, RBC 3.70 L, Hgb 11.3 L, Hct 35.4 L, MCV 95.7 H, MCH 30.6, MCHC 32.0, RDW 13.7, Plt Count 229, MPV 7.8, Neut % (Auto) 76.1, Lymph % (Auto) 13.2, [place] % (Auto) 6.6, Eos % (Auto) 3.4, Baso % (Auto) 0.6, Neut # (Auto) 6.3, Lymph # (Auto) 1.1, [place] # (Auto) 0.6, Eos # (Auto) 0.3, Baso # (Auto) 0.1 11/09/20 22:55: Sodium 140, Potassium 4.7, Chloride 104, Carbon Dioxide 26, Anion Gap 14.7, BUN 25 H, Creatinine 1.40 H, Estimated Creat Clear 76, Estimated GFR 53 L, Est GFR ( Amer) 64, Glucose 294 H, Calcium 8.6, Total Bilirubin < 0.1 L, AST 22, ALT 18, Alkaline Phosphatase 133 H, Troponin I 0.10 H, Total Protein 6.4, Albumin 3.5, Globulin 2.9, Albumin/Globulin Ratio 1.2 Result diagrams: 11/09/20 22:55 11/09/20 22:55 Orders (Tests/Meds): ED MEDICATIONS Generic Name Dose Route Start Last Admin Trade Name Johanna PRN Reason Stop Dose Admin Lactated Ringer's 1,000 mls @ 999 mls/hr 11/09/20 23:15 Lactated Ringer's 1000 Ml Bag IV 11/10/20 00:15 .[id number] JAVIER ORDERS Category Date Time Status Levetiracetam (Keppra) Stat Lab 11/09/20 22:55 Received Troponin I Q3H Lab 11/10/20 02:15 Ordered Troponin I Q3H Lab 11/10/20 05:15 Ordered - Radiology Data #1 Image(s): Chest Image Reviewed: Yes I have reviewed radiologist's interpretation Preliminary Findings: Normal/NAD - ECG Data Tracing #1 Normal Sinus Rhythm: Yes Ischemic changes: non-specific ST-T wave changes Conduction abnormalities present: LAFB, RBBB ECG compared to prior tracings: there are no significant changes Medical Decision Narrative: stable exam and cxr and ekg and nonspecific labs will have [facility] call card in am and pcp Recheck HPI - General Chief Complaint: Recheck/Abnormal Lab/Rx Stated Complaint: unstable bp Time Seen by Provider: 11/10/20 00:39 Mode of Arrival: EMS Source of Information: Patient, EMS, Medical Record Limitations: Physical Limitations Description of Symptoms (Recalled from ER Triage Doc. by RN): pt presents without symptoms. pt sent for evaluation for unstable blood pressure per long term report. pt has remained stable since ems arrived and thus far since arrival to hospital. pt remains alert, oriented to self and place, as well as situation. states he has no pain, no soa, no n/v. recently diagnosed with covid and is 10 days past initial diagnosis. - History of Present Illness HPI narrative: sent from [facility] with reported change in bp - no vomiting - recent covid-19 dx complaint: other (vital s
[2020-11-10 01:00] VITALS: BP 126/75; PULSE 100; O2SAT 97
[2020-11-10 01:14] VITALS: BP 127/79; PULSE 99; RESP 18; TEMP 36.9; O2SAT 97
[2020-11-13 14:19] LABS: Levetiracetam (Keppra) 21.8 ug/mL (10.0-40.0)
== END 2020-11-10 01:20 | disposition home or self-care (01) ==
PROVIDERS: Emergency Provider Emergency Medicine; PCP Family Medicine
DX: I13.0 Hypertensive heart and chronic kidney disease with heart failure and stage 1 through stage 4 chronic kidney disease, or unspecified chronic kidney disease (principal); Z79.4 Long term (current) use of insulin; I50.20 Unspecified systolic (congestive) heart failure; N18.9 Chronic kidney disease, unspecified; E11.22 Type 2 diabetes mellitus with diabetic chronic kidney disease; Z86.16 Personal history of COVID-19; F17.210 Nicotine dependence, cigarettes, uncomplicated; Z88.5 Allergy status to narcotic agent; Z79.899 Other long term (current) drug therapy
CPT/HCPCS: 71045; 80053; 80177; 84484; 85025; 93005; 96365; 99283

== ENCOUNTER → 2020-11-25 00:27 | Outpatient (CLI) | payer MEDICARE, SELFPAY ==
[2020-11-25 00:38] LABS: Microscopic, Urine URINE MICROSCOPIC (MICROSCOPIC)
[2020-11-25 00:44] LABS: Bilirubin,Urine Negative (Negative); Blood, Urine 1+ (Negative); Color,Urine YELLOW (Yellow); Glucose,Urine (UA) Negative (Negative); Ketones,Urine Negative (Negative); Leukocyte Esterase,Urine 2+ (Negative); Nitrate,Urine Negative (Negative); Protein,Urine Negative (Negative); Specific Gravity, Urine 1.015 (1.005-1.030); Urobilinogen,Urine 0.2 EU/dl (0.2)
[2020-11-25 00:48] LABS: Appearance,Urine Cloudy (Clear)
[2020-11-25 00:53] LABS: Bacteria,Urine 3+ /lpf; Mucus,Urine 1+ /lpf; RBC,Urine Occasional #/hpf (0-3)
== END ==
PROVIDERS: Visit Provider Family Medicine
DX: R41.82 Altered mental status, unspecified (principal); B95.7 Other staphylococcus as the cause of diseases classified elsewhere
CPT/HCPCS: 81001; 87086; 87186

== ENCOUNTER → 2020-11-25 07:54 | Outpatient (REF) | payer MEDICARE, SELFPAY | LOC: LAB 07:54 | PROVIDERS: Visit Provider Family Medicine | DX: N39.0 Urinary tract infection, site not specified (principal) ==

== ENCOUNTER → 2020-11-25 08:36 | Outpatient (CLI) | payer MEDICARE, SELFPAY ==
[2020-11-25 08:45] LABS: Basophils # 0.1 K/mm3 (0-0.2); Basophils % 1.1 % (0.1-2.0); Eosinophils # 0.8 K/mm3 (0.0-0.4); Eosinophils % 8.4 % (0.1-12.0); Hematocrit 37.3 % (42.0-52.0); Hemoglobin 12.3 g/dL (14.1-18.0); Lymphocytes # 1.4 K/mm3 (0.7-4.5); Lymphocytes % 15.7 % (10-50); Mean Corpuscular HGB Conc 32.9 g/dL (31.8-35.4); Mean Corpuscular Hemoglobin 31.5 pg (27.0-31.2); Mean Corpuscular Volume 95.9 fl (80-94); Mean Platelet Volume 8.5 fl (7.4-10.4); Monocytes # 0.5 K/mm3 (0.1-1.0); Monocytes % 5.9 % (1.7-9.3); Neutrophils # 6.2 K/mm3 (1.8-7.8); Neutrophils % 68.9 % (37.0-80.0); Platelet Count 224 K/mm3 (142-424); Red Blood Count 3.89 M/mm3 (4.60-6.20); Red Cell Distribution Width 14.1 % (11.5-17.5)
[2020-11-25 09:55] LABS: Anion Gap 14.6 mEq/L (5-15); Blood Urea Nitrogen 18 mg/dl (9-20); Calcium 9.3 mg/dl (8.4-10.2); Carbon Dioxide 29 mmol/L (22.0-30.0); Chloride 103 mmol/L (98-107); Estimated Glomerular Filt Rate 78 ml/min (>60); GFR (African American) 95 ML/MIN (>60); Glucose 102 mg/dl (74-100); Potassium 4.6 mmoL/L (3.5-5.1); Sodium 142 mmol/L (136-145)
== END ==
PROVIDERS: Visit Provider Family Medicine
DX: R41.82 Altered mental status, unspecified (principal)
CPT/HCPCS: 80048; 81001; 85025; 87086; 87186

== ENCOUNTER → 2021-09-14 15:07 | Outpatient (CLI) | payer MEDICARE, MEDICAID, SELFPAY ==
[2021-09-14 16:27] LABS: Microscopic, Urine URINE MICROSCOPIC (MICROSCOPIC)
[2021-09-14 17:56] LABS: Appearance,Urine CLEAR (Clear); Bilirubin,Urine Negative (Negative); Blood, Urine 1+ (Negative); Color,Urine YELLOW (Yellow); Glucose,Urine (UA) 3+ (Negative); Ketones,Urine Negative (Negative); Leukocyte Esterase,Urine Negative (Negative); Nitrate,Urine Negative (Negative); Protein,Urine 1+ (Negative); Specific Gravity, Urine 1.025 (1.005-1.030); Urobilinogen,Urine 0.2 EU/dl (0.2)
[2021-09-14 18:39] LABS: Bacteria,Urine Trace /lpf
== END ==
PROVIDERS: PCP Internal Medicine Adolescent Medicine; Visit Provider Internal Medicine Adolescent Medicine
DX: R35.0 Frequency of micturition (principal)
CPT/HCPCS: 81001; 87086

== ENCOUNTER → 2022-12-21 14:50 | Outpatient (CLI) | payer MEDICARE, MEDICAID, SELFPAY ==
[2022-12-21 16:39] LABS: Basophils # 0.1 K/mm3 (0-0.2); Basophils % 0.5 % (0.1-2.0); Eosinophils # 0.1 K/mm3 (0.0-0.4); Eosinophils % 1.1 % (0.1-12.0); Hematocrit 45.6 % (42.0-52.0); Hemoglobin 15.2 g/dL (14.1-18.0); Lymphocytes # 0.8 K/mm3 (0.7-4.5); Lymphocytes % 8.1 % (10-50); Mean Corpuscular HGB Conc 33.4 g/dL (31.8-35.4); Mean Corpuscular Hemoglobin 31.4 pg (27.0-31.2); Mean Platelet Volume 9.1 fl (7.4-10.4); Monocytes # 0.4 K/mm3 (0.1-1.0); Monocytes % 3.9 % (1.7-9.3); Neutrophils # 8.4 K/mm3 (1.8-7.8); Neutrophils % 86.5 % (37.0-80.0); Platelet Count 159 K/mm3 (142-424); Red Blood Count 4.85 M/mm3 (4.60-6.20); Red Cell Distribution Width 14.1 % (11.5-17.5); White Blood Count 9.7 K/mm3 (4.8-10.8)
[2022-12-21 16:40] LABS: MANUAL DIFFERENTIAL MANUAL DIFFERENTIAL (MANUAL DIFF)
[2022-12-21 16:57] LABS: Alanine Aminotransferase 34 U/L (12-78); Albumin Level 3.6 g/dl (3.5-5.0); Albumin/Globulin Ratio 1.3 (1.1-1.8); Alkaline Phosphatase 146 U/L (38-126); Anion Gap 12.7 mEq/L (5-15); Aspartate Amino Transferase 38 U/L (17-59); Bilirubin,Total 0.2 mg/dl (0.2-1.3); Blood Urea Nitrogen 13 mg/dl (9-20); Calcium 8.6 mg/dl (8.4-10.2); Carbon Dioxide 30 mmol/L (22.0-30.0); Chloride 100 mmol/L (98-107); Estimated Glomerular Filt Rate 88 ml/min (>60); GFR (African American) 106 ML/MIN (>60); Globulin 2.8 g/dL (1.3-3.2); Glucose 239 mg/dl (74-100); Potassium 3.7 mmoL/L (3.5-5.1); Sodium 139 mmol/L (136-145); Total Protein,Serum 6.4 g/dl (6.3-8.2)
[2022-12-21 17:01] LABS: Hemoglobin A1C 8.3 % (4.0-6.0)
[2022-12-21 17:03] LABS: C-Reactive Protein 9.7 mg/L (0-4)
[2022-12-21 17:14] LABS: Eosinophils % 1 % (0-3); Lymphocytes % 13 % (10-50); Monocytes % 2 % (2-9); Neutrophils % 83 % (42-76); Platelet Estimate Normal; RBC Morphology Normal; Total Cells Counted 100
[2022-12-21 17:44] LABS: Erythrocyte Sedimentation Rate 18 mm/hr (0-20)
[2022-12-24 18:10] LABS: Levetiracetam (Keppra) 20.1 ug/mL (10.0-40.0)
== END ==
PROVIDERS: PCP Nurse Practitioner Family; Visit Provider Nurse Practitioner Family
DX: E11.65 Type 2 diabetes mellitus with hyperglycemia; R56.9 Unspecified convulsions; Z79.4 Long term (current) use of insulin
CPT/HCPCS: 80053; 80177; 83036; 85007; 85025; 85651; 86140

== ENCOUNTER → 2022-12-31 13:24 | Outpatient (CLI) | payer MEDICARE, MEDICAID, SELFPAY ==
--- NOTE | 2022-12-31 13:29 | US_ITS ---
FINAL REPORT CLINICAL HISTORY: Previous GIANNI, current smoker, HTN, DM, hyperlipidemia, hx of 9 strokes, 2 DE, bilateral claudication, bilateral rest pain, bilateral ulcers FINDINGS: ANKLE-BRACHIAL PRESSURE INDICES Pressure indices are as follows: RIGHT LOWER EXTREMITY: Ankle-brachial pressure index: 1.09 Comments: Normal LEFT LOWER EXTREMITY: Ankle-brachial pressure index: 0.87 which is borderline. Comments: Normal IMPRESSION: No evidence of significant obstructive peripheral vascular disease of the lower extremities Reviewed, Interpreted and Dictated by Fernando [place] III, MD Transcribed by Tiffany Bills Authenticated and . [facility]
== END ==
PROVIDERS: PCP Nurse Practitioner Family; Visit Provider Nurse Practitioner Family
DX: R09.89 Other specified symptoms and signs involving the circulatory and respiratory systems
CPT/HCPCS: 93923

== ENCOUNTER 2023-06-27 20:03 | Emergency (ER) | payer MEDICARE, SELFPAY ==
--- NOTE | 2023-06-27 20:05 | HMH.EDGENADL ---
Discharge Plan Disposition Patient Disposition: Home, Self-Care Condition: Good Prescriptions Prescriptions: New methocarbamol 750 mg tablet 750 mg PO Q6H PRN (Reason: Muscle spasm) Qty: 10 0RF No Action atorvastatin [Lipitor] 80 mg tablet 80 mg PO HS Farxiga 5 mg tablet 5 mg PO DAILY fluoxetine 60 mg tablet 60 mg PO DAILY quetiapine [Seroquel] 25 mg tablet 25 mg PO DAILY carvedilol [Coreg] 3.125 mg tablet 3.125 mg PO BID Qty: 60 2RF Rx Instructions: must administer with a meal/food trazodone 50 mg tablet 50 mg PO DAILY Qty: 30 2RF gabapentin 300 mg capsule 300 mg PO DAILY Qty: 30 2RF clopidogrel 75 MG tablet 75 mg PO DAILY pantoprazole 40 MG tablet,delayed release (DR/EC) 40 mg PO DAILY insulin aspart U-100 100 UNIT/ML insulin pen 14 unit SQ AC aspirin 81 MG tablet,delayed release (DR/EC) 81 mg PO DAILY polyethylene glycol 3350 119 GM powder 17 gm PO DAILY psyllium husk 660 GM powder 425 gm PO DAILY insulin glargine U-300 conc 300 UNIT/ML insulin pen 50 units SQ HS levetiracetam 500 MG tablet 500 mg PO BID Qty: 60 0RF sacubitril-valsartan 1 EACH tablet 1 each PO BID Qty: 60 0RF hydrocodone-acetaminophen 1 EACH tablet 1 each PO Q6HP PRN (Reason: pain) Qty: 60 0RF alprazolam 0.5 MG tablet,disintegrating 0.5 mg PO BIDP PRN (Reason: Anxiety) Qty: 60 0RF duloxetine 60 MG capsule,delayed release(DR/EC) 120 mg PO DAILY Referrals Follow up/Referrals: Maged Bermudez MD [Primary Care Provider] - See instructions Maru Roque DPM [Staff Physician] - See instructions Activity Restrictions/Add. Instructions Additional Instructions/Restrictions: Continue your current occasional regimen and utilize Robaxin as needed for muscle spasm pain. Do not try to transfer by yourself which is a very dangerous cause of self injury. Clinical Impressions Clinical Impression: Lumbar strain, Contusion of lower back and pelvis, initial encounter Discharge ED Provider: Zafar Reyes General Adult HPI <DANIA Saenz - Last Filed: 06/27/23 22:27> General Chief complaint: Fall Stated complaint: fall Time Seen by Provider: 06/27/23 20:04 History of Present Illness HPI narrative: She presents for left-sided low back pain and left hip pain with pelvic pain and left lower extremity pain after a fall. Patient was attempting to self transfer between his chair and his bed yesterday and he fell landing straight on his bottom. He did not strike his head he did not fall backwards he did not lose consciousness. Patient has had a history of previous CVA with left-sided deficits and is not supposed to transfer without assistance. Patient can ambulate at baseline short distances with a walker and assistance with a rising to a standing position. Patient reports pain in his left lower extremity with standing at the hip and low back. Additionally patient complains of an ulcer to the lateral aspect of his left foot but it has been there for a while. Patient denies chest pain fever chills hemoptysis hematochezia melena nausea vomit diarrhea. Related Data Home Medications Medication Instructions Recorded Confirmed aspirin 81 mg tablet,delayed 81 mg PO DAILY heart health 02/21/19 06/11/21 release clopidogrel 75 mg tablet 75 mg PO DAILY Platelet Inhibitor 02/21/19 06/11/21 insulin aspart U-100 100 unit/mL 14 unit SQ AC Diabetes 02/21/19 06/11/21 (3 mL) subcutaneous pen pantoprazole 40 mg tablet,delayed 40 mg PO DAILY GERD 02/21/19 06/11/21 release duloxetine 60 mg capsule,delayed 120 mg PO DAILY Depression 08/21/19 06/11/21 release atorvastatin 80 mg tablet (Lipitor) 80 mg PO HS Cholesterol 04/23/20 06/11/21 polyethylene glycol 3350 17 17 gm PO DAILY constipation 08/04/20 06/11/21 gram/dose oral powder psyllium husk 3.4 gram/5.4 gram 425 gm PO DAILY constipation 08/04/20 06/11/21 oral powder insulin glargine U-300 conc 300 50 units SQ HS diabetes 08/05/20 06/11/21 unit/mL (3 mL) subcutaneous pen dapagliflozin propanediol 5 mg 5 mg PO DAILY 06/11/21 06/11/21 tablet (Farxiga) fluoxetine 60 mg tablet 60 mg PO DAILY 06/11/21 06/11/21 quetiapine 25 mg tablet (Seroquel) 25 mg PO DAILY 06/11/21 06/11/21 Previous Rx's Medication Instructions Recorded alprazolam 0.5 mg disintegrating 0.5 mg PO BIDP PRN Anxiety ##60 08/08/20 tablet hydrocodone 7.5 mg-acetaminophen 1 each PO Q6HP PRN pain #60 tabs 08/08/20 325 mg tablet levetiracetam 500 mg tablet 500 mg PO BID #60 tabs 08/08/20 sacubitril 24 mg-valsartan 26 mg 1 each PO BID #60 tabs 08/08/20 tablet carvedilol 3.125 mg tablet (Coreg) 3.125 mg PO BID #60 tabs 06/11/21 gabapentin 300 mg capsule 300 mg PO DAILY #30 caps 06/11/21 trazodone 50 mg tablet 50 mg PO DAILY #30 tabs 06/11/21 methocarbamol 750 mg tablet 750 mg PO Q6H PRN Muscle spasm #10 06/27/23 tabs Allergies Allergy/AdvReac Type Severity Reaction Status Date / Time metformin [METFORMIN] Allergy Unknown Unknown Verified 06/11/21 09:55 allergy reaction NSAIDS (Non-Steroidal Allergy Unknown UNKNOWN Verified 06/11/21 09:55 Anti-Inflamma [NSAIDS (NON-STEROIDAL ANTI-INFLAMMA] morphine Allergy Unknown Verified 06/11/21 09:55 allergy reaction PFSH <DANIA Saenz - Last Filed: 06/27/23 22:27> [facility] Disclaimer: The information contained in this section may have been updated after the patient was seen, as this information can be updated by other users. Social History Smoking Status: Current every day smoker tobacco type: cigarettes packs per day: 1 second hand exposure: Yes alcohol intake: never substance use type: denies use current occupational status: disabled Travel in the last 8 weeks: None household members: spouse housing: other current occupational exposures/hazards: No caffeine: Yes <DANIA Saenz - Last Filed: 06/27/23 22:27> ROS Obtained: Yes Systems reviewed as appropriate & no additional complaints except as documented Physical Exam <DANIA Saenz - Last Filed: 06/27/23 22:27> General General appearance: alert and in no apparent distress Head Head exam: atraumatic and normal inspection Eye Eye exam: Present normal appearance and PERRL ENT ENT exam: Present normal exam and normal oropharynx Neck Neck exam: Present normal inspection and full ROM Chest Chest inspection: Present normal inspection and symmetric chest wall rise Respiratory Respiratory exam: Present normal lung sounds bilaterally; Absent respiratory distress Cardiovascular Cardiovascular exam: Present regular rate and normal rhythm Abdominal Exam Abdominal exam: Present soft and normal bowel sounds; Absent tenderness Extremities Exam Extremities exam: Present normal inspection (3 unaffected extremities), full ROM (3 unaffected extremities) and tenderness (Tender to palpation in the left lower lumbar spine musculature, left hip with flexion extension, no obvious deformity. Patient has motor and sensory intact. Patient does have evidence of a diabetic foot ulcer in the lateral aspect of the mid left foot that shows no evidence of cellulitis or draina) Back Exam Back exam: Present normal inspection, full ROM and tenderness (To palpation in the left paraspinous musculature of the lumbar spine) Neurological Exam Neurological exam: Present alert and oriented X3 Psychiatric Psychiatric exam: Present normal affect and normal mood Skin Skin exam: Present warm and dry Medical Decision Making <DANIA Saenz - Last Filed: 06/27/23 22:27> Medical Records Medical records reviewed: Yes I reviewed the patient's medical records. [place] Inquiry Pt receiving controlled substance: No Vital Signs: 06/27/23 20:06 06/27/23 20:30 06/27/23 21:30 Temperature 97.6 F Temperature Source Oral Pulse Rate 66 64 Pulse Rate [Right Radial] 64 Respiratory Rate 22 Blood Pressure 189/115 H 202/105 H Blood Pressure [Right Arm] 192/113 H Blood Pressure Mean [Right Arm] 139 Blood Pressure Source Blood Pressure Source [Right Arm] Automatic Cuff Blood Pressure Position Blood Pressure Position [Right Arm] Supine 02 Sat by Pulse Oximetry 96 97 96 Oxygen Delivery Method Room Air 06/27/23 22:00 06/27/23 22:28 06/27/23 22:56 Temperature 97.6 F Temperature Source Oral Pulse Rate 65 66 65 Pulse Rate [Right Radial] Respiratory Rate 20 Blood Pressure 222/117 H 168/99 H 168/99 H Blood Pressure [Right Arm] Blood Pressure Mean [Right Arm] Blood Pressure Source Automatic Cuff Blood Pressure Source [Right Arm] Blood Pressure Position Sitting Blood Pressure Position [Right Arm] 02 Sat by Pulse Oximetry 98 97 Oxygen Delivery Method Room Air Lab Data Lab results reviewed: Yes I reviewed the patient's lab results. Orders (Tests/Meds): ED MEDICATIONS Discontinued Medications Generic Name Dose Route Start Last Admin Trade Name Johanna PRN Reason Stop Dose Admin Dexamethasone Sodium Phosphate 10 mg 06/27/23 20:33 06/27/23 21:02 Dexamethasone 4mg/Ml 5ml Mdv PO 06/27/23 20:34 10 mg ONCE ONE Administration Methocarbamol 500 mg 06/27/23 21:00 06/27/23 21:02 Methocarbamol 500mg Tablet PO 06/27/23 21:01 500 mg ONCE ONE Administration Metoprolol Tartrate 5 mg 06/27/23 22:35 Metoprolol Tartrate 5mg/5ml Vial IV 06/27/23 22:36 ONCE ONE ORDERS Category Date Time Status CT bony pelvis Stat Cat Scan 06/27/23 20:[address] lumbar spine wo con Stat Cat Scan 06/27/23 20:32 Completed Femur XR left 2 views [XR femur LT 2V] Stat Exams 06/27/23 20:32 Completed XR hip LT 2-3V w/pelvis Stat Exams 06/27/23 20:32 Completed Medical Decision Narrative: In summary patient is a 57-year-old male who presents to the emergency department for evaluation of pain after a fall. Patient is hypertensive but otherwise with stable vital signs heart rate 64 sat 96% respiratory rate 22 upon arrival, afebrile. Physical exam shows tenderness to palpation in the left lumbar area left hip area but no deformities noted. Patient also has a chronic appearing left foot diabetic foot ulcer. Differential diagnosis includes contusion versus strain versus fracture. Initial workup will be conducted with CT scan abdomen pelvis with plain film x-rays of the left hip and femur. Initial interventions include Toradol Tylenol Robaxin. Initial workup reviewed by me shows no acute fracture via my informal interpretation of both of his CT scan and his plain film x-rays. Upon repeat evaluation patient had acceptable reduction in his pain with medications administered. Given this patient is appropriate for discharge with a prescription for Robaxin. Patient was instructed to not try self transfer due to the high risk of injury. Patient verbalized understanding. Additionally patient will be referred to podiatry for his diabetic foot ulcer. <Zafar Reyes, DO - Last Filed: 06/27/23 23:41> Vital Signs: 06/27/23 20:06 06/27/23 20:30 06/27/23 21:30 Temperature 97.6 F Temperature Source Oral Pulse Rate 66 64 Pulse Rate [Right Radial] 64 Respiratory Rate 22 Blood Pressure 189/115 H 202/105 H Blood Pressure [Right Arm] 192/113 H Blood Pressure Mean [Right Arm] 139 Blood Pressure Source Blood Pressure Source [Right Arm] Automatic Cuff Blood Pressure Position Blood Pressure Position [Right Arm] Supine 02 Sat by Pulse Oximetry 96 97 96 Oxygen Delivery Method Room Air 06/27/23 22:00 06/27/23 22:28 06/27/23 22:56 Temperature 97.6 F Temperature Source Oral Pulse Rate 65 66 65 Pulse Rate [Right Radial] Respiratory Rate 20 Blood Pressure 222/117 H 168/99 H 168/99 H Blood Pressure [Right Arm] Blood Pressure Mean [Right Arm] Blood Pressure Source Automatic Cuff Blood Pressure Source [Right Arm] Blood Pressure Position Sitting Blood Pressure Position [Right Arm] 02 Sat by Pulse Oximetry 98 97 Oxygen Delivery Method Room Air Orders (Tests/Meds): ED MEDICATIONS Discontinued Medications Generic Name Dose Route Start Last Admin Trade Name Freq PRN Reason Stop Dose Admin Dexamethasone Sodium Phosphate 10 mg 06/27/23 20:33 06/27/23 21:02 Dexamethasone 4mg/Ml 5ml Mdv PO 06/27/23 20:34 10 mg ONCE ONE Administration Methocarbamol 500 mg 06/27/23 21:00 06/27/23 21:02 Methocarbamol 500mg Tablet PO 06/27/23 21:01 500 mg ONCE ONE Administration Metoprolol Tartrate 5 mg 06/27/23 22:35 Metoprolol Tartrate 5mg/5ml Vial IV 06/27/23 22:36 ONCE ONE ORDERS Category Date Time Status CT bony pelvis Stat Cat Scan 06/27/23 20:[address] lumbar spine wo con Stat Cat Scan 06/27/23 20:32 Completed Femur XR left 2 views [XR femur LT 2V] Stat Exams 06/27/23 20:32 Completed XR hip LT 2-3V w/pelvis Stat Exams 06/27/23 20:32 Completed Medical Decision Narrative: In summary patient is a 57-year-old male who presents to the emergency department for evaluation of pain after a fall. Patient is hypertensive but otherwise with stable vital signs heart rate 64 sat 96% respiratory rate 22 upon arrival, afebrile. Physical exam shows tenderness to palpation in the left lumbar area left hip area but no deformities noted. Patient also has a chronic appearing left foot diabetic foot ulcer. Differential diagnosis includes contusion versus strain versus fracture. Initial workup will be conducted with CT scan abdomen pelvis with plain film x-rays of the left hip and femur. Initial interventions include Toradol Tylenol Robaxin. Initial workup reviewed by me shows no acute fracture via my informal interpretation of both of his CT scan and his plain film x-rays. Upon repeat evaluation patient had acceptable reduction in his pain with medications administered. Given this patient is appropriate for discharge with a prescription for Robaxin. Patient was instructed to not try self transfer due to the high risk of injury. Patient verbalized understanding. Additionally patient will be referred to podiatry for his diabetic foot ulcer. I was consulted by the SREE, and we discussed the complexity of the problems being addressed. I approved the treatment and management plan for this patient's care in the Emergency Department, thus performing a substantive portion of the medical decision making. Zafar Reyes, DO Critical Care <DANIA Saenz - Last Filed: 06/27/23 22:27> Critical Care Time Critical Care Time: No
[2023-06-27 20:06] VITALS: BP 192/113; PULSE 64; RESP 22; TEMP 36.4; O2SAT 96; BMI 30.4
[2023-06-27 20:30] VITALS: BP 189/115; PULSE 66; O2SAT 97
--- NOTE | 2023-06-27 20:32 | CT_ITS ---
PROCEDURE INFORMATION: Exam: CT Lumbar Spine Without Contrast Exam date and time: 06/27/2023 8:47 PM Age: 57 years old Clinical indication: Injury or trauma; Fall; Blunt trauma (contusions or hematomas) TECHNIQUE: Imaging protocol: Computed tomography of the lumbar spine without contrast. Radiation optimization: All CT scans at this facility use at least one of these dose optimization techniques: automated exposure control; mA and/or kV adjustment per patient size (includes targeted exams where dose is matched to clinical indication); or iterative reconstruction. COMPARISON: SPLUMBWO CT lumbar spine wo con 04/22/2018 4:12 AM FINDINGS: Bones/joints: Five lumbar type vertebral bodies. Lumbar vertebral body heights and lateral alignment maintained. Mild chronic vertebral body height loss involving the T12 vertebral body unchanged from prior CT. Several chronic Schmorl's node deformities in the bony endplates of the lumbar spine noted. No acute fracture or posttraumatic subluxation identified. Old laminectomy changes at the L5 level similar to prior. Spinal cord: Grossly no high-grade central canal narrowing in the lumbar region. Soft tissues: Unremarkable. IMPRESSION: No acute fracture or posttraumatic subluxation in the lumbar region.
--- NOTE | 2023-06-27 20:32 | CT_ITS ---
PROCEDURE INFORMATION: Exam: CT Pelvis Without Contrast; Skeletal Exam date and time: 06/27/2023 8:50 PM Age: 57 years old Clinical indication: Injury or trauma; Fall; Blunt trauma (contusions or hematomas); Left; Hip TECHNIQUE: Imaging protocol: Computed tomography of the pelvis without contrast. Exam focused on the skeleton. Radiation optimization: All CT scans at this facility use at least one of these dose optimization techniques: automated exposure control; mA and/or kV adjustment per patient size (includes targeted exams where dose is matched to clinical indication); or iterative reconstruction. COMPARISON: CT ABDOMEN PELVIS W CON 07/17/2020 12:16 AM FINDINGS: Bones/joints: Unremarkable. No acute fracture. No dislocation. Soft tissues: Unremarkable. IMPRESSION: No acute findings.
--- NOTE | 2023-06-27 20:32 | XR_ITS ---
PROCEDURE INFORMATION: Exam: XR Left Femur Exam date and time: 06/27/2023 8:48 PM Age: 57 years old Clinical indication: Injury or trauma; Fall; Blunt trauma; Thigh or upper leg; Left TECHNIQUE: Imaging protocol: Radiologic exam of the left femur. Views: 2 views. COMPARISON: CR XR HIP LT 2-3V W/PELVIS 06/27/2023 8:48 PM FINDINGS: Bones/joints: Unremarkable. No acute fracture. Soft tissues: Unremarkable. IMPRESSION: No acute findings.
--- NOTE | 2023-06-27 20:32 | XR_ITS ---
PROCEDURE INFORMATION: Exam: XR Left Hip Exam date and time: 06/27/2023 8:48 PM Age: 57 years old Clinical indication: Injury or trauma; Fall; Blunt trauma (contusions or hematomas); Left; Hip TECHNIQUE: Imaging protocol: Radiologic exam of the left hip. Views: 2 or 3 views hip with pelvis when performed. COMPARISON: CT ABDOMEN PELVIS W CON 07/17/2020 12:16 AM FINDINGS: Bones/joints: Unremarkable. No acute fracture. Soft tissues: Unremarkable. IMPRESSION: No acute findings.
[2023-06-27] MEDS: METHOCARBAMOL 500MG TABLET 500 MG PO (21:02)
[2023-06-27] MEDS: DEXAMETHASONE 4MG/ML 5ML MDV 10 MG PO (21:02)
--- NOTE | 2023-06-27 21:18 | PC.NURSE ---
pt and pts voices no needs at this time
[2023-06-27 21:30] VITALS: BP 202/105; PULSE 64; O2SAT 96
[2023-06-27 22:00] VITALS: BP 222/117; PULSE 65; O2SAT 98
[2023-06-27 22:28] VITALS: BP 168/99; PULSE 66; O2SAT 97
--- NOTE | 2023-06-27 22:34 | PC.NURSE ---
notified santos danielle of pts bp being 200's systolic
--- NOTE | 2023-06-27 22:51 | PC.NURSE ---
at DC, PA notified again of pts BP. states this is ok and that pts bp has been down to the 160s. per pts pts bp normally runs 120s-130's systolic at home, PA also notified of this. states pt is ready for DC. MD Reyes also notified and states we can give pt night time home meds here in the ED. Pts refused and states she will give pt meds at home where he can get more comfortable and re check BP at home.
[2023-06-27 22:56] VITALS: BP 168/99; PULSE 65; RESP 20; TEMP 36.4; O2SAT 97
== END 2023-06-27 22:57 | disposition home or self-care (01) ==
PROVIDERS: Emergency Provider Emergency Medicine; PCP Internal Medicine Adolescent Medicine
DX: S39.012A Strain of muscle, fascia and tendon of lower back, initial encounter (principal); S30.0XXA Contusion of lower back and pelvis, initial encounter; M25.552 Pain in left hip; F17.210 Nicotine dependence, cigarettes, uncomplicated; W07.XXXA Fall from chair, initial encounter
CPT/HCPCS: 72131; 72192; 73502; 73552; 96374; 99285

== ENCOUNTER 2023-08-31 15:37 | Outpatient (CLI) | payer MEDICARE, SELFPAY ==
--- NOTE | 2023-08-31 15:54 | XR_ITS ---
FINAL REPORT CLINICAL HISTORY: Foot Pain COMPARISON: None FINDINGS: LEFT FOOT Three views of the left foot demonstrate no acute fracture or dislocation. There is mild degenerative change. Forefoot soft tissue swelling is noted. IMPRESSION: Soft tissue swelling and mild degenerative change without acute bony abnormality. Reviewed, Interpreted and Dictated by Fernando [place] III, MD Transcribed by Bibiana Harris Authenticated and [facility]
--- NOTE | 2023-08-31 15:54 | XR_ITS ---
FINAL REPORT CLINICAL HISTORY: Foot Pain COMPARISON: None FINDINGS: RIGHT FOOT 3 views of the right foot were obtained. There is no acute fracture or dislocation. There is mild degenerative change. Posterior calcaneal spur is noted. Soft tissues are unremarkable. IMPRESSION: Mild degenerative change without acute bony abnormality. Posterior calcaneal spur. Reviewed, Interpreted and Dictated by Fernando [place] III, MD Transcribed by Bibiana Harris Authenticated and [facility]
[2023-08-31 16:22] LABS: Basophils # 0.1 K/mm3 (0-0.2); Basophils % 0.6 % (0.1-2.0); Eosinophils # 0.2 K/mm3 (0.0-0.4); Eosinophils % 2.4 % (0.1-12.0); Hematocrit 44.5 % (42.0-52.0); Hemoglobin 14.5 g/dL (14.1-18.0); Lymphocytes # 1.1 K/mm3 (0.7-4.5); Lymphocytes % 14.5 % (10-50); Mean Corpuscular HGB Conc 32.6 g/dL (31.8-35.4); Mean Corpuscular Volume 95.2 fl (80-94); Mean Platelet Volume 8.3 fl (7.4-10.4); Monocytes # 0.4 K/mm3 (0.1-1.0); Monocytes % 4.7 % (1.7-9.3); Neutrophils # 6.1 K/mm3 (1.8-7.8); Neutrophils % 77.7 % (37.0-80.0); Platelet Count 145 K/mm3 (142-424); Red Blood Count 4.68 M/mm3 (4.60-6.20); Red Cell Distribution Width 14.5 % (11.5-17.5); White Blood Count 7.8 K/mm3 (4.8-10.8)
[2023-08-31 16:32] LABS: Alanine Aminotransferase 40 U/L (12-78); Albumin Level 3.8 g/dl (3.5-5.0); Albumin/Globulin Ratio 1.4 (1.1-1.8); Alkaline Phosphatase 161 U/L (38-126); Anion Gap 10.1 mEq/L (5-15); Aspartate Amino Transferase 27 U/L (17-59); Bilirubin,Total 0.3 mg/dl (0.2-1.3); Blood Urea Nitrogen 20 mg/dl (9-20); Calcium 8.7 mg/dl (8.4-10.2); Carbon Dioxide 33 mmol/L (22.0-30.0); Chloride 102 mmol/L (98-107); Estimated Glomerular Filt Rate 63 ml/min (>60); GFR (African American) 76 ML/MIN (>60); Globulin 2.8 g/dL (1.3-3.2); Glucose 194 mg/dl (74-100); Potassium 4.1 mmoL/L (3.5-5.1); Sodium 141 mmol/L (136-145); Total Protein,Serum 6.6 g/dl (6.3-8.2)
[2023-08-31 16:43] LABS: C-Reactive Protein 8.6 mg/L (0-4)
[2023-08-31 16:49] LABS: Hemoglobin A1C 8.1 % (4.0-6.0)
[2023-08-31 16:59] LABS: Erythrocyte Sedimentation Rate 17 mm/hr (0-20)
== END 2023-08-31 23:59 | disposition home or self-care (01) ==
LOC: LAB 15:40
PROVIDERS: Nurse Practitioner; PCP Internal Medicine Adolescent Medicine; Visit Provider Podiatrist
DX: E11.9 Type 2 diabetes mellitus without complications (principal); R60.9 Edema, unspecified; M79.673 Pain in unspecified foot; E11.621 Type 2 diabetes mellitus with foot ulcer; L97.509 Non-pressure chronic ulcer of other part of unspecified foot with unspecified severity
CPT/HCPCS: 36415; 73630; 80053; 83036; 85025; 85651; 86140; 87070; 87077; 87186; 87205

== ENCOUNTER 2023-09-26 12:47 | Outpatient (CLI) | payer MEDICARE, SELFPAY ==
--- NOTE | 2023-09-26 12:53 | US_ITS ---
FINAL REPORT CLINICAL HISTORY: Decreased Pedal Pulses,SMOKER,WOUND LT FOOT,HTN,HLD,DM,NEUROPATHY,REST PAIN,CLAUDICATION,CAD,HX TIA COMPARISON: 12/31/2022 FINDINGS: ANKLE-BRACHIAL PRESSURE INDICES Pressure indices are as follows: RIGHT LOWER EXTREMITY: Ankle-brachial pressure index: 1.2 Comments: Normal LEFT LOWER EXTREMITY: Ankle-brachial pressure index: 0.9 Comments: Normal IMPRESSION: No evidence of significant obstructive peripheral vascular disease of the lower extremities Reviewed, Interpreted and Dictated by Miranda Ang MD Transcribed by Bibiana Harris Authenticated and . [facility]
== END 2023-09-26 23:59 | disposition home or self-care (01) ==
PROVIDERS: PCP Internal Medicine Adolescent Medicine; Visit Provider Nurse Practitioner
DX: R09.89 Other specified symptoms and signs involving the circulatory and respiratory systems (principal)
CPT/HCPCS: 93923

== ENCOUNTER 2023-10-09 17:52 | Inpatient (IN) | payer MEDICARE, SELFPAY ==
[2023-10-09 17:53] VITALS: BP 138/86; PULSE 94; RESP 20; TEMP 37.8; O2SAT 94; BMI 28.0
--- NOTE | 2023-10-09 17:59 | ED_ITS ---
<Statement entered by Arnulfo Jessica MD - 10/09/23 23:09> I was consulted by the SREE, and we discussed the complexity of the problems being addressed. I approved the treatment and management plan for this patient's care in the emergency department, thus performing a substantive portion of the medical decision making. Originally patient was intravascularly deplete and on lab [id number] ultrasound had slightly decreased ejection fraction but would benefit from volume. Patient is extra vascularly volume overloaded so full sepsis bolus was not administered in the emergency department. Repeat tissue perfusion assessment performed after 1.5 L administered. Arnulfo Jessica MD Discharge Plan Disposition Patient Disposition: Admitted Condition: Fair Clinical Impressions Clinical Impression: Sepsis without septic shock Diabetic foot ulcer Qualifiers: Diabetic foot ulcer location: midfoot Diabetes mellitus type: type 2 L aterality: left Non-pressure ulcer stage: with necrosis of muscle Qualified Code(s): E11.621 - Type 2 diabetes mellitus with foot ulcer Discharge ED Provider: Arnulfo Jessica General Adult HPI <DANIA Saenz - Last Filed: 10/09/23 20:35> General Chief complaint: Fever Stated complaint: pressure wound LT foot- worsening Time Seen by Provider: 10/09/23 17:58 History of Present Illness HPI narrative: Patient presents for worsening wound of left foot. Patient has a longstanding history of a left diabetic foot ulcer that he is currently following with Dr. Roque for however he has had worsening redness drainage and smell. Patient also has had an elevated fever at home and reports chilling. He has multiple medical comorbidities including multiple previous strokes diabetic neuropathy insulin-dependent type 2 diabetes mellitus peripheral vascular disease chronic left lower extremity lymphedema aortic stenosis coronary artery disease history of CHF. Patient currently denies chest pain shortness of breath hemoptysis hematochezia melena nausea vomiting diarrhea Related Data Home Medications ?Medication ?Instructions ?Recorded ?Confirmed aspirin 81 mg tablet,delayed 81 mg PO DAILY heart health 02/21/19 09/12/23 release clopidogrel 75 mg tablet 75 mg PO DAILY Platelet Inhibitor 02/21/19 09/12/23 insulin aspart U-100 100 unit/mL 14 unit SQ AC Diabetes 02/21/19 09/12/23 (3 mL) subcutaneous pen pantoprazole 40 mg tablet,delayed 40 mg PO DAILY GERD 02/21/19 09/12/23 release duloxetine 60 mg capsule,delayed 120 mg PO DAILY Depression 08/21/19 09/12/23 release atorvastatin 80 mg tablet (Lipitor) 80 mg PO HS Cholesterol 04/23/20 09/12/23 polyethylene glycol 3350 17 17 g PO DAILY constipation 08/04/20 09/12/23 gram/dose oral powder psyllium husk 3.4 gram/5.4 gram 425 g PO DAILY constipation 08/04/20 09/12/23 oral powder insulin glargine U-300 conc 300 50 units SQ HS diabetes 08/05/20 09/12/23 unit/mL (3 mL) subcutaneous pen dapagliflozin propanediol 5 mg 5 mg PO DAILY 06/11/21 09/12/23 tablet (Farxiga) fluoxetine 60 mg tablet 60 mg PO DAILY 06/11/21 09/12/23 quetiapine 25 mg tablet (Seroquel) 25 mg PO DAILY 06/11/21 09/12/23 Previous Rx's ?Medication ?Instructions ?Recorded alprazolam 0.5 mg disintegrating 0.5 mg PO BIDP PRN Anxiety ##60 08/08/20 tablet hydrocodone 7.5 mg-acetaminophen 1 each PO Q6HP PRN pain #60 tabs 08/08/20 325 mg tablet levetiracetam 500 mg tablet 500 mg PO BID #60 tabs 08/08/20 sacubitril 24 mg-valsartan 26 mg 1 each PO BID #60 tabs 08/08/20 tablet carvedilol 3.125 mg tablet (Coreg) 3.125 mg PO BID #60 tabs 06/11/21 gabapentin 300 mg capsule 300 mg PO DAILY #30 caps 06/11/21 trazodone 50 mg tablet 50 mg PO DAILY #30 tabs 06/11/21 methocarbamol 750 mg tablet 750 mg PO Q6H PRN Muscle spasm #10 06/27/23 tabs collagenase clostridium histo. 250 1 applic topical DAILY PRN wound 08/31/23 unit/gram topical ointment (Santyl) care #30 grams Allergies Allergy/AdvReac Type Severity Reaction Status Date / Time metformin [METFORMIN] Allergy Unknown Unknown Verified 09/26/23 13:33 allergy reaction NSAIDS (Non-Steroidal Allergy Unknown UNKNOWN Verified 09/26/23 13:33 Anti-Inflamma [NSAIDS (NON-STEROIDAL ANTI-INFLAMMA] morphine Allergy Unknown Verified 09/26/23 13:33 allergy reaction PFSH <DANIA Saenz - Last Filed: 10/09/23 20:35> FORMERLY [facility], [facility] Disclaimer: The information contained in this section may have been updated after the patient was seen, as this information can be updated by other users. Social History Smoking Status: Former smoker tobacco type: cigarettes packs per day: 1 second hand exposure: Yes alcohol intake: never substance use type: denies use current occupational status: disabled Travel in the last 8 weeks: None household members: spouse housing: other current occupational exposures/hazards: No caffeine: Yes <DANIA Saenz - Last Filed: 10/09/23 20:35> ROS Obtained: Yes Systems reviewed as appropriate & no additional complaints except as documented Physical Exam <DANIA Saenz - Last Filed: 10/09/23 20:35> General General appearance: alert and in no apparent distress Neck Neck exam: Absent lymphadenopathy Respiratory Respiratory exam: Present normal lung sounds bilaterally; Absent accessory muscle use Cardiovascular Cardiovascular exam: Present regular rate and normal rhythm Abdominal Exam Abdominal exam: Present soft Expanded Lower Extremity Exam Left: Ankle image: 2 1. Necrotic appearing central area that appears to go into the muscle layer along with erythema around the borders but no active purulence visible. Foul- smelling. Neurological Exam Neurological exam: Present alert and oriented X3 Medical Decision Making <DANIA Saenz - Last Filed: 10/09/23 20:35> Medical Records Medical records reviewed: Yes I reviewed the patient's medical records. [place] Inquiry Pt receiving controlled substance: No Vital Signs: 10/09/23 17:53 10/09/23 18:24 10/09/23 18:30 Temperature 100.0 F H Temperature Source Oral Oral Pulse Rate 92 H Pulse Rate [Right Radial] 94 H Respiratory Rate 20 Blood Pressure 141/75 H Blood Pressure [Right Arm] 138/86 Blood Pressure Mean [Right Arm] 103 02 Sat by Pulse Oximetry 94 L 94 L Oxygen Delivery Method Room Air Room Air 10/09/23 20:37 Temperature 99.6 F Temperature Source Pulse Rate 95 H Pulse Rate [Right Radial] Respiratory Rate 20 Blood Pressure 165/95 H Blood Pressure [Right Arm] Blood Pressure Mean [Right Arm] 02 Sat by Pulse Oximetry Oxygen Delivery Method Room Air Lab Data Lab results reviewed: Yes I reviewed the patient's lab results. Lab Results 10/09/23 18:10: WBC 15.0 H, RBC 4.07 L, Hgb 12.6 L, Hct 40.3 L, MCV 98.9 H, MCH 30.9, MCHC 31.2 L, RDW 14.3, Plt Count 205, MPV 9.0, Neut % (Auto) 91.8 H, Lymph % (Auto) 2.7 L, Mchen[place] % (Auto) 4.8, Eos % (Auto) 0.6, Baso % (Auto) 0.2, Neut # (Auto) 13.8 H, Lymph # (Auto) 0.4 L, Mchen[place] # (Auto) 0.7, Eos # (Auto) 0.1, Baso # (Auto) 0.0, Total Counted 100, Neutrophils % (Manual) 97 H, Monocytes % (Manual) 3, Platelet Estimate Normal, RBC Morphology Normal, Sodium 135 L, Potassium 4.1, Chloride 103, Carbon Dioxide 28, Anion Gap 8.1, BUN 24 H, Creatinine 1.50 H, Estimated Creat Clear 81, Estimated GFR 48 L, Est GFR ( Amer) 59, Glucose 302 H, Lactate 2.5 H, Calcium 8.1 L, Total Bilirubin 0.7, AST 26, ALT 31, Alkaline Phosphatase 107, Total Protein 7.0, Albumin 3.7, Globulin 3.3 H, Albumin/Globulin Ratio 1.1 10/09/23 19:24: Urine Color Yellow, Urine Appearance Clear, Urine pH 5.5, Ur Specific [place] <= 1.005, Urine Protein Trace, Urine Glucose (UA) 3+, Urine Ketones Negative, Urine Blood 2+, Urine Nitrate Negative, Urine Bilirubin Negative, Urine Urobilinogen 1.0, Ur Leukocyte Esterase Negative, Urine RBC 10- 20, Urine WBC None, Ur Squamous Epith Cells Occasional, Urine Bacteria None 10/09/23 18:10 10/09/23 18:10 Orders (Tests/Meds): ED MEDICATIONS Generic Name Dose Route Start Last Admin Trade Name Freq PRN Reason Stop Dose Admin Acetaminophen 650 mg 10/09/23 20:10 Acetaminophen 325mg Tab PO 11/08/23 20:09 Q4HP PRN Fever or Mild Pain (1-3) Vancomycin HCl 2,500 mg/ 250 mls @ 125 mls/hr 10/09/23 19:15 10/09/23 19:16 Sodium Chloride IV 10/09/23 21:14 125 mls/hr ONCE ONE Administration Miscellaneous 1 each 10/09/23 18:45 10/09/23 19:02 Vancomycin Consult Request NOTAPPLIC 11/08/23 18:44 1 each CONSULT PHARMACY JAVIER Administration Nicotine 21 mg 10/09/23 20:10 Nicotine 21mg/24hr Patch TD 11/08/23 20:09 DAILYP PRN Nicotine Cravings Ondansetron HCl 4 mg 10/09/23 20:10 Ondansetron 4mg/2ml Vial IV 11/08/23 20:09 Q8HP PRN Nausea Sodium Chloride 10 ml 10/09/23 18:52 Sodium Chloride 0.9% 10ml Syr (Rad Only) IV 11/08/23 18:51 NEEDED PRN Maintain IV Site Discontinued Medications Generic Name Dose Route Start Last Admin Trade Name Freq PRN Reason Stop Dose Admin Sodium Chloride 2,600 mls @ 1,300 mls/hr 10/09/23 18:21 10/09/23 18:31 Sod Chlor 0.9% 1000ml Bag 30 ml/kg infuse over 2 hr (2600 ml) 10/09/23 20:20 1,300 mls/hr IV Administration .Q2H ONE Piperacillin Sod/Tazobactam 50 mls @ 100 mls/hr 10/09/23 18:45 10/09/23 19:05 Sod 3.375 gm/ Sodium Chloride IV 10/09/23 19:14 Not Given ONCE ONE Piperacillin Sod/Tazobactam 50 mls @ 100 mls/hr 10/09/23 19:03 10/09/23 19:07 Sod 3.375 gm/ Sodium Chloride IV 10/09/23 19:32 100 mls/hr ONCE ONE Administration Iopamidol 120 ml 10/09/23 18:52 10/09/23 18:54 Iopamidol-370 (76%);100ml Bottle IV 10/09/23 18:53 120 ml ONCE ONE Administration Sodium Chloride 50 ml 10/09/23 18:52 10/09/23 18:54 0.9 % Sodium Chloride 50 Ml Vial IV 10/09/23 18:53 50 ml ONCE ONE Administration ORDERS Category Date Time Status CT lower leg LT w con Stat Cat Scan 10/09/23 18:09 Taken POCUS Point of Care (ER Only) Stat Exams 10/09/23 18:42 Completed XR chest portable Stat Exams 10/09/23 18:27 Taken CBC w/Auto Diff [Complete Blood Count Auto Diff] Stat Lab 10/09/23 18:10 Completed CMP [Comprehensive Metabolic Panel] Stat Lab 10/09/23 18:10 Completed Complete Blood Count Auto Diff AMLAB Lab 10/10/23 06:00 Ordered Comprehensive Metabolic Panel AMLAB Lab 10/10/23 06:00 Ordered Lactic Acid Stat Lab 10/09/23 18:10 Completed Urinalysis and Microscopic Stat Lab 10/09/23 19:24 Completed Blood Culture Stat Micro 10/09/23 18:11 Received Tissue Perfus/Sepsis Re-Eval Sepsis Re-Evaluation Performed: Yes Date Performed: 10/09/23 Time Performed: 18:25 Medical Decision Narrative: In summary patient is a 58-year-old male who presents to the emergency department for evaluation of diabetic foot wound. Patient is hemodynamically stable upon arrival, afebrile. Physical exam is remarkable for a approximately 2 to 2-1/2 cm in circumference area of necrosis at his lateral midfoot of the left with an erythematous collar. It is significantly malodorous along with some increasingly large lymphedema on the left lower extremity more than normal. It is not tender to palpation the patient has diabetic neuropathy.. Differential diagnosis includes necrotic soft tissue infection versus gas- forming soft tissue infection sepsis without septic shock DVT cellulitis etc. Initial workup will be conducted with hematologic labs POCUS CT scan of the lower extremity with contrast urinalysis. Initial interventions include sepsis bolus blood cultures. Initial workup reviewed by me shows a significantly elevated white count and my informal interpretation is of his CT scan does not show any gas away from the side of the initial wound prior to radiology read. Upon repeat evaluation patient has normal cardiac output thus his sepsis bolus was stopped given he has a history of CHF. Given this I had a interact discussion with hospital medicine about patient management and he will be admitted for further evaluation and care <Arnulfo Jessica MD - Last Filed: 10/09/23 20:40> Vital Signs: 10/09/23 17:53 10/09/23 18:24 10/09/23 18:30 Temperature 100.0 F H Temperature Source Oral Oral Pulse Rate 92 H Pulse Rate [Right Radial] 94 H Respiratory Rate 20 Blood Pressure 141/75 H Blood Pressure [Right Arm] 138/86 Blood Pressure Mean [Right Arm] 103 02 Sat by Pulse Oximetry 94 L 94 L Oxygen Delivery Method Room Air Room Air 10/09/23 20:37 Temperature 99.6 F Temperature Source Pulse Rate 95 H Pulse Rate [Right Radial] Respiratory Rate 20 Blood Pressure 165/95 H Blood Pressure [Right Arm] Blood Pressure Mean [Right Arm] 02 Sat by Pulse Oximetry Oxygen Delivery Method Room Air Lab Data Lab Results 10/09/23 18:10: WBC 15.0 H, RBC 4.07 L, Hgb 12.6 L, Hct 40.3 L, MCV 98.9 H, MCH 30.9, MCHC 31.2 L, RDW 14.3, Plt Count 205, MPV 9.0, Neut % (Auto) 91.8 H, Lymph % (Auto) 2.7 L, [place] % (Auto) 4.8, Eos % (Auto) 0.6, Baso % (Auto) 0.2, Neut # (Auto) 13.8 H, Lymph # (Auto) 0.4 L, [place] # (Auto) 0.7, Eos # (Auto) 0.1, Baso # (Auto) 0.0, Total Counted 100, Neutrophils % (Manual) 97 H, Monocytes % (Manual) 3, Platelet Estimate Normal, RBC Morphology Normal, Sodium 135 L, Potassium 4.1, Chloride 103, Carbon Dioxide 28, Anion Gap 8.1, BUN 24 H, Creatinine 1.50 H, Estimated Creat Clear 81, Estimated GFR 48 L, Est GFR ( Amer) 59, Glucose 302 H, Lactate 2.5 H, Calcium 8.1 L, Total Bilirubin 0.7, AST 26, ALT 31, Alkaline Phosphatase 107, Total Protein 7.0, Albumin 3.7, Globulin 3.3 H, Albumin/Globulin Ratio 1.1 10/09/23 19:24: Urine Color Yellow, Urine Appearance Clear, Urine pH 5.5, Ur Specific [place] <= 1.005, Urine Protein Trace, Urine Glucose (UA) 3+, Urine Ketones Negative, Urine Blood 2+, Urine Nitrate Negative, Urine Bilirubin Negative, Urine Urobilinogen 1.0, Ur Leukocyte Esterase Negative, Urine RBC 10- 20, Urine WBC None, Ur Squamous Epith Cells Occasional, Urine Bacteria None Orders (Tests/Meds): ED MEDICATIONS Generic Name Dose Route Start Last Admin Trade Name Frechau PRN Reason Stop Dose Admin Acetaminophen 650 mg 10/09/23 20:10 Acetaminophen 325mg Tab PO 11/08/23 20:09 Q4HP PRN Fever or Mild Pain (1-3) Vancomycin HCl 2,500 mg/ 250 mls @ 125 mls/hr 10/09/23 19:15 10/09/23 19:16 Sodium Chloride IV 10/09/23 21:14 125 mls/hr ONCE ONE Administration Miscellaneous 1 each 10/09/23 18:45 10/09/23 19:02 Vancomycin Consult Request NOTAPPLIC 11/08/23 18:44 1 each CONSULT PHARMACY JAVIER Administration Nicotine 21 mg 10/09/23 20:10 Nicotine 21mg/24hr Patch TD 11/08/23 20:09 DAILYP PRN Nicotine Cravings Ondansetron HCl 4 mg 10/09/23 20:10 Ondansetron 4mg/2ml Vial IV 11/08/23 20:09 Q8HP PRN Nausea Sodium Chloride 10 ml 10/09/23 18:52 Sodium Chloride 0.9% 10ml Syr (Rad Only) IV 11/08/23 18:51 NEEDED PRN Maintain IV Site Discontinued Medications Generic Name Dose Route Start Last Admin Trade Name Frechau PRN Reason Stop Dose Admin Sodium Chloride 2,600 mls @ 1,300 mls/hr 10/09/23 18:21 10/09/23 18:31 Sod Chlor 0.9% 1000ml Bag 30 ml/kg infuse over 2 hr (2600 ml) 10/09/23 20:20 1,300 mls/hr IV Administration .Q2H ONE Piperacillin Sod/Tazobactam 50 mls @ 100 mls/hr 10/09/23 18:45 10/09/23 19:05 Sod 3.375 gm/ Sodium Chloride IV 10/09/23 19:14 Not Given ONCE ONE Piperacillin Sod/Tazobactam 50 mls @ 100 mls/hr 10/09/23 19:03 10/09/23 19:07 Sod 3.375 gm/ Sodium Chloride IV 10/09/23 19:32 100 mls/hr ONCE ONE Administration Iopamidol 120 ml 10/09/23 18:52 10/09/23 18:54 Iopamidol-370 (76%);100ml Bottle IV 10/09/23 18:53 120 ml ONCE ONE Administration Sodium Chloride 50 ml 10/09/23 18:52 10/09/23 18:54 0.9 % Sodium Chloride 50 Ml Vial IV 10/09/23 18:53 50 ml ONCE ONE Administration ORDERS Category Date Time Status CT lower leg LT w con Stat Cat Scan 10/09/23 18:09 Taken POCUS Point of Care (ER Only) Stat Exams 10/09/23 18:42 Completed XR chest portable Stat Exams 10/09/23 18:27 Taken CBC w/Auto Diff [Complete Blood Count Auto Diff] Stat Lab 10/09/23 18:10 Completed CMP [Comprehensive Metabolic Panel] Stat Lab 10/09/23 18:10 Completed Complete Blood Count Auto Diff AMLAB Lab 10/10/23 06:00 Ordered Comprehensive Metabolic Panel AMLAB Lab 10/10/23 06:00 Ordered Lactic Acid Stat Lab 10/09/23 18:10 Completed Urinalysis and Microscopic Stat Lab 10/09/23 19:24 Completed Blood Culture Stat Micro 10/09/23 18:11 Received ECG Data Tracing #1: Independently inter by me rate is 92, rhythm is regular, axis is leftward deviated, no ST elevation in anatomical contiguous leads, V4 nondiagnostic, right bundle branch block pattern, QTc 445. Procedures <Arnulfo Jessica MD - Last Filed: 10/09/23 20:40> Miscellaneous Procedure Procedure Performed: Indication: Foot wound and volume assessment Identified cardiac views: Parasternal long axis Findings: Cardiac activity present, gross wall motion normal, no large pericardial effusion, slightly decreased ejection fraction with normal EPSS. Impression: From above Images were saved to permanent archive The study was technically adequate CPT: 61445 This study was performed by me, and I personally interpreted all images/videos. Based on my clinical judgement, these images were adequate and did not necessitate further imaging. Critical Care <DANIA Saenz - Last Filed: 10/09/23 20:35> Critical Care Time Critical Care Time: No
--- NOTE | 2023-10-09 18:09 | CT_ITS ---
PROCEDURE INFORMATION: Exam: CT Left Lower Extremity, Leg Exam date and time: 10/09/2023 6:43 PM Age: 58 years old Clinical indication: Other: Lateral left foot necrotic ulcer TECHNIQUE: Imaging protocol: CT of the left lower extremity with intravenous contrast was performed. Exam focused on the lower leg. Radiation optimization: All CT scans at this facility use at least one of these dose optimization techniques: automated exposure control; mA and/or kV adjustment per patient size (includes targeted exams where dose is matched to clinical indication); or iterative reconstruction. Contrast material: ISOVUE; Contrast volume: 120 ml; Contrast route: IV; COMPARISON: CR XR FOOT WT BEARING LT 3V 08/31/2023 3:55 PM FINDINGS: Bones/joints: Bones are osteopenic. Demineralization and fragmentation of the base of the 5th metatarsal with adjacent periosteal thickening and calcification. No other fracture is seen. Normal alignment. Soft tissues: Extensive soft tissue edema and skin thickening throughout the foreleg, foot, and ankle. Leg musculature is unremarkable. There is a laceration in the lateral forefoot at the level of the base of the 5th metatarsal containing small amount of fluid extending to the adjacent skin surface. The fluid collection extends posteriorly along the plantar surface of the plantar fascia, measuring up to 3.1 x 1.6 cm. IMPRESSION: 1. Skin ulceration in the lateral midfoot with small fluid collection extending to the adjacent 5th metatarsal base and along the plantar fascia concerning for small abscess. 2. Osteomyelitis in the base of the 5th metatarsal.
--- NOTE | 2023-10-09 18:12 | ECG_ITS ---
APPROVED REPORT Exam: Resting ECG HR:92 bpm ECG Measurements Heart Rate 92 AXES QRSd 154 QRS -42 QT 395 T 35 QTc 445 Conclusion UNCERTAIN REGULAR RHYTHM LEFT AXIS DEVIATION [QRS AXIS < -30] RIGHT BUNDLE BRANCH BLOCK [120+ ms QRS DURATION, UPRIGHT V1, 40+ ms S IN I/aVL/V4/V5/V6] ABNORMAL ECG Nondiagnostic lead V4 Electronically signed by : TY NGUYEN, 10/09/2023 23:27:57
[2023-10-09 18:23] LABS: Basophils % 0.2 % (0.1-2.0); Eosinophils # 0.1 K/mm3 (0.0-0.4); Eosinophils % 0.6 % (0.1-12.0); Hematocrit 40.3 % (42.0-52.0); Hemoglobin 12.6 g/dL (14.1-18.0); Lymphocytes # 0.4 K/mm3 (0.7-4.5); Lymphocytes % 2.7 % (10-50); Mean Corpuscular HGB Conc 31.2 g/dL (31.8-35.4); Mean Corpuscular Hemoglobin 30.9 pg (27.0-31.2); Mean Corpuscular Volume 98.9 fl (80-94); Monocytes # 0.7 K/mm3 (0.1-1.0); Monocytes % 4.8 % (1.7-9.3); Neutrophils # 13.8 K/mm3 (1.8-7.8); Neutrophils % 91.8 % (37.0-80.0); Platelet Count 205 K/mm3 (142-424); Red Blood Count 4.07 M/mm3 (4.60-6.20); Red Cell Distribution Width 14.3 % (11.5-17.5)
[2023-10-09 18:27] LABS: MANUAL DIFFERENTIAL MANUAL DIFFERENTIAL (MANUAL DIFF)
--- NOTE | 2023-10-09 18:27 | XR_ITS ---
PROCEDURE INFORMATION: Exam: XR Chest Exam date and time: 10/09/2023 6:59 PM Age: 58 years old Clinical indication: Cough and fever; Additional info: Cough, fever TECHNIQUE: Imaging protocol: Radiologic exam of the chest. Views: 1 view. COMPARISON: CR XR CHEST PORTABLE 11/10/2020 12:07 AM FINDINGS: Lungs: Clear. No consolidation. Pleural spaces: No pleural effusion. No pneumothorax. Heart/Mediastinum: Unremarkable. No cardiomegaly. Bones/joints: Unremarkable. IMPRESSION: No acute findings.
[2023-10-09 18:30] VITALS: BP 141/75; PULSE 92; O2SAT 94
[2023-10-09 18:30] LABS: Albumin Level 3.7 g/dl (3.5-5.0); Chloride 103 mmol/L (98-107); Lactic Acid 2.5 mmol/L (0.7-2.1); Potassium 4.1 mmoL/L (3.5-5.1); Sodium 135 mmol/L (136-145)
[2023-10-09] MEDS: SODIUM CHLORIDE 1300 ML IV (18:31)
[2023-10-09 18:33] LABS: Alanine Aminotransferase 31 U/L (12-78); Albumin/Globulin Ratio 1.1 (1.1-1.8); Alkaline Phosphatase 107 U/L (38-126); Anion Gap 8.1 mEq/L (5-15); Aspartate Amino Transferase 26 U/L (17-59); Bilirubin,Total 0.7 mg/dl (0.2-1.3); Blood Urea Nitrogen 24 mg/dl (9-20); Calcium 8.1 mg/dl (8.4-10.2); Carbon Dioxide 28 mmol/L (22.0-30.0); Creatinine Clearance Estimated 81 mL/min (50-200); Estimated Glomerular Filt Rate 48 ml/min (>60); GFR (African American) 59 ML/MIN (>60); Globulin 3.3 g/dL (1.3-3.2); Glucose 302 mg/dl (74-100)
[2023-10-09 18:48] LABS: Monocytes % 3 % (2-9); Neutrophils % 97 % (42-76); Total Cells Counted 100
--- NOTE | 2023-10-09 18:50 | PC.NURSE ---
pt gone to ct
[2023-10-09 18:53] LABS: RBC Morphology Normal
[2023-10-09 18:54] LABS: Platelet Estimate Normal
[2023-10-09] MEDS: IOPAMIDOL-370 (76%);100ML BOTTLE 120 ML IV (18:54)
[2023-10-09] MEDS: 0.9 % SODIUM CHLORIDE 50 ML VIAL IV (18:54)
[2023-10-09] MEDS: VANCOMYCIN CONSULT REQUEST 1 EACH NOTAPPLIC (19:02)
[2023-10-09] MEDS: PIPERACILLIN/TAZO 3.375 GM in 0.9 % SODIUM CHLORIDE 50 ML IV (19:07)
[2023-10-09] MEDS: VANCOMYCIN HCL 2,500 MG in 0.9 % SODIUM CHLORIDE 250 ML 125 MG IV (19:16)
--- NOTE | 2023-10-09 19:36 | PC.NURSE ---
Pt attempted to urinate in urinal, and it went all over him. Full bed change, and a new gown was provided. Urine specimen collected and sent to lab.
[2023-10-09 19:39] LABS: Microscopic, Urine URINE MICROSCOPIC (MICROSCOPIC)
[2023-10-09 19:40] LABS: Appearance,Urine CLEAR (Clear); Bilirubin,Urine Negative (Negative); Blood, Urine 2+ (Negative); Color,Urine YELLOW (Yellow); Glucose,Urine (UA) 3+ (Negative); Ketones,Urine Negative (Negative); Leukocyte Esterase,Urine Negative (Negative); Nitrate,Urine Negative (Negative); PH,Urine 5.5 (5.0-8.5); Protein,Urine TRACE (Negative); Specific Gravity, Urine <= 1.005 (1.005-1.030)
[2023-10-09 19:56] LABS: Squamous Epithelial Cell,Urine Occasional #/hpf (0-5)
--- NOTE | 2023-10-09 20:12 | P.HP_ITS ---
History of Present Illness *Admission Date: 10/09/23 *Reason for visit:: infected diabetic foot ulcer *History of present illness: This is a 58yo male with PMHx multiple previous strokes, IDDM with neuropathy, peripheral vascular disease, chronic left lower extremity lymphedema, aortic stenosis, CAD, history of CHF presented to ED for worsening wound of left foot. Patient has a longstanding history of a left diabetic foot ulcer that he is currently following with Dr. Roque for however he has had worsening redness drainage and smell. Patient also has had an elevated fever at home and reports chilling. He has multiple medical comorbidities including . Patient currently denies chest pain shortness of breath hemoptysis hematochezia melena nausea vomiting diarrhea. Admitted for further treatment and management. [facility] Disclaimer: The information contained in this section may have been updated after the patient was seen, as this information can be updated by other users. Medical History (Updated 10/09/23 @ 22:11 by Bob Mckeon APRN) Heart attack CVA (cerebral vascular accident) Surgical History (Updated 10/09/23 @ 21:36 by Edgardo Lee RN) History of nasal surgery Previous back surgery Social History (Updated 10/09/23 @ 21:36 by Edgardo Lee RN) Smoking Status: Current some day smoker tobacco type: cigarettes packs per day: 1 second hand exposure: Yes alcohol intake: never substance use type: denies use current occupational status: disabled Travel in the last 8 weeks: None household members: spouse housing: other current occupational exposures/hazards: No caffeine: Yes Review of Systems Review of Systems Review of systems:: pertinent systems reviewed and negative unless documented below Meds Home Medications and Allergies Home Medications ?Medication ?Instructions ?Recorded ?Confirmed ?Type aspirin 81 mg tablet,delayed 81 mg PO DAILY heart health 02/21/19 10/09/23 History release clopidogrel 75 mg tablet 75 mg PO DAILY Platelet Inhibitor 02/21/19 10/09/23 History pantoprazole 40 mg tablet,delayed 40 mg PO DAILY GERD 02/21/19 10/09/23 History release atorvastatin 80 mg tablet (Lipitor) 80 mg PO HS Cholesterol 04/23/20 10/09/23 History levetiracetam 500 mg tablet 500 mg PO BID #60 tabs 08/08/20 10/09/23 Rx carvedilol 3.125 mg tablet (Coreg) 3.125 mg PO BID #60 tabs 06/11/21 10/09/23 Rx fluoxetine 60 mg tablet 60 mg PO DAILY 06/11/21 10/09/23 History azelastine 137 mcg (0.1 %) nasal 2 spray intranasal BID 10/09/23 10/09/23 History spray dapagliflozin propanediol 10 mg 10 mg PO DAILY 10/09/23 10/09/23 History tablet (Farxiga) docusate sodium 250 mg capsule 250 mg PO BID 10/09/23 10/09/23 History duloxetine 30 mg capsule,delayed 30 mg PO DAILY 10/09/23 10/09/23 History release furosemide 20 mg tablet 20 mg PO NEEDED PRN excess fluid 10/09/23 10/09/23 History gabapentin 400 mg capsule 400 mg PO QID 10/09/23 10/09/23 History hydrocodone 7.5 mg-acetaminophen 1 each PO Q6HP PRN pain 10/09/23 10/09/23 History 325 mg tablet insulin glargine U-300 conc 300 70 unit SQ HS 10/09/23 10/09/23 History unit/mL (3 mL) subcutaneous pen (Toujeo Max U-300 SoloStar) lactulose 20 gram/30 mL oral 30 ml PO DAILY 10/09/23 10/09/23 History solution pseudoephedrine-guaifenesin ER 120 600 tab PO DAILY 10/09/23 10/09/23 History mg-600 mg tab,extend release 12hr quetiapine 50 mg tablet 50 mg PO HS 10/09/23 10/09/23 History sacubitril 24 mg-valsartan 26 mg 1 tab PO BID 10/09/23 10/09/23 History tablet (Entresto) tamsulosin 0.4 mg capsule 1.4 mg PO DAILY 10/09/23 10/09/23 History trazodone 150 mg tablet 150 mg PO HS 10/09/23 10/09/23 History New Prescriptions to Start Prescriptions: Allergies Allergy/AdvReac Type Severity Reaction Status Date / Time metformin [METFORMIN] Allergy Unknown Unknown Verified 09/26/23 13:33 allergy reaction NSAIDS (Non-Steroidal Allergy Unknown UNKNOWN Verified 09/26/23 13:33 Anti-Inflamma [NSAIDS (NON-STEROIDAL ANTI-INFLAMMA] morphine Allergy Unknown Verified 09/26/23 13:33 allergy reaction Exam Data for Last 24 hours Vital signs and Labs for Last 24 Hours: Temp Pulse Resp BP Pulse Ox O2 Del Method 100.0 F H 92 H 20 141/75 H 94 L Room Air 10/09/23 17:53 10/09/23 18:30 10/09/23 17:53 10/09/23 18:30 10/09/23 18:30 10/09/23 18:30 Laboratory Results - last 24 hr 10/09/23 18:10: WBC 15.0 H, RBC 4.07 L, Hgb 12.6 L, Hct 40.3 L, MCV 98.9 H, MCH 30.9, MCHC 31.2 L, RDW 14.3, Plt Count 205, MPV 9.0, Neut % (Auto) 91.8 H, Lymph % (Auto) 2.7 L, [place] % (Auto) 4.8, Eos % (Auto) 0.6, Baso % (Auto) 0.2, Neut # (Auto) 13.8 H, Lymph # (Auto) 0.4 L, [place] # (Auto) 0.7, Eos # (Auto) 0.1, Baso # (Auto) 0.0, Total Counted 100, Neutrophils % (Manual) 97 H, Monocytes % (Manual) 3, Platelet Estimate Normal, RBC Morphology Normal, Sodium 135 L, Potassium 4.1, Chloride 103, Carbon Dioxide 28, Anion Gap 8.1, BUN 24 H, Creatinine 1.50 H, Estimated Creat Clear 81, Estimated GFR 48 L, Est GFR ( Amer) 59, Glucose 302 H, Lactate 2.5 H, Calcium 8.1 L, Total Bilirubin 0.7, AST 26, ALT 31, Alkaline Phosphatase 107, Total Protein 7.0, Albumin 3.7, Globulin 3.3 H, Albumin/Globulin Ratio 1.1 10/09/23 19:24: Urine Color Yellow, Urine Appearance Clear, Urine pH 5.5, Ur Specific [place] <= 1.005, Urine Protein Trace, Urine Glucose (UA) 3+, Urine Ketones Negative, Urine Blood 2+, Urine Nitrate Negative, Urine Bilirubin Negative, Urine Urobilinogen 1.0, Ur Leukocyte Esterase Negative, Urine RBC 10- 20, Urine WBC None, Ur Squamous Epith Cells Occasional, Urine Bacteria None I & O for Last 24 hours: Intake & Output 10/06/23 10/07/23 10/08/23 10/09/23 23:59 23:59 23:59 23:59 Weight 104.326 kg Constitutional Constitutional: moderate distress, obese, chronically ill appearing and cooperative *Routine HEENT Exam Head: Present normocephalic Eye: Present EOMI and PERRL ENT: Present mucous membranes moist *Routine Neck Exam Neck: Present supple; Absent lymphadenopathy *Routine Respiratory Exam Respiratory: Present CTA bilaterally *Routine Cardiovascular Exam Cardiovascular: Present RRR, Normal S1, Normal S2 and tachycardia *Routine Abdominal Exam Abdominal: Present soft and normoactive bowel sounds; Absent tenderness *Routine Rectal Exam Rectal:: deferred *Routine Genitalia Exam Genitalia:: deferred *Routine Extremities Exam Extremities: Present edema and full ROM; Absent cyanosis or clubbing *Routine Skin Exam Skin: Present warm and wounds; Absent rash *Routine Neurological Exam Neurological: Present alert and oriented X3 Detailed Lower Extremity Exam Ankle image: 2 1. unstageable diabetes foot ulcer. foul smell H&P: Result Imaging and Cardiology EKG: Status: image reviewed by me, Preliminary report and final report FOOT CT: Status: image reviewed by me, Preliminary report and final report Assessment and Plan *Assessment and plan (1) Sepsis without septic shock: Status: Acute Category: Medical Code(s): A41.9 - Sepsis, unspecified organism (2) Acute osteomyelitis of metatarsal bone of left foot: Status: Acute Category: Medical Code(s): M86.172 - Other acute osteomyelitis, left ankle and foot (3) Diabetic foot ulcer: Status: Acute Qualifiers: Diabetes mellitus type: type 2 Diabetic foot ulcer location: midfoot L aterality: left Non-pressure ulcer stage: with necrosis of muscle Qualified Code(s): E11.621 - Type 2 diabetes mellitus with foot ulcer; L97.423 - Non- pressure chronic ulcer of left heel and midfoot with necrosis of muscle Category: Medical Code(s): E11.621 - Type 2 diabetes mellitus with foot ulcer; L97.509 - Non-pressure chronic ulcer of other part of unspecified foot with unspecified severity (4) Type 2 diabetes mellitus with hyperglycemia, with long-term current use of insulin: Status: Acute Category: Medical Code(s): E11.65 - Type 2 diabetes mellitus with hyperglycemia; Z79.4 - senior care (current) use of insulin (5) Coronary artery disease: Status: Acute Qualifiers: Coronary Disease-Associated Artery/Lesion type: [place] artery [place] vs. transplanted heart: [place] heart Associated angina: without angina Q ualified Code(s): I25.10 - Atherosclerotic heart disease of [place] coronary artery without angina pectoris Category: Medical Code(s): I25.10 - Atherosclerotic heart disease of [place] coronary artery without angina pectoris (6) CHF (congestive heart failure): Status: Acute Qualifiers: Heart failure chronicity: acute Heart failure type: unspecified Q ualified Code(s): I50.9 - Heart failure, unspecified Category: Medical Code(s): I50.9 - Heart failure, unspecified (7) History of cerebrovascular accident (CVA) from right carotid artery occlusion involving right middle cerebral artery territory: Status: Chronic Category: Medical Code(s): Z86.73 - Personal history of transient ischemic attack (TIA), and cerebral infarction without residual deficits Plan 58yo male with PMHx multiple previous strokes, IDDM with neuropathy, peripheral vascular disease, chronic left lower extremity lymphedema, aortic stenosis, CAD, history of CHF presented to ED for worsening wound of left foot. Patient has a longstanding history of a left diabetic foot ulcer. Arrived with high grade fever, sepsis criteria. started on IV boluses. and broaded abx. wound has a foul smell. Lbas are consistent wit leukocytosis, CT showed acute OM of the base of the fifth metatarsal bone. ED requested admission for inpatient management. Discussed about findings. Agreed for admission. Plan as follow: -Sepsis without septic shock Acute osteomyelitis of the metatarsal bone of left foot Secondary to diabetes foot ulcer Admit patient for inpatient management. Podiatric consult Continue IV vancomycin. Pharmacy to dose and monitor kidney function Meropenem will 1 g every 12. To cover suspected Pseudomonas Wound culture pending Monitor for sepsis CT of the lower extremity concerning for osteomyelitis. Will need long-term antibiotic ESR and CRP Monitor daily labs. Include CBC CMP Tylenol for fever greater than 101F -Uncontrolled insulin-dependent diabetes with neuropathy: Resume home regimen insulin Last A1c 8.1 Sliding scale Monitor blood sugar before meals Gabapentin -CHF and coronary artery disease: on Entresto. May hold hypertensive medication in the setting of sepsis or hypotension On Plavix, aspirin and statin History of CVA: On Keppra twice daily Plavix for DVT prophylaxis. Protonix for GI bleed protection Full code
[2023-10-09 20:31] VITALS: O2SAT 94
--- NOTE | 2023-10-09 20:36 | PC.NURSE ---
called report to binu lynn on second floor and answered all questions
[2023-10-09 20:37] VITALS: BP 165/95; PULSE 95; RESP 20; TEMP 37.6; O2SAT 97
[2023-10-09 21:17] VITALS: BP 160/61; TEMP 37.4
--- NOTE | 2023-10-09 21:21 | PC.NURSE ---
Patient arrived to floor via wheelchair from ED at 21:17.
--- NOTE | 2023-10-09 22:02 | PC.WOUNDNOTE ---
left foot left foot
[2023-10-09 22:16] LABS: Reflex Lactic Add Lactic Reflex
[2023-10-09 22:16] LABS: POC Glucose,Bedside 121 (70-110)
[2023-10-09] MEDS: MEROPENEM 1 GM in 0.9 % SODIUM CHLORIDE 100 ML IV (22:40)
[2023-10-09 23:13] LABS: Lactic Acid Follow Up (RFLX 1) 1.8 mmol/L (0.7-2.1)
[2023-10-10] VITALS (15 sets, daily range): BP systolic 86–124; BP diastolic 48–70; PULSE 73–98; RESP 14–18; TEMP -12.3–37.9; O2SAT 92–98; BMI 29.3
[2023-10-10 06:10] LABS: POC Glucose,Bedside 79 (70-110)
[2023-10-10 06:27] LABS: Basophils # 0.1 K/mm3 (0-0.2); Basophils % 0.5 % (0.1-2.0); Eosinophils # 0.1 K/mm3 (0.0-0.4); Eosinophils % 1.2 % (0.1-12.0); Hemoglobin 11.9 g/dL (14.1-18.0); Lymphocytes # 0.8 K/mm3 (0.7-4.5); Lymphocytes % 7.1 % (10-50); Mean Corpuscular HGB Conc 31.3 g/dL (31.8-35.4); Mean Corpuscular Hemoglobin 30.1 pg (27.0-31.2); Mean Corpuscular Volume 95.9 fl (80-94); Mean Platelet Volume 8.7 fl (7.4-10.4); Monocytes # 0.7 K/mm3 (0.1-1.0); Monocytes % 6.5 % (1.7-9.3); Neutrophils % 84.7 % (37.0-80.0); Platelet Count 196 K/mm3 (142-424); Red Blood Count 3.96 M/mm3 (4.60-6.20); Red Cell Distribution Width 14.3 % (11.5-17.5); White Blood Count 10.7 K/mm3 (4.8-10.8)
--- NOTE | 2023-10-10 06:29 | PC.NURSE ---
Pt is alert and oriented x4 and currently tolerating RA well. Pt has a pressure ulcer to the outside of his left foot, this nurse obtained a wound culture and dressed ulcer with foam dressing. Pt admitted to not being able to feel a thing during culture and had no complaints. Pt left lower extremitity is +2 edematous and is pitting. Pt lower extremity is warm to the touch. Pt has tolerated antibiotic therapy well thus far. Pt did rest well at times after admission. Pt denies pain and needs and has had no other acute changes to note. is at bedside.
[2023-10-10 06:39] LABS: Alanine Aminotransferase 19 U/L (12-78); Albumin Level 2.8 g/dl (3.5-5.0); Albumin/Globulin Ratio 0.9 (1.1-1.8); Alkaline Phosphatase 92 U/L (38-126); Anion Gap 6.4 mEq/L (5-15); Aspartate Amino Transferase 19 U/L (17-59); Bilirubin,Total 0.5 mg/dl (0.2-1.3); Blood Urea Nitrogen 19 mg/dl (9-20); Calcium 7.9 mg/dl (8.4-10.2); Carbon Dioxide 26 mmol/L (22.0-30.0); Chloride 108 mmol/L (98-107); Creatinine Clearance Estimated 111 mL/min (50-200); Estimated Glomerular Filt Rate 69 ml/min (>60); GFR (African American) 84 ML/MIN (>60); Globulin 3.1 g/dL (1.3-3.2); Glucose 77 mg/dl (74-100); Potassium 3.4 mmoL/L (3.5-5.1); Sodium 137 mmol/L (136-145); Total Protein,Serum 5.9 g/dl (6.3-8.2)
--- NOTE | 2023-10-10 06:58 | EXP.POD.CONS ---
Documented by User: Stefany Kelly, CELSO 10/10/23 08:34 History of Present Illness *Admission Date: 10/09/23 *History of present illness: This is a 58yo male with PMHx multiple previous strokes, IDDM with neuropathy, peripheral vascular disease, chronic left lower extremity lymphedema, aortic stenosis, CAD, history of CHF presented to ED for worsening wound of left foot. Patient has a longstanding history of a left diabetic foot ulcer that he is currently following with Dr. Roque for however he has had worsening redness drainage and smell. Patient also has had an elevated fever at home and reports chilling. He has multiple medical comorbidities including . Patient currently denies chest pain shortness of breath hemoptysis hematochezia melena nausea vomiting diarrhea. Admitted for further treatment and management. [facility] Disclaimer: The information contained in this section may have been updated after the patient was seen, as this information can be updated by other users. Medical History (Updated 10/10/23 @ 09:08 by Maru Roque DPM) Heart attack CVA (cerebral vascular accident) Surgical History (Updated 10/09/23 @ 21:36 by Edgardo Lee RN) History of nasal surgery Previous back surgery Social History (Updated 10/09/23 @ 21:36 by Edgardo Lee RN) Smoking Status: Current some day smoker tobacco type: cigarettes packs per day: 1 second hand exposure: Yes alcohol intake: never substance use type: denies use current occupational status: disabled Travel in the last 8 weeks: None household members: spouse housing: other current occupational exposures/hazards: No caffeine: Yes Meds Home Medications and Allergies Home Medications ?Medication ?Instructions ?Recorded ?Confirmed ?Type aspirin 81 mg tablet,delayed 81 mg PO DAILY 02/21/19 10/09/23 History release clopidogrel 75 mg tablet 75 mg PO DAILY 02/21/19 10/09/23 History pantoprazole 40 mg tablet,delayed 40 mg PO DAILY 02/21/19 10/09/23 History release atorvastatin 80 mg tablet (Lipitor) 80 mg PO HS 04/23/20 10/09/23 History levetiracetam 500 mg tablet 500 mg PO BID #60 tabs 08/08/20 10/09/23 Rx carvedilol 3.125 mg tablet (Coreg) 3.125 mg PO BID #60 tabs 06/11/21 10/09/23 Rx fluoxetine 60 mg tablet 60 mg PO DAILY 06/11/21 10/09/23 History dapagliflozin propanediol 10 mg 10 mg PO DAILY 10/09/23 10/09/23 History tablet (Farxiga) docusate sodium 250 mg capsule 250 mg PO BID 10/09/23 10/09/23 History duloxetine 30 mg capsule,delayed 30 mg PO DAILY 10/09/23 10/09/23 History release furosemide 20 mg tablet 20 mg PO DAILYP PRN Edema 10/09/23 10/10/23 History gabapentin 400 mg capsule 400 mg PO QID 10/09/23 10/09/23 History insulin glargine U-300 conc 300 70 unit SQ HS 10/09/23 10/09/23 History unit/mL (3 mL) subcutaneous pen (Toujeo Max U-300 SoloStar) lactulose 20 gram/30 mL oral 30 ml PO DAILY 10/09/23 10/09/23 History solution quetiapine 50 mg tablet 50 mg PO HS 10/09/23 10/09/23 History sacubitril 24 mg-valsartan 26 mg 1 tab PO BID 10/09/23 10/09/23 History tablet (Entresto) tamsulosin 0.4 mg capsule 0.4 mg PO DAILY 10/09/23 10/10/23 History trazodone 150 mg tablet 150 mg PO HS 10/09/23 10/09/23 History hydrocodone 7.5 mg-acetaminophen 1 tab PO Q6HP PRN Moderate Pain 10/10/23 10/10/23 History 325 mg tablet (Scale Score 5-6) New Prescriptions to Start Prescriptions: Allergies Allergy/AdvReac Type Severity Reaction Status Date / Time metformin [METFORMIN] Allergy Unknown Unknown Verified 09/26/23 13:33 allergy reaction NSAIDS (Non-Steroidal Allergy Unknown UNKNOWN Verified 09/26/23 13:33 Anti-Inflamma [NSAIDS (NON-STEROIDAL ANTI-INFLAMMA] morphine Allergy Unknown Verified 09/26/23 13:33 allergy reaction Exam (Inpt) Vital signs and Labs for Last 24 Hours: Temp Pulse Resp BP Pulse Ox O2 Del Method 99.4 F 95 H 20 160/61 H 94 L Room Air 10/09/23 21:17 10/09/23 20:37 10/09/23 20:37 10/09/23 21:17 10/09/23 20:31 10/10/23 06:37 Laboratory Results - last 24 hr 10/09/23 18:10: WBC 15.0 H, RBC 4.07 L, Hgb 12.6 L, Hct 40.3 L, MCV 98.9 H, MCH 30.9, MCHC 31.2 L, RDW 14.3, Plt Count 205, MPV 9.0, Neut % (Auto) 91.8 H, Lymph % (Auto) 2.7 L, [place] % (Auto) 4.8, Eos % (Auto) 0.6, Baso % (Auto) 0.2, Neut # (Auto) 13.8 H, Lymph # (Auto) 0.4 L, [place] # (Auto) 0.7, Eos # (Auto) 0.1, Baso # (Auto) 0.0, Total Counted 100, Neutrophils % (Manual) 97 H, Monocytes % (Manual) 3, Platelet Estimate Normal, RBC Morphology Normal, Sodium 135 L, Potassium 4.1, Chloride 103, Carbon Dioxide 28, Anion Gap 8.1, BUN 24 H, Creatinine 1.50 H, Estimated Creat Clear 81, Estimated GFR 48 L, Est GFR ( Amer) 59, Glucose 302 H, Lactate 2.5 H, Calcium 8.1 L, Total Bilirubin 0.7, AST 26, ALT 31, Alkaline Phosphatase 107, Total Protein 7.0, Albumin 3.7, Globulin 3.3 H, Albumin/Globulin Ratio 1.1 10/09/23 19:24: Urine Color Yellow, Urine Appearance Clear, Urine pH 5.5, Ur Specific [place] <= 1.005, Urine Protein Trace, Urine Glucose (UA) 3+, Urine Ketones Negative, Urine Blood 2+, Urine Nitrate Negative, Urine Bilirubin Negative, Urine Urobilinogen 1.0, Ur Leukocyte Esterase Negative, Urine RBC 10-20, Urine WBC None, Ur Squamous Epith Cells Occasional, Urine Bacteria None 10/09/23 22:03: POC Glucose 121 H 10/09/23 22:30: Lactate 1.8 10/10/23 05:31: WBC 10.7 D, RBC 3.96 L, Hgb 11.9 L, Hct 38.0 L, MCV 95.9 H, MCH 30.1, MCHC 31.3 L, RDW 14.3, Plt Count 196, MPV 8.7, Neut % (Auto) 84.7 H, Lymph % (Auto) 7.1 L, [place] % (Auto) 6.5, Eos % (Auto) 1.2, Baso % (Auto) 0.5, Neut # (Auto) 9.0 H, Lymph # (Auto) 0.8, [place] # (Auto) 0.7, Eos # (Auto) 0.1, Baso # (Auto) 0.1, Sodium 137, Potassium 3.4 L, Chloride 108 H, Carbon Dioxide 26, Anion Gap 6.4, BUN 19, Creatinine 1.10 D, Estimated Creat Clear 111, Estimated GFR 69, Est GFR ( Amer) 84 D, Glucose 77 D, Calcium 7.9 L, Total Bilirubin 0.5, AST 19 D, ALT 19 D, Alkaline Phosphatase 92, Total Protein 5.9 L, Albumin 2.8 L D, Globulin 3.1, Albumin/Globulin Ratio 0.9 L 10/10/23 05:59: POC Glucose 79 I & O for Labs for Last 24 Hours: Intake & Output 10/07/23 10/08/23 10/09/23 10/10/23 23:59 23:59 23:59 23:59 Intake Total 390 / 390 Output Total 0 / 0 Balance 0 / 0 390 / 390 Weight 230 lb Constitutional: Present no acute distress and cooperative Head: Present normocephalic Eye: Present as per HPI Neck: Present trachea midline Respiratory: Present normal respiratory effort and able to speak in complete sentences Cardiac: Present posterior tibial pulses present (Present but faint) and pedal pulses present (Present but faint) Comments:: deferred Rectal (male): Present deferred (male): Present deferred Extremities: Present normal capillary refill and edema (Left foot lower extremity edema and erythema present); Absent calf tenderness Skin: Present erythema, warm and wounds (Left lateral foot DFU, 3.0x3.5x 0.2cm necrotic black tissue centrally, malodorous) Neuro: Present Sensory Function Intact (Patient has history of neuropathy and history of stroke), oriented x 3 and tone normal Comment:: Patient uses motorized wheelchair Ankle: left: swelling (Left lower leg and foot cellulitis) and bilateral: decreased ROM foot: midfoot (Left lateral foot ulcer) Feet Left and Right: 1. L lateral foot DFU, 3.0 x3.5 x 0.2cm, black necrotic tissue centrally malodorous no active drainage, erythematous borders, cellulitis noted to foot extending upward lower leg. Ultrasound performed left lower extremity negative for any DVT morning. Feet/Toes: left: erythema, left: swelling and left: wound (Left lateral foot DFU) and bilateral: nail abnormalities (Yellow tinge, thick nails) and bilateral: onychomycosis (Suspect) Inspection: Present nail disorder, infection (Left lateral foot DFU) and ulceration Pulses: L dorsalis pedis pulse: diminished, R dorsalis pedis pulse: diminished, L posterior tibial pulse: diminished and R posterior tibial pulse: diminished CFT: dim: CFT Monofilament exam: L 1st metatarsals: absent, L 3rd metatarsals: absent, L 5th metatarsals: absent, L great toe: absent, L 3rd toe: absent, L 5th toe: absent, R 1st metatarsals: absent, R 3rd metatarsals: absent, R 5th metatarsals: absent, R great toe: absent, R 3rd toe: absent and R 5th toe: absent Pinprick: L great toe: abnormal and R great toe: abnormal Ankle reflex: Left: abnormal and Right: abnormal Results Labs 10/10/23 05:31 10/10/23 05:31 Labs: Abnormal lab results 10/09/23 10/09/23 10/10/23 Range/Units 18:10 22:03 05:31 WBC 15.0 H (4.8-10.8) K/mm3 RBC 4.07 L 3.96 L (4.60-6.20) M/mm3 Hgb 12.6 L 11.9 L (14.1-18.0) g/dL Hct 40.3 L 38.0 L (42.0-52.0) % MCV 98.9 H 95.9 H (80-94) fl MCHC 31.2 L 31.3 L (31.8-35.4) g/dL Neut % (Auto) 91.8 H 84.7 H (37.0-80.0) % Lymph % (Auto) 2.7 L 7.1 L (10-50) % Neut # (Auto) 13.8 H 9.0 H (1.8-7.8) K/mm3 Lymph # (Auto) 0.4 L (0.7-4.5) K/mm3 Neutrophils % (Manual) 97 H (42-76) % Sodium 135 L (136-145) mmol/L Potassium 3.4 L (3.5-5.1) mmoL/L Chloride 108 H (98-107) mmol/L BUN 24 H (9-20) mg/dl Creatinine 1.50 H (0.66-1.25) mg/dl Estimated GFR 48 L (>60) ml/min Glucose 302 H (74-100) mg/dl POC Glucose 121 H (70-110) Lactate 2.5 H (0.7-2.1) mmol/L Calcium 8.1 L 7.9 L (8.4-10.2) mg/dl Total Protein 5.9 L (6.3-8.2) g/dl Albumin 2.8 L D (3.5-5.0) g/dl Globulin 3.3 H (1.3-3.2) g/dL Albumin/Globulin Ratio 0.9 L (1.1-1.8) H & H 10/09/23 10/10/23 Range/Units 18:10 05:31 Hgb 12.6 L 11.9 L (14.1-18.0) g/dL Hct 40.3 L 38.0 L (42.0-52.0) % All other labs normal. Assessment and Plan *Assessment and plan (1) Sepsis without septic shock: Status: Acute Category: Medical Code(s): A41.9 - Sepsis, unspecified organism (2) Acute osteomyelitis of metatarsal bone of left foot: Status: Acute Category: Medical Code(s): M86.172 - Other acute osteomyelitis, left ankle and foot (3) Diabetic foot ulcer: Status: Acute Qualifiers: Diabetes mellitus type: type 2 Diabetic foot ulcer location: midfoot Laterality: left Non-pressure ulcer stage: with necrosis of muscle Qualified Code(s): E11.621 - Type 2 diabetes mellitus with foot ulcer; L97.423 - Non-pressure chronic ulcer of left heel and midfoot with necrosis of muscle Category: Medical Code(s): E11.621 - Type 2 diabetes mellitus with foot ulcer; L97.509 - Non-pressure chronic ulcer of other part of unspecified foot with unspecified severity (4) Type 2 diabetes mellitus with hyperglycemia, with long-term current use of insulin: Status: Acute Category: Medical Code(s): E11.65 - Type 2 diabetes mellitus with hyperglycemia; Z79.4 - prison (current) use of insulin (5) Abscess of left foot: Status: Acute Category: Medical Code(s): L02.612 - Cutaneous abscess of left foot (6) Gangrene of left foot: Status: Acute Category: Medical Code(s): I96 - Gangrene, not elsewhere classified Plan 58yo male with PMHx multiple previous strokes, IDDM with neuropathy, peripheral vascular disease, chronic left lower extremity lymphedema, aortic stenosis, CAD, history of CHF presented to ED for worsening wound of left foot. Patient has a longstanding history of a left diabetic foot ulcer. Arrived with high grade fever, sepsis criteria. started on IV boluses. and broaded abx. wound has a foul smell. Lbas are consistent wit leukocytosis, CT showed acute OM of the base of the fifth metatarsal bone. ED requested admission for inpatient management. Discussed about findings. Agreed for admission. Plan as follow: -Sepsis without septic shock Acute osteomyelitis of the metatarsal bone of left foot Secondary to diabetes foot ulcer Continue IV vancomycin. Pharmacy to dose and monitor kidney function Meropenem will 1 g every 12. To cover suspected Pseudomonas Wound culture pending CT of the lower extremity concerning for osteomyelitis. Will need long-term antibiotic ESR and CRP pending NPO for Podiatry consult NOW Plan for possible surgery today if the patient is agreeable. Site cleaned with betadine, then betadine gauze, dry gauze, tasha applied Documented by User: Maru Roque DPM 10/10/23 12:58 History of Present Illness *Reason for visit:: Left foot DFU, OM, gangrene *History of present illness: This is a 58yo male with PMHx multiple previous strokes, IDDM with neuropathy, peripheral vascular disease, chronic left lower extremity lymphedema, aortic stenosis, CAD, history of CHF presented to ED for worsening wound of left foot. Patient has a longstanding history of a left diabetic foot ulcer that he is currently following with Dr. Roque for however he has had worsening redness drainage and smell. Patient also has had an elevated fever at home and reports chilling. He has multiple medical comorbidities including. Patient currently denies chest pain shortness of breath hemoptysis hematochezia melena nausea vomiting diarrhea. Admitted for further treatment and management. Podiatry: Patient is well-known to the podiatry clinic and had his last office visit with [facility] 09/26/23, he was scheduled for office visit today. reports over the weekend he had increased in wound size, odor and drainage. Patient developed low-grade temperature Tuesday and they brought him into the ER yesterday. Reports a significant cardiac history and hx LLE/LUE weakness secondary to stroke. He did have recent ABIs in August which showed R: GIANNI PT 1.22, DP 1.00, TBI 1.73 and L: GIANNI PT 0.872, DP 0.85, TBI 0.69. [facility] Medical History (Updated 10/10/23 @ 09:08 by Maru Roque DPM) Heart attack CVA (cerebral vascular accident) Surgical History (Updated 10/09/23 @ 21:36 by Edgardo Lee RN) History of nasal surgery Previous back surgery Social History (Updated 10/09/23 @ 21:36 by Edgardo Lee RN) Smoking Status: Current some day smoker tobacco type: cigarettes packs per day: 1 second hand exposure: Yes alcohol intake: never substance use type: denies use current occupational status: disabled Travel in the last 8 weeks: None household members: spouse housing: other current occupational exposures/hazards: No caffeine: Yes Review of Systems Review of Systems Review of systems:: pertinent systems reviewed and negative unless documented below Constitutional Constitutional: Reports chills, Reports fatigue, Reports fever(s) and Reports weakness (LLE/LUE weakness secondary to stroke) Eyes Eyes: Reports system reviewed and no additional complaints, except as documented ENT Ears, Nose, Mouth, and Throat: Reports system reviewed and no additional complaints, except as documented and Reports dry mouth *Cardiovascular Cardiovascular: Reports system reviewed and no additional complaints, except as documented, Reports edema and Reports leg edema *Respiratory Respiratory: Reports system reviewed and no additional complaints, except as documented *Gastrointestinal Gastrointestinal: Reports system reviewed and no additional complaints, except as documented *Genitourinary Genitourinary: Reports system reviewed and no additional complaints, except as documented *Musculoskeletal Musculoskeletal: Reports system reviewed and no additional complaints, except as documented, Reports abnormal gait (LLE/LUE weakness secondary to stroke), Reports joint swelling and Reports numbness Integumentary/Breasts Skin/Breast: Reports system reviewed and no additional complaints, except as documented, Reports nail changes, Reports skin ulcer (left lateral foot) and Reports wounds *Neurologic Neurologic: Reports system reviewed and no additional complaints, except as documented, Reports abnormal gait (LLE/LUE weakness secondary to stroke), Reports numbness, Reports paresthesias and Reports weakness (LLE/LUE weakness secondary to stroke) Psychiatric Psychiatric: Reports system reviewed and no additional complaints, except as documented Endocrine Endocrine: Reports system reviewed and no additional complaints, except as documented and Reports fatigue Hematologic/Lymphatic Hematologic/Lymphatic: Reports system reviewed and no additional complaints, except as documented Allergic/Immunologic Allergic/Immunologic: Reports system reviewed and no additional complaints, except as documented Meds Home Medications and Allergies Home Medications ?Medication ?Instructions ?Recorded ?Confirmed ?Type aspirin 81 mg tablet,delayed 81 mg PO DAILY 02/21/19 10/09/23 History release clopidogrel 75 mg tablet 75 mg PO DAILY 02/21/19 10/09/23 History pantoprazole 40 mg tablet,delayed 40 mg PO DAILY 02/21/19 10/09/23 History release atorvastatin 80 mg tablet (Lipitor) 80 mg PO HS 04/23/20 10/09/23 History levetiracetam 500 mg tablet 500 mg PO BID #60 tabs 08/08/20 10/09/23 Rx carvedilol 3.125 mg tablet (Coreg) 3.125 mg PO BID #60 tabs 06/11/21 10/09/23 Rx fluoxetine 60 mg tablet 60 mg PO DAILY 06/11/21 10/09/23 History dapagliflozin propanediol 10 mg 10 mg PO DAILY 10/09/23 10/09/23 History tablet (Farxiga) docusate sodium 250 mg capsule 250 mg PO BID 10/09/23 10/09/23 History duloxetine 30 mg capsule,delayed 30 mg PO DAILY 10/09/23 10/09/23 History release furosemide 20 mg tablet 20 mg PO DAILYP PRN Edema 10/09/23 10/10/23 History gabapentin 400 mg capsule 400 mg PO QID 10/09/23 10/09/23 History insulin glargine U-300 conc 300 70 unit SQ HS 10/09/23 10/09/23 History unit/mL (3 mL) subcutaneous pen (Toujeo Max U-300 SoloStar) lactulose 20 gram/30 mL oral 30 ml PO DAILY 10/09/23 10/09/23 History solution quetiapine 50 mg tablet 50 mg PO HS 10/09/23 10/09/23 History sacubitril 24 mg-valsartan 26 mg 1 tab PO BID 10/09/23 10/09/23 History tablet (Entresto) tamsulosin 0.4 mg capsule 0.4 mg PO DAILY 10/09/23 10/10/23 History trazodone 150 mg tablet 150 mg PO HS 10/09/23 10/09/23 History hydrocodone 7.5 mg-acetaminophen 1 tab PO Q6HP PRN Moderate Pain 10/10/23 10/10/23 History 325 mg tablet (Scale Score 5-6) New Prescriptions to Start Prescriptions: Allergies Allergy/AdvReac Type Severity Reaction Status Date / Time metformin [METFORMIN] Allergy Unknown Unknown Verified 09/26/23 13:33 allergy reaction NSAIDS (Non-Steroidal Allergy Unknown UNKNOWN Verified 09/26/23 13:33 Anti-Inflamma [NSAIDS (NON-STEROIDAL ANTI-INFLAMMA] morphine Allergy Unknown Verified 09/26/23 13:33 allergy reaction Exam (Inpt) Feet Left and Right: 1. L lateral foot DFU, 3.0 x3.5 x 0.2cm, black necrotic tissue centrally malodorous no active drainage, erythematous borders, cellulitis noted to foot extending upward lower leg. Ultrasound performed left lower extremity negative for any DVT morning. Results Labs 10/10/23 05:31 10/10/23 05:31 Diagnostic results Ankle/Foot x-ray: image reviewed Ankle/Foot CT: report reviewed (Left foot: OM to 5th met base, abscess) and image reviewed Assessment and Plan *Assessment and plan (1) Sepsis without septic shock: Status: Acute Category: Medical Code(s): A41.9 - Sepsis, unspecified organism (2) Acute osteomyelitis of metatarsal bone of left foot: Status: Acute Category: Medical Code(s): M86.172 - Other acute osteomyelitis, left ankle and foot (3) Diabetic foot ulcer: Status: Acute Qualifiers: Diabetes mellitus type: type 2 Diabetic foot ulcer location: midfoot Laterality: left Non-pressure ulcer stage: with necrosis of muscle Qualified Code(s): E11.621 - Type 2 diabetes mellitus with foot ulcer; L97.423 - Non-pressure chronic ulcer of left heel and midfoot with necrosis of muscle Category: Medical Code(s): E11.621 - Type 2 diabetes mellitus with foot ulcer; L97.509 - Non-pressure chronic ulcer of other part of unspecified foot with unspecified severity (4) Type 2 diabetes mellitus with hyperglycemia, with long-term current use of insulin: Status: Acute Category: Medical Code(s): E11.65 - Type 2 diabetes mellitus with hyperglycemia; Z79.4 - prison (current) use of insulin (5) Abscess of left foot: Status: Acute Category: Medical Code(s): L02.612 - Cutaneous abscess of left foot (6) Gangrene of left foot: Status: Acute Category: Medical Code(s): I96 - Gangrene, not elsewhere classified Plan 58yo male with PMHx multiple previous strokes, IDDM with neuropathy, peripheral vascular disease, chronic left lower extremity lymphedema, aortic stenosis, CAD, history of CHF presented to ED for worsening wound of left foot. Patient has a longstanding history of a left diabetic foot ulcer. Arrived with high grade fever, sepsis criteria. started on IV boluses. and broaded abx. wound has a foul smell. Lbas are consistent wit leukocytosis, CT showed acute OM of the base of the fifth metatarsal bone. ED requested admission for inpatient management. Discussed about findings. Agreed for admission. Plan as follow: -Sepsis without septic shock Acute osteomyelitis of the metatarsal bone of left foot Secondary to diabetes foot ulcer Continue IV vancomycin. Pharmacy to dose and monitor kidney function Meropenem will 1 g every 12. To cover suspected Pseudomonas Wound culture pending CT of the lower extremity concerning for osteomyelitis. Will need long-term antibiotic ESR and CRP pending NPO for Podiatry consult NOW Plan for possible surgery today if the patient is agreeable. Site cleaned with betadine, then betadine gauze, dry gauze, tasha applied PRE-OP AMPUTATION/INFECTION: Patient is a 58-year-old diabetic male with neuropathy who has been seen in the outpatient clinic for diabetic foot ulcer. Right heel ulcer has resolved. Left foot ulcer has worsened. CT and radiographs of the left foot were reviewed and discussed with the patient. Imaging shows skin ulceration to the lateral midfoot with a fluid collection extending adjacent to the fifth metatarsal base and along the plantar fascia concerning for small abscess. Osteomyelitis in the base of the fifth metatarsal. We discussed conservative versus surgical treatment options. Conservative treatment options include local wound care, oral and IV antibiotics, change in shoe wear, taping/padding, and off-loading. We discussed surgical intervention for incision and drainage of the abscess, irrigation and debridement of the wound with fifth metatarsal resection for the osteomyelitis. Also discussed possible application of wound VAC. Discussed he may or may not need a partial fifth ray amputation. Patient understands that there is a chance that the foot may change shape after surgery. Discussed role of the peroneal tendon and how it can cause lack of eversion necessitating lifelong diabetic shoes, inserts and possible bracing. Patient also understands that they could have wound healing complications including delayed healing and infection. We discussed that if the wound does not heal, it is possible that they may need a more proximal amputation and could result in further loss of digits, loss of partial foot or loss of leg. We discussed the risks and benefits in great detail. Other surgical risks include: prolonged pain and swelling, further infection requiring oral or IV antibiotics, delay in healing of soft tissue or bone, nerve or blood vessel damage, CRPS/RSD, DVT/PE, anesthesia complications, and even . concerned over a significant cardiac and stroke history. Has LLE and LUE weakness secondary to stroke 2 years ago[address] Has [address] Dr[address] Limon's team in the past and he was referred at some point for cardiology evaluation for open heart surgery. did not do open heart surgery saying he was not a candidate. Discussed and gave patient/family options for transfer for cardiology evaluation prior to foot surgery. However they are okay to seek cardiology team here and would like for me to proceed. I explained I am okay to proceed once I have cardiac clearance. He understands if he has high risk for the procedure, I may do the procedure without anesthesia. We discussed risks of untreated osteomyelitis, gangrene and abscess including sepsis, increased risk of tissue damage and loss and the risk of limb loss i.e. below-knee amputation. All questions answered. Patient verbalized understanding. Consent obtained. -Plan for surgery today pending cardiac clearance. -NPO now. -Consent: left foot incision and drainage, irrigation and debridement, partial fifth metatarsal resection, debridement of nonviable soft tissue and bone, bone biopsy, possible application of wound *Cardiac clearance granted. Will proceed with surgery as discussed above.
--- NOTE | 2023-10-10 07:00 | CA_ITS ---
FINAL REPORT CLINICAL HISTORY: Diabetic foot ulcer rule out DVT left foot, lymphedema, smoker, DM, PVD, CAD, fever, drainage from left foot ulcer. COMPARISON: None FINDINGS: Color Doppler, duplex Doppler and compression sonography of the bilateral lower extremities was performed. There is no evidence of deep venous thrombosis from the level of the groin to the calf. The deep veins are patent and compressible. IMPRESSION: No evidence of deep venous thrombosis bilateral lower extremities. Reviewed, Interpreted and Dictated by Fernando Cleveland III, MD Transcribed by Bibiana Harris Authenticated and [facility]
[2023-10-10 07:05] LABS: Erythrocyte Sedimentation Rate 91 mm/hr (0-20)
[2023-10-10 07:07] LABS: C-Reactive Protein 205.6 mg/L (0-4)
--- NOTE | 2023-10-10 07:35 | P.CONPHA_ITS ---
Pharmacy Consult Date: 10/10/23 Time: 07:35 Referring provider: CAMILO Reason for Consult:: VANCOMYCIN DOSING Allergies Allergy/AdvReac Type Severity Reaction Status Date / Time metformin [METFORMIN] Allergy Unknown Unknown Verified 09/26/23 13:33 allergy reaction NSAIDS (Non-Steroidal Allergy Unknown UNKNOWN Verified 09/26/23 13:33 Anti-Inflamma [NSAIDS (NON-STEROIDAL ANTI-INFLAMMA] morphine Allergy Unknown Verified 09/26/23 13:33 allergy reaction Home Medications ?Medication ?Instructions ?Recorded ?Confirmed ?Type aspirin 81 mg tablet,delayed 81 mg PO DAILY heart health 02/21/19 10/09/23 History release clopidogrel 75 mg tablet 75 mg PO DAILY Platelet Inhibitor 02/21/19 10/09/23 History pantoprazole 40 mg tablet,delayed 40 mg PO DAILY GERD 02/21/19 10/09/23 History release atorvastatin 80 mg tablet (Lipitor) 80 mg PO HS Cholesterol 04/23/20 10/09/23 History levetiracetam 500 mg tablet 500 mg PO BID #60 tabs 08/08/20 10/09/23 Rx carvedilol 3.125 mg tablet (Coreg) 3.125 mg PO BID #60 tabs 06/11/21 10/09/23 Rx fluoxetine 60 mg tablet 60 mg PO DAILY 06/11/21 10/09/23 History azelastine 137 mcg (0.1 %) nasal 2 spray intranasal BID 10/09/23 10/09/23 History spray dapagliflozin propanediol 10 mg 10 mg PO DAILY 10/09/23 10/09/23 History tablet (Farxiga) docusate sodium 250 mg capsule 250 mg PO BID 10/09/23 10/09/23 History duloxetine 30 mg capsule,delayed 30 mg PO DAILY 10/09/23 10/09/23 History release furosemide 20 mg tablet 20 mg PO NEEDED PRN excess fluid 10/09/23 10/09/23 History gabapentin 400 mg capsule 400 mg PO QID 10/09/23 10/09/23 History hydrocodone 7.5 mg-acetaminophen 1 each PO Q6HP PRN pain 10/09/23 10/09/23 History 325 mg tablet insulin glargine U-300 conc 300 70 unit SQ HS 10/09/23 10/09/23 History unit/mL (3 mL) subcutaneous pen (Toujeo Max U-300 SoloStar) lactulose 20 gram/30 mL oral 30 ml PO DAILY 10/09/23 10/09/23 History solution pseudoephedrine-guaifenesin ER 120 600 tab PO DAILY 10/09/23 10/09/23 History mg-600 mg tab,extend release 12hr quetiapine 50 mg tablet 50 mg PO HS 10/09/23 10/09/23 History sacubitril 24 mg-valsartan 26 mg 1 tab PO BID 10/09/23 10/09/23 History tablet (Entresto) tamsulosin 0.4 mg capsule 1.4 mg PO DAILY 10/09/23 10/09/23 History trazodone 150 mg tablet 150 mg PO HS 10/09/23 10/09/23 History New Prescriptions to Start Prescriptions: Height: 1.93 m Weight: 109.225 kg Laboratory Results:: Laboratory Results - last 24 hr 10/09/23 18:10: WBC 15.0 H, RBC 4.07 L, Hgb 12.6 L, Hct 40.3 L, MCV 98.9 H, MCH 30.9, MCHC 31.2 L, RDW 14.3, Plt Count 205, MPV 9.0, Neut % (Auto) 91.8 H, Lymph % (Auto) 2.7 L, [place] % (Auto) 4.8, Eos % (Auto) 0.6, Baso % (Auto) 0.2, Neut # (Auto) 13.8 H, Lymph # (Auto) 0.4 L, [place] # (Auto) 0.7, Eos # (Auto) 0.1, Baso # (Auto) 0.0, Total Counted 100, Neutrophils % (Manual) 97 H, Monocytes % (Manual) 3, Platelet Estimate Normal, RBC Morphology Normal, Sodium 135 L, Potassium 4.1, Chloride 103, Carbon Dioxide 28, Anion Gap 8.1, BUN 24 H, Creatinine 1.50 H, Estimated Creat Clear 81, Estimated GFR 48 L, Est GFR ( Amer) 59, Glucose 302 H, Lactate 2.5 H, Calcium 8.1 L, Total Bilirubin 0.7, AST 26, ALT 31, Alkaline Phosphatase 107, Total Protein 7.0, Albumin 3.7, Globulin 3.3 H, Albumin/Globulin Ratio 1.1 10/09/23 19:24: Urine Color Yellow, Urine Appearance Clear, Urine pH 5.5, Ur Specific [place] <= 1.005, Urine Protein Trace, Urine Glucose (UA) 3+, Urine Ketones Negative, Urine Blood 2+, Urine Nitrate Negative, Urine Bilirubin Negative, Urine Urobilinogen 1.0, Ur Leukocyte Esterase Negative, Urine RBC 10- 20, Urine WBC None, Ur Squamous Epith Cells Occasional, Urine Bacteria None 10/09/23 22:03: POC Glucose 121 H 10/09/23 22:30: Lactate 1.8 10/10/23 05:31: WBC 10.7 D, RBC 3.96 L, Hgb 11.9 L, Hct 38.0 L, MCV 95.9 H, MCH 30.1, MCHC 31.3 L, RDW 14.3, Plt Count 196, MPV 8.7, Neut % (Auto) 84.7 H, Lymph % (Auto) 7.1 L, [place] % (Auto) 6.5, Eos % (Auto) 1.2, Baso % (Auto) 0.5, Neut # (Auto) 9.0 H, Lymph # (Auto) 0.8, [place] # (Auto) 0.7, Eos # (Auto) 0.1, Baso # (Auto) 0.1, ESR 91 H, Sodium 137, Potassium 3.4 L, Chloride 108 H, Carbon Dioxide 26, Anion Gap 6.4, BUN 19, Creatinine 1.10 D, Estimated Creat Clear 111, Estimated GFR 69, Est GFR ( Amer) 84 D, Glucose 77 D, Calcium 7.9 L, Total Bilirubin 0.5, AST 19 D, ALT 19 D, Alkaline Phosphatase 92, C- Reactive Protein 205.6 H, Total Protein 5.9 L, Albumin 2.8 L D, Globulin 3.1, Albumin/Globulin Ratio 0.9 L 10/10/23 05:59: POC Glucose 79 Medical History: Medical History (Updated 10/09/23 @ 22:11 by Bob Mckeon APRN) Heart attack CVA (cerebral vascular accident) Assessment and Plan Assessment and plan all Dx Assessment and Plan for all problems:: Pharmacokinetic dosing service Objective: Patient: Floor: Age: 58 yo Serum creatinine: 1.10 mg/dL Height: 76.0 Inches Weight (kg): 109.2 Assessment: IBW (kg): 86.80 Dosing wt(kg): 109.2 Estimated Creatinine clearance (ml/min): 92.1 CRCL method: Cockcroft and Gault using ibw(default). Drug selected: Vancomycin Loading dose (mg): Vd (liters): 87.4 (factor used: 0.8 L/kg) Justin (hr-1): 0.081 Half life (hrs): 8.56 CLvanco=?? 7.079 L/hr Recommended dose: 2000 mg Interval: 12 hrs Infusion time (hrs): 2.0 Predicted peak (mcg/mL): 34.0 Predicted trough (mcg/mL): 15.13 Total body weight is being used for vancomycin dosing. Recommendations: Give Vancomycin 2000 mg q 12 hrs with an expected Cpeak of 34.0 mcg/ml and an expected Ctrough of 15.13 mcg/ml AUC 0-24 /RODO Data: RODO 0.5 mcg/mL:?? AUC/RODO:? 1130.1 RODO 1.0 mcg/mL:?? AUC/RODO:? 565.1 --------- RODO 1.5 mcg/mL:?? AUC/RODO:? 376.7 RODO 2.0 mcg/mL:?? AUC/RODO:? 282.5 Thank you for the consult, will continue to follow. -ARPIT LOERA, IVANNAD
--- NOTE | 2023-10-10 07:56 | XR_ITS ---
FINAL REPORT CLINICAL HISTORY: Pre op sx planning OM and abscess left 5th met COMPARISON: 08/31/2023 FINDINGS: LEFT FOOT Three views of the left foot demonstrate no acute fracture or dislocation. There is mild degenerative change. Erosion is noted at the lateral aspect of the proximal fifth metatarsal most worrisome for osteomyelitis. Overlying soft tissue defect is noted in this region. IMPRESSION: Proximal fifth metatarsal erosion worrisome for osteomyelitis with overlying soft tissue defect. Reviewed, Interpreted and Dictated by Fernando Cleveland III, MD Transcribed by Bibiana Harris Authenticated and [facility]
--- NOTE | 2023-10-10 08:25 | HMH.PHAINT1 ---
Pharmacy Intervention Comments: MEDICATION RECONCILIATION COMPLETED ON PATIENT USING EXTERNAL FILL HISTORY FROM PHARMACY. -ARPIT LOERA, IVANNAD
[2023-10-10] MEDS: APAP/HYDROCODONE 325MG/7.5MG TAB 1 TAB PO (08:34)
[2023-10-10] MEDS: ASPIRIN EC 81MG TABLET 81 MG PO (08:35)
[2023-10-10] MEDS: DOCUSATE SODIUM 250MG CAPSULE 250 MG PO ×2 (08:35→21:13)
[2023-10-10] MEDS: GABAPENTIN 400MG CAPSULE 400 MG PO (08:35)
[2023-10-10] MEDS: LACTULOSE 20GM/30ML UDC 20 GM PO (08:35)
[2023-10-10] MEDS: CARVEDILOL 3.125MG TABLET 3.125 MG PO ×2 (08:35→21:13)
[2023-10-10] MEDS: FUROSEMIDE 20MG TABLET 20 MG PO (08:35)
[2023-10-10] MEDS: levETIRAcetam 500 MG TABLET PO ×2 (08:35→21:13)
[2023-10-10] MEDS: FLUOXETINE 20MG CAPSULE 60 MG PO (08:35)
[2023-10-10] MEDS: DAPAGLIFLOZIN PROPANEDIOL 10 MG TABLET PO (08:35)
[2023-10-10] MEDS: CLOPIDOGREL 75MG TAB 75 MG PO (08:35)
[2023-10-10] MEDS: SACUBITRIL/VALSARTAN 24-26MG TABLET 1 EACH PO ×2 (08:35→21:13)
[2023-10-10] MEDS: DULOXETINE 30MG CAPSULE.DR 30 MG PO (08:35)
--- NOTE | 2023-10-10 08:53 | CA_ITS ---
APPROVED REPORT EXAM: Comprehensive 2D, Doppler, and color-flow Echocardiogram Leaf Tier: Sandy Jaquez CRT Ht: 6 ft 3 in Wt: 240lbs BSA: 2.37 BP: 160/61 mmHg Indications: CVA x 9, PVD, Stents, Lymphedema, , CAD, CHF, Septoc shock, DM, Smoker, Pre-op 2D Dimensions Left Atrium 3.17 cm LVEF (Garcia's) 69.60 % LVOT 1.63 cm (M/F) 1.5-2.5 LV Volume 72.00 mL LA Volume 48.70 mL LA Volume Index 20.50 mL/m2 (M/F) 16-34 EF AP4 68.00 % EF AP2 68.9 % EF BP 69.6 % GL Strain -19.0 % M-Mode Dimensions RVDd 3.12 cm (0.9-2.6) LVDd 3.98 cm (3.5-5.7) Ao Diam 4.33 cm (2.0-3.7) LVDs 2.44 cm (3.5-5.7) IVSd 2.08 cm (0.6-1.1) PWd 0.83 cm (0.6-1.1) EF (Teich) 69.70% FS 38.70% EDV (Teich) 69.20 mL TAPSE 1.22 (<1.7) ESV (Teich) 21.00 mL LV Diastology E Decel Time 303 (160-240 msec) E/A Ratio 0.77 MED E' 5.7 (>= 7 cm/sec) MED A' 6.00 cm/s E'/MED E' Ratio 11.81 (<= 14) LAT E' 7.0 (>= 10 cm/sec) LAT A' 10.80 cm/s E/LAT E' Ratio 9.61 (<= 14) Aortic Valve LVOT Max 137.0 (70-110 cm/s) DAMIEN Index 0.33 cm2/m2 LVOT VTI 28.48 cm AoV Peak [place]. 386.0 (50-130 cm/s) AO Peak GR. 60.80 mmHg AO Mean GR. 35.60 (<5 mmHg) AO VTI 76.4 (18-25 cm) DAMIEN (VTI) 0.78 (2.5-4.5 cm2) Mitral Valve MV E Max [place]. 67.0 (40-130 cm/s) MV A Velocity 87.0 (40-130 cm/s) E/A Ratio 0.77 MV Decel. Time 303 (160-240 ms) Tricuspid Valve TR P. Velocity 193.00 cm/s RAP Estimate 10.00 mmHg RVSP 24.90 mmHg Left Ventricle The left ventricle is normal size. The left ventricular systolic function is normal. The left ventricular ejection fraction is within the normal range. There is marked increase in LV wall thickness. There is normal LV segmental wall motion. Transmitral Doppler flow pattern suggests impaired LV relaxation. LVEF is 60%. Right Ventricle The right ventricle is normal size. The right ventricular systolic function is normal. Atria The left atrium is mildly dilated. The right atrium size is normal. The interatrial septum is not well visualized. Aortic Valve The aortic valve is possibly bicuspid. The aortic valve is moderately thickened. Severe aortic stenosis is present. Peak velocity 4.1 m/s. Mean AV gradinet 41 mmHg. Max AV gradient 64 mmHg. DAMIEN by continuity equation is 0.6 cm2. Mild aortic regurgitation. Mitral Valve The mitral valve is normal in structure. No evidence of mitral valve stenosis. Trace mitral regurgitation. Tricuspid Valve The tricuspid valve leaflets are thin and pliable. Trace tricuspid regurgitation. There is insufficient TR jet to estimate RVSP. Pulmonic Valve The pulmonary valve is normal in structure. Trace pulmonic regurgitation. Great Vessels The aortic root is normal in size. The ascending aorta is not well visualized. IVC is normal in size and collapses >50% with inspiration. Pericardium There is no pericardial effusion. Other Information Study Quality: Fair Conclusion Normal biventricular systolic function. Mild LA dilation. Severe (lkely bicuspid AV) - peak velocity 4.1 m/s. Mean AV gradinet 41 mmHg. Max AV gradient 64 mmHg. DAMIEN by continuity equation is 0.6 cm2. Mild AI. Compared to prior study from 2020, the transaortic gradients/pressures are higher, suggestive of progression of severity. Electronically signed by : Marci Flores MD 10/10/2023 14:47:00
[2023-10-10] MEDS: VANCOMYCIN HCL 2,000 MG in 0.9 % SODIUM CHLORIDE 250 ML 125 MG IV ×2 (08:59→20:12)
[2023-10-10 10:14] LABS: Troponin I 0.04 ng/ml (0.00-0.034)
--- NOTE | 2023-10-10 10:30 | HMH.PTWOUND ---
Rehab Inpt Wound Evaluation Rehab IP Wound Evaluation Start: 10/10/23 08:53 Freq: ONCE Status: Active Protocol: Document 10/10/23 10:22 JOHN (Rec: 10/10/23 10:30 JOHN [id number]) Rehab PT Wound Assessment Subjective Subjective 58 yowm adm to [facility] with DFU with likely infection. He has PMH of multiple previous strokes, IDDM with neuropathy , peripheral vascular disease, chronic left lower extremity lymphedema, aortic stenosis, CAD, history of CHF. He has been under the care of podiatry for some time due to hx of this wound. per X-ray and CT of L foot, he has osteomyelitis of the 5th MT. Dr. Roque will follow for possible surgical intervention . Wound Left Lateral Foot Wound Type Diabetic Foot Ulcer Is This a Chronic Wound Yes Wound Length (cm) 4.0 Wound Width (cm) 4.0 Wound Bed Appearance Slough,Eschar,Necrotic Percentage of Necrosis (Benjamin) (%) 100 Wound Margins Description Well Defined Surrounding Tissue Appearance [place] Plan/Recommendation Comment Wound dressing left in place. Will await possible surgical debridement by podiatry and follow their recommendations for treatment afterwards. No plans for bedside debridement at this time. Eval Complexity Eval Charge Codes 07123 - High Complexity [place]-Jack Wound Assessment Tool Assessment Wound size 3= Length x Width 16.1--<36 sq cm Wound depth 4=Obscured by necrosis Wound edges 3=Well-defined, not attached to wound base Wound undermining 1=None present Necrotic tissue type 4=Adherent, soft, black eschar Necrotic tissue amount 5=75% to 100% of wound covered Exudate type 5=Purulent: thin or thick, opaque, rosario/yellow, withour without odor Exudate amount 3=Small Skin color surrounding wound 2=Bright red &/or blanches to touch Peripheral tissue edema 2=Non-pitting edema extends <4 cm around wound Peripheral tissue induration 1=None present Granulation tissue 5=No granulation tissue present Epithelialization 5= < 25% wound covered Wound assessment total score 43 PHYSICIAN CERTIFICATION: I certify the specified therapy services for Eran Dove are required, authorized, and reviewed every 30 days.
[2023-10-10] MEDS: MEROPENEM 1 GM in 0.9 % SODIUM CHLORIDE 100 ML IV ×2 (11:09→22:40)
[2023-10-10 11:30] LABS: POC Glucose,Bedside 77 (70-110)
--- NOTE | 2023-10-10 12:14 | P.CONCA_ITS ---
History of Present Illness History of Present Illness Consult date: 10/10/23 Requesting physician: Maru Roque Consult reason: pre-op evaluation Chief complaint: Pre-op for infected foot, aortic stenosis, CAD Additional Medical History:: 1. Mental status change (03/25/20) secondary to hypertensive encephalopathy A. New but not acute basal ganglia infarct noted on limited MRI (patient's ability to cooperate was diminished due to confusion) 2. type 2 diabetes.(03/25/20) 3. Reduced LV systolic dysfunction 40% with a grade 2 diastolic dysfunction (03/25/20) a. Echo, 08/05/2020, EF 40-50% with grade 2 DD. Concentric LVH noted. Moderate aortic calcification with mild stenosis. Peak gradient 22 mmHg. Mean gradient 10-12 mmHg. 4. History of stroke a. Left side hemoparesis 5. Hypertensive emergency (03/24/20) 6. Hyperlipidemia a. Patient is on a statin 7. CAD A. [facility], 02/2020, three-vessel CAD 8. Severe aortic stenosis, 2020 A. evaluation felt to be moderate to severe, 2020 History of present illness: This is a 58yo male with PMHx multiple previous strokes, IDDM with neuropathy, peripheral vascular disease, chronic left lower extremity lymphedema, aortic stenosis, CAD, history of CHF presented to ED for worsening wound of left foot. Patient has a longstanding history of a left diabetic foot ulcer that he is curr ently following with Dr. Roque for however he has had worsening redness drainage and smell. Patient also has had an elevated fever at home and reports chilling. He has multiple medical comorbidities including . Patient currently denies chest pain shortness of breath hemoptysis hematochezia melena nausea vomiting diarrhea. Admitted for further treatment and management. The above per Bob Mckeon APRN for the hospitalist service Cardiology consulted for preop risk assessment. Patient denies any chest pain, pressure or tightness. Limited mobility due to left lower extremity ulcer and prior stroke. History of coronary artery disease and aortic stenosis evaluation at in 2020 resulting in coronary artery stenting but no treatment for his aortic stenosis at that time. No recent follow-up noted per patient. [facility] Disclaimer: The information contained in this section may have been updated after the patient was seen, as this information can be updated by other users. Medical History (Updated 10/10/23 @ 09:08 by Maru Roque DPM) Heart attack CVA (cerebral vascular accident) Surgical History (Updated 10/09/23 @ 21:36 by Edgardo Lee RN) History of nasal surgery Previous back surgery Social History (Updated 10/09/23 @ 21:36 by Edgardo Lee RN) Smoking Status: Current some day smoker tobacco type: cigarettes packs per day: 1 second hand exposure: Yes alcohol intake: never substance use type: denies use current occupational status: disabled Travel in the last 8 weeks: None household members: spouse housing: other current occupational exposures/hazards: No caffeine: Yes Review of Systems Review of Systems Review of systems:: pertinent systems reviewed and negative unless documented below Constitutional Constitutional: Reports weakness (LLE/LUE weakness secondary to stroke) *Musculoskeletal Musculoskeletal: Reports abnormal gait (LLE/LUE weakness secondary to stroke) and Reports numbness *Neurologic Neurologic: Reports system reviewed and no additional complaints, except as documented, Reports abnormal gait (LLE/LUE weakness secondary to stroke), Reports numbness, Reports paresthesias and Reports weakness (LLE/LUE weakness secondary to stroke) Exam Data for Last 24 hours Vital signs and Labs for Last 24 Hours: Temp Pulse Resp BP Pulse Ox O2 Del Method 98.8 F 85 18 107/69 L 95 Room Air 10/10/23 08:00 10/10/23 08:00 10/10/23 08:00 10/10/23 08:00 10/10/23 08:00 10/10/23 11:00 Laboratory Results - last 24 hr 10/09/23 18:10: WBC 15.0 H, RBC 4.07 L, Hgb 12.6 L, Hct 40.3 L, MCV 98.9 H, MCH 30.9, MCHC 31.2 L, RDW 14.3, Plt Count 205, MPV 9.0, Neut % (Auto) 91.8 H, Lymph % (Auto) 2.7 L, [place] % (Auto) 4.8, Eos % (Auto) 0.6, Baso % (Auto) 0.2, Neut # (Auto) 13.8 H, Lymph # (Auto) 0.4 L, [place] # (Auto) 0.7, Eos # (Auto) 0.1, Baso # (Auto) 0.0, Total Counted 100, Neutrophils % (Manual) 97 H, Monocytes % (Manual) 3, Platelet Estimate Normal, RBC Morphology Normal, Sodium 135 L, Potassium 4.1, Chloride 103, Carbon Dioxide 28, Anion Gap 8.1, BUN 24 H, Creatinine 1.50 H, Estimated Creat Clear 81, Estimated GFR 48 L, Est GFR ( Amer) 59, Glucose 302 H, Lactate 2.5 H, Calcium 8.1 L, Total Bilirubin 0.7, AST 26, ALT 31, Alkaline Phosphatase 107, Total Protein 7.0, Albumin 3.7, Globulin 3.3 H, Albumin/Globulin Ratio 1.1 10/09/23 19:24: Urine Color Yellow, Urine Appearance Clear, Urine pH 5.5, Ur Specific [place] <= 1.005, Urine Protein Trace, Urine Glucose (UA) 3+, Urine Ketones Negative, Urine Blood 2+, Urine Nitrate Negative, Urine Bilirubin Negative, Urine Urobilinogen 1.0, Ur Leukocyte Esterase Negative, Urine RBC 10- 20, Urine WBC None, Ur Squamous Epith Cells Occasional, Urine Bacteria None 10/09/23 22:03: POC Glucose 121 H 10/09/23 22:30: Lactate 1.8 10/10/23 05:31: WBC 10.7 D, RBC 3.96 L, Hgb 11.9 L, Hct 38.0 L, MCV 95.9 H, MCH 30.1, MCHC 31.3 L, RDW 14.3, Plt Count 196, MPV 8.7, Neut % (Auto) 84.7 H, Lymph % (Auto) 7.1 L, [place] % (Auto) 6.5, Eos % (Auto) 1.2, Baso % (Auto) 0.5, Neut # (Auto) 9.0 H, Lymph # (Auto) 0.8, [place] # (Auto) 0.7, Eos # (Auto) 0.1, Baso # (Auto) 0.1, ESR 91 H, Sodium 137, Potassium 3.4 L, Chloride 108 H, Carbon Dioxide 26, Anion Gap 6.4, BUN 19, Creatinine 1.10 D, Estimated Creat Clear 111, Estimated GFR 69, Est GFR ( Amer) 84 D, Glucose 77 D, Calcium 7.9 L, Total Bilirubin 0.5, AST 19 D, ALT 19 D, Alkaline Phosphatase 92, Troponin I 0.04 H, C-Reactive Protein 205.6 H, Total Protein 5.9 L, Albumin 2.8 L D, Globulin 3.1, Albumin/Globulin Ratio 0.9 L 10/10/23 05:59: POC Glucose 79 10/10/23 11:11: POC Glucose 77 I & O for Last 24 hours: Intake & Output 10/08/23 10/09/23 10/10/23 10/11/23 11:59 11:59 11:59 11:59 Intake Total 390 / 390 Output Total 0 / 0 Balance 390 / 390 Weight 240 lb 12.8 oz Microbiology Reports for the Last 24 Hours: Microbiology 10/09/23 22:05 Ankle,Left Gram Stain - Final Constitutional Constitutional: no acute distress *Routine Respiratory Exam Respiratory: Present CTA bilaterally *Routine Cardiovascular Exam Cardiovascular: Present RRR and murmur; Absent gallop or rubs *Routine Extremities Exam Extremities: Present edema Comments: Left foot wrapped. Meds Home Medications and Allergies Home Medications ?Medication ?Instructions ?Recorded ?Confirmed ?Type aspirin 81 mg tablet,delayed 81 mg PO DAILY 02/21/19 10/09/23 History release clopidogrel 75 mg tablet 75 mg PO DAILY 02/21/19 10/09/23 History pantoprazole 40 mg tablet,delayed 40 mg PO DAILY 02/21/19 10/09/23 History release atorvastatin 80 mg tablet (Lipitor) 80 mg PO HS 04/23/20 10/09/23 History levetiracetam 500 mg tablet 500 mg PO BID #60 tabs 08/08/20 10/09/23 Rx carvedilol 3.125 mg tablet (Coreg) 3.125 mg PO BID #60 tabs 06/11/21 10/09/23 Rx fluoxetine 60 mg tablet 60 mg PO DAILY 06/11/21 10/09/23 History dapagliflozin propanediol 10 mg 10 mg PO DAILY 10/09/23 10/09/23 History tablet (Farxiga) docusate sodium 250 mg capsule 250 mg PO BID 10/09/23 10/09/23 History duloxetine 30 mg capsule,delayed 30 mg PO DAILY 10/09/23 10/09/23 History release furosemide 20 mg tablet 20 mg PO DAILYP PRN Edema 10/09/23 10/10/23 History gabapentin 400 mg capsule 400 mg PO QID 10/09/23 10/09/23 History insulin glargine U-300 conc 300 70 unit SQ HS 10/09/23 10/09/23 History unit/mL (3 mL) subcutaneous pen (Toujeo Max U-300 SoloStar) lactulose 20 gram/30 mL oral 30 ml PO DAILY 10/09/23 10/09/23 History solution quetiapine 50 mg tablet 50 mg PO HS 10/09/23 10/09/23 History sacubitril 24 mg-valsartan 26 mg 1 tab PO BID 10/09/23 10/09/23 History tablet (Entresto) tamsulosin 0.4 mg capsule 0.4 mg PO DAILY 10/09/23 10/10/23 History trazodone 150 mg tablet 150 mg PO HS 10/09/23 10/09/23 History hydrocodone 7.5 mg-acetaminophen 1 tab PO Q6HP PRN Moderate Pain 10/10/23 10/10/23 History 325 mg tablet (Scale Score 5-6) New Prescriptions to Start Prescriptions: Allergies Allergy/AdvReac Type Severity Reaction Status Date / Time metformin [METFORMIN] Allergy Unknown Unknown Verified 09/26/23 13:33 allergy reaction NSAIDS (Non-Steroidal Allergy Unknown UNKNOWN Verified 09/26/23 13:33 Anti-Inflamma [NSAIDS (NON-STEROIDAL ANTI-INFLAMMA] morphine Allergy Unknown Verified 09/26/23 13:33 allergy reaction Assessment and Plan *Assessment and plan (1) Abscess of left foot: Status: Acute Category: Medical Code(s): L02.612 - Cutaneous abscess of left foot (2) Diabetic foot ulcer: Status: Acute Qualifiers: Diabetes mellitus type: type 2 Diabetic foot ulcer location: midfoot Laterality: left Non-pressure ulcer stage: with necrosis of muscle Qualified Code(s): E11.621 - Type 2 diabetes mellitus with foot ulcer; L97.423 - Non- pressure chronic ulcer of left heel and midfoot with necrosis of muscle Category: Medical Code(s): E11.621 - Type 2 diabetes mellitus with foot ulcer; L97.509 - Non-pressure chronic ulcer of other part of unspecified foot with unspecified severity (3) Coronary artery disease: Status: Acute Qualifiers: Coronary Disease-Associated Artery/Lesion type: [place] artery [place] vs. transplanted heart: [place] heart Associated angina: without angina Qualified Code(s): I25.10 - Atherosclerotic heart disease of [place] coronary artery without angina pectoris Category: Medical Code(s): I25.10 - Atherosclerotic heart disease of [place] coronary artery without angina pectoris (4) Severe aortic stenosis: Status: Acute Category: Medical Code(s): I35.0 - Nonrheumatic aortic (valve) stenosis (5) LV dysfunction: Status: Acute Category: Medical Code(s): I51.9 - Heart disease, unspecified (6) Cigarette smoker: Status: Acute Category: Social Hx Code(s): F17.210 - Nicotine dependence, cigarettes, uncomplicated (7) Type 2 diabetes mellitus with hyperglycemia, with long-term current use of insulin: Status: Acute Category: Medical Code(s): E11.65 - Type 2 diabetes mellitus with hyperglycemia; Z79.4 - retirement (current) use of insulin Plan 1. Diabetic foot ulcer with osteomyelitis of the left foot -plans for incision and drainage today per podiatry 2. Coronary artery disease, clinically stable -Continue aspirin, Plavix, statin, Farxiga, Entresto and beta-jason 3. Aortic stenosis, moderate to severe -Monitor vital signs to avoid hypotension 4. Diabetes mellitus, poorly controlled -Defer to hospitalist 5. Tobacco user -Cessation 6. History of LV dysfunction with last EF 40-50% in 2020 -EF appears normal on echo this admission Patient is a high cardiovascular risk for noncardiac surgery. At this time, patient is clinically stable with no modifiable risk factors to decrease that chance during surgery. Preliminary echocardiogram report today shows preserved ejection fraction with aortic stenosis in the moderate-severe range.
--- NOTE | 2023-10-10 13:40 | PC.NURSE ---
pt off floor for surgery
[2023-10-10] MEDS: LACTATED RINGERS 1000ML 1,000 ML 25 ML IV (13:45)
--- NOTE | 2023-10-10 14:05 | EXP.ANES.CKL ---
[facility] Disclaimer: The information contained in this section may have been updated after the patient was seen, as this information can be updated by other users. Medical History (Updated 10/10/23 @ 09:08 by Maru Roque DPM) Heart attack CVA (cerebral vascular accident) Surgical History (Updated 10/09/23 @ 21:36 by Edgardo Lee RN) History of nasal surgery Previous back surgery Social History (Updated 10/09/23 @ 21:36 by Edgardo Lee RN) Smoking Status: Current some day smoker tobacco type: cigarettes packs per day: 1 second hand exposure: Yes alcohol intake: never substance use type: denies use current occupational status: disabled Travel in the last 8 weeks: None household members: spouse housing: other current occupational exposures/hazards: No caffeine: Yes [facility] Anesthesia Checklist Patient Identification Patient Identification: Arm Band, Family and Verbal (Name & ) Structural Data Admitted From: Inpatient (RM [id number]) Planned Operative Procedure/s: LT. ft I&D wound/soft tissue/bone; partial 5th metatarsal resect; bone bx Consent for Planned Operative Procedure(s) Verified: Yes Verified Documents: Surgical Consent and History and Physical NPO Status Verified Time NPO: 23:00 Chart Verification Results Verified: CBC, BMP, ECG and Chest Xray Additional verifications Fingerstick Blood Glucose: 77 Patient : No Anesthesia Reactions: No Cardiovascular Assessment Heart Sounds: S1 & S2 Pulse Rhythm: Irregular Peripheral Edema: Yes (VELIA LE) Airway Assessment Mallampati Score:: Class III C-Spine Mobility Assessed: Yes (FROM) TMJ Mobility Assessed: Yes Dentition: Edentulous Neurological Assessment Level of Consciousness: Awake, Alert, Appropriate and Follows Commands Hx Seizures: No Numbness or tingling in extremities: Yes (VELIA LE) Anesthesia Plan Anesthesia Risk discussed: Yes Anesthesia Plan: Verified ASA Class: III Anesthesia Type: MAC
[2023-10-10] MEDS: CLINDAMYCIN PHOSPHATE/D5W 900 MG/50 ML PIGGYBACK 50 MG IV (15:24)
[2023-10-10] MEDS: GENTAMICIN 80 MG/2 ML VIAL (15:24)
[2023-10-10] MEDS: VANCOMYCIN 1000MG VIAL 1000 MG (15:25)
--- NOTE | 2023-10-10 16:15 | P.PNANES_ITS ---
[facility] Anesthesia Record Part I Anesthesia Record I Intake, IV Amount: 600 Hydration: Adequate Estimated blood loss (mL): 50 Urine output (mL): 0 Blood Products used (#): none Blood Pressure: 88/48 SaO2: 92 Pulse Rate: 77 Airway Patency: Patent Respiratory Rate: 16 Temperature: 97.2 F Patient is:: Awake (Talking) and Stable Stable to PACU at:: 16:10
--- NOTE | 2023-10-10 16:18 | XR_ITS ---
FINAL REPORT CLINICAL HISTORY: S/p 5th met partial resection, OM COMPARISON: 10/10/2023 FINDINGS: RIGHT FOOT: Three views of the right foot were obtained. Since the prior examination of October 09 there has been interval resection of the proximal fifth metatarsal. A presumed drain is in the surgical bed on the lateral aspect of the foot. There is no acute fracture or dislocation. The joint spaces are otherwise intact. IMPRESSION: Since the prior exam of October 09 there has been interval resection of the proximal fifth metatarsal, with a presumed drain now present in the surgical bed on the lateral aspect of the foot. Reviewed, Interpreted and Dictated by Fernando Cleveland III, MD Transcribed by Tamra Jang Authenticated and [facility]
--- NOTE | 2023-10-10 16:19 | EXP.OP.NOTE ---
Date of procedure: 10/10/23 Pre-op Diagnosis:: Left diabetic foot ulcer Left diabetic foot infection Left foot abscess Left foot gangrene Diabetes with peripheral neuropathy PVD Post-op Diagnosis:: Same Procedure performed:: Left partial fifth metatarsal resection Left foot incision and drainage Left foot wide excisional wound/ulcer debridement Application of wound VAC Surgeon:: Maru Roque DPM CONFERENCE DIRECTOR:: Esperanzalori Michaud Anesthesia: MAC Estimated blood loss (mL): 50 Clinical Note:: See podiatry consult/H&P from today 10/10/2023. Risks and benefits of surgery were discussed in detail with patient and . All questions were answered. Patient agreed to proceed with surgery. Operative findings:: Left foot lateral ulceration over the fifth metatarsal preoperatively Prialt 3.5 x 3.5 cm. There was foul odor and necrotic tissue noted. Purulent malodorous drainage noted. Wound culture taken. Wound was widely excisionally debrided full-thickness through skin and subcu deep fascia down to the level of the fifth metatarsal bone. Ulcer sent as a tissue culture. Bone was evaluated. The bone was soft with purulent drainage coming from the base of the fifth metatarsal. César used to transect nonviable bone which was sent for bone culture and pathology. The remaining distal part of the metatarsal that looks to be healthy, a 2 mm piece of bone was resected and sent as a margin. There was a track running from the fifth metatarsal base along the plantar fascia about 5 cm deep. Thick purulent creamy malodorous drainage was expressed from this track. There was significant menjivar and necrotic tissue noted at the lateral and plantar lateral foot around the fifth metatarsal base. The peroneal tendon insertion was completely necrotic as was about 3 cm of the peroneal tendon which was all resected. Wound was flushed with antibiotic solution. Post I&D and wide debridement no obvious remaining necrotic tissue noted. The cuboid and fourth metatarsal base appear to be intact with no evidence of osteomyelitis. Post debridement total wound length was 13 x 5.8 x 6.2 cm tracking. Sutures used to reapproximate the distal and proximal ends of the I&D site. Post partial closure the central wound was 100% granular with bleeding noted and measured 8.5 x 5.8 x 6.2 cm full-thickness. Overall prognosis fair?poor due to extent of necrotic tissue and infection with tissue loss and damage to the lateral and plantar lateral foot. Patient will need significant outpatient management including wound care, the use of wound VAC, oral and IV antibiotics, PICC line therapy and continue monitoring for several months at least. Due to the severity of the infection there is high risk for reinfection, need for further debridement and possibility of further loss of soft tissue/bone including partial loss of digits, partial loss of foot or leg. Operative note:: On this date and time the patient was deemed an appropriate surgical candidate. With informed consent time patient was transferred from the preoperative holding area to the operating theater placed on table in a normal supine position. Left lower extremity was prepped and draped in normal sterile fashion. No tourniquet utilized. IV vancomycin and meropenem previously given on floor. IV clindamycin infused and surgery. Left foot incision and drainage (abscess): Attention was directed to the left lateral foot where edema and erythema was noted around the diabetic foot ulcer/fifth metatarsal open wound. Utilizing a 15 blade, ellipse incision full-thickness was made distal to the ulcer site. Full-thickness debridement through skin, subcutaneous tissue, deep fascia down to the level of the bone. There was thick purulent malodorous drainage noted from the distal incision and wound. Wound culture taken. Next hemostat used to explore the area. There was deep tracking and tunneling noted. Incision was extended proximally and distally 13cm total length and 4 cm deep. The tracking was about 6 cm plantar laterally from the open wound along the course of the plantar fascia. Left wound/ulcer wide excisional (irrigation and) debridement: Attention was directed back to the lateral plantar foot. The ulcer was excised full thickness and sent as a tissue culture. 15 blade, forceps and curette was used to sharply debride fibrotic and gangrenous malodorous necrotic nonviable soft tissue full thickness from the lateral and inferior plantar foot, extending into plantar fascia. Rongeur used to remove nonviable tissue. A pulse lavage was used 1L with gentamicin irrigation to flush the wound. Partial fifth metatarsal resection: There was purulence malodor and drainage from the fifth metatarsal base. A sagittal saw was used to transect the base of the fifth metatarsal about 4 cm including the base distally. Bone was transected and some sent for bone culture and the rest for bone pathology. The remaining part of the distal/central metatarsal appeared to be intact and healthy with normal color and texture. Saw was used to transect a 2 mm piece of this bone and which was sent as a margin. A pulse lavage was used 2L with gentamicin irrigation to flush all incisions. Wound was reexplored and no new necrotic tissue or purulence was noted. The fourth metatarsal base and cuboid were noted and the incision, with no obvious signs of osteomyelitis noted. The skin edges did have some bleeding. Skin surrounding wound was debrided with a curette there was bleeding noted to the skin surrounding ulceration. Post debridement: wound was 100% granular with bleeding noted. See operative finding for measurements. Partial secondary surgical wound closure: Next Prolene was used to reapproximate the distal and proximal skin edges of the incision. The wound centrally was 100% granular and measured 8.5 x 5.8 x 6.2cm deep post partial closure. Application of vanco: 1 g of vancomycin powder was then inserted into the open lateral foot wound. Application of wound VAC: Clear foam was applied to the skin when doing the wound. Black foam was cut to size and inserted into the wound bed over the vancomycin powder. Wound VAC applied at standard technique and set to 125 mmHg medium continuous. Adequate suction noted to wound site. No leaks noted. Dry sterile dressing was then applied over the left foot. He was woken from anesthesia with vitals stable and neurovascular status intact to be transferred to recovery before being transferred to the floor. Patient appeared to tolerate anesthesia and procedure well without complication. Materials: 1g vancomycin powder, wound VAC Plan: Maintain dressing clean dry and intact to left foot, reinforce as necessary. NWB in short fracture boot or postop surgical shoe, walker/wheelchair. Continue IV antibiotics: Vancomycin, meropenem. Will likely need PICC line with IV antibiotics x 4 to 6 weeks. Plan for Podiatry wound vac change 10/12/23 @0900. Left foot wound vac @125mmHg medium continuous. Then will need [facility] wound care team, vac change on 10/14/23. Upon discharge: will need DME (post op surgical shoe or short fracture boot), will need wound vac ordered. Likely SNF placement due to hx LLE/LUE weakness secondary to stroke, left foot wound, need for wound vac changes, IV antibiotics. is unable to take care of him at home. Follow up with Kashif at [facility] outpatient for vac changes. Follow up with Podiatry outpatient for wound re-evaluation/monitoring. Condition: stable Disposition: floor Specimens:: Left foot WCx Left foot ulcer tissue culture Left 5th metatarsal bone culture Path: left 5th metatarsal, margin Complications:: None
[2023-10-10 16:33] LABS: POC Glucose,Bedside 80 (70-110)
--- NOTE | 2023-10-10 17:24 | EXP.PN ---
Subjective *Date: 10/10/23 *Time: 17:24 Interval history: patient is seen and evaluated at bedside, patient is lying in bed comfortably, denied CP, SOB Exam Data for Last 24 hours Vital signs and Labs for Last 24 Hours: Temp Pulse Resp BP Pulse Ox O2 Del Method 97.8 F 73 16 88/52 L 98 Room Air 10/10/23 16:54 10/10/23 17:15 10/10/23 17:15 10/10/23 17:15 10/10/23 17:15 10/10/23 17:15 Laboratory Results - last 24 hr 10/09/23 18:10: WBC 15.0 H, RBC 4.07 L, Hgb 12.6 L, Hct 40.3 L, MCV 98.9 H, MCH 30.9, MCHC 31.2 L, RDW 14.3, Plt Count 205, MPV 9.0, Neut % (Auto) 91.8 H, Lymph % (Auto) 2.7 L, [place] % (Auto) 4.8, Eos % (Auto) 0.6, Baso % (Auto) 0.2, Neut # (Auto) 13.8 H, Lymph # (Auto) 0.4 L, [place] # (Auto) 0.7, Eos # (Auto) 0.1, Baso # (Auto) 0.0, Total Counted 100, Neutrophils % (Manual) 97 H, Monocytes % (Manual) 3, Platelet Estimate Normal, RBC Morphology Normal, Sodium 135 L, Potassium 4.1, Chloride 103, Carbon Dioxide 28, Anion Gap 8.1, BUN 24 H, Creatinine 1.50 H, Estimated Creat Clear 81, Estimated GFR 48 L, Est GFR ( Amer) 59, Glucose 302 H, Lactate 2.5 H, Calcium 8.1 L, Total Bilirubin 0.7, AST 26, ALT 31, Alkaline Phosphatase 107, Total Protein 7.0, Albumin 3.7, Globulin 3.3 H, Albumin/Globulin Ratio 1.1 10/09/23 19:24: Urine Color Yellow, Urine Appearance Clear, Urine pH 5.5, Ur Specific [place] <= 1.005, Urine Protein Trace, Urine Glucose (UA) 3+, Urine Ketones Negative, Urine Blood 2+, Urine Nitrate Negative, Urine Bilirubin Negative, Urine Urobilinogen 1.0, Ur Leukocyte Esterase Negative, Urine RBC 10-20, Urine WBC None, Ur Squamous Epith Cells Occasional, Urine Bacteria None 10/09/23 22:03: POC Glucose 121 H 10/09/23 22:30: Lactate 1.8 10/10/23 05:31: WBC 10.7 D, RBC 3.96 L, Hgb 11.9 L, Hct 38.0 L, MCV 95.9 H, MCH 30.1, MCHC 31.3 L, RDW 14.3, Plt Count 196, MPV 8.7, Neut % (Auto) 84.7 H, Lymph % (Auto) 7.1 L, [place] % (Auto) 6.5, Eos % (Auto) 1.2, Baso % (Auto) 0.5, Neut # (Auto) 9.0 H, Lymph # (Auto) 0.8, [place] # (Auto) 0.7, Eos # (Auto) 0.1, Baso # (Auto) 0.1, ESR 91 H, Sodium 137, Potassium 3.4 L, Chloride 108 H, Carbon Dioxide 26, Anion Gap 6.4, BUN 19, Creatinine 1.10 D, Estimated Creat Clear 111, Estimated GFR 69, Est GFR ( Amer) 84 D, Glucose 77 D, Calcium 7.9 L, Total Bilirubin 0.5, AST 19 D, ALT 19 D, Alkaline Phosphatase 92, Troponin I 0.04 H, C-Reactive Protein 205.6 H, Total Protein 5.9 L, Albumin 2.8 L D, Globulin 3.1, Albumin/Globulin Ratio 0.9 L 10/10/23 05:59: POC Glucose 79 10/10/23 11:11: POC Glucose 77 10/10/23 16:12: POC Glucose 80 I & O for Last 24 hours: Intake & Output 10/07/23 10/08/23 10/09/23 10/10/23 23:59 23:59 23:59 23:59 Intake Total 990 / 990 Output Total 0 / 0 0 / 0 Balance 0 / 390 990 / 990 Weight 104.326 kg 109.225 kg Microbiology Reports for the Last 24 Hours: Microbiology 10/09/23 22:05 Ankle,Left Gram Stain - Final Constitutional Constitutional: no acute distress *Routine HEENT Exam Head: Present normocephalic Eye: Present EOMI and PERRL ENT: Present mucous membranes moist *Routine Neck Exam Neck: Present supple; Absent lymphadenopathy *Routine Respiratory Exam Respiratory: Present CTA bilaterally *Routine Cardiovascular Exam Cardiovascular: Present RRR *Routine Abdominal Exam Abdominal: Present soft and normoactive bowel sounds; Absent tenderness *Routine Extremities Exam Extremities: Absent cyanosis, clubbing or edema *Routine Skin Exam Skin: Present warm; Absent rash *Routine Neurological Exam Neurological: Present alert and oriented X3 Assessment and Plan *Assessment and plan (1) Sepsis without septic shock: Status: Acute Category: Medical Code(s): A41.9 - Sepsis, unspecified organism (2) Acute osteomyelitis of metatarsal bone of left foot: Status: Acute Category: Medical Code(s): M86.172 - Other acute osteomyelitis, left ankle and foot (3) Diabetic foot ulcer: Status: Acute Qualifiers: Diabetes mellitus type: type 2 Diabetic foot ulcer location: midfoot Laterality: left Non-pressure ulcer stage: with necrosis of muscle Qualified Code(s): E11.621 - Type 2 diabetes mellitus with foot ulcer; L97.423 - Non-pressure chronic ulcer of left heel and midfoot with necrosis of muscle Category: Medical Code(s): E11.621 - Type 2 diabetes mellitus with foot ulcer; L97.509 - Non-pressure chronic ulcer of other part of unspecified foot with unspecified severity (4) Type 2 diabetes mellitus with hyperglycemia, with long-term current use of insulin: Status: Acute Category: Medical Code(s): E11.65 - Type 2 diabetes mellitus with hyperglycemia; Z79.4 - FCI (current) use of insulin (5) Coronary artery disease: Status: Acute Qualifiers: Coronary Disease-Associated Artery/Lesion type: [place] artery [place] vs. transplanted heart: [place] heart Associated angina: without angina Qualified Code(s): I25.10 - Atherosclerotic heart disease of [place] coronary artery without angina pectoris Category: Medical Code(s): I25.10 - Atherosclerotic heart disease of [place] coronary artery without angina pectoris (6) CHF (congestive heart failure): Status: Acute Qualifiers: Heart failure chronicity: acute Heart failure type: unspecified Qualified Code(s): I50.9 - Heart failure, unspecified Category: Medical Code(s): I50.9 - Heart failure, unspecified (7) History of cerebrovascular accident (CVA) from right carotid artery occlusion involving right middle cerebral artery territory: Status: Chronic Category: Medical Code(s): Z86.73 - Personal history of transient ischemic attack (TIA), and cerebral infarction without residual deficits Plan 58yo male with PMHx multiple previous strokes, IDDM with neuropathy, peripheral vascular disease, chronic left lower extremity lymphedema, aortic stenosis, CAD, history of CHF presented to ED for worsening wound of left foot. Patient has a longstanding history of a left diabetic foot ulcer. -Sepsis without septic shock Acute osteomyelitis of the metatarsal bone of left foot Diabetic foot ulcer Podiatric consult - plan for OR today after cardiology clearance Continue IV vancomycin, Meropenem for psuedomonal and VRE coverage Wound culture pending Monitor for sepsis CT of the lower extremity concerning for osteomyelitis. Will need long-term antibiotic ESR and CRP Monitor daily labs. Include CBC CMP Tylenol for fever greater than 101F -Uncontrolled insulin-dependent diabetes with neuropathy: Resume home regimen insulin Last A1c 8.1 Sliding scale Monitor blood sugar before meals Gabapentin -CHF and coronary artery disease: on Entresto. May hold hypertensive medication in the setting of sepsis or hypotension On Plavix, aspirin and statin History of CVA: On Keppra twice daily Plavix for DVT prophylaxis. Protonix for GI bleed protection Full code consult PT/OT, await OR by podiatry today, continue IV abx
[2023-10-10] MEDS: TAMSULOSIN 0.4MG CAPSULE 0.4 MG PO (21:13)
[2023-10-10] MEDS: PANTOPRAZOLE 40MG TABLET 40 MG PO (21:13)
[2023-10-10] MEDS: ATORVASTATIN 40MG TABLET 80 MG PO (21:13)
[2023-10-10] MEDS: ACETAMINOPHEN 325MG TAB 650 MG PO (21:41)
[2023-10-11] VITALS (7 sets, daily range): BP systolic 107–153; BP diastolic 61–78; PULSE 77–96; RESP 17–20; TEMP 36.4–37.8; O2SAT 90–95; BMI 28.3
[2023-10-11] MEDS: APAP/HYDROCODONE 325MG/7.5MG TAB 1 TAB PO ×3 (00:41→18:28)
[2023-10-11 00:51] LABS: POC Glucose,Bedside 162 (70-110)
[2023-10-11 05:56] LABS: POC Glucose,Bedside 157 (70-110)
[2023-10-11] MEDS: humaLOG 100 UNITS/ML 10ML VIAL (SSI) SQ ×4 (05:58→20:39)
[2023-10-11 06:15] LABS: Basophils % 0.1 % (0.1-2.0); Eosinophils % 0.1 % (0.1-12.0); Hematocrit 35.5 % (42.0-52.0); Hemoglobin 11.1 g/dL (14.1-18.0); Lymphocytes # 0.5 K/mm3 (0.7-4.5); Lymphocytes % 3.4 % (10-50); Mean Corpuscular HGB Conc 31.3 g/dL (31.8-35.4); Mean Corpuscular Hemoglobin 30.2 pg (27.0-31.2); Mean Corpuscular Volume 96.5 fl (80-94); Mean Platelet Volume 8.2 fl (7.4-10.4); Monocytes # 0.9 K/mm3 (0.1-1.0); Monocytes % 6.9 % (1.7-9.3); Neutrophils # 12.3 K/mm3 (1.8-7.8); Neutrophils % 89.6 % (37.0-80.0); Platelet Count 193 K/mm3 (142-424); Red Blood Count 3.67 M/mm3 (4.60-6.20); Red Cell Distribution Width 14.3 % (11.5-17.5); White Blood Count 13.7 K/mm3 (4.8-10.8)
[2023-10-11 06:16] LABS: Albumin Level 2.9 g/dl (3.5-5.0); Chloride 110 mmol/L (98-107); Potassium 3.8 mmoL/L (3.5-5.1); Sodium 135 mmol/L (136-145)
[2023-10-11 06:19] LABS: Alanine Aminotransferase 25 U/L (12-78); Alkaline Phosphatase 101 U/L (38-126); Anion Gap 3.8 mEq/L (5-15); Aspartate Amino Transferase 31 U/L (17-59); Bilirubin,Total 0.8 mg/dl (0.2-1.3); Blood Urea Nitrogen 24 mg/dl (9-20); Calcium 7.6 mg/dl (8.4-10.2); Carbon Dioxide 25 mmol/L (22.0-30.0); Creatinine Clearance Estimated 123 mL/min (50-200); Estimated Glomerular Filt Rate 77 ml/min (>60); GFR (African American) 94 ML/MIN (>60); Globulin 2.8 g/dL (1.3-3.2); Glucose 145 mg/dl (74-100); Total Protein,Serum 5.7 g/dl (6.3-8.2)
--- NOTE | 2023-10-11 06:20 | PC.NURSE ---
Patient is alert and oriented x4. Patient's has remained at bedside through the night. Patient has slept intermittently throughout the shift. Patient's lung sounds were clear and bowel sounds were active upon auscultation. Patient had one small bowel movement with hard stool and voided during this shift. Earlier this shift, the patient stated that he was feeling sick and nauseous; the patient was given Zofran 4mg IV per MAR and reported relief. He has also been complaining of feeling very cold and with chills this shift, along with lower back pain as a level 6. Patient's oral temperatures at 20:00 and midnight were in the 100s. He was given Tylenol at 21:41; blankets were also removed and a fan was placed on him later. At 00:40, the patient's temp was found to have decreased to 99.3; he has not had further complaints at the time. However, he started to report increasing back pain (rated as a level 8 ). At 00:41, he was given [place] 7.5mg PO per MAR with permitting blood pressures (128/78); the patient was able to sleep after receiving the pain med. Patient received his scheduled meds per MAR. Patient's post-op vitals signs were completed this shift. The patient's woundvac is in place to his left foot and has been draining thick clots of sanguineous drainage; ANKITA wrap is in place. His left foot is elevated with a pillow. FSBS at 21:00 this shift was 147; insulin was not given at this time due to the reading. At around 05:30, the patient's FSBS was 157; he was given 5 units Lispro per sliding scale. Patient does not have any further complaints at this time. He is currently resting in bed. Seizure pads are in place and call light is within reach.
[2023-10-11 06:25] LABS: C-Reactive Protein 205.1 mg/L (0-4)
[2023-10-11 06:36] LABS: MANUAL DIFFERENTIAL MANUAL DIFFERENTIAL (MANUAL DIFF)
--- NOTE | 2023-10-11 06:38 | P.CONS_ITS ---
History of Present Illness *Admission Date: 10/09/23 *History of present illness: This is a 58yo male with PMHx multiple previous strokes, IDDM with neuropathy, peripheral vascular disease, chronic left lower extremity lymphedema, aortic stenosis, CAD, history of CHF presented to ED for worsening wound of left foot. Patient has a longstanding history of a left diabetic foot ulcer that he is currently following with Dr. Roque for however he has had worsening redness drainage and smell. Patient also has had an elevated fever at home and reports chilling. He has multiple medical comorbidities including. Patient currently denies chest pain shortness of breath hemoptysis hematochezia melena nausea vomiting diarrhea. Admitted for further treatment and management. Podiatry: Patient is well-known to the podiatry clinic and had his last office visit with [facility] 09/26/23, he was scheduled for office visit today. reports over the weekend he had increased in wound size, odor and drainage. Patient developed low-grade temperature Tuesday and they brought him into the ER yesterday. Reports a significant cardiac history and hx LLE/LUE weakness secondary to stroke. He did have recent ABIs in August which showed R: GIANNI PT 1.22, DP 1.00, TBI 1.73 and L: GIANNI PT 0.872, DP 0.85, TBI 0.69. [facility] Disclaimer: The information contained in this section may have been updated after the patient was seen, as this information can be updated by other users. Medical History (Updated 10/11/23 @ 07:03 by Stefany Kelly APRN) Heart attack CVA (cerebral vascular accident) Surgical History (Updated 10/09/23 @ 21:36 by Edgardo Lee RN) History of nasal surgery Previous back surgery Social History (Updated 10/09/23 @ 21:36 by Edgardo Lee RN) Smoking Status: Current some day smoker tobacco type: cigarettes packs per day: 1 second hand exposure: Yes alcohol intake: never substance use type: denies use current occupational status: disabled Travel in the last 8 weeks: None household members: spouse housing: other current occupational exposures/hazards: No caffeine: Yes Review of Systems Constitutional Constitutional: Reports weakness (LLE/LUE weakness secondary to stroke) *Musculoskeletal Musculoskeletal: Reports abnormal gait (LLE/LUE weakness secondary to stroke) and Reports numbness *Neurologic Neurologic: Reports system reviewed and no additional complaints, except as documented, Reports abnormal gait (LLE/LUE weakness secondary to stroke), Reports numbness, Reports paresthesias and Reports weakness (LLE/LUE weakness secondary to stroke) Meds Home Medications and Allergies Home Medications ?Medication ?Instructions ?Recorded ?Confirmed ?Type aspirin 81 mg tablet,delayed 81 mg PO DAILY 02/21/19 10/09/23 History release clopidogrel 75 mg tablet 75 mg PO DAILY 02/21/19 10/09/23 History pantoprazole 40 mg tablet,delayed 40 mg PO DAILY 02/21/19 10/09/23 History release atorvastatin 80 mg tablet (Lipitor) 80 mg PO HS 04/23/20 10/09/23 History levetiracetam 500 mg tablet 500 mg PO BID #60 tabs 08/08/20 10/09/23 Rx carvedilol 3.125 mg tablet (Coreg) 3.125 mg PO BID #60 tabs 06/11/21 10/09/23 Rx fluoxetine 60 mg tablet 60 mg PO DAILY 06/11/21 10/09/23 History dapagliflozin propanediol 10 mg 10 mg PO DAILY 10/09/23 10/09/23 History tablet (Farxiga) docusate sodium 250 mg capsule 250 mg PO BID 10/09/23 10/09/23 History duloxetine 30 mg capsule,delayed 30 mg PO DAILY 10/09/23 10/09/23 History release furosemide 20 mg tablet 20 mg PO DAILYP PRN Edema 10/09/23 10/10/23 History gabapentin 400 mg capsule 400 mg PO QID 10/09/23 10/09/23 History insulin glargine U-300 conc 300 70 unit SQ HS 10/09/23 10/09/23 History unit/mL (3 mL) subcutaneous pen (Toujeo Max U-300 SoloStar) lactulose 20 gram/30 mL oral 30 ml PO DAILY 10/09/23 10/09/23 History solution quetiapine 50 mg tablet 50 mg PO HS 10/09/23 10/09/23 History sacubitril 24 mg-valsartan 26 mg 1 tab PO BID 10/09/23 10/09/23 History tablet (Entresto) tamsulosin 0.4 mg capsule 0.4 mg PO DAILY 10/09/23 10/10/23 History trazodone 150 mg tablet 150 mg PO HS 10/09/23 10/09/23 History hydrocodone 7.5 mg-acetaminophen 1 tab PO Q6HP PRN Moderate Pain 10/10/23 10/10/23 History 325 mg tablet (Scale Score 5-6) New Prescriptions to Start Prescriptions: Allergies Allergy/AdvReac Type Severity Reaction Status Date / Time metformin [METFORMIN] Allergy Unknown Unknown Verified 09/26/23 13:33 allergy reaction NSAIDS (Non-Steroidal Allergy Unknown UNKNOWN Verified 09/26/23 13:33 Anti-Inflamma [NSAIDS (NON-STEROIDAL ANTI-INFLAMMA] morphine Allergy Unknown Verified 09/26/23 13:33 allergy reaction Exam (Inpt) Vital signs and Labs for Last 24 Hours: Temp Pulse Resp BP Pulse Ox O2 Del Method 99.2 F 83 17 127/61 92 L Room Air 10/11/23 04:00 10/11/23 04:00 10/11/23 04:00 10/11/23 04:00 10/11/23 04:00 10/11/23 05:00 Laboratory Results - last 24 hr 10/10/23 05:31: ESR 91 H, Sodium 137, Potassium 3.4 L, Chloride 108 H, Carbon Dioxide 26, Anion Gap 6.4, BUN 19, Creatinine 1.10 D, Estimated Creat Clear 111, Estimated GFR 69, Est GFR ( Amer) 84 D, Glucose 77 D, Calcium 7.9 L, Total Bilirubin 0.5, AST 19 D, ALT 19 D, Alkaline Phosphatase 92, Troponin I 0.04 H, C-Reactive Protein 205.6 H, Total Protein 5.9 L, Albumin 2.8 L D, Globulin 3.1, Albumin/Globulin Ratio 0.9 L 10/10/23 11:11: POC Glucose 77 10/10/23 16:12: POC Glucose 80 10/11/23 00:33: POC Glucose 162 H 10/11/23 05:43: POC Glucose 157 H 10/11/23 05:44: WBC 13.7 H D, RBC 3.67 L, Hgb 11.1 L, Hct 35.5 L, MCV 96.5 H, MCH 30.2, MCHC 31.3 L, RDW 14.3, Plt Count 193, MPV 8.2, Neut % (Auto) 89.6 H, L ymph % (Auto) 3.4 L, [place] % (Auto) 6.9, Eos % (Auto) 0.1, Baso % (Auto) 0.1, N eut # (Auto) 12.3 H, Lymph # (Auto) 0.5 L, [place] # (Auto) 0.9, Eos # (Auto) 0.0, Baso # (Auto) 0.0, Sodium 135 L, Potassium 3.8, Chloride 110 H, Carbon Dioxide 25, Anion Gap 3.8 L, BUN 24 H D, Creatinine 1.00, Estimated Creat Clear 123, Estimated GFR 77, Est GFR ( Amer) 94, Glucose 145 H, Calcium 7.6 L, Total Bilirubin 0.8, AST 31 D, ALT 25 D, Alkaline Phosphatase 101, C-Reactive Protein 205.1 H, Total Protein 5.7 L, Albumin 2.9 L, Globulin 2.8, A lbumin/Globulin Ratio 1.0 L I & O for Labs for Last 24 Hours: Intake & Output 10/08/23 10/09/23 10/10/23 10/11/23 23:59 23:59 23:59 23:59 Intake Total 1440 / 1440 470 / 470 Output Total 0 / 0 0 / 0 0 / 0 Balance 0 / 0 1440 / 1440 470 / 470 Weight 230 lb 240 lb 12.8 oz 232 lb 9.6 oz Microbiology Reports for the Last 24 Hours: Microbiology 10/10/23 15:15 Foot,Left Gram Stain - Final 10/09/23 18:11 Blood Blood Culture - Preliminary NO GROWTH AFTER 24 HOURS 10/09/23 18:05 Blood Blood Culture - Preliminary NO GROWTH AFTER 24 HOURS 10/09/23 22:05 Ankle,Left Gram Stain - Final Constitutional: Present no acute distress and cooperative Head: Present normocephalic Eye: Present as per HPI Neck: Present trachea midline Respiratory: Present normal respiratory effort and able to speak in complete sentences Cardiac: Present posterior tibial pulses present (Present but faint) and pedal pulses present (Present but faint) Comments:: deferred Rectal (male): Present deferred (male): Present deferred Extremities: Present normal capillary refill and edema (Left foot lower extremity edema and erythema present); Absent calf tenderness Skin: Present erythema and wounds (Left foot wound vac @125mmHg medium continuous) Neuro: Present Sensory Function Intact (Patient has history of neuropathy and history of stroke), oriented x 3 and tone normal Comment:: Patient uses motorized wheelchair Ankle: left: swelling (Left lower leg and foot cellulitis) and bilateral: decreased ROM foot: midfoot (Left lateral foot ulcer) Feet/Toes: left: erythema, left: swelling and left: wound (Left lateral foot DFU, wound vac in place @125mmHg medium continous) and bilateral: nail abnormalities (Yellow tinge, thick nails) and bilateral: onychomycosis (Suspect) Inspection: Present nail disorder, infection (Left lateral foot DFU, s/p L partial 5th metatarsal resection, I&D, L foot wound/ulcer debridement, application of wound vac.) and ulceration Pulses: L dorsalis pedis pulse: diminished, R dorsalis pedis pulse: diminished, L posterior tibial pulse: diminished and R posterior tibial pulse: diminished CFT: dim: CFT Monofilament exam: L 1st metatarsals: absent, L 3rd metatarsals: absent, L 5th metatarsals: absent, L great toe: absent, L 3rd toe: absent, L 5th toe: absent, R 1st metatarsals: absent, R 3rd metatarsals: absent, R 5th metatarsals: absent, R great toe: absent, R 3rd toe: absent and R 5th toe: absent Pinprick: L great toe: abnormal and R great toe: abnormal Ankle reflex: Left: abnormal and Right: abnormal Results Labs 10/11/23 05:44 10/11/23 05:44 Labs: Abnormal lab results 10/10/23 10/11/23 10/11/23 Range/Units 05:31 00:33 05:43 WBC (4.8-10.8) K/mm3 RBC (4.60-6.20) M/mm3 Hgb (14.1-18.0) g/dL Hct (42.0-52.0) % MCV (80-94) fl MCHC (31.8-35.4) g/dL Neut % (Auto) (37.0-80.0) % Lymph % (Auto) (10-50) % Neut # (Auto) (1.8-7.8) K/mm3 Lymph # (Auto) (0.7-4.5) K/mm3 ESR 91 H (0-20) mm/hr Sodium (136-145) mmol/L Potassium 3.4 L (3.5-5.1) mmoL/L Chloride 108 H (98-107) mmol/L Anion Gap (5-15) mEq/L BUN (9-20) mg/dl Glucose (74-100) mg/dl POC Glucose 162 H 157 H (70-110) Calcium 7.9 L (8.4-10.2) mg/dl Troponin I 0.04 H (0.00-0.034) ng/ml C-Reactive Protein 205.6 H (0-4) mg/L Total Protein 5.9 L (6.3-8.2) g/dl Albumin 2.8 L D (3.5-5.0) g/dl Albumin/Globulin Ratio 0.9 L (1.1-1.8) 10/11/23 Range/Units 05:44 WBC 13.7 H D (4.8-10.8) K/mm3 RBC 3.67 L (4.60-6.20) M/mm3 Hgb 11.1 L (14.1-18.0) g/dL Hct 35.5 L (42.0-52.0) % MCV 96.5 H (80-94) fl MCHC 31.3 L (31.8-35.4) g/dL Neut % (Auto) 89.6 H (37.0-80.0) % Lymph % (Auto) 3.4 L (10-50) % Neut # (Auto) 12.3 H (1.8-7.8) K/mm3 Lymph # (Auto) 0.5 L (0.7-4.5) K/mm3 ESR (0-20) mm/hr Sodium 135 L (136-145) mmol/L Potassium (3.5-5.1) mmoL/L Chloride 110 H (98-107) mmol/L Anion Gap 3.8 L (5-15) mEq/L BUN 24 H D (9-20) mg/dl Glucose 145 H (74-100) mg/dl POC Glucose (70-110) Calcium 7.6 L (8.4-10.2) mg/dl Troponin I (0.00-0.034) ng/ml C-Reactive Protein 205.1 H (0-4) mg/L Total Protein 5.7 L (6.3-8.2) g/dl Albumin 2.9 L (3.5-5.0) g/dl Albumin/Globulin Ratio 1.0 L (1.1-1.8) H & H 10/09/23 10/10/23 10/11/23 Range/Units 18:10 05:31 05:44 Hgb 12.6 L 11.9 L 11.1 L (14.1-18.0) g/dL Hct 40.3 L 38.0 L 35.5 L (42.0-52.0) % All other labs normal. Assessment and Plan *Assessment and plan (1) Sepsis without septic shock: Status: Acute Category: Medical Code(s): A41.9 - Sepsis, unspecified organism (2) Acute osteomyelitis of metatarsal bone of left foot: Status: Acute Category: Medical Code(s): M86.172 - Other acute osteomyelitis, left ankle and foot (3) Diabetic foot ulcer: Status: Acute Qualifiers: Diabetes mellitus type: type 2 Diabetic foot ulcer location: midfoot L aterality: left Non-pressure ulcer stage: with necrosis of muscle Qualified Code(s): E11.621 - Type 2 diabetes mellitus with foot ulcer; L97.423 - Non- pressure chronic ulcer of left heel and midfoot with necrosis of muscle Category: Medical Code(s): E11.621 - Type 2 diabetes mellitus with foot ulcer; L97.509 - Non-pressure chronic ulcer of other part of unspecified foot with unspecified severity (4) Type 2 diabetes mellitus with hyperglycemia, with long-term current use of insulin: Status: Acute Category: Medical Code(s): E11.65 - Type 2 diabetes mellitus with hyperglycemia; 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 (5) Abscess of left foot: Status: Acute Category: Medical Code(s): L02.612 - Cutaneous abscess of left foot (6) Gangrene of left foot: Status: Acute Category: Medical Code(s): I96 - Gangrene, not elsewhere classified (7) Diabetic peripheral neuropathy associated with type 2 diabetes mellitus: Status: Acute Category: Medical Code(s): E11.42 - Type 2 diabetes mellitus with diabetic polyneuropathy (8) Peripheral Vascular Disease: Status: Acute Category: Medical Code(s): I73.9 - Peripheral vascular disease, unspecified Plan 58yo male with PMHx multiple previous strokes, IDDM with neuropathy, peripheral vascular disease, chronic left lower extremity lymphedema, aortic stenosis, CAD, history of CHF presented to ED for worsening wound of left foot. Patient has a longstanding history of a left diabetic foot ulcer. Arrived with high grade fever, sepsis criteria. started on IV boluses. and broaded abx. wound has a foul smell. Lbas are consistent wit leukocytosis, CT showed acute OM of the base of the fifth metatarsal bone. ED requested admission for inpatient management. Discussed about findings. Agreed for admission. Plan as follow: PRE-OP AMPUTATION/INFECTION: Patient is a 58-year-old diabetic male with neuropathy who has been seen in the outpatient clinic for diabetic foot ulcer. Right heel ulcer has resolved. Left foot ulcer has worsened. CT and radiographs of the left foot were reviewed and discussed with the patient. Imaging shows skin ulceration to the lateral midfoot with a fluid collection extending adjacent to the fifth metatarsal base and along the plantar fascia concerning for small abscess. Osteomyelitis in the base of the fifth metatarsal. We discussed conservative versus surgical treatment options. Conservative treatment options include local wound care, oral and IV antibiotics, change in shoe wear, taping/padding, and off-loading. We discussed surgical intervention for incision and drainage of the abscess, irrigation and debridement of the wound with fifth metatarsal resection for the osteomyelitis. Also discussed possible application of wound VAC. Discussed he may or may not need a partial fifth ray amputation. Patient understands that there is a chance that the foot may change shape after surgery. Discussed role of the peroneal tendon and how it can cause lack of eversion necessitating lifelong diabetic shoes, inserts and possible bracing. Patient also understands that they could have wound healing complications including delayed healing and infection. We discussed that if the wound does not heal, it is possible that they may need a more proximal amputation and could result in further loss of digits, loss of partial foot or loss of leg. We discussed the risks and benefits in great detail. Other surgical risks include: prolonged pain and swelling, further infection requiring oral or IV antibiotics, delay in healing of soft tissue or bone, nerve or blood vessel damage, CRPS/RSD, DVT/PE, anesthesia complications, and even . concerned over a significant cardiac and stroke history. Has LLE and LUE weakness secondary to stroke 2 years ago[address] Has seen Dr. Limon's team in the past and he was referred at some point for cardiology evaluation for open heart surgery. did not do open heart surgery saying he was not a candidate. Discussed and gave patient/family options for transfer for cardiology evaluation prior to foot surgery. However they are okay to seek cardiology team here and would like for me to proceed. I explained I am okay to proceed once I have cardiac clearance. He understands if he has high risk for the procedure, I may do the procedure without anesthesia. We discussed risks of untreated osteomyelitis, gangrene and abscess including sepsis, increased risk of tissue damage and loss and the risk of limb loss i.e. below-knee amputation. All questions answered. Patient verbalized understanding. Consent obtained. -Sepsis without septic shock Acute osteomyelitis of the metatarsal bone of left foot Secondary to diabetes foot ulcer S/P Date of procedure: 10/10/23, Procedure performed:: Left partial fifth metatarsal resection, Left foot incision and drainage, Left foot wide excisional wound/ulcer debridement, Application of wound VAC POD#1 Plan: Maintain dressing clean dry and intact to left foot, reinforce as necessary. Wound Vac canister changed, outer dressing changed and reinforced, plan to do full wound vac change tomorrow. NWB in short fracture boot or postop surgical shoe, walker/wheelchair. Continue IV antibiotics: Vancomycin, meropenem. Will likely need PICC line with IV antibiotics x 4 to 6 weeks. Plan for Podiatry wound vac change 10/12/23 @0900. Left foot wound vac @125mmHg medium continuous. Then will need [facility] wound care team, vac change on 10/14/23. Upon discharge: will need DME (post op surgical shoe or short fracture boot), will need wound vac ordered. Likely SNF placement due to hx LLE/LUE weakness secondary to stroke, left foot wound, need for wound vac changes, IV antibiotics. is unable to take care of him at home. Follow up with Kashif at [facility] outpatient for vac changes. Follow up with Podiatry outpatient for wound re-evaluation/monitoring. Continue IV vancomycin. Pharmacy to dose and monitor kidney function Meropenem will 1 g every 12. To cover suspected Pseudomonas Wound culture pending CT of the lower extremity concerning for osteomyelitis. Will need long-term antibiotic Specimens::Pending Left foot WCx Left foot ulcer tissue culture Left 5th metatarsal bone culture Path: left 5th metatarsal, margin * All orders per Dr. Roque
[2023-10-11 06:57] LABS: POC Glucose,Bedside 147 (70-110)
[2023-10-11] MEDS: GABAPENTIN 400MG CAPSULE 400 MG PO ×3 (09:11→18:28)
[2023-10-11] MEDS: levETIRAcetam 500 MG TABLET PO ×2 (09:11→20:36)
[2023-10-11] MEDS: LACTULOSE 20GM/30ML UDC 20 GM PO (09:11)
[2023-10-11] MEDS: DOCUSATE SODIUM 250MG CAPSULE 250 MG PO ×2 (09:11→20:36)
[2023-10-11] MEDS: CLOPIDOGREL 75MG TAB 75 MG PO (09:12)
[2023-10-11] MEDS: CARVEDILOL 3.125MG TABLET 3.125 MG PO (09:12)
[2023-10-11] MEDS: SACUBITRIL/VALSARTAN 24-26MG TABLET 1 EACH PO ×2 (09:12→20:36)
[2023-10-11] MEDS: DULOXETINE 30MG CAPSULE.DR 30 MG PO (09:12)
[2023-10-11] MEDS: FUROSEMIDE 20MG TABLET 20 MG PO (09:12)
[2023-10-11] MEDS: DAPAGLIFLOZIN PROPANEDIOL 10 MG TABLET PO (09:12)
[2023-10-11] MEDS: ASPIRIN EC 81MG TABLET 81 MG PO (09:12)
[2023-10-11] MEDS: AZELASTINE NASAL SPRAY 30ML BOTTLE 137 MCG NS ×2 (09:13→20:36)
[2023-10-11] MEDS: FLUOXETINE 20MG CAPSULE 60 MG PO (09:13)
[2023-10-11 09:14] LABS: Erythrocyte Sedimentation Rate 130 mm/hr (0-20)
[2023-10-11 09:23] LABS: Vancomycin,Trough 18.7 ug/mL (5.0-10.0)
[2023-10-11 09:31] LABS: Lymphocytes % 7 % (10-50); Monocytes % 2 % (2-9); Neutrophils % 91 % (42-76); Platelet Estimate Normal; RBC Morphology Normal; Total Cells Counted 100
--- NOTE | 2023-10-11 09:52 | P.CONPHA_ITS ---
Pharmacy Consult Date: 10/11/23 Time: 09:53 Referring provider: DR RIOS Reason for Consult:: VANCOMYCIN TROUGH LEVEL OBTAINED. Allergies Allergy/AdvReac Type Severity Reaction Status Date / Time metformin [METFORMIN] Allergy Unknown Unknown Verified 09/26/23 13:33 allergy reaction NSAIDS (Non-Steroidal Allergy Unknown UNKNOWN Verified 09/26/23 13:33 Anti-Inflamma [NSAIDS (NON-STEROIDAL ANTI-INFLAMMA] morphine Allergy Unknown Verified 09/26/23 13:33 allergy reaction Home Medications ?Medication ?Instructions ?Recorded ?Confirmed ?Type aspirin 81 mg tablet,delayed 81 mg PO DAILY 02/21/19 10/09/23 History release clopidogrel 75 mg tablet 75 mg PO DAILY 02/21/19 10/09/23 History pantoprazole 40 mg tablet,delayed 40 mg PO DAILY 02/21/19 10/09/23 History release atorvastatin 80 mg tablet (Lipitor) 80 mg PO HS 04/23/20 10/09/23 History levetiracetam 500 mg tablet 500 mg PO BID #60 tabs 08/08/20 10/09/23 Rx carvedilol 3.125 mg tablet (Coreg) 3.125 mg PO BID #60 tabs 06/11/21 10/09/23 Rx fluoxetine 60 mg tablet 60 mg PO DAILY 06/11/21 10/09/23 History dapagliflozin propanediol 10 mg 10 mg PO DAILY 10/09/23 10/09/23 History tablet (Farxiga) docusate sodium 250 mg capsule 250 mg PO BID 10/09/23 10/09/23 History duloxetine 30 mg capsule,delayed 30 mg PO DAILY 10/09/23 10/09/23 History release furosemide 20 mg tablet 20 mg PO DAILYP PRN Edema 10/09/23 10/10/23 History gabapentin 400 mg capsule 400 mg PO QID 10/09/23 10/09/23 History insulin glargine U-300 conc 300 70 unit SQ HS 10/09/23 10/09/23 History unit/mL (3 mL) subcutaneous pen (Toujeo Max U-300 SoloStar) lactulose 20 gram/30 mL oral 30 ml PO DAILY 10/09/23 10/09/23 History solution quetiapine 50 mg tablet 50 mg PO HS 10/09/23 10/09/23 History sacubitril 24 mg-valsartan 26 mg 1 tab PO BID 10/09/23 10/09/23 History tablet (Entresto) tamsulosin 0.4 mg capsule 0.4 mg PO DAILY 10/09/23 10/10/23 History trazodone 150 mg tablet 150 mg PO HS 10/09/23 10/09/23 History hydrocodone 7.5 mg-acetaminophen 1 tab PO Q6HP PRN Moderate Pain 10/10/23 10/10/23 History 325 mg tablet (Scale Score 5-6) New Prescriptions to Start Prescriptions: Height: 1.93 m Weight: 105.506 kg Laboratory Results:: Laboratory Results - last 24 hr 10/10/23 05:31: Troponin I 0.04 H 10/10/23 11:11: POC Glucose 77 10/10/23 16:12: POC Glucose 80 10/10/23 21:19: POC Glucose 147 H 10/11/23 00:33: POC Glucose 162 H 10/11/23 05:43: POC Glucose 157 H 10/11/23 05:44: WBC 13.7 H D, RBC 3.67 L, Hgb 11.1 L, Hct 35.5 L, MCV 96.5 H, MCH 30.2, MCHC 31.3 L, RDW 14.3, Plt Count 193, MPV 8.2, Neut % (Auto) 89.6 H, Lymph % (Auto) 3.4 L, [place] % (Auto) 6.9, Eos % (Auto) 0.1, Baso % (Auto) 0.1, Neut # (Auto) 12.3 H, Lymph # (Auto) 0.5 L, [place] # (Auto) 0.9, Eos # (Auto) 0.0, Baso # (Auto) 0.0, Total Counted 100, Neutrophils % (Manual) 91 H, Lymphocytes % (Manual) 7 L, Monocytes % (Manual) 2, Platelet Estimate Normal, RBC Morphology Normal, ESR 130 H, Sodium 135 L, Potassium 3.8, Chloride 110 H, Carbon Dioxide 25, Anion Gap 3.8 L, BUN 24 H D, Creatinine 1.00, Estimated Creat Clear 123, Estimated GFR 77, Est GFR ( Amer) 94, Glucose 145 H, Calcium 7.6 L, Total Bilirubin 0.8, AST 31 D, ALT 25 D, Alkaline Phosphatase 101, C-Reactive Protein 205.1 H, Total Protein 5.7 L, Albumin 2.9 L, Globulin 2.8, Albumin/Globulin Ratio 1.0 L 10/11/23 08:45: Vancomycin Trough 18.7 H Medical History: Medical History (Updated 10/11/23 @ 07:03 by Stefany Kelly APRN) Heart attack CVA (cerebral vascular accident) Assessment and Plan Assessment and plan all Dx Assessment and Plan for all problems:: VANCOMYCIN TROUGH LEVEL OBTAINED. Pharmacokinetic dosing service Weight: 105.506 Kilograms Vancomycin single level analysis: Current dose being given: 2000 mg Current dosing interval: 12 hrs Current infusion time (hrs): 2 Single level Trough Data: Trough level obtained: 18.7 mcg/ml Timing of trough - # of hrs before next dose: 0.5 Hrs Desired peak: 35 mcg/ml Desired trough: 12.5 mcg/ml Estimated PK Parameters: New rate constant (tonie): 0.068 hr-1 Half-life: 10.19 Hours Vd from levels: 89.68 Liters (0.7 L/kg) CLvanco=?? 6.098 L/hr Estimated New Dose and Interval Recommended dose: 2307.6 mg Recommended interval: 17.1 Hrs Recommendations: Give Vancomycin 1750 mg q 12 hrs. Infuse over 2 hrs Expected Cpeak: 32.7 mcg/mL Expected Ctrough: 16.6 mcg/mL AUC 0-24 /RODO Data: RODO 0.5 mcg/mL:?? AUC/RODO:? 1147.9 RODO 1.0 mcg/mL:?? AUC/RODO:? 574.0 Thank you for the consult
--- NOTE | 2023-10-11 10:42 | SW/DCPLANNER ---
Addendum entered by [facility] 10/12/23 14:30: Per [facility] wound vac will be delivered to [facility] tomorrow afternoon. Patient will discharge to [facility] today and Dr Roque has gave recommendations for wound care until wound vac is placed. Addendum entered by [facility] 10/12/23 11:54: Per [facility] w/ [facility] patient has been approved SNF level of care. I am currently waiting to hear back from [facility] regarding wound vac. Addendum entered by [facility] 10/12/23 08:13: [facility] w/ [facility] stated she can accept patient SNF of care. [facility] stated precert will be started today. Addendum entered by [facility] 10/11/23 15:40: [facility] able to accept patient. [facility] is still reviewing. Patient/family prefer [facility] due to family members in the area. I will wait to hear back from [facility]. Addendum entered by [facility] 10/11/23 14:03: [facility] is unable to meet patient's needs at this time. Original Note: I spoke w/ this patient and his regarding plans once medically stable for discharge. PT/OT has suggested placement for this patient. Patient will also need wound care, wound vac management and IV antibiotics at time of discharge. Patient/ are agreeable to placement and have suggested [facility], [facility], [facility] or [facility]. I will fax patient information to facilities this AM and follow up. Discharge date is unknown at this time.
[2023-10-11] MEDS: PHA TO NURSING INSTRUCTION 1 EACH NOTAPPLIC (10:47)
[2023-10-11] MEDS: VANCOMYCIN/WATER FOR INJ (PEG) 1.75 GM/350 ML PIGGYBACK IV ×2 (10:47→22:16)
--- NOTE | 2023-10-11 10:54 | HMH.PTEV ---
Physical Therapy Evaluation Rehab PT IP Evaluation Start: 10/10/23 16:12 Freq: ONCE Status: Active Protocol: Document 10/11/23 10:40 JOHN (Rec: 10/11/23 10:54 JOHN [id number]) Subjective/History History History 58 yowm adm to [facility] with L infected DFU. He has PMH of multiple previous strokes, IDDM with neuropathy, peripheral vascular disease, chronic left lower extremity lymphedema, aortic stenosis, CAD, history of CHF. He is now S/P L foot I&D with with L 5th MT resection and wound VAC dressing placement. He reports he lives with his , no steps to enter the home, he can use a RW for ambulation , but most typically uses wheelchair for primary mobility. He has both a standard and motorized wheelchair at home already. Subjective Subjective Currently minimal pain noted in the L LE. Pt does agree to sit at EOB this am. New diagnosis of cancer in past 12 No months? Rehab PT IP Eval Objective Appearance Patient Behavior Appropriate Patient Orientation Person,Place,Time Difficulty following instructions none Speech Pattern Clear Ambulation Patient Able to Ambulate No Balance Ability to Arise Able, uses arms to help Sitting Balance Steady, safe Dynamic Sitting Balance Ability Fair Transfers Bed Transfer Ability Minimal x 2 (25% assist) Rehab PT IP prob,goals,plan Problems Date of Evaluation: 10/11/23 PT IP Problems Bed Mobility,Transfers,Gait, Self care,Safety Rehab Potential Rehab Potential Good Plan PT Intervention Plan Bed Mobility,Transfers,Self care,Safety,Therapeutic Exercise PT Plan Frequency Daily Duration LOS Discharge Goals Bed Transfer Ability Contact Guard/Hand Hold Sit to Stand Chair Transfer Ability Moderate x 1 (50% assist) Discharge Plan PT Discharge Plan Pt is currently most appropriate for rehab placement once medically stable for d/c. Skilled therapy is needed to address B LE weakness, reduced endurance, prevent further injury or falls and to return pt to [facility]. Eval Complexity Eval Charge Codes 61318 - High Complexity PHYSICIAN CERTIFICATION: I certify the specified therapy services for Eran Dove are required, authorized, and reviewed every 30 days.
[2023-10-11 11:35] LABS: POC Glucose,Bedside 156 (70-110)
[2023-10-11] MEDS: MEROPENEM 1 GM in 0.9 % SODIUM CHLORIDE 100 ML IV (12:54)
--- NOTE | 2023-10-11 13:09 | P.PN_ITS ---
Subjective *Date: 10/11/23 *Time: 18:42 Interval history: Patient slept poorly overnight. Somewhat confused on exam today. Discussed case with at bedside. Will make adjustments to blood pressure regimen. No nausea or vomiting. Stable on room air. Pain improved after resuming home regimen. Awaiting placement Medical Exam Vital signs and Labs for Last 24 Hours: Vital Signs Temp Pulse Pulse Resp BP BP Pulse Ox 10/11/23 12:00 98.2 F 77 18 117/70 95 10/11/23 11:00 10/11/23 09:00 10/11/23 08:00 10/11/23 08:00 98.1 F 87 18 113/66 95 10/11/23 07:00 10/11/23 05:00 10/11/23 04:00 99.2 F 83 17 127/61 92 L 10/11/23 03:00 10/11/23 01:00 10/11/23 00:40 99.3 F 10/11/23 00:40 128/78 10/11/23 00:00 100.1 F H 96 H 18 153/76 H 91 L 10/10/23 23:00 10/10/23 21:00 10/10/23 20:30 100.3 F H 98 H 16 86/70 L 96 10/10/23 20:00 98 H 16 96 10/10/23 19:30 93 H 16 115/68 95 10/10/23 18:19 10/10/23 18:00 97.9 F 80 16 105/62 L 95 10/10/23 17:30 9.8 F L 73 16 95/56 L 95 10/10/23 17:15 73 16 88/52 L 98 10/10/23 17:00 74 16 92/52 L 98 10/10/23 17:00 10/10/23 16:54 97.8 F 74 18 91/60 L 96 10/10/23 16:45 97.9 F 74 18 91/60 L 96 10/10/23 16:24 75 16 95/51 L 95 10/10/23 16:17 97.2 F L 77 16 88/48 L 10/10/23 16:15 77 16 101/52 L 95 10/10/23 16:05 97.2 F L 80 14 88/48 L 94 L O2 Del Method 10/11/23 12:00 Room Air 10/11/23 11:00 Room Air 10/11/23 09:00 Room Air 10/11/23 08:00 Room Air 10/11/23 08:00 Room Air 10/11/23 07:00 Room Air 10/11/23 05:00 Room Air 10/11/23 04:00 Room Air 10/11/23 03:00 Room Air 10/11/23 01:00 Room Air 10/11/23 00:40 10/11/23 00:40 10/11/23 00:00 Room Air 10/10/23 23:00 Room Air 10/10/23 21:00 Room Air 10/10/23 20:30 Room Air 10/10/23 20:00 Room Air 10/10/23 19:30 Room Air 10/10/23 18:19 Room Air 10/10/23 18:00 Room Air 10/10/23 17:30 Room Air 10/10/23 17:15 Room Air 10/10/23 17:00 Room Air 10/10/23 17:00 Room Air 10/10/23 16:54 Room Air 10/10/23 16:45 Room Air 10/10/23 16:24 Room Air 10/10/23 16:17 10/10/23 16:15 Room Air 10/10/23 16:05 Room Air Intake and Output 10/10/23 10/11/23 10/11/23 23:59 07:59 15:59 Intake Total 1050 / 1910 470 / 750 280 / 750 Output Total 0 / 0 0 / 0 0 / 0 Balance 1050 / 1910 470 / 750 280 / 750 Intake: Intake, Oral Amount 450 / 810 120 / 400 280 / 400 Intake, Total IV Amount 600 / 1100 350 / 350 Meropenem 1 gm In 0.9 % Sodium 100 / 100 Chloride 100 ml @ 100 mls/hr IV Q12H [facility] Rx#:[id number] Vancomycin HCl 2,500 mg In 0.9 250 / 250 % Sodium Chloride 250 ml @ 125 mls/hr IV ONCE ONE Rx#:[id number] Output: Output, Urine Amount 0 / 0 0 / 0 0 / 0 Other: Number of Voids 0 Number of Unmeasured Voids 1 1 Number of Bowel Movements 1 1 Weight 105.506 kg 105.506 kg Patient Weight 10/11/23 23:59 Weight 105.506 kg Laboratory Results - last 24 hr 10/10/23 16:12: POC Glucose 80 10/10/23 21:19: POC Glucose 147 H 10/11/23 00:33: POC Glucose 162 H 10/11/23 05:43: POC Glucose 157 H 10/11/23 05:44: WBC 13.7 H D, RBC 3.67 L, Hgb 11.1 L, Hct 35.5 L, MCV 96.5 H, MCH 30.2, MCHC 31.3 L, RDW 14.3, Plt Count 193, MPV 8.2, Neut % (Auto) 89.6 H, Lymph % (Auto) 3.4 L, [place] % (Auto) 6.9, Eos % (Auto) 0.1, Baso % (Auto) 0.1, Neut # (Auto) 12.3 H, Lymph # (Auto) 0.5 L, [place] # (Auto) 0.9, Eos # (Auto) 0.0, Baso # (Auto) 0.0, Total Counted 100, Neutrophils % (Manual) 91 H, Lymphocytes % (Manual) 7 L, Monocytes % (Manual) 2, Platelet Estimate Normal, RBC Morphology Normal, ESR 130 H, Sodium 135 L, Potassium 3.8, Chloride 110 H, Carbon Dioxide 25, Anion Gap 3.8 L, BUN 24 H D, Creatinine 1.00, Estimated Creat Clear 123, Estimated GFR 77, Est GFR ( Amer) 94, Glucose 145 H, Calcium 7.6 L, Total Bilirubin 0.8, AST 31 D, ALT 25 D, Alkaline Phosphatase 101, C-Reactive Protein 205.1 H, Total Protein 5.7 L, Albumin 2.9 L, Globulin 2.8, Albumin/Globulin Ratio 1.0 L 10/11/23 08:45: Vancomycin Trough 18.7 H 10/11/23 11:28: POC Glucose 156 H I & O for Labs for Last 24 Hours: Intake & Output 10/08/23 10/09/23 10/10/23 10/11/23 23:59 23:59 23:59 23:59 Intake Total 1440 750 / 750 Output Total 0 / 0 0 / 0 0 / 0 Balance 0 / 390 [id number] 750 / 750 Weight 104.326 kg 109.225 kg 105.506 kg Microbiology Reports for the Last 24 Hours: Microbiology 10/09/23 22:05 Ankle,Left Gram Stain - Final 10/09/23 22:05 Ankle,Left Wound Culture - Preliminary 10/10/23 15:15 Foot,Left Gram Stain - Final 10/10/23 15:15 Foot,Left Wound Culture - Preliminary 10/09/23 18:11 Blood Blood Culture - Preliminary NO GROWTH AFTER 24 HOURS 10/09/23 18:05 Blood Blood Culture - Preliminary NO GROWTH AFTER 24 HOURS Constitutional: Present no acute distress, average body habitus, chronically ill appearing and cooperative Head: Present atraumatic and normocephalic ENT: Present normal exam Neck: Present normal inspection Respiratory: Present normal respiratory effort; Absent rhonchi, wheezes or crackles Cardiac: Present Reg Rate and Rhythm GI: Present soft and normal bowel sounds; Absent distention or tenderness Comment:: Left lower extremity with surgical bandage and wound VAC in place. No erythema of leg. Skin: Present intact; Absent erythema Neuro: Present Grossly Intact, alert, awake and moves all extremities Comment:: Oriented at baseline Assessment and Plan *Assessment and plan (1) Sepsis without septic shock: Status: Acute Category: Medical Code(s): A41.9 - Sepsis, unspecified organism (2) Acute osteomyelitis of metatarsal bone of left foot: Status: Acute Category: Medical Code(s): M86.172 - Other acute osteomyelitis, left ankle and foot (3) Diabetic foot ulcer: Status: Acute Qualifiers: Diabetes mellitus type: type 2 Diabetic foot ulcer location: midfoot Laterality: left Non-pressure ulcer stage: with necrosis of muscle Qualified Code(s): E11.621 - Type 2 diabetes mellitus with foot ulcer; L97.423 - Non- pressure chronic ulcer of left heel and midfoot with necrosis of muscle Category: Medical Code(s): E11.621 - Type 2 diabetes mellitus with foot ulcer; L97.509 - Non-pressure chronic ulcer of other part of unspecified foot with unspecified severity (4) Type 2 diabetes mellitus with hyperglycemia, with long-term current use of insulin: Status: Acute Category: Medical Code(s): E11.65 - Type 2 diabetes mellitus with hyperglycemia; Z79.4 - USP (current) use of insulin (5) Coronary artery disease: Status: Acute Qualifiers: Coronary Disease-Associated Artery/Lesion type: [place] artery [place] vs. transplanted heart: [place] heart Associated angina: without angina Qualified Code(s): I25.10 - Atherosclerotic heart disease of [place] coronary artery without angina pectoris Category: Medical Code(s): I25.10 - Atherosclerotic heart disease of [place] coronary artery without angina pectoris (6) CHF (congestive heart failure): Status: Acute Qualifiers: Heart failure chronicity: acute Heart failure type: unspecified Qualified Code(s): I50.9 - Heart failure, unspecified Category: Medical Code(s): I50.9 - Heart failure, unspecified (7) History of cerebrovascular accident (CVA) from right carotid artery occlus ion involving right middle cerebral artery territory: Status: Chronic Category: Medical Code(s): Z86.73 - Personal history of transient ischemic attack (TIA), and cerebral infarction without residual deficits Plan 58yo male with PMHx multiple previous strokes, IDDM with neuropathy, peripheral vascular disease, chronic left lower extremity lymphedema, aortic stenosis, CAD, history of CHF presented to ED for worsening wound of left foot. Patient has a longstanding history of a left diabetic foot ulcer. Status post surgery 10/09 with partial removal of fifth metatarsal. Wound VAC in place. Podiatry continues to assist with care. Problems addressed as follows: Sepsis without septic shock Acute osteomyelitis of the metatarsal bone of left foot Diabetic foot ulcer -Podiatry consulted, appreciate their recommendations. - S/P Date of procedure: 10/10/23, Procedure performed:: Left partial fifth metatarsal resection, Left foot incision and drainage, Left foot wide excisional wound/ulcer debridement, Application of wound VAC -Maintain clean and dry bandage. Wound VAC in place. Nonweightbearing in short fracture boot. -PICC line placed today, continue vancomycin and meropenem., Plan for 4 to 6 weeks of antibiotics Left foot wound vac @125mmHg medium continuous. -Wound culture pending -White count elevated at 13.7 today, hemoglobin 11.1. Kidney function normal with BUN 24, creatinine 1.0. Repeat CBC, CMP, magnesium ordered for the morning. CRP 205. -Uncontrolled insulin-dependent diabetes with neuropathy: Resume home regimen insulin Last A1c 8.1 Sliding scale Monitor blood sugar before meals Gabapentin -CHF and coronary artery disease: on Entresto. Holding carvedilol. Continue Plavix, aspirin, statin History of CVA: Continue Keppra 500 mg twice daily Protonix for GI bleed protection Full code PT and OT evaluated, recommend SNF placement, awaiting acceptance by facility. Stable to discharge when insurance approves.
--- NOTE | 2023-10-11 13:09 | XR_ITS ---
FINAL REPORT CLINICAL HISTORY: Confirm PICC line placement COMPARISON: 10/09/2023 FINDINGS: A single portable view of the chest was obtained. The heart size and pulmonary vascularity are within normal limits. A PICC line has been placed since the prior chest x-ray, with its tip at the atriocaval junction. The mediastinum is within normal limits. Mild bibasilar opacities are present, favor atelectasis. The bony thorax is intact. IMPRESSION: PICC line has been placed with its tip at the atriocaval junction. Mild bibasilar opacities, favor atelectasis. Reviewed, Interpreted and Dictated by Fernando Cleveland III, MD Transcribed by Tamra Jang Authenticated and [facility]
[2023-10-11] MEDS: HYDROMORPHONE 2MG/ML SYRINGE 0.5 MG IV ×2 (14:34→22:25)
[2023-10-11 17:07] LABS: POC Glucose,Bedside 185 (70-110)
--- NOTE | 2023-10-11 17:41 | PC.NURSE ---
A&Ox4. Pt stated he was in alot of pain throughout the night after morning medications given and PRN medications given pts pain has been more controlled throughout the day. VSS throughout the day. Pt has woundvac to left foot it has alarmed most of the shift that there is a blockage Dr. Roque, wound care, and Dr. Robledo along with myself have tried to find the problem with no resolution to why it is alarming that there is a blockage. The woundvac canister was changed this morning and since having a new canister there has been about 25 ml of sanguineous drainage out. Dressing to left foot is C/D/I. Pt has had multiple incontinent episodes of loose stool this shift. Pt has been sitting up on the side of bed for meals. was at bedside most of shift. Pt currently resting comfortably with seizure pads and call light in reach.
[2023-10-11] MEDS: QUETIAPINE 25MG TABLET 50 MG PO (20:36)
[2023-10-11] MEDS: PANTOPRAZOLE 40MG TABLET 40 MG PO (20:36)
[2023-10-11] MEDS: TAMSULOSIN 0.4MG CAPSULE 0.4 MG PO (20:36)
[2023-10-11] MEDS: ATORVASTATIN 40MG TABLET 80 MG PO (20:36)
[2023-10-11] MEDS: TRAZODONE 50MG TABLET 150 MG PO (20:36)
[2023-10-11 20:55] LABS: POC Glucose,Bedside 193 (70-110)
--- NOTE | 2023-10-11 21:36 | PC.NURSE ---
critical lab: + blood cultures reported to Kendy Mckeon APRN - patient is currently on antibiotic therapy.
[2023-10-12] VITALS: BP 98/69; PULSE 81; RESP 19; TEMP 36.7; O2SAT 90
--- NOTE | 2023-10-12 00:10 | PC.NURSE ---
let nurse know about the low b/p. took automatic b/p three times, switched to manual fourth time
[2023-10-12] MEDS: GABAPENTIN 400MG CAPSULE 400 MG PO ×4 (00:19→17:53)
[2023-10-12] MEDS: APAP/HYDROCODONE 325MG/7.5MG TAB 1 TAB PO ×4 (00:19→17:53)
[2023-10-12] MEDS: MEROPENEM 1 GM in 0.9 % SODIUM CHLORIDE 100 ML IV ×2 (00:19→11:38)
[2023-10-12 03:32] VITALS: BP 91/51; PULSE 66; RESP 19; TEMP 36.8; O2SAT 90; BMI 28.3
--- NOTE | 2023-10-12 03:33 | PC.NURSE ---
let nurse know about low b/p
[2023-10-12 06:01] LABS: POC Glucose,Bedside 132 (70-110)
--- NOTE | 2023-10-12 06:43 | EXP.POD.CONS ---
Documented by User: Stefany Kelly APRN 10/12/23 06:51 History of Present Illness *Admission Date: 10/09/23 *History of present illness: This is a 58yo male with PMHx multiple previous strokes, IDDM with neuropathy, peripheral vascular disease, chronic left lower extremity lymphedema, aortic stenosis, CAD, history of CHF presented to ED for worsening wound of left foot. Patient has a longstanding history of a left diabetic foot ulcer that he is currently following with Dr. Roque for however he has had worsening redness drainage and smell. Patient also has had an elevated fever at home and reports chilling. He has multiple medical comorbidities including. Patient currently denies chest pain shortness of breath hemoptysis hematochezia melena nausea vomiting diarrhea. Admitted for further treatment and management. Podiatry: Patient is well-known to the podiatry clinic and had his last office visit with CELSO 09/26/23, he was scheduled for office visit today. reports over the weekend he had increased in wound size, odor and drainage. Patient developed low-grade temperature Tuesday and they brought him into the ER yesterday. Reports a significant cardiac history and hx LLE/LUE weakness secondary to stroke. He did have recent ABIs in August which showed R: GIANNI PT 1.22, DP 1.00, TBI 1.73 and L: GIANNI PT 0.872, DP 0.85, TBI 0.69. [facility] Disclaimer: The information contained in this section may have been updated after the patient was seen, as this information can be updated by other users. Medical History (Updated 10/11/23 @ 07:03 by Stefany Kelly APRN) Heart attack CVA (cerebral vascular accident) Surgical History (Updated 10/09/23 @ 21:36 by Edgardo Lee RN) History of nasal surgery Previous back surgery Social History (Updated 10/09/23 @ 21:36 by Edgardo Lee RN) Smoking Status: Current some day smoker tobacco type: cigarettes packs per day: 1 second hand exposure: Yes alcohol intake: never substance use type: denies use current occupational status: disabled Travel in the last 8 weeks: None household members: spouse housing: other current occupational exposures/hazards: No caffeine: Yes Review of Systems Constitutional Constitutional: Reports weakness (LLE/LUE weakness secondary to stroke) *Musculoskeletal Musculoskeletal: Reports abnormal gait (LLE/LUE weakness secondary to stroke) and Reports numbness *Neurologic Neurologic: Reports system reviewed and no additional complaints, except as documented, Reports abnormal gait (LLE/LUE weakness secondary to stroke), Reports numbness, Reports paresthesias and Reports weakness (LLE/LUE weakness secondary to stroke) Meds Home Medications and Allergies Home Medications ?Medication ?Instructions ?Recorded ?Confirmed ?Type aspirin 81 mg tablet,delayed 81 mg PO DAILY 02/21/19 10/09/23 History release clopidogrel 75 mg tablet 75 mg PO DAILY 02/21/19 10/09/23 History pantoprazole 40 mg tablet,delayed 40 mg PO DAILY 02/21/19 10/09/23 History release atorvastatin 80 mg tablet (Lipitor) 80 mg PO HS 04/23/20 10/09/23 History levetiracetam 500 mg tablet 500 mg PO BID #60 tabs 08/08/20 10/09/23 Rx carvedilol 3.125 mg tablet (Coreg) 3.125 mg PO BID #60 tabs 06/11/21 10/09/23 Rx fluoxetine 60 mg tablet 60 mg PO DAILY 06/11/21 10/09/23 History dapagliflozin propanediol 10 mg 10 mg PO DAILY 10/09/23 10/09/23 History tablet (Farxiga) docusate sodium 250 mg capsule 250 mg PO BID 10/09/23 10/09/23 History duloxetine 30 mg capsule,delayed 30 mg PO DAILY 10/09/23 10/09/23 History release furosemide 20 mg tablet 20 mg PO DAILYP PRN Edema 10/09/23 10/10/23 History gabapentin 400 mg capsule 400 mg PO QID 10/09/23 10/09/23 History insulin glargine U-300 conc 300 70 unit SQ HS 10/09/23 10/09/23 History unit/mL (3 mL) subcutaneous pen (Toujeo Max U-300 SoloStar) lactulose 20 gram/30 mL oral 30 ml PO DAILY 10/09/23 10/09/23 History solution quetiapine 50 mg tablet 50 mg PO HS 10/09/23 10/09/23 History sacubitril 24 mg-valsartan 26 mg 1 tab PO BID 10/09/23 10/09/23 History tablet (Entresto) tamsulosin 0.4 mg capsule 0.4 mg PO DAILY 10/09/23 10/10/23 History trazodone 150 mg tablet 150 mg PO HS 10/09/23 10/09/23 History hydrocodone 7.5 mg-acetaminophen 1 tab PO Q6HP PRN Moderate Pain 10/10/23 10/10/23 History 325 mg tablet (Scale Score 5-6) New Prescriptions to Start Prescriptions: Allergies Allergy/AdvReac Type Severity Reaction Status Date / Time metformin [METFORMIN] Allergy Unknown Unknown Verified 09/26/23 13:33 allergy reaction NSAIDS (Non-Steroidal Allergy Unknown UNKNOWN Verified 09/26/23 13:33 Anti-Inflamma [NSAIDS (NON-STEROIDAL ANTI-INFLAMMA] morphine Allergy Unknown Verified 09/26/23 13:33 allergy reaction Exam (Inpt) Vital signs and Labs for Last 24 Hours: Temp Pulse Resp BP Pulse Ox O2 Del Method 98.2 F 66 19 91/51 L 90 L Room Air 10/12/23 03:32 10/12/23 03:32 10/12/23 03:32 10/12/23 03:32 10/12/23 03:32 10/12/23 06:30 Laboratory Results - last 24 hr 10/10/23 21:19: POC Glucose 147 H 10/11/23 05:44: Total Counted 100, Neutrophils % (Manual) 91 H, Lymphocytes % (Manual) 7 L, Monocytes % (Manual) 2, Platelet Estimate Normal, RBC Morphology Normal, ESR 130 H 10/11/23 08:45: Vancomycin Trough 18.7 H 10/11/23 11:28: POC Glucose 156 H 10/11/23 17:00: POC Glucose 185 H 10/11/23 20:35: POC Glucose 193 H 10/12/23 05:52: POC Glucose 132 H I & O for Labs for Last 24 Hours: Intake & Output 10/09/23 10/10/23 10/11/23 10/12/23 23:59 23:59 23:59 23:59 Intake Total 1440 / 1440 1740 / 1740 470 / 470 Output Total 0 / 0 0 / 0 0 / 0 Balance 0 / 0 1440 / 1440 1740 / 1740 470 / 470 Weight 230 lb 240 lb 12.8 oz 232 lb 9.6 oz 232 lb 6.4 oz Microbiology Reports for the Last 24 Hours: Microbiology 10/09/23 18:05 Blood Blood Culture - Preliminary 10/09/23 18:11 Blood Blood Culture - Preliminary NO GROWTH AFTER 48 HOURS 10/10/23 15:15 Foot,Left Surgical Biopsy Culture - Preliminary NO GROWTH AFTER 24 HOURS 10/09/23 22:05 Ankle,Left Gram Stain - Final 10/09/23 22:05 Ankle,Left Wound Culture - Preliminary 10/10/23 15:15 Foot,Left Gram Stain - Final 10/10/23 15:15 Foot,Left Wound Culture - Preliminary Constitutional: Present no acute distress and cooperative Head: Present normocephalic Eye: Present as per HPI Neck: Present trachea midline Respiratory: Present normal respiratory effort and able to speak in complete sentences Cardiac: Present posterior tibial pulses present (Present but faint) and pedal pulses present (Present but faint) Comments:: deferred Rectal (male): Present deferred (male): Present deferred Extremities: Present normal capillary refill and edema (Left foot lower extremity edema and erythema present); Absent calf tenderness Skin: Present erythema and wounds (Left foot wound vac @125mmHg medium continuous) Neuro: Present Sensory Function Intact (Patient has history of neuropathy and history of stroke), oriented x 3 and tone normal Comment:: Patient uses motorized wheelchair Ankle: left: swelling (Left lower leg and foot cellulitis) and bilateral: decreased ROM foot: midfoot (Left lateral foot ulcer) Feet/Toes: left: erythema, left: swelling and left: wound (Left lateral foot DFU, wound vac in place @125mmHg medium continous) and bilateral: nail abnormalities (Yellow tinge, thick nails) and bilateral: onychomycosis (Suspect) Inspection: Present nail disorder, infection (Left lateral foot DFU, s/p L partial 5th metatarsal resection, I&D, L foot wound/ulcer debridement, application of wound vac.) and ulceration Pulses: L dorsalis pedis pulse: diminished, R dorsalis pedis pulse: diminished, L posterior tibial pulse: diminished and R posterior tibial pulse: diminished CFT: dim: CFT Monofilament exam: L 1st metatarsals: absent, L 3rd metatarsals: absent, L 5th metatarsals: absent, L great toe: absent, L 3rd toe: absent, L 5th toe: absent, R 1st metatarsals: absent, R 3rd metatarsals: absent, R 5th metatarsals: absent, R great toe: absent, R 3rd toe: absent and R 5th toe: absent Pinprick: L great toe: abnormal and R great toe: abnormal Ankle reflex: Left: abnormal and Right: abnormal Results Labs 10/12/23 05:27 10/12/23 05:27 Labs: Abnormal lab results 10/10/23 10/11/23 10/11/23 Range/Units 21:19 05:44 08:45 Neutrophils % (Manual) 91 H (42-76) % Lymphocytes % (Manual) 7 L (10-50) % ESR 130 H (0-20) mm/hr POC Glucose 147 H (70-110) Vancomycin Trough 18.7 H (5.0-10.0) ug/mL 10/11/23 10/11/23 10/11/23 Range/Units 11:28 17:00 20:35 Neutrophils % (Manual) (42-76) % Lymphocytes % (Manual) (10-50) % ESR (0-20) mm/hr POC Glucose 156 H 185 H 193 H (70-110) Vancomycin Trough (5.0-10.0) ug/mL 10/12/23 Range/Units 05:52 Neutrophils % (Manual) (42-76) % Lymphocytes % (Manual) (10-50) % ESR (0-20) mm/hr POC Glucose 132 H (70-110) Vancomycin Trough (5.0-10.0) ug/mL H & H 10/09/23 10/10/23 10/11/23 Range/Units 18:10 05:31 05:44 Hgb 12.6 L 11.9 L 11.1 L (14.1-18.0) g/dL Hct 40.3 L 38.0 L 35.5 L (42.0-52.0) % All other labs normal. Assessment and Plan *Assessment and plan (1) Sepsis without septic shock: Status: Acute Category: Medical Code(s): A41.9 - Sepsis, unspecified organism (2) Acute osteomyelitis of metatarsal bone of left foot: Status: Acute Category: Medical Code(s): M86.172 - Other acute osteomyelitis, left ankle and foot (3) Diabetic foot ulcer: Status: Acute Qualifiers: Diabetes mellitus type: type 2 Diabetic foot ulcer location: midfoot Laterality: left Non-pressure ulcer stage: with necrosis of muscle Qualified Code(s): E11.621 - Type 2 diabetes mellitus with foot ulcer; L97.423 - Non-pressure chronic ulcer of left heel and midfoot with necrosis of muscle Category: Medical Code(s): E11.621 - Type 2 diabetes mellitus with foot ulcer; L97.509 - Non-pressure chronic ulcer of other part of unspecified foot with unspecified severity (4) Type 2 diabetes mellitus with hyperglycemia, with long-term current use of insulin: Status: Acute Category: Medical Code(s): E11.65 - Type 2 diabetes mellitus with hyperglycemia; Z79.4 - exterminator termite (current) use of insulin (5) Abscess of left foot: Status: Acute Category: Medical Code(s): L02.612 - Cutaneous abscess of left foot (6) Gangrene of left foot: Status: Acute Category: Medical Code(s): I96 - Gangrene, not elsewhere classified (7) Diabetic peripheral neuropathy associated with type 2 diabetes mellitus: Status: Acute Category: Medical Code(s): E11.42 - Type 2 diabetes mellitus with diabetic polyneuropathy (8) Peripheral Vascular Disease: Status: Acute Category: Medical Code(s): I73.9 - Peripheral vascular disease, unspecified Documented by User: Maru Roque DPM 10/12/23 09:02 History of Present Illness *Reason for visit:: Left foot abscess, OM *History of present illness: Podiatry: Patient is well-known to the podiatry clinic and had his last office visit with [employer] PRO[employer] MANAGER 09/26/23, he was scheduled for office visit today. reports over the weekend he had increased in wound size, odor and drainage. Patient developed low-grade temperature Tuesday and they brought him into the ER yesterday. Reports a significant cardiac history and hx LLE/LUE weakness secondary to stroke. He did have recent ABIs in August which showed R: GIANNI PT 1.22, DP 1.00, TBI 1.73 and L: GIANNI PT 0.872, DP 0.85, TBI 0.69. 10/12/23: Seen comfortably at the bedside. present. Reports he had a much better night overnight. Denies pain to the left foot. Wound VAC intact, plan for VAC change today. [facility] Medical History (Updated 10/11/23 @ 07:03 by Stefany Kelly APRN) Heart attack CVA (cerebral vascular accident) Surgical History (Updated 10/09/23 @ 21:36 by Edgardo Lee RN) History of nasal surgery Previous back surgery Social History (Updated 10/09/23 @ 21:36 by Edgardo Lee RN) Smoking Status: Current some day smoker tobacco type: cigarettes packs per day: 1 second hand exposure: Yes alcohol intake: never substance use type: denies use current occupational status: disabled Travel in the last 8 weeks: None household members: spouse housing: other current occupational exposures/hazards: No caffeine: Yes Meds Home Medications and Allergies Home Medications ?Medication ?Instructions ?Recorded ?Confirmed ?Type aspirin 81 mg tablet,delayed 81 mg PO DAILY 02/21/19 10/09/23 History release clopidogrel 75 mg tablet 75 mg PO DAILY 02/21/19 10/09/23 History pantoprazole 40 mg tablet,delayed 40 mg PO DAILY 02/21/19 10/09/23 History release atorvastatin 80 mg tablet (Lipitor) 80 mg PO HS 04/23/20 10/09/23 History levetiracetam 500 mg tablet 500 mg PO BID #60 tabs 08/08/20 10/09/23 Rx carvedilol 3.125 mg tablet (Coreg) 3.125 mg PO BID #60 tabs 06/11/21 10/09/23 Rx fluoxetine 60 mg tablet 60 mg PO DAILY 06/11/21 10/09/23 History dapagliflozin propanediol 10 mg 10 mg PO DAILY 10/09/23 10/09/23 History tablet (Farxiga) docusate sodium 250 mg capsule 250 mg PO BID 10/09/23 10/09/23 History duloxetine 30 mg capsule,delayed 30 mg PO DAILY 10/09/23 10/09/23 History release furosemide 20 mg tablet 20 mg PO DAILYP PRN Edema 10/09/23 10/10/23 History gabapentin 400 mg capsule 400 mg PO QID 10/09/23 10/09/23 History insulin glargine U-300 conc 300 70 unit SQ HS 10/09/23 10/09/23 History unit/mL (3 mL) subcutaneous pen (Toujeo Max U-300 SoloStar) lactulose 20 gram/30 mL oral 30 ml PO DAILY 10/09/23 10/09/23 History solution quetiapine 50 mg tablet 50 mg PO HS 10/09/23 10/09/23 History sacubitril 24 mg-valsartan 26 mg 1 tab PO BID 10/09/23 10/09/23 History tablet (Entresto) tamsulosin 0.4 mg capsule 0.4 mg PO DAILY 10/09/23 10/10/23 History trazodone 150 mg tablet 150 mg PO HS 10/09/23 10/09/23 History hydrocodone 7.5 mg-acetaminophen 1 tab PO Q6HP PRN Moderate Pain 10/10/23 10/10/23 History 325 mg tablet (Scale Score 5-6) New Prescriptions to Start Prescriptions: Allergies Allergy/AdvReac Type Severity Reaction Status Date / Time metformin [METFORMIN] Allergy Unknown Unknown Verified 09/26/23 13:33 allergy reaction NSAIDS (Non-Steroidal Allergy Unknown UNKNOWN Verified 09/26/23 13:33 Anti-Inflamma [NSAIDS (NON-STEROIDAL ANTI-INFLAMMA] morphine Allergy Unknown Verified 09/26/23 13:33 allergy reaction Exam (Inpt) Comment:: Left foot wound vac intact. Vac removed. Left lateral foot open wound over 5th partial proximal metatarsal resection site. Sutures used to reapproximate the distal and proximal ends of the I&D site. Tissue appears much healthier and more granular. There is no purulence, malodor or new drainage. No menjivar or necrotic tissue. Wound was flushed with saline. The fourth metatarsal base and the cuboid are visible within the wound but appear white and healthy with no obvious signs of bone infection. No periwound maceration noted. On the superior aspect of the open wound there is some skin peeling with dusky bruising and discoloration. Ascending cellulitis has improved significantly. Left 5th met open wound was 100% granular with bleeding noted and measured 8.5 x 5.8 x 6.2 cm full-thickness thru skin, subq, deep fascia extending to exposed 4th met-cuboid bones. Results Labs 10/12/23 05:27 10/12/23 05:27 Assessment and Plan *Assessment and plan (1) Sepsis without septic shock: Status: Acute Category: Medical Code(s): A41.9 - Sepsis, unspecified organism (2) Acute osteomyelitis of metatarsal bone of left foot: Status: Acute Category: Medical Code(s): M86.172 - Other acute osteomyelitis, left ankle and foot (3) Diabetic foot ulcer: Status: Acute Qualifiers: Diabetes mellitus type: type 2 Diabetic foot ulcer location: midfoot Laterality: left Non-pressure ulcer stage: with necrosis of muscle Qualified Code(s): E11.621 - Type 2 diabetes mellitus with foot ulcer; L97.423 - Non-pressure chronic ulcer of left heel and midfoot with necrosis of muscle Category: Medical Code(s): E11.621 - Type 2 diabetes mellitus with foot ulcer; L97.509 - Non-pressure chronic ulcer of other part of unspecified foot with unspecified severity (4) Type 2 diabetes mellitus with hyperglycemia, with long-term current use of insulin: Status: Acute Category: Medical Code(s): E11.65 - Type 2 diabetes mellitus with hyperglycemia; Z79.4 - exterminator termite (current) use of insulin (5) Abscess of left foot: Status: Acute Category: Medical Code(s): L02.612 - Cutaneous abscess of left foot (6) Gangrene of left foot: Status: Acute Category: Medical Code(s): I96 - Gangrene, not elsewhere classified (7) Diabetic peripheral neuropathy associated with type 2 diabetes mellitus: Status: Acute Category: Medical Code(s): E11.42 - Type 2 diabetes mellitus with diabetic polyneuropathy (8) Peripheral Vascular Disease: Status: Acute Category: Medical Code(s): I73.9 - Peripheral vascular disease, unspecified Plan Surgery, 10/10/23: S/p Left partial fifth metatarsal resection, Left foot incision and drainage, Left foot wide excisional wound/ulcer debridement, Application of wound VAC Intraop Specimens: Left foot WCx: pending Left foot ulcer tissue culture: pending Left 5th metatarsal bone culture: pending Path: left 5th metatarsal, margin: pending 10/12/23: POD #2 -patient evaluated by [employer] PRO[employer] MANAGER and myself at beside. -wound vac removed. -wound cleansed and irrigated. overall tissue appears much better with no worsening SOI. -large open full thickness wound with exposed bone. see skin in PE for measurements. -new wound vac applied @125mmHg medium continuous. -discussed bc no dmitriy wound maceration, will plan for vac changes twice weekly starting next week (MTh). If drainage or skin maceration worsens, then plan for vac changes 3x weekly (MWF). Upon discharge: will need DME (post op surgical shoe or short fracture boot), will need wound vac ordered. Likely SNF placement due to hx LLE/LUE weakness secondary to stroke, left foot wound, need for wound vac changes, IV antibiotics. is unable to take care of him at home. Follow [facility] with Kash[facility] at [facility] outpatient for vac changes. Follow up with Podiatry outpatient for wound re-evaluation/monitoring. Plan/SNF Orders: Maintain dressing clean dry and intact to left foot, reinforce as necessary. Wound vac changed 10/12/23. NWB in short fracture boot or postop surgical shoe, walker/wheelchair. Continue IV antibiotics: Vancomycin, meropenem. Pharmacy to dose and monitor kidney function. PICC line with IV Vancomycin, meropenem x 4-6 weeks. Plan for wound vac change 10/14/23 by [facility] wound care team if still at [facility]. Left foot wound vac @125mmHg medium continuous. Then will need vac changes on 10/14/23 then next week Mon (10/17/23) and Thurs (10/20/23).
[2023-10-12 06:56] LABS: Basophils % 0.2 % (0.1-2.0); Eosinophils # 0.2 K/mm3 (0.0-0.4); Eosinophils % 1.4 % (0.1-12.0); Hematocrit 33.3 % (42.0-52.0); Hemoglobin 10.5 g/dL (14.1-18.0); Lymphocytes # 0.7 K/mm3 (0.7-4.5); Lymphocytes % 6.3 % (10-50); Mean Corpuscular HGB Conc 31.5 g/dL (31.8-35.4); Mean Corpuscular Hemoglobin 30.3 pg (27.0-31.2); Mean Corpuscular Volume 96.3 fl (80-94); Mean Platelet Volume 8.2 fl (7.4-10.4); Monocytes # 0.6 K/mm3 (0.1-1.0); Monocytes % 5.5 % (1.7-9.3); Neutrophils # 9.6 K/mm3 (1.8-7.8); Neutrophils % 86.6 % (37.0-80.0); Platelet Count 201 K/mm3 (142-424); Red Blood Count 3.46 M/mm3 (4.60-6.20); Red Cell Distribution Width 14.4 % (11.5-17.5)
[2023-10-12 07:00] LABS: Chloride 109 mmol/L (98-107)
[2023-10-12 07:01] LABS: Albumin Level 2.8 g/dl (3.5-5.0); Potassium 3.2 mmoL/L (3.5-5.1); Sodium 137 mmol/L (136-145)
[2023-10-12 07:04] LABS: Alanine Aminotransferase 20 U/L (12-78); Alkaline Phosphatase 112 U/L (38-126); Anion Gap 7.2 mEq/L (5-15); Aspartate Amino Transferase 29 U/L (17-59); Bilirubin,Total 0.5 mg/dl (0.2-1.3); Blood Urea Nitrogen 29 mg/dl (9-20); Calcium 7.5 mg/dl (8.4-10.2); Carbon Dioxide 24 mmol/L (22.0-30.0); Creatinine Clearance Estimated 112 mL/min (50-200); Estimated Glomerular Filt Rate 69 ml/min (>60); GFR (African American) 84 ML/MIN (>60); Globulin 2.8 g/dL (1.3-3.2); Glucose 116 mg/dl (74-100); Total Protein,Serum 5.6 g/dl (6.3-8.2)
[2023-10-12 07:05] LABS: MANUAL DIFFERENTIAL MANUAL DIFFERENTIAL (MANUAL DIFF)
[2023-10-12 08:00] VITALS: BP 88/55; PULSE 79; RESP 20; TEMP 36.8; O2SAT 93
--- NOTE | 2023-10-12 08:30 | P.PN_ITS ---
Subjective *Date: 10/12/23 *Time: 08:30 Medical Exam Vital signs and Labs for Last 24 Hours: Vital Signs Temp Pulse Resp BP Pulse Ox O2 Del Method 10/12/23 06:30 Room Air 10/12/23 05:00 Room Air 10/12/23 03:32 98.2 F 66 19 91/51 L 90 L 10/12/23 02:54 Room Air 10/12/23 00:43 Room Air 10/12/23 00:00 98.0 F 81 19 98/69 L 90 L Room Air 10/11/23 23:00 Room Air 10/11/23 21:00 97.6 F 79 20 119/64 90 L 10/11/23 21:00 Room Air 10/11/23 20:00 Room Air 10/11/23 19:00 Room Air 10/11/23 17:00 Room Air 10/11/23 16:00 98.0 F 83 20 107/66 L 94 L Room Air 10/11/23 15:00 Room Air 10/11/23 13:00 Room Air 10/11/23 12:00 98.2 F 77 18 117/70 95 Room Air 10/11/23 11:00 Room Air 10/11/23 09:00 Room Air Intake and Output 10/11/23 10/12/23 10/12/23 23:59 07:59 15:59 Intake Total 750 / 2210 470 / 470 Output Total 0 / 0 Balance 750 / 2210 470 / 470 Intake: Intake, Oral Amount 750 / 1510 120 / 120 Intake, Total IV Amount 350 / 350 Meropenem 1 gm In 0.9 % Sodium 100 / 100 Chloride 100 ml @ 100 mls/hr IV Q12H [facility] Rx#:[id number] Vancomycin HCl 2,500 mg In 0.9 250 / 250 % Sodium Chloride 250 ml @ 125 mls/hr IV ONCE ONE Rx#:[id number] Output: Output, Urine Amount 0 / 0 Other: Number of Voids 0 Number of Unmeasured Voids 1 Number of Bowel Movements 1 Weight 105.415 kg Patient Weight 10/12/23 23:59 Weight 105.415 kg Laboratory Results - last 24 hr 10/11/23 05:44: Total Counted 100, Neutrophils % (Manual) 91 H, Lymphocytes % (Manual) 7 L, Monocytes % (Manual) 2, Platelet Estimate Normal, RBC Morphology Normal, ESR 130 H 10/11/23 08:45: Vancomycin Trough 18.7 H 10/11/23 11:28: POC Glucose 156 H 10/11/23 17:00: POC Glucose 185 H 10/11/23 20:35: POC Glucose 193 H 10/12/23 05:27: WBC 11.0 H, RBC 3.46 L, Hgb 10.5 L, Hct 33.3 L, MCV 96.3 H, MCH 30.3, MCHC 31.5 L, RDW 14.4, Plt Count 201, MPV 8.2, Neut % (Auto) 86.6 H, Lymph % (Auto) 6.3 L, Mccreary % (Auto) 5.5, Eos % (Auto) 1.4, Baso % (Auto) 0.2, Neut # (Auto) 9.6 H, Lymph # (Auto) 0.7, Mccreary # (Auto) 0.6, Eos # (Auto) 0.2, Baso # (Auto) 0.0, Sodium 137, Potassium 3.2 L, Chloride 109 H, Carbon Dioxide 24, Anion Gap 7.2, BUN 29 H, Creatinine 1.10, Estimated Creat Clear 112, Estimated GFR 69, Est GFR ( Amer) 84, Glucose 116 H, Calcium 7.5 L, Total Bilirubin 0.5, AST 29, ALT 20, Alkaline Phosphatase 112, Total Protein 5.6 L, Albumin 2.8 L, Globulin 2.8, Albumin/Globulin Ratio 1.0 L 10/12/23 05:52: POC Glucose 132 H I & O for Labs for Last 24 Hours: Intake & Output 10/09/23 10/10/23 10/11/23 10/12/23 23:59 23:59 23:59 23:59 Intake Total 1440 1740 / 2210 470 / 470 Output Total 0 / 0 0 / 0 0 / 0 Balance 0 / 390 1439 174 / 0 470 / 470 Weight 104.326 kg 109.225 kg 105.506 kg 105.415 kg Microbiology Reports for the Last 24 Hours: Microbiology 10/09/23 18:05 Blood Blood Culture - Preliminary 10/09/23 18:11 Blood Blood Culture - Preliminary NO GROWTH AFTER 48 HOURS 10/10/23 15:15 Foot,Left Surgical Biopsy Culture - Preliminary NO GROWTH AFTER 24 HOURS 08/11/24 22:05 Ankle,Left Gram Stain - Final 10/09/23 22:05 Ankle,Left Wound Culture - Preliminary 10/10/23 15:15 Foot,Left Gram Stain - Final 10/10/23 15:15 Foot,Left Wound Culture - Preliminary The patient's infection will respond to the chosen ABx?: Yes Is the patient receiving the right drug, dose, and route?: Yes Could a more targeted ABx be ordered?: No (AFEBRILE NOW, WBC DOWN, STAPH IN ONE BLD CX.)
[2023-10-12 09:35] LABS: Eosinophils % 1 % (0-3); Lymphocytes % 13 % (10-50); Monocytes % 2 % (2-9); Neutrophils % 84 % (42-76); Total Cells Counted 100
[2023-10-12 09:37] LABS: RBC Morphology Normal
[2023-10-12 09:38] LABS: Platelet Estimate Normal
[2023-10-12] MEDS: levETIRAcetam 500 MG TABLET PO (09:43)
[2023-10-12] MEDS: DULOXETINE 30MG CAPSULE.DR 30 MG PO (09:43)
[2023-10-12] MEDS: DAPAGLIFLOZIN PROPANEDIOL 10 MG TABLET PO (09:43)
[2023-10-12] MEDS: CLOPIDOGREL 75MG TAB 75 MG PO (09:43)
[2023-10-12] MEDS: SACUBITRIL/VALSARTAN 24-26MG TABLET 1 EACH PO (09:43)
[2023-10-12] MEDS: DOCUSATE SODIUM 250MG CAPSULE 250 MG PO (09:43)
[2023-10-12] MEDS: FUROSEMIDE 20MG TABLET 20 MG PO (09:43)
[2023-10-12] MEDS: ASPIRIN EC 81MG TABLET 81 MG PO (09:43)
[2023-10-12] MEDS: FLUOXETINE 20MG CAPSULE 60 MG PO (09:43)
[2023-10-12] MEDS: VANCOMYCIN/WATER FOR INJ (PEG) 1.75 GM/350 ML PIGGYBACK IV (10:21)
[2023-10-12 10:53] VITALS: BP 107/67; PULSE 80
[2023-10-12 11:20] LABS: POC Glucose,Bedside 194 (70-110)
[2023-10-12] MEDS: humaLOG 100 UNITS/ML 10ML VIAL (SSI) SQ ×2 (11:38→16:48)
[2023-10-12 11:52] VITALS: BP 109/78; PULSE 91; RESP 19; TEMP 36.7; O2SAT 92; BMI 28.1
--- NOTE | 2023-10-12 11:55 | EXP.DC.SUM ---
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 reports over the weekend he had increased in wound size, odor and drainage. Patient developed low-grade temperature Tuesday and they brought him into the ER yesterday. Reports a significant cardiac history and hx LLE/LUE weakness secondary to stroke. He did have recent ABIs in August which showed R: GIANNI PT 1.22, DP 1.00, TBI 1.73 and L: GIANNI PT 0.872, DP 0.85, TBI 0.69. 10/12/23: Seen comfortably at the bedside. present. Reports he had a much better night overnight. Denies pain to the left foot. Wound VAC intact, plan for VAC change today. Hospital Course Hospital Course Hospital Course: 58yo male with PMHx multiple previous strokes, IDDM with neuropathy, peripheral vascular disease, chronic left lower extremity lymphedema, aortic stenosis, CAD, history of CHF presented to ED for worsening wound of left foot. Patient has a longstanding history of a left diabetic foot ulcer. Status post surgery 10/09 with partial removal of fifth metatarsal. Wound VAC in place. Podiatry assisted with care during admission. Stable to discharge to rehab. Continue wound care recommendations. Close follow-up with podiatry as an outpatient. Problems addressed as follows: Sepsis without septic shock Acute osteomyelitis of the metatarsal bone of left foot Diabetic foot ulcer -Podiatry consulted, appreciate their recommendations. S/P Date of procedure: 10/10/23, Procedure performed:: Left partial fifth metatarsal resection, Left foot incision and drainage, Left foot wide excisional wound/ulcer debridement, Application of wound VAC. Will remove wound VAC at time of transfer and placed wet Betadine dressing on the foot. Replace wound VAC as soon as possible after arriving to rehab facility. Patient is nonweightbearing at this time in a short fracture boot. PICC line placed on 10/10. Will continue meropenem and vancomycin twice daily for at least 4 weeks. Further management pending podiatry recommendations. Wound cultures were obtained and still pending at time of discharge. Plan for wound VAC to the left foot at 125 mmHg continuous -White count has shown improvement, 11 by day of discharge. Hemoglobin stable at 10.5. Kidney function normal at baseline for patient with BUN 29, creatinine 1.1. Repeat CBC, CMP and inflammatory markers including CRP and ESR in 4 days. -Patient needs Antoine trough tomorrow morning (10/13/2023) at 7:30 AM prior to morning dose of vancomycin. Uncontrolled insulin-dependent diabetes with neuropathy: Last A1c 8.1. Continued home regimen during admission. Continue gabapentin for neuropathy. May need adjustments to diabetes regimen. Continue fingersticks ACHS -CHF and coronary artery disease: on Entresto. Holding carvedilol due to low blood sugars. Resuming if blood pressures rebounds. Continue Plavix, aspirin, statin History of CVA: Continue Keppra 500 mg twice daily Protonix for GI bleed protection Evaluated by therapy, recommend SNF placement. Accepted to [facility] in [place] for further management. Total time spent on discharge 38 minutes in counseling, documentation, chart review, and direct care with patient. Exam Data for Last 24 hours Vital signs and Labs for Last 24 Hours: Temp Pulse Resp BP Pulse Ox O2 Del Method 98.1 F 91 H 19 109/78 L 92 L Room Air 10/12/23 11:52 10/12/23 11:52 10/12/23 11:52 10/12/23 11:52 10/12/23 11:52 10/12/23 11:52 Laboratory Results - last 24 hr 10/11/23 17:00: POC Glucose 185 H 10/11/23 20:35: POC Glucose 193 H 10/12/23 05:27: WBC 11.0 H, RBC 3.46 L, Hgb 10.5 L, Hct 33.3 L, MCV 96.3 H, MCH 30.3, MCHC 31.5 L, RDW 14.4, Plt Count 201, MPV 8.2, Neut % (Auto) 86.6 H, Lymph % (Auto) 6.3 L, Sevier % (Auto) 5.5, Eos % (Auto) 1.4, Baso % (Auto) 0.2, Neut # (Auto) 9.6 H, Lymph # (Auto) 0.7, Sevier # (Auto) 0.6, Eos # (Auto) 0.2, Baso # (Auto) 0.0, Total Counted 100, Neutrophils % (Manual) 84 H, Lymphocytes % (Manual) 13, Monocytes % (Manual) 2, Eosinophils % (Manual) 1, Platelet Estimate Normal, RBC Morphology Normal, Sodium 137, Potassium 3.2 L, Chloride 109 H, Carbon Dioxide 24, Anion Gap 7.2, BUN 29 H, Creatinine 1.10, Estimated Creat Clear 112, Estimated GFR 69, Est GFR ( Amer) 84, Glucose 116 H, Calcium 7.5 L, Total Bilirubin 0.5, AST 29, ALT 20, Alkaline Phosphatase 112, Total Protein 5.6 L, Albumin 2.8 L, Globulin 2.8, Albumin/Globulin Ratio 1.0 L 10/12/23 05:52: POC Glucose 132 H 10/12/23 11:13: POC Glucose 194 H I & O for Last 24 hours: Intake & Output 10/09/23 10/10/23 10/11/23 10/12/23 23:59 23:59 23:59 23:59 Intake Total 1440 / 1910 1740 / 2210 470 / 470 Output Total 0 / 0 0 / 0 0 / 0 0 / 0 Balance 0 / 390 1440 / 1910 1740 / 2210 470 / 470 Weight 104.326 kg 109.225 kg 105.506 kg 105.415 kg Microbiology Reports for the Last 24 Hours: Microbiology 10/10/23 15:15 Foot,Left Gram Stain - Final 10/10/23 15:15 Foot,Left Wound Culture - Preliminary Gram Negative Rods Gram Negative Rods#2 Gram Positive Cocci 10/09/23 22:05 Ankle,Left Gram Stain - Final 10/09/23 22:05 Ankle,Left Wound Culture - Preliminary Gram Negative Rods Gram Negative Rods#2 10/09/23 18:05 Blood Blood Culture - Preliminary 10/09/23 18:11 Blood Blood Culture - Preliminary NO GROWTH AFTER 48 HOURS 10/10/23 15:15 Foot,Left Surgical Biopsy Culture - Preliminary NO GROWTH AFTER 24 HOURS Constitutional Constitutional: no acute distress, average body habitus, chronically ill appearing and cooperative *Routine HEENT Exam Head: Present normocephalic Eye: Present EOMI and PERRL ENT: Present mucous membranes moist *Routine Neck Exam Neck: Present supple; Absent lymphadenopathy *Routine Respiratory Exam Respiratory: Present CTA bilaterally; Absent rhonchi, wheezes or crackles *Routine Cardiovascular Exam Cardiovascular: Present RRR *Routine Abdominal Exam Abdominal: Present soft and normoactive bowel sounds; Absent tenderness *Routine Rectal Exam Patient deferred: visual exam *Routine Exam Patient deferred: penile exam *Routine Extremities Exam Extremities: Absent cyanosis, clubbing or edema Comments: Left lower extremity with Tommie bandage in postop wrap. Wound VAC in place. *Routine Skin Exam Skin: Present intact and warm; Absent cyanosis or rash *Routine Neurological Exam Neurological: Present alert and moving all extremities; Absent altered mental status Comments: Baseline mentation. Oriented to self and place. Results Data Completed and Pending Labs on day of discharge: Labs from last 24 hours 10/12/23 10/12/23 10/12/23 11:13 05:52 05:27 WBC 11.0 H RBC 3.46 L Hgb 10.5 L Hct 33.3 L MCV 96.3 H MCH 30.3 MCHC 31.5 L RDW 14.4 Plt Count 201 MPV 8.2 Neut % (Auto) 86.6 H Lymph % (Auto) 6.3 L Sevier % (Auto) 5.5 Eos % (Auto) 1.4 Baso % (Auto) 0.2 Neut # (Auto) 9.6 H Lymph # (Auto) 0.7 Sevier # (Auto) 0.6 Eos # (Auto) 0.2 Baso # (Auto) 0.0 Total Counted 100 Neutrophils % (Manual) 84 H Lymphocytes % (Manual) 13 Monocytes % (Manual) 2 Eosinophils % (Manual) 1 Platelet Estimate Normal RBC Morphology Normal Sodium 137 Potassium 3.2 L Chloride 109 H Carbon Dioxide 24 Anion Gap 7.2 BUN 29 H Creatinine 1.10 Estimated Creat Clear 112 Estimated GFR 69 Est GFR ( Amer) 84 Glucose 116 H POC Glucose 194 H 132 H Calcium 7.5 L Total Bilirubin 0.5 AST 29 ALT 20 Alkaline Phosphatase 112 Total Protein 5.6 L Albumin 2.8 L Globulin 2.8 Albumin/Globulin Ratio 1.0 L 10/11/23 10/11/23 20:35 17:00 WBC RBC Hgb Hct MCV MCH MCHC RDW Plt Count MPV Neut % (Auto) Lymph % (Auto) Sevier % (Auto) Eos % (Auto) Baso % (Auto) Neut # (Auto) Lymph # (Auto) Sevier # (Auto) Eos # (Auto) Baso # (Auto) Total Counted Neutrophils % (Manual) Lymphocytes % (Manual) Monocytes % (Manual) Eosinophils % (Manual) Platelet Estimate RBC Morphology Sodium Potassium Chloride Carbon Dioxide Anion Gap BUN Creatinine Estimated Creat Clear Estimated GFR Est GFR ( Amer) Glucose POC Glucose 193 H 185 H Calcium Total Bilirubin AST ALT Alkaline Phosphatase Total Protein Albumin Globulin Albumin/Globulin Ratio Preliminary micro results at discharge 10/10/23 15:15 Wound Culture - Preliminary Foot,Left Gram Negative Rods Gram Negative Rods#2 Gram Positive Cocci 10/09/23 22:05 Wound Culture - Preliminary Ankle,Left Gram Negative Rods Gram Negative Rods#2 10/09/23 18:05 Blood Culture - Preliminary Blood 10/09/23 18:11 Blood Culture - Preliminary Blood NO GROWTH AFTER 48 HOURS 10/10/23 15:15 Surgical Biopsy Culture - Preliminary Foot,Left NO GROWTH AFTER 24 HOURS DS: Diagnosis Discharge Diagnosis (1) Sepsis without septic shock: Status: Acute Code(s): A41.9 - Sepsis, unspecified organism (2) Acute osteomyelitis of metatarsal bone of left foot: Status: Acute Code(s): M86.172 - Other acute osteomyelitis, left ankle and foot (3) Diabetic foot ulcer: Status: Acute Code(s): E11.621 - Type 2 diabetes mellitus with foot ulcer; L97.509 - Non-pressure chronic ulcer of other part of unspecified foot with unspecified severity Qualifiers: Diabetes mellitus type: type 2 Diabetic foot ulcer location: midfoot Laterality: left Non-pressure ulcer stage: with necrosis of muscle Qualified Code(s): E11.621 - Type 2 diabetes mellitus with foot ulcer; L97.423 - Non-pressure chronic ulcer of left heel and midfoot with necrosis of muscle (4) Type 2 diabetes mellitus with hyperglycemia, with long-term current use of insulin: Status: Acute Code(s): E11.65 - Type 2 diabetes mellitus with hyperglycemia; 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 (5) Abscess of left foot: Status: Acute Code(s): L02.612 - Cutaneous abscess of left foot (6) Gangrene of left foot: Status: Acute Code(s): I96 - Gangrene, not elsewhere classified (7) Diabetic peripheral neuropathy associated with type 2 diabetes mellitus: Status: Acute Code(s): E11.42 - Type 2 diabetes mellitus with diabetic polyneuropathy (8) Peripheral Vascular Disease: Status: Acute Code(s): I73.9 - Peripheral vascular disease, unspecified Meds Home Medications and Allergies Home Medications ?Medication ?Instructions ?Recorded ?Confirmed ?Type aspirin 81 mg tablet,delayed 81 mg PO DAILY 02/21/19 10/09/23 History release clopidogrel 75 mg tablet 75 mg PO DAILY 02/21/19 10/09/23 History pantoprazole 40 mg tablet,delayed 40 mg PO DAILY 02/21/19 10/09/23 History release atorvastatin 80 mg tablet (Lipitor) 80 mg PO HS 04/23/20 10/09/23 History levetiracetam 500 mg tablet 500 mg PO BID #60 tabs 08/08/20 10/09/23 Rx fluoxetine 60 mg tablet 60 mg PO DAILY 06/11/21 10/09/23 History dapagliflozin propanediol 10 mg 10 mg PO DAILY 10/09/23 10/09/23 History tablet (Farxiga) docusate sodium 250 mg capsule 250 mg PO BID 10/09/23 10/09/23 History duloxetine 30 mg capsule,delayed 30 mg PO DAILY 10/09/23 10/09/23 History release furosemide 20 mg tablet 20 mg PO DAILYP PRN Edema 10/09/23 10/10/23 History insulin glargine U-300 conc 300 70 unit SQ HS 10/09/23 10/09/23 History unit/mL (3 mL) subcutaneous pen (Toujeo Max U-300 SoloStar) lactulose 20 gram/30 mL oral 30 ml PO DAILY 10/09/23 10/09/23 History solution quetiapine 50 mg tablet 50 mg PO HS 10/09/23 10/09/23 History sacubitril 24 mg-valsartan 26 mg 1 tab PO BID 10/09/23 10/09/23 History tablet (Entresto) tamsulosin 0.4 mg capsule 0.4 mg PO DAILY 10/09/23 10/10/23 History trazodone 150 mg tablet 150 mg PO HS 10/09/23 10/09/23 History gabapentin 400 mg capsule 400 mg PO QID 30 days #120 caps 10/12/23 Rx hydrocodone 7.5 mg-acetaminophen 1 tab PO Q6H 30 days #120 tabs 10/12/23 Rx 325 mg tablet meropenem 1 gram intravenous 1 g IV Q12H 30 days #0 ea 10/12/23 Rx solution vancomycin 1.75 gram/350 mL in 1.75 g (350 mL) IV Q12H 30 days 10/12/23 Rx diluent combination IV piggyback #21,000 mL New Prescriptions to Start Prescriptions: Juan Luis Santoyo hydrocodone-acetaminophen Juan Luis Robledo Allergies Allergy/AdvReac Type Severity Reaction Status Date / Time metformin [METFORMIN] Allergy Unknown Unknown Verified 09/26/23 13:33 allergy reaction NSAIDS (Non-Steroidal Allergy Unknown UNKNOWN Verified 09/26/23 13:33 Anti-Inflamma [NSAIDS (NON-STEROIDAL ANTI-INFLAMMA] morphine Allergy Unknown Verified 09/26/23 13:33 allergy reaction Discharge Plan Disposition Patient Disposition: [facility] Condition: Fair Discharge Order Discharge Orders: Discharge Order (Routine); Ordered 10/12/23 Ordered By: Juan Luis Robledo Follow up Plan Follow up with: Maru Roque DPM [Staff Physician] - Enter time for follow up Prescriptions/Medication Reconciliation: New hydrocodone-acetaminophen 7.5-325 mg Tablet 1 tab PO Q6H 30 Days Qty: 120 0RF meropenem 1 gram Recon Soln 1 g IV Q12H 30 Days Qty: 0 0RF vancomycin-diluent combo no.1 1.75 gram/350 mL Piggyback 1.75 g IV Q12H 30 Days Qty: 52328 0RF Continued atorvastatin [Lipitor] 80 mg tablet 80 mg PO HS fluoxetine 60 mg tablet 60 mg PO DAILY clopidogrel 75 MG tablet 75 mg PO DAILY pantoprazole 40 MG tablet,delayed release (DR/EC) 40 mg PO DAILY aspirin 81 MG tablet,delayed release (DR/EC) 81 mg PO DAILY levetiracetam 500 MG tablet 500 mg PO BID Qty: 60 0RF tamsulosin 0.4 mg capsule 0.4 mg PO DAILY trazodone 150 mg tablet 150 mg PO HS furosemide 20 mg tablet 20 mg PO DAILYP PRN (Reason: Edema) quetiapine 50 mg tablet 50 mg PO HS lactulose 20 gram/30 mL Solution 30 ml PO DAILY docusate sodium 250 mg capsule 250 mg PO BID duloxetine 30 mg capsule,delayed release(DR/EC) 30 mg PO DAILY dapagliflozin propanediol [Farxiga] 10 mg tablet 10 mg PO DAILY Entresto 24- mg tablet 1 tab PO BID insulin glargine U-300 conc [Toujeo Max U-300 SoloStar] 300 unit/mL (3 mL) insulin pen 70 unit SQ HS gabapentin 400 mg capsule 400 mg PO QID 30 Days Qty: 120 0RF Discontinued carvedilol [Coreg] 3.125 mg tablet 3.125 mg PO BID Qty: 60 2RF Rx Instructions: must administer with a meal/food hydrocodone-acetaminophen 7.5-325 mg tablet 1 tab PO Q6HP PRN (Reason: Moderate Pain (Scale Score 5-6)) Problem Reconciliation Problems Reviewed?: Yes Patient Discharge Instructions ACTIVITY: Continue current activity and Up with assistance DIET: continue same diet Patient Instructions: DI for Diabetic Foot Ulcer, DI for Sepsis -- Adult Print Language: French Providers Primary Care Provider: Maged Bermudez Provider: Talha Chawla Attending Provider: Talha Chawla
[2023-10-12 16:00] VITALS: BP 120/72; PULSE 87; RESP 18; TEMP 36.8; O2SAT 94
[2023-10-12 16:52] LABS: POC Glucose,Bedside 242 (70-110)
--- NOTE | 2023-10-12 18:10 | PC.WOUNDNOTE ---
diabetic ulcer left foot
--- NOTE | 2023-10-12 20:15 | PC.NURSE ---
stock or delivery clerk placed call to EMS to inquire about ETA and was told they could come now. Information relayed to pt and .
--- NOTE | 2023-10-12 20:32 | PC.NURSE ---
Patient left with EMS at 20:30.
== END 2023-10-12 20:30 | DRG 854 ==
LOC: ER 18:41 → 2ND 20:17
PROVIDERS: Nurse Practitioner Family; Physician Assistant; Podiatrist; Admitting Provider Internal Medicine; Emergency Provider Emergency Medicine; PCP Internal Medicine Adolescent Medicine; Visit Provider Internal Medicine
PROC: 0QBP0ZZ Excision of Left Metatarsal, Open Approach (ICD-10-PCS; principal; 2023-10-10 14:00)
DX: A41.9 Sepsis, unspecified organism (principal); I69.354 Hemiplegia and hemiparesis following cerebral infarction affecting left non-dominant side; M86.172 Other acute osteomyelitis, left ankle and foot; L02.612 Cutaneous abscess of left foot; I96 Gangrene, not elsewhere classified; L97.424 Non-pressure chronic ulcer of left heel and midfoot with necrosis of bone; E11.621 Type 2 diabetes mellitus with foot ulcer; I89.0 Lymphedema, not elsewhere classified; E11.65 Type 2 diabetes mellitus with hyperglycemia; I25.10 Atherosclerotic heart disease of native coronary artery without angina pectoris; Z79.4 Long term (current) use of insulin; I50.9 Heart failure, unspecified; I35.0 Nonrheumatic aortic (valve) stenosis; E11.69 Type 2 diabetes mellitus with other specified complication; F17.210 Nicotine dependence, cigarettes, uncomplicated; I25.2 Old myocardial infarction
CPT/HCPCS: 36410; 36415; 36569; 71045; 73630; 73701; 80053; 80202; 81001; 82962; 83605; 84484; 85007; 85025; 85027; 85651; 86140; 87040; 87070; 87075; 87077; 87186; 87205; 88304; 88305; 88311; 93005; 93306; 93970; 93971; 97163; 97530; 99285; C1751; J1170; J1580; J2185; J2250; J2543; J3010; J3370; J7120; Q9967

== ENCOUNTER 2023-11-10 12:10 | Outpatient (CLI) | payer MEDICARE, SELFPAY | END 2023-11-10 23:59 | disposition home or self-care (01) | LOC: LAB.DROPOF 11-11 12:25 | PROVIDERS: PCP Podiatrist; Visit Provider Podiatrist | DX: L89.890 Pressure ulcer of other site, unstageable (principal) | CPT/HCPCS: 87070; 87077; 87205 ==

== ENCOUNTER 2023-12-20 09:45 | Outpatient (CLI) | payer MEDICARE, MEDICAID, SELFPAY | END 2023-12-20 23:59 | disposition home or self-care (01) | LOC: LAB.DROPOF 12-21 09:46 | PROVIDERS: PCP Podiatrist; Visit Provider Podiatrist | DX: E11.621 Type 2 diabetes mellitus with foot ulcer (principal); L97.526 Non-pressure chronic ulcer of other part of left foot with bone involvement without evidence of necrosis; Z51.89 Encounter for other specified aftercare | CPT/HCPCS: 87070; 87077; 87186; 87205 ==

== ENCOUNTER 2024-03-14 19:52 | Observation (INO) | payer MEDICARE, MEDICAID, SELFPAY ==
[2024-03-14 19:52] VITALS: BP 172/110; PULSE 84; RESP 16; TEMP 36.6; O2SAT 98; BMI 28.0
--- NOTE | 2024-03-14 19:53 | HMH.EDGENADL ---
Discharge Plan Prescriptions Prescriptions: No Action atorvastatin [Lipitor] 80 mg tablet 80 mg PO HS fluoxetine 60 mg tablet 40 mg PO DAILY clopidogrel 75 MG tablet 75 mg PO DAILY pantoprazole 40 MG tablet,delayed release (DR/EC) 40 mg PO DAILY aspirin 81 MG tablet,delayed release (DR/EC) 81 mg PO DAILY levetiracetam 500 MG tablet 500 mg PO BID Qty: 60 0RF tamsulosin 0.4 mg capsule 0.4 mg PO DAILY trazodone 150 mg tablet 150 mg PO HS furosemide 20 mg tablet 20 mg PO DAILYP PRN (Reason: Edema) quetiapine 50 mg tablet 50 mg PO HS lactulose 20 gram/30 mL Solution 30 ml PO DAILY docusate sodium 250 mg capsule 250 mg PO BID duloxetine 30 mg capsule,delayed release(DR/EC) 30 mg PO DAILY dapagliflozin propanediol [Farxiga] 10 mg tablet 10 mg PO DAILY Entresto 24-26 mg tablet 1 tab PO BID insulin glargine U-300 conc [Toujeo Max U-300 SoloStar] 300 unit/mL (3 mL) insulin pen 70 unit SQ HS hydrocodone-acetaminophen 7.5-325 mg Tablet 1 tab PO Q6H 30 Days Qty: 120 0RF meropenem 1 gram Recon Soln 1 g IV Q12H 30 Days Qty: 0 0RF gabapentin 400 mg capsule 400 mg PO QID 30 Days Qty: 120 0RF Referrals Follow up/Referrals: Maged Bermudez MD [Primary Care Provider] - See instructions Print Language Print Language: Burundian Discharge ED Provider: Augusta Stovall General Adult HPI General Stated complaint: no complaints Time Seen by Provider: 03/14/24 19:53 Related Data Home Medications ?Medication ?Instructions ?Recorded ?Confirmed aspirin 81 mg tablet,delayed 81 mg PO DAILY 02/21/19 03/13/24 release clopidogrel 75 mg tablet 75 mg PO DAILY 02/21/19 03/13/24 pantoprazole 40 mg tablet,delayed 40 mg PO DAILY 02/21/19 03/13/24 release atorvastatin 80 mg tablet (Lipitor) 80 mg PO HS 04/23/20 03/13/24 dapagliflozin propanediol 10 mg 10 mg PO DAILY 10/09/23 03/13/24 tablet (Farxiga) docusate sodium 250 mg capsule 250 mg PO BID 10/09/23 03/13/24 duloxetine 30 mg capsule,delayed 30 mg PO DAILY 10/09/23 03/13/24 release furosemide 20 mg tablet 20 mg PO DAILYP PRN Edema 10/09/23 03/13/24 insulin glargine U-300 conc 300 70 unit SQ HS 10/09/23 03/13/24 unit/mL (3 mL) subcutaneous pen (Toujeo Max U-300 SoloStar) lactulose 20 gram/30 mL oral 30 ml PO DAILY 10/09/23 03/13/24 solution quetiapine 50 mg tablet 50 mg PO HS 10/09/23 03/13/24 sacubitril 24 mg-valsartan 26 mg 1 tab PO BID 10/09/23 03/13/24 tablet (Entresto) tamsulosin 0.4 mg capsule 0.4 mg PO DAILY 10/09/23 03/13/24 trazodone 150 mg tablet 150 mg PO HS 10/09/23 03/13/24 fluoxetine 60 mg tablet 40 mg PO DAILY 11/29/23 03/13/24 Previous Rx's ?Medication ?Instructions ?Recorded levetiracetam 500 mg tablet 500 mg PO BID #60 tabs 08/08/20 gabapentin 400 mg capsule 400 mg PO QID 30 days #120 caps 10/12/23 hydrocodone 7.5 mg-acetaminophen 1 tab PO Q6H 30 days #120 tabs 10/12/23 325 mg tablet meropenem 1 gram intravenous 1 g IV Q12H 30 days #0 ea 10/12/23 solution Allergies Allergy/AdvReac Type Severity Reaction Status Date / Time metformin (METFORMIN) Allergy Unknown Unknown Verified 02/28/24 11:27 allergy reaction NSAIDS (Non-Steroidal Allergy Unknown UNKNOWN Verified 02/28/24 11:27 Anti-Inflamma (NSAIDS (NON-STEROIDAL ANTI-INFLAMMA) morphine Allergy Unknown Verified 02/28/24 11:27 allergy reaction PFSH PFSH Disclaimer: The information contained in this section may have been updated after the patient was seen, as this information can be updated by other users. Medical History Hypertensive encephalopathy Laceration of ear Heart attack CVA (cerebral vascular accident) 2020 Surgical History History of nasal surgery Previous back surgery Social History Smoking Status: Current some day smoker tobacco type: cigarettes packs per day: 1 second hand exposure: Yes alcohol intake: never substance use type: denies use current occupational status: disabled Travel in the last 8 weeks: None household members: spouse housing: other current occupational exposures/hazards: No caffeine: Yes Have you lived/traveled outside [place] in past 30 days?: No Contact w/someone who lives/traveled outside [place] past 30 days?: No Exposure to someone with infectious disease in past 14 days?: No Do you have a fever (greater than 100.4 F or 38 C)?: No Have you tested positive for COVID-19: No Exposed to someone with COVID-19 in past 14 days?: No Do you have a sore throat?: No Do you have a cough?: No Do you have any weakness?: No Do you have any diarrhea?: No Are you experiencing any unusual bleeding?: No Do you have any muscle aches/pain?: No Do you have any abdominal pain?: No Are you experiencing loss of taste or smell?: No Other Medical History Have you received the Flu Vaccine for this season: No Have you received the Pneumonia Vaccine: No ROS Obtained: Yes Systems reviewed as appropriate & no additional complaints except as documented Physical Exam General General appearance: alert and in no apparent distress Head Head exam: atraumatic and normal inspection Eye Eye exam: Present normal appearance, PERRL and EOMI ENT ENT exam: Present normal exam, normal oropharynx and mucous membranes moist Neck Neck exam: Present normal inspection, full ROM and trachea midline; Absent lymphadenopathy Chest Chest inspection: Present normal inspection and symmetric chest wall rise Respiratory Respiratory exam: Present normal lung sounds bilaterally; Absent accessory muscle use Cardiovascular Cardiovascular exam: Present regular rate, normal rhythm, normal heart sounds, +S1 and +S2 Abdominal Exam Abdominal exam: Present soft and normal bowel sounds; Absent tenderness, guarding or rebound Extremities Exam Extremities exam: Present normal inspection and full ROM Neurological Exam Neurological exam: Present alert, oriented X3 and CN II-XII intact Psychiatric Psychiatric exam: Present normal affect and normal mood Skin Skin exam: Present warm, dry and normal color Lymphatic Lymphatic Findings: no adenopathy Medical Decision Making Medical Records Screening: Per USPSTF and CDC recommendations, given the prevalence of disease in our region, it is our hospital?s policy to screen for HIV and viral Hepatitis for all patients aged 18 and over and those with ongoing risk factors. Orders (Tests/Meds): ORDERS Category Date Time Status Consult to Case Management [CONS] Routine Cons 03/14/24 19:58 Active Medical Decision Narrative: In summary patient is a [age, sex] who presents to the emergency department for evaluation of [complaint]. Patient is [hemodynamically stable/unstable] upon arrival, [febrile/afebrile]. [Unremarkable physical exam, nonfocal exam versus focal remarkable exam]. Differential diagnosis includes [DDx]. Initial workup will be conducted with [hematologic labs, imaging, respiratory swab, describe workup]. Initial interventions include [crystalloid bolus, medications, p.o. challenge, etc.] initial workup reviewed by me [hematologic labs are remarkable for... Imaging remarkable for... Urinalysis remarkable for]. Upon repeat evaluation [patient had acceptable resolution of symptoms, had persistent pain for which additional interventions were conducted (describe interventions), tolerated p.o., was ambulatory, etc.]. Given this [patient is appropriate for discharge at this time and will be discharged with a prescription for... The case was discussed with hospital medicine regarding management and they will admit the patient their service for continued evaluation at this time... Etc.] Places where you can increase complexity: I informally interpreted the patient's chest x-ray or CT read and is remarkable for... Documenting what the gambling monitor shows with rate and rhythm Consideration of test but deferring. Ex: I considered chest x-ray on this patient however given that they have no oxygen requirement and are clear to auscultation all lung vivas will be deferred. Social determinants of health: Given that patient is undomiciled increases complexity. Given that patient has polysubstance abuse compounds all aspects of care
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
--- NOTE | 2024-03-14 20:38 | PC.NURSE ---
attempted to call report to Tracy, will call back
[2024-03-14 20:54] VITALS: BP 184/118; PULSE 90; RESP 18; RESP 20; TEMP 36.7; TEMP 37.1; O2SAT 97
[2024-03-14 20:58] LABS: Basophils # 0.1 K/mm3 (0-0.2); Eosinophils # 0.2 K/mm3 (0.0-0.4); Hematocrit 42.3 % (42.0-52.0); Hemoglobin 13.5 g/dL (14.1-18.0); Lymphocytes % 19.1 % (10-50); Mean Corpuscular HGB Conc 31.9 g/dL (31.8-35.4); Mean Corpuscular Hemoglobin 26.9 pg (27.0-31.2); Mean Corpuscular Volume 84.3 fl (80-94); Mean Platelet Volume 10.1 fl (7.4-10.4); Monocytes # 0.5 K/mm3 (0.1-1.0); Monocytes % 8.9 % (1.7-9.3); Neutrophils # 3.4 K/mm3 (1.8-7.8); Neutrophils % 67.6 % (37.0-80.0); Platelet Count 180 K/mm3 (142-424); Red Blood Count 5.02 M/mm3 (4.60-6.20); Red Cell Distribution Width 14.6 % (11.5-17.5); White Blood Count 5.1 K/mm3 (4.8-10.8)
[2024-03-14 21:00] VITALS: O2SAT 97
--- NOTE | 2024-03-14 21:03 | PC.NURSE ---
Pt arrived to floor via stretcher @21:02
[2024-03-14 21:06] LABS: Albumin Level 3.3 g/dl (3.5-5.0); Chloride 101 mmol/L (98-107); Potassium 3.3 mmoL/L (3.5-5.1); Sodium 136 mmol/L (136-145)
[2024-03-14 21:09] LABS: Alanine Aminotransferase 20 U/L (12-78); Albumin/Globulin Ratio 1.1 (1.1-1.8); Alkaline Phosphatase 129 U/L (38-126); Anion Gap 4.3 mEq/L (5-15); Aspartate Amino Transferase 26 U/L (17-59); Bilirubin,Total 0.4 mg/dl (0.2-1.3); Blood Urea Nitrogen 13 mg/dl (9-20); Calcium 8.8 mg/dl (8.4-10.2); Carbon Dioxide 34 mmol/L (22.0-30.0); Creatinine Clearance Estimated 152 mL/min (50-200); Estimated Glomerular Filt Rate 100 ml/min (>60); GFR (African American) 121 ML/MIN (>60); Globulin 3.1 g/dL (1.3-3.2); Glucose 205 mg/dl (74-100); Total Protein,Serum 6.4 g/dl (6.3-8.2)
[2024-03-14 21:48] VITALS: BP 170/109; PULSE 88; RESP 18; TEMP 36.4; O2SAT 97; BMI 26.6
[2024-03-14] MEDS: APAP/HYDROCODONE 325MG/7.5MG TAB 1 TAB PO (21:56)
[2024-03-14] MEDS: levETIRAcetam 500 MG TABLET PO (21:58)
--- NOTE | 2024-03-14 22:05 | PC.NURSE ---
Called [facility] to confirm medications, med rec done per facility Lindy.
[2024-03-14] MEDS: NICOTINE 21MG/24HR PATCH 21 MG TD (22:31)
[2024-03-14] MEDS: OXYMETAZOLINE NASAL SPRAY 0.05% 15ML NS (23:32)
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
[2024-03-15] VITALS: BP 147/91; PULSE 90; RESP 17; TEMP 36.4; O2SAT 98
[2024-03-15 04:00] VITALS: BP 147/94; PULSE 85; RESP 17; TEMP 36.4; O2SAT 97; BMI 26.6
[2024-03-15 05:27] LABS: POC Glucose,Bedside 165 (70-110)
[2024-03-15 06:30] LABS: Microscopic, Urine URINE MICROSCOPIC (MICROSCOPIC)
[2024-03-15 06:41] LABS: Appearance,Urine CLEAR (Clear); Bilirubin,Urine Negative (Negative); Blood, Urine 2+ (Negative); Color,Urine YELLOW (Yellow); Glucose,Urine (UA) 3+ (Negative); Ketones,Urine Negative (Negative); Leukocyte Esterase,Urine Negative (Negative); Nitrate,Urine Negative (Negative); Protein,Urine 3+ (Negative)
[2024-03-15 08:00] VITALS: BP 158/106; PULSE 85; RESP 16; TEMP 36.8; O2SAT 97
--- NOTE | 2024-03-15 08:20 | SW/DCPLANNER ---
Addendum entered by [facility] 03/16/24 14:32: Patient refused outpatient PT services. Addendum entered by [facility] 03/16/24 07:28: Patient is agreeable to [facility] Waiver services. I have faxed patient demographics to [facility]/ [employer]. Addendum entered by [facility] 03/15/24 15:20: Patient is agreeable to home health services at time of discharge. The following agencies are not able to accept patient at this time due to insurance: [facility], [facility], [facility], Critical access hospital and A. I am unable to set patient up w/ home health services at this time. I will offer outpatient PT services to patient. Addendum entered by [facility] 03/15/24 13:51: has requested Meds to Bed program: I have updated patient's nurse (Zaida) and MD. Addendum entered by [facility] 03/15/24 13:47: I have updated patient's that EMS will transport patient home and assist patient into home. I have also advised patient's to reach out to family members regarding electric wheelchair. Addendum entered by [facility] 03/15/24 13:31: Patient continues to express that he is not interested in LTC or homeless shelters. Patient stated that he is able to ambulate while using a railing for assistance, can transfer from wheelchair to commode, can feed himself and can bathe himself. Myself and Dr Stallworth spoke w/ patient's regarding discharge planning. stated that she will not allow patient to be discharged out to the cold alone and she would allow him back in the home. stated that I (Huyen) will need to figure out transportation to the home and find assistance to get patient into the home. I spoke w/ nurse (Zaida) and Med/Surg Nanny Babysitter (Diamond) regarding situation and they will reach out to EMS for transport and assistance into the home. I have continued to update Durga Dunn throughout this situation. Per MD patient will discharge home today. Addendum entered by [facility] 03/15/24 10:23: CM Magdiel) and myself spoke w/ patient regarding discharge plans. Patient voiced that he would like me to contact his niece (Dave) that works at [facility] to bring his wheelchair and he plans to discharge. Patient is not interested in LTC or a homeless correction. Patient voiced understanding that it is cold outside. Patient stated that once ready for discharge and wheelchair arrives he plans to leave [facility]. Patient remained alert and oriented during our conversation. Addendum entered by Huyen Leyva 03/15/24 09:58: Patient's (Dayanara) contacted me this AM to voice concern of patient returning home. Dayanara stated that she did make a report w/ [facility] (ID#[id number]) that did not meet criteria for investigation. I explained to Dayanara that patient is alert and oriented and able to make his own decisions. Patient verbalized multiple times that he will not discharge to a LTC facility. I will continue to follow up w/ patient, family and MD. Addendum entered by Huyen Leyva 03/15/24 09:03: Patient verbalized that he is not interested in LTC placement at time of discharge. Patient stated that he plans to return to his home in [place]. I encouraged patient to call and have a discussion w/ his . I also updated patient that he would more than likely be medically stable for discharge today. Original Note: Patient admitted to [facility] from [facility] level of care. Patient did choose to sign out of [facility] yesterday due to not being able to smoke. I will speak w/ patient this AM regarding discharge plans.
[2024-03-15 08:37] LABS: Basophils % 0.6 % (0.1-2.0); Eosinophils # 0.2 K/mm3 (0.0-0.4); Eosinophils % 2.9 % (0.1-12.0); Hematocrit 39.7 % (42.0-52.0); Hemoglobin 12.7 g/dL (14.1-18.0); Lymphocytes # 0.8 K/mm3 (0.7-4.5); Lymphocytes % 12.4 % (10-50); Mean Corpuscular Hemoglobin 27.1 pg (27.0-31.2); Mean Corpuscular Volume 84.6 fl (80-94); Mean Platelet Volume 9.7 fl (7.4-10.4); Monocytes # 0.5 K/mm3 (0.1-1.0); Monocytes % 8.3 % (1.7-9.3); Neutrophils # 4.9 K/mm3 (1.8-7.8); Neutrophils % 75.5 % (37.0-80.0); Platelet Count 168 K/mm3 (142-424); Red Blood Count 4.69 M/mm3 (4.60-6.20); Red Cell Distribution Width 14.6 % (11.5-17.5); White Blood Count 6.5 K/mm3 (4.8-10.8)
[2024-03-15 08:44] LABS: Chloride 101 mmol/L (98-107)
[2024-03-15 08:45] LABS: Potassium 3.1 mmoL/L (3.5-5.1); Sodium 137 mmol/L (136-145)
[2024-03-15 08:47] LABS: Blood Urea Nitrogen 12 mg/dl (9-20); Creatinine Clearance Estimated 165 mL/min (50-200); Estimated Glomerular Filt Rate 117 ml/min (>60); GFR (African American) 141 ML/MIN (>60)
[2024-03-15 08:48] LABS: Anion Gap 5.1 mEq/L (5-15); Calcium 8.5 mg/dl (8.4-10.2); Carbon Dioxide 34 mmol/L (22.0-30.0); Glucose 162 mg/dl (74-100)
[2024-03-15] MEDS: APAP/HYDROCODONE 325MG/7.5MG TAB 1 TAB PO ×2 (08:57→15:23)
[2024-03-15] MEDS: GABAPENTIN 400MG CAPSULE 400 MG PO ×2 (08:58→13:50)
[2024-03-15] MEDS: CLOPIDOGREL 75MG TAB 75 MG PO (08:59)
[2024-03-15] MEDS: levETIRAcetam 500 MG TABLET PO (08:59)
[2024-03-15] MEDS: CARVEDILOL 3.125MG TABLET 3.125 MG PO (08:59)
[2024-03-15] MEDS: SACUBITRIL/VALSARTAN 24-26MG TABLET 1 EACH PO (08:59)
[2024-03-15] MEDS: DOCUSATE SODIUM 250MG CAPSULE 250 MG PO (08:59)
[2024-03-15] MEDS: DULOXETINE 30MG CAPSULE.DR 30 MG PO (08:59)
[2024-03-15] MEDS: DAPAGLIFLOZIN PROPANEDIOL 10 MG TABLET PO (08:59)
[2024-03-15] MEDS: LORATADINE 10MG TABLET 10 MG PO (08:59)
[2024-03-15] MEDS: NICOTINE 21MG/24HR PATCH 21 MG TD (09:00)
[2024-03-15] MEDS: OXYMETAZOLINE NASAL SPRAY 0.05% 15ML NS (09:00)
--- NOTE | 2024-03-15 09:14 | HMH.PTEV ---
Physical Therapy Evaluation Rehab PT IP Evaluation Start: 03/15/24 08:19 Freq: .once Status: Active Protocol: Document 03/15/24 09:05 ARGELIA (Rec: 03/15/24 09:13 ARGELIA [id number]) Subjective/History History History Per H&P: This is a 58-year- old male with a past medical history of T2DM, neuropathy,, hypertension, hyperlipidemia, prior CVA who presents emergency department today after being kicked out of his living facility ([facility]), per patient and reports he was requesting to go outside and smoke as he does typically at this facility. Staff there told him that he was unable to to be escorted outside due to the extreme cold. It is reported that he became argumentative and agitated. They then proceeded to ask him to leave. It is stated that he was asked to sign AMA papers but unsure of the validity of this statement. He then was able to wheel himself down to the [place]. EMS and police were notified and brought him to the emergency department due to extreme cold weather and having no place to go. Subjective Subjective Pt reports he has been at [facility] for 6 months. Pt reports he requires some assistance with ADLs and mobility. Pt is IND with electric w/c mobility at baseline. Pt reports prior to [facility] placement, he lived with his in a single-story home with 0 ANDRA. New diagnosis of cancer in past 12 No months? Rehab PT IP Eval Objective Appearance Patient Behavior Appropriate,Cooperative Patient Orientation Person,Situation Difficulty following instructions none Speech Pattern Clear Ambulation Patient Able to Ambulate No Balance Ability to Arise Able, uses arms to help Sitting Balance Steady, safe Standing Balance Unsteady Dynamic Sitting Balance Ability Good Transfers Bed Transfer Ability Minimal x 1 (25% assist) Sit to Stand Bed Transfer Ability Contact Guard/Hand Hold Rehab PT IP prob,goals,plan Problems Date of Evaluation: 03/15/24 Rehab Potential Rehab Potential Innapropriate for Skilled Therapy Discharge Plan PT Discharge Plan Initial physical therapy evaluation performed. Pt is most appropriate to return to nursing facility where he has 24/7 assistance/supervision for transfers and bed mobility . Pt is at baseline with his functional mobility and is not appropriate for skilled acute care rehab at this time. Eval Complexity Eval Charge Codes 47685 - Moderate Complexity PHYSICIAN CERTIFICATION: I certify the specified therapy services for Eran Kee Dove are required, authorized, and reviewed every 30 days.
--- NOTE | 2024-03-15 09:47 | HMH.PHAINT1 ---
Pharmacy Intervention Comments: VERIFIED AND CONFIRMED MEDICATIONS WITH OUTPATIENT PHARMACY.
--- NOTE | 2024-03-15 10:06 | HMH.OTEV ---
OT Inpatient Evaluation Rehab OT IP Evaluation Start: 03/15/24 08:19 Freq: ONCE Status: Active Protocol: Document 03/15/24 09:52 HIPOLITO (Rec: 03/15/24 10:02 HIPOLITO [id number]) Rehab OT IP Assessment Subjective History This is a 58-year-old male with a past medical history of T2DM, neuropathy,, hypertension, hyperlipidemia, prior CVA who presents emergency department today after being kicked out of his living facility ([facility]), per patient and reports he was requesting to go outside and smoke as he does typically at this facility. Staff there told him that he was unable to to be escorted outside due to the extreme cold. It is reported that he became argumentative and agitated. They then proceeded to ask him to leave. It is stated that he was asked to sign AMA papers but unsure of the validity of this statement. He then was able to wheel himself down to the [place]. EMS and police were notified and brought him to the emergency department due to extreme cold weather and having no place to go. Patient denies any acute medical problems. States that he has chronic back pain and knee pain. States that his knee pain is somewhat worse but attributes that to the cold air. Denies any chest pain, shortness of breath, fever. States that he was in his normal state of health when the events of today transpired Given patient does not have a safe dispo plan, will admit and have case management involved for possible placement. [facility] requests repeat physician eval to be able to except patient back to their facility. Patient has been at [facility] for the past 6 months with needing assistance from nursing staff with ADLs. Instructed Patient on safety awareness to complete bed mobility from supine->sit @ EOB->squat pivot transfers with to w/c. Subjective I can get up. Objective Patient Orientation Person,Place,Name,Birthday Right Upper Extremity Gross ROM WFL Left Upper Extremity Gross ROM WFL Bed Mobility bed mobility - supine/sit Assist Level Contact Guard/Hand Hold Transfer Training Sit/Stand/Step Transfer Assist Level Contact Guard/Hand Hold Chair Transfer Ability Contact Guard/Hand Hold Rehab OT IP prob,goals,plan Problems Date of Evaluation: 03/15/24 Rehab Potential Rehab Potential Innapropriate for Skilled Therapy Discharge Plan OT Discharge Plan Patient appears to be at baseline with ADLs and fx'l mobility. 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 Eval Complexity Eval Charge Codes 56725 - Low Complexity PHYSICIAN CERTIFICATION: I certify the specified therapy services for Eran Dove are required, authorized, and reviewed every 30 days.
[2024-03-15 12:00] VITALS: BP 122/82; PULSE 76; O2SAT 97
[2024-03-15] MEDS: POTASSIUM CHLORIDE 20MEQ TAB 40 MEQ PO (12:22)
--- NOTE | 2024-03-15 14:57 | HMH.PHAINT1 ---
Pharmacy Intervention Comments: COUNSELED PATIENT ON NEW, CHANGED, AND DISCONTINUED MEDICATIONS. PATIENT VERBALIZED UNDERSTANDING.
--- NOTE | 2024-03-15 18:16 | PC.NURSE ---
Still awaiting EMS arrival to transport pt to home.
--- NOTE | 2024-03-16 10:35 | SW/DCPLANNER ---
Spoke with patients on his follow up discharge call. Did review with her his follow up appointments and she had several concerns Transferred her to Veronica Chand. Antonette Cameron
== END 2024-03-15 19:28 | disposition home health service (06) ==
LOC: ER 20:29 → 2ND 20:38
PROVIDERS: Nurse Practitioner Acute Care; Admitting Provider Student in an Organized Health Care Education/Training Program; Emergency Provider Emergency Medicine; PCP Nurse Practitioner Family; Visit Provider Student in an Organized Health Care Education/Training Program
DX: T76.01XA Adult neglect or abandonment, suspected, initial encounter (principal); Z59.812 Housing instability, housed, homelessness in past 12 months; I50.9 Heart failure, unspecified; I73.9 Peripheral vascular disease, unspecified; E11.42 Type 2 diabetes mellitus with diabetic polyneuropathy; E87.6 Hypokalemia; F17.210 Nicotine dependence, cigarettes, uncomplicated; Z79.4 Long term (current) use of insulin; Z79.84 Long term (current) use of oral hypoglycemic drugs; Z79.899 Other long term (current) drug therapy; Z79.82 Long term (current) use of aspirin; Z86.73 Personal history of transient ischemic attack (TIA), and cerebral infarction without residual deficits; Z59.00 Homelessness unspecified
CPT/HCPCS: 36415; 80048; 80053; 81001; 82962; 85025; 97162; 97165; 99285; G0378

== ENCOUNTER 2024-11-28 12:44 | Outpatient (CLI) | payer MEDICARE, SELFPAY ==
--- NOTE | 2024-11-28 12:46 | CA_ITS ---
APPROVED REPORT EXAM: Comprehensive 2D, Doppler, and color-flow Echocardiogram Field Cane Scaler: RABIA Rose, RVS Ht: 6 ft 3 in Wt: 230lbs BSA: 2.33 BP: 117/72 mmHg Indications: -sever, CAD, Smoker, PAD, CVA-2019, DM 2D Dimensions LVDs 2.51 cm LVEF (Garcia's) 48.90 % Aortic Root 3.69 cm LV Volume 88.30 mL Left Atrium 3.35 cm LA Volume 62.80 mL RVID Base (AP4) 2.78 cm (M/F) 2.5-4.1 LA Volume Index 27.00 mL/m2 (M/F) 16-34 EF AP4 59.40 % EF AP2 33.5 % EF BP 48.9 % GL Strain -13.3 % M-Mode Dimensions RVDd 2.70 cm (0.9-2.6) LVDd 4.75 cm (3.5-5.7) Ao Diam 3.91 cm (2.0-3.7) LVDs 3.71 cm (3.5-5.7) IVSd 1.41 cm (0.6-1.1) PWd 1.09 cm (0.6-1.1) EF (Teich) 48.00% EPSs 0.44 cm FS 21.90% EDV (Teich) 104.90 mL TAPSE 1.87 (<1.7) ESV (Teich) 58.50 mL LV Diastology E Decel Time 550 (160-240 msec) E/A Ratio 0.57 MED E' 5.0 (>= 7 cm/sec) MED A' 7.80 cm/s E'/MED E' Ratio 8.12 (<= 14) LAT E' 7.6 (>= 10 cm/sec) LAT A' 7.00 cm/s E/LAT E' Ratio 5.34 (<= 14) Aortic Valve LVOT Max 78.0 (70-110 cm/s) LVOT VTI 15.86 cm AoV Peak Rosendo. 342.0 (50-130 cm/s) AO Peak GR. 45.50 mmHg AO Mean GR. 28.20 (<5 mmHg) AO VTI 70.6 (18-25 cm) Mitral Valve MV E Max Rosendo. 41.0 (40-130 cm/s) MV A Velocity 71.0 (40-130 cm/s) E/A Ratio 0.57 MV Decel. Time 550 (160-240 ms) Tricuspid Valve TR P. Velocity 192.00 cm/s RAP Estimate 10.00 mmHg RVSP 24.80 mmHg Left Ventricle The left ventricle is normal size. Left ventricular systolic function is normal. The left ventricular ejection fraction is within the normal range. There is increased left ventricular wall thickness. There is normal LV segmental wall motion. Transmitral Doppler flow pattern suggests impaired LV relaxation. LVEF is 55% Right Ventricle The right ventricle is normal size. The right ventricular systolic function is normal. Atria The left atrium size is normal. The right atrium size is normal. There is no color Doppler evidence of interatrial shunt. Aortic Valve The aortic valve is moderately thickened, cannot rule out bicuspid aortic valve. Severe aortic stenosis is present. DAMIEN by continuity equation is 0.9 cm???. Peak velocity 3.4 m/s. Mean AV gradient 27 mmHg. Max AV gradient 45 mmHg. Mild aortic regurgitation is present. Mitral Valve The mitral valve is normal in structure. No evidence of mitral valve stenosis. Trace mitral regurgitation is present. Tricuspid Valve The tricuspid valve leaflets are thin and pliable. Mild tricuspid regurgitation. RVSP is 20-25 mmHg. Pulmonic Valve The pulmonary valve is grossly normal in structure. Trace pulmonic valve regurgitation is present. Great Vessels The aortic root is normal in size. IVC is normal in size and collapses >50% with inspiration. Pericardium There is no pericardial effusion. Other Information Study Quality: Fair Conclusion Normal biventricular systolic function. Severe (DAMIEN by continuity equation is 0.9 cm???. Peak velocity 3.4 m/s. Mean AV gradient 27 mmHg. Max AV gradient 45 mmHg). Mild TR. Compared to prior study from 10/10/2023, there are no significant changes. Electronically signed by : Marci Flores MD 11/30/2024 22:46:59
--- OUTSIDE RECORDS SUMMARY | 2024-11-28 12:48 | XMS_ITS | Clinical Summary ---
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 Activ e glucose monitor monitoring kit 1 each As Needed (to check glucose). 1 each 01/20/20 17 Active Lancets misc Check glucose 4 times daily 100 each 11 01/20/20 17 Active glucose blood test strip Use as instructed 100 each 11 01/20/20 17 Active Insulin Syringe-Needle U-100 31G X 5/16 0.3 ML misc Use as directed 100 each 11 01/20/20 17 Active sitaGLIPtin-metFOR MIN (JANUMET) 50-500 MG per tabletIndications: Uncontrolled type 2 diabetes mellitus with hyperglycemia, without long-term current use of insulin TAKE ONE TABLET BY MOUTH 2 TIMES A DAY WITH MEALS 180 tablet 1 09/22/19 18 Active albuterol (PROVENTIL HFA;VENTOLIN HFA) 108 (90 Base) MCG/ACT inhalerIndications :Panlobular emphysema Inhale 2 puffs Every 4 (Four) Hours As Needed for Wheezing or Shortness of Air. 8 g 1 09/22/19 18 Active sulfamethoxazole-t rimethoprim (BACTRIM DS,SEPTRA DS) 800-160 MG per tabletIndications: Paronychia of finger of right hand Take 1 tablet by mouth 2 (Two) Times a Day. 14 tablet 01/26/20 18 Active ondansetron (ZOFRAN) 4 MG tabletIndications: Nausea Take 1 tablet by mouth Every 8 (Eight) Hours As Needed for Nausea or Vomiting. 30 tablet 02/01/20 18 Active traZODone (DESYREL) 150 MG tabletIndications: Primary insomnia Take 1 tablet by mouth every night at bedtime. 90 tablet 1 02/01/20 18 Active mirtazapine (REMERON) 30 MG tabletIndications: Primary insomnia Take 1 tablet by mouth every night at bedtime. 90 tablet 02/01/20 18 Active lisinopril (PRINIVIL,ZESTRIL) 2.5 MG tabletIndications: Uncontrolled type 2 diabetes mellitus with hyperglycemia, without long-term current use of insulin Take 1 tablet by mouth Daily. 90 tablet 02/01/20 18 Active cetirizine (zyrTEC) 10 MG tabletIndications: Chronic seasonal allergic rhinitis due to pollen Take 1 tablet by mouth Daily. 90 tablet 02/01/20 18 Active sildenafil (REVATIO) 20 MG tabletIndications: Erectile dysfunction, unspecified erectile dysfunction type Take 3-4 tablets by mouth Daily As Needed (erectile dysfunction). Take 0.5-4h before sexual intercourse. monitor for hypotension 25 tablet 2 02/01/20 18 Active DULoxetine (CYMBALTA) 60 MG capsule Take 1 capsule by mouth Daily. 90 capsule 02/01/20 18 Active atorvastatin (LIPITOR) 40 MG tabletIndications: Hyperlipidemia, unspecified hyperlipidemia type Take 1 tablet by mouth Daily. 90 tablet 1 02/06/20 18 Active Insulin Glargine (BASAGLAR KWIKPEN) 100 UNIT/ML injection penIndications:Typ e 2 diabetes mellitus with hyperglycemia, with long-term current use of insulin Inject 10 units SC daily x 1 week, then increase to 20 units SC daily. Dx: E11.65 6 mL 2 02/06/20 18 Active insulin aspart (NOVOLOG FLEXPEN) 100 UNIT/ML solution pen-injector sc penIndications:Typ e 2 diabetes mellitus with hyperglycemia, with long-term current use of insulin Inject 10 Units under the skin into the appropriate area as directed 3 (Three) Times a Day With Meals. Dx: E11.65 9 mL 2 02/06/20 18 Active Insulin Pen Needle (BD PEN NEEDLE KEIRA U/F) 32G X 4 MM miscIndications:Ty pe 2 diabetes mellitus with hyperglycemia, with long-term current use of insulin Use for insulin administration Dx: E11.65 200 each 3 02/06/20 18 Active vitamin D (ERGOCALCIFEROL) 89945 units capsule capsuleIndications :Vitamin D deficiency Take 1 capsule by mouth 1 (One) Time Per Week. 12 capsule 02/06/20 18 Active omeprazole (priLOSEC) 40 MG capsuleIndications :Gastroesophageal reflux disease, esophagitis presence not specified TAKE ONE CAPSULE BY MOUTH EVERY DAY 90 capsule 2 03/03/19 19 Active baclofen (LIORESAL) 10 MG tabletIndications: Muscle spasm TAKE ONE TABLET BY MOUTH 3 TIMES A DAY 90 tablet 2 03/03/19 19 Active temazepam (RESTORIL) 7.5 MG capsuleIndications :Primary insomnia TAKE ONE CAPSULE BY MOUTH EVERY NIGHT NEEDED FOR SLEEP 30 capsule 03/07/19 19 Active Active Problems Problem Noted Date Diagnosed Date Chronic neck pain 02/02/2017 Panlobular emphysema 01/17/2017 Uncontrolled type 2 diabetes mellitus with hyperglycemia, without long-term current use of insulin 08/23/2016 Hyperlipidemia 08/23/2016 Anxiety 08/23/2016 Recurrent major depressive disorder 08/23/2016 Primary insomnia 08/23/2016 Vitamin D deficiency 08/23/2016 Seasonal allergic rhinitis 08/23/2016 History of lumbar discectomy 08/23/2016 Muscle spasm 08/23/2016 Immunizations Immunization Administration Dates Next Due Flu Vaccine Quad PF >36MO 01/17/2017 Pneumococcal Conjugate 13-Valent (PCV13) 017 Pneumococcal Polysaccharide (PPSV23) 01/25/2018 Social History Tobacco Use Types Packs/Day Years Used Date Smoking Tobacco: Every Day Smokeless Tobacco: Never Tobacco Cessation:Ready to Q uit: No PHQ-2 Answer Date Recorded PHQ-2 Score 15 01/25/2018 Abuse Screen Answer Date Recorded Unsafe at Home or Work/School Not on file Feels Threatened by Someone? Not on file 12/2022 Does Anyone Keep You from Co ntacting Others or Doint Things Outside the Home? Not on file 12/08/2022 Physical Sign of Abuse Present Not on file 1 Housing Stability Answer Date Recorded Current Living Arrangements Not on file 11/28 Potentially Unsafe Housing Conditions Not on celena e 12/08/2022 Family and Community Support Answer Konstantin e Recorded Help with Day-to-Day Activities Not on file 12/08/2022 Lonely or Isolated Not on file 12/08/2022 Employment Answer Date Recorded Do you want help finding or keeping work or a ronak b? Not on file 12/08/2022 Disabilities Answer Date Recorded Concentrating, Remembering, or Making Decisions Difficulty Not on file 12/08/2022 Doing Errands Independently Difficulty Not on fi le 12/08/2022 Education Answer Date Recorded Help with school or training? Not on file Preferred Language Not on file 12/08/2022 Sex and Gender Information Value Date Recorded Sex Assigned at Not on file Legal Sex Male 12:01 PM EDT Gender Identity Not on file Sexual Orientation Not on file Last Filed Vital Signs Vital Sign Reading Time Taken Comments Blood Pressure 118/82 01/25/2018 4:31 PM EST Pulse 94 01/25/2018 4:31 PM EST Temperature 36.4 C (97.5 F) 01/25/2018 4:31 PM EST Respiratory Rate 16 01/25/2018 4:31 PM EST Oxygen Saturation - - Inhaled Oxygen Concentration - - Weight 87.5 kg (193 lb) 01/25/2018 4:31 PM EST Height 189.2 cm (6' 2.5 ) 01/25/2018 4:31 PM EST Body Mass Index 24.45 01/25/2018 4:31 PM EST Plan of Treatment Health Maintenance Due Date Last Done Comments COLOGUARD 07/30/2012 COLON CANCER SCREENING 5 ARIADNE Figueroa SIGMOIDOSCOPY 07/30/2012 CT COLONOGRAPHY 07/30/2012 FECAL OCCULT BLOOD TEST 07/30/2012 FIT Testing (1 year) 07/30/2012 ANNUAL PHYSICAL 08/23/2016 ZOSTER VACCINE (1 of 2) 07/30/2017 LIPID PANEL 03/29/2021 03/29/2020, 01/31/2018 Pneumococcal Vaccine 50+ (3 of 3 - PCV20 or PCV21) 01/25/2023 01/25/2018, 01/17/2017 COLONOSCOPY 07/29/2024 07/29/2014 (Anastasia ent-Reported (Performed Externally)) COLORECTAL CANCER SCREENING 07/29/2024 INFLUENZA VACCINE 09/28/2024 01/23/2019, , 01/17/2017 TDAP/TD VACCINES (2 - Td or Tdap) 02/28/2025 02/28/2015 (Patient-Reported (Performed Externally)) URINE MICROALBUMIN-CREATININ E RATIO (uACR) Discontinued 09/21/2017 (Declined), 01/17/2017 (Declined) HEMOGLOBIN A1C Discontinued 10/25/2023, 03/01, 01/31/2018, Additional history exists HEPATITIS C SCREENING Completed 10/25/2023 [facility] Discontinued Goals Goal Patient Goal Type Associated Problems Recent Progress Patient-Stated? Author Fasting Blood Glucose 70-130 Result Component No Madelin Franz DO Note: He will start monitoring glucose daily. Also, needs to update labs so that medication adjustments can be made to better control chronic conditions. Procedures Procedure Name Priority Date/Time Associated Diagnosis Comments HEMOGLOBIN A1C Routine 01/31/2018 8:33 AM EST Uncontrolled type 2 diabetes mellitus with hyperglycemia, without long-term current use of insulin LIPID PANEL Routine 01/31/2018 8:33 AM EST Hyperlipidemia, unspecified hyperlipidemia type from Last 3 Months or Most Recently Relevant to Health Maintenance Results * (ABNORMAL) Hemoglobin A1c (01/31/2018 8:33 AM EST) Hemoglobin A1C 14.8(H) 4.8 - 5.6 % [facility] Comment: Prediabetes: 5.7 - 6.4 Diabetes: >6.4 Glycemic control for adults with diabetes: <7.0 Blood 01/31/2018 8:33 AM EST 01/31/2018 Narrative [facility] ([facility]) - 02/02/2018 10:36 AM EST Performed at: - [address] [id number] Surgical Attendant: Imtiaz Stover PhD, Phone: [phone] Patient Fasting: Y us Madelin Franz DO LAB BLOOD ORDERABLES Final Result [facility] ([facility]) [address] [place] [address], [place] [phone] [facility] [address] [place] [address], [place] [phone] * (ABNORMAL) Lipid Panel (01/31/2018 8:33 AM EST) Total Cholesterol 155 0 - 200 mg/dL [facility] Comment: Cholesterol Reference Ranges: Desirable < 200 mg/dL Borderline 200-239 mg/dL High Risk > 239 mg/dL Triglyceride Reference Ranges: Normal < 150 mg/dL Borderline 150-199 mg/dL High 200-499 mg/dL Very High > 499 mg/dL HDL Reference Ranges: Low < 40 mg/dL High > 59 mg/dL LDL Reference Ranges: Optimal < 100 mg/dL Near Optimal 100-129 mg/dL Borderline 130-159 mg/dL High 160-189 mg/dL Very High > 189 mg/dL Triglycerides 435(H) 0 - 150 mg/dL [facility] HDL Cholesterol 30(L) 40 - 60 mg/dL [facility] VLDL Cholesterol CANCELED mg/dL [facility] Comment: Test not performed Unable to calculate Result canceled by the ancillary. LDL Cholesterol CANCELED mg/dL [facility] Comment: Test not performed Unable to calculate Result canceled by the ancillary. Blood 01/31/2018 8:33 AM EST 01/31/2018 Narrative [facility] ([facility]) - 02/02/2018 9:19 AM EST Performed at: [address] [place] [id number] Surgical Attendant: Mateo Palencia MD, Phone: [phone] Patient Fasting: Y us Madelin Frazn DO LAB BLOOD ORDERABLES Edited Result - Final [facility] ([facility]) [address] [place] [address], [place] [phone] [facility] [address] [place] [address], [place] [phone] from Last 3 Months or Most Recently Relevant to [place] [address] [place] [address] MEDICARE A & B
--- OUTSIDE RECORDS SUMMARY | 2024-11-28 12:48 | XMS_ITS | Clinical Summary ---
Author Organization [facility] Address [address] [place] [address] Care Team Providers Care Patient Admitting Clerk Name Role Phone Maged Bermudez MD Primary Care Provider + [phone] Allergies Active Allergy Reactions Criticality Noted Date Comments Metformin Diarrhea High 10/25/2023 Morphine Anxiety High 10/25/2023 Gets very aggitated Nsaids Unknown - Patient st ates they do not know rxn details Low 10/26/2023 Medications atorvastatin (Lipitor) 80 MG tablet Take 1 tablet (80 mg) by mouth every night. Active povidone-iodine (Betadine) 10 % external solution Apply 1 Application topically Once a day, every 24 hours if needed. Apply to left foot. Active DULoxetine (Cymbalta) [address] capsule Take 1 capsule (30 mg) by mouth 1 (one) time each day. Do not crush or chew. Active lactulose (Chronulac) 10 GM/15ML solution Take 30 mL (20 g) by mouth 1 (one) time each day. Active Multiple Vitamins-Minera ls (Multivitamin-M inerals) tablet Take 1 tablet by mouth 1 (one) time each day. Active clopidogrel (Plavix) 75 MG tablet Take 1 tablet (75 mg) by mouth 1 (one) time each morning. Active pantoprazole (Protonix) 40 MG EC tablet Take 1 tablet (40 mg) by mouth 1 (one) time each day. Do not crush, chew, or split. Active QUEtiapine (SEROquel) 25 MG tablet Take 1 tablet (25 mg) by mouth every night. Active tamsulosin (Flomax) 0.4 MG 24 hr capsule Take 1 capsule (0.4 mg) by mouth every night. Active carvedilol (Coreg) 3.125 MG tablet Take 1 tablet (3.125 mg) by mouth 2 (two) times a day. May hold for SBP < 120 Active docusate sodium (Colace) 250 MG capsule Take 1 capsule (250 mg) by mouth 2 (two) times a day. Active sacubitril-vals juan miguel (Entresto) 24-26 MG tablet Take 1 tablet by mouth 2 (two) times a day. Active levETIRAcetam (Keppra) 500 MG tablet Take 1 tablet (500 mg) by mouth 2 (two) times a day. Active furosemide (Lasix) 20 MG tablet Take 1 tablet (20 mg) by mouth Once a day, every 24 hours if needed (edema). Active polyethylene glycol (Miralax) 17 g packet Take 17 g by mouth Once a day, every 24 hours if needed (constipation). Active menthol-zinc oxide (Calmoseptine) 0.44-20.6 % ointment ointment Apply 1 Application topically 2 (two) times a day. Apply to perineal area. Active insulin glargine-yfgn 100 UNIT/ML injection vial Inject 0.2 mL (20 Units) under the skin every night. 10 mL 4 Active traZODone (Desyrel) 100 MG tablet Take 1 tablet (100 mg) by mouth every night. 30 tablet 4 Active acetaminophen (Tylenol) 325 MG tablet Take 2 tablets (650 mg) by mouth every 6 (six) hours if needed for pain. Under [place] law, monthly prescriptions (30 days) can be refilled at 25 days and three-month prescriptions (90 days) at 80 days. Please contact the insurance company with questions if refills are denied. 100 tablet 4 Active bisacodyl (Dulcolax) 5 MG EC tablet Take 1 tablet (5 mg) by mouth 1 (one) time each day. Do not crush, chew, or split. 30 tablet 4 Active cetirizine (ZyrTEC) 5 MG tablet Take 1 tablet (5 mg) by mouth 1 (one) time each day. 30 tablet 4 Active fluticasone (Flonase) 50 MCG/ACT nasal spray Administer 2 sprays into each nostril 1 (one) time each day. Shake gently. Before first use, prime pump. After use, clean tip and replace cap. 16 g 4 Active guaiFENesin (Mucinex) 600 MG 12 hr tablet Take 1 tablet (600 mg) by mouth 2 (two) times a day if needed for cough. Do not crush, chew, or split. 60 tablet 4 Active hydrOXYzine pamoate (Vistaril) 25 MG capsule Take 1 capsule (25 mg) by mouth every 6 (six) hours if needed for anxiety. 30 capsule 4 Active Additional Information Patient not taking.Reported on 02/15/2024 insulin lispro (Admelog) 100 UNIT/ML injection Inject 0-3 Units under the skin 2 (two) times a night. See After Visit Summary for instructions on how to take your insulin. 10 mL 4 Active Additional Information Patient not taking.Reported on 02/15/2024 lactobacillus acidophilus (Floranex) tablet Take 1 tablet by mouth 2 (two) times a day with meals. 30 tablet 4 Active insulin lispro (Admelog) 100 UNIT/ML injection Inject 0-5 Units under the skin 3 (three) times a day with meals. See After Visit Summary for instructions on how to take your insulin. 10 mL 4 Active miconazole (Micotin) 2 % powder Skin fungal rash 43 g 4 Active Additional Information Patient not taking.Reported on 02/15/2024 nicotine (Nicoderm CQ) 21 MG/24HR patch Place 1 patch on the skin 1 (one) time each day for 33 doses. 30 patch 4 Active Additional Information Patient not taking.Reported on 11/21/2023 nicotine polacrilex (Nicorette) 2 MG gum Chew 1 each (2 mg) every 1 (one) hour if needed for smoking cessation. 100 each 4 Active Additional Information Patient not taking.Reported on 02/15/2024 nicotine polacrilex (Commit) 2 MG lozenge Dissolve 1 lozenge (2 mg) in the mouth every 2 (two) hours if needed for smoking cessation. 100 lozenge 4 Active Additional Information Patient not taking.Reported on 02/15/2024 senna (Senokot) 8.6 MG tablet Take 2 tablets (17.2 mg) by mouth every night. 60 tablet 4 Active naloxone (Narcan) 4 mg/0.1 mL nasal spray 1. Give 1 spray in nostril for no/slow breathing or cannot wake after opioid use 2. Call 911 3. Repeat in other nostril if symptoms continue 1 each 4 Active Additional Information Patient not taking.Reported on 02/15/2024 HYDROcodone-flavia taminophen ([place]) 5-325 MG tablet Take 1.5 tablets (7.5 mg of hydrocodone) by mouth every 6 (six) hours. 20 tablet 4 Active Additional Information Patient not taking.Reported on 02/15/2024 gabapentin (Neurontin) 400 MG capsuleIndicati ons:Diabetic Neuropathy Take 1 capsule (400 mg) by mouth 4 (four) times a day. 20 capsule 4 Active Additional Information Patient taking differently:400 mg Oral3 times daily, Indications: Diabetic Neuropathy, Reported on 02/15/2024 dapagliflozin (Farxiga) 10 MG tablet Take 1 tablet (10 mg) by mouth 1 (one) time each morning. 4 Active enoxaparin (Lovenox) 40 MG/0.4ML solution prefilled syringe Inject 0.4 mL (40 mg) under the skin 1 (one) time each morning. 4 Active FLUoxetine (PROzac) 40 MG capsule Take 1 capsule (40 mg) by mouth 1 (one) time each day. 4 Active Lidocaine (HM Lidocaine Patch) 4 % patch Apply 1 patch topically 1 (one) time each day. Active doxycycline (Adoxa) 100 MG tablet Take 1 tablet (100 mg) by mouth 2 (two) times a day. Take with a full glass of water and do not lie down for at least 30 minutes after Active HYDROcodone-flavia taminophen ([place]) 7.5-325 MG tablet Take 1 tablet (7.5 mg of hydrocodone) by mouth 3 (three) times a day. Active BD AutoShield Duo 30G X 5 MM misc 4 Active Active Problems Problem Noted Date Diagnosed Date Critical limb ischemia of left lower extremity 1 Tobacco abuse 12/21/2023 Acute congestive heart failure 11/21/2023 Acute osteomyelitis of metatarsal bone of left f oot 11/21/2023 Acute thoracic myofascial strain 11/21/2023 Lumbar strain 11/21/2023 Transient confusion 11/21/2023 Arthritis of foot, degenerative 11/21/2023 Calcaneal spur of both feet 11/21/2023 Chronic constipation 11/21/2023 Chronic left ventricular systolic dysfunction Cigarette smoker 11/21/2023 Cold extremities 11/21/2023 Decreased pedal pulses 11/21/2023 Hyperglycemia 11/21/2023 Diabetes mellitus 11/21/2023 Diabetic neuropathy 11/21/2023 Diastolic dysfunction 11/21/2023 Dizziness 11/21/2023 Elevated troponin 11/21/2023 Blurry vision 11/21/2023 Facial laceration 11/21/2023 Laceration of ear 11/21/2023 Gangrene of left foot 11/21/2023 Headache 11/21/2023 Hypotension 11/21/2023 Peripheral vascular disease 11/21/2023 Lumbar contusion 11/21/2023 LV dysfunction 11/21/2023 Major depression in partial remission 11/21/2023 Onychodystrophy 11/21/2023 RBBB 11/21/2023 Renal insufficiency 11/21/2023 Rib injury 11/21/2023 Seizure-like activity 11/21/2023 Strain of neck muscle 11/21/2023 Syncope and collapse 11/21/2023 Vasovagal syncope 11/21/2023 Diabetic foot ulcer 11/21/2023 Ulcer of right heel and midf oot, limited to breakdown of skin 11/21/2023 Unstageable pressure ulcer of left foot 11/21/19 TIA (transient ischemic attack) 11/21/2023 Transient cerebral ischemia 11/21/2023 Abscess of left foot 11/21/2023 Hypertension, essential 11/21/2023 Hypertensive crisis 11/21/2023 Hypertensive emergency 11/21/2023 Hypertensive urgency 11/21/2023 Other osteomyelitis of left foot 10/26/2023 Primary hypertension 10/26/2023 Cerebrovascular accident (CVA) due to vascular s tenosis 10/26/2023 Aortic stenosis 10/26/2023 Type 2 diabetes mellitus wit h hyperglycemia, with long-term current use of insulin 10/26/2023 Neuropathy 10/26/2023 Coronary artery disease invo lving lime coronary artery of lime heart 10/26/2023 Hx of myocardial infarction 10/26/2023 Hyperlipidemia 10/26/2023 Diabetic ulcer of left midfo ot associated with type 2 diabetes mellitus 10/26/2023 Seasonal allergies 10/26/2023 Heart failure 10/26/2023 Mood disorder 10/26/2023 Methicillin resistant Staphy lococcus aureus infection, unspecified site 01/02/2021 Cognitive decline 09/15/2020 Irritability and anger 09/15/2020 Mood disturbance 09/15/2020 Socially inappropriate behavior 09/15/2020 Unspecified sequelae of cerebral infarction 07/30 Unsteadiness on feet 08/26/2020 Vascular dementia with behavioral disturbance Hypertensive heart disease without heart failure 08/18/2020 Adjustment disorder with mixed anxiety and depre ssed mood 08/16/2020 MDD (major depressive disorder), recurrent episo de, mild 08/16/2020 Sleep disturbance 08/16/2020 Cognitive communication deficit 08/08/2020 Diabetic peripheral neuropat hy associated with type 2 diabetes mellitus 08/08/2020 Dysphagia, oropharyngeal phase 08/08/2020 Heart disease, unspecified 08/08/2020 Orthostatic hypotension 08/08/2020 Presence of coronary angioplasty implant and gra ft 08/08/2020 Presence of other vascular implants and grafts 0 08/08/2020 Severe aortic stenosis 08/08/2020 Hypertensive encephalopathy 08/08/2020 Coronary artery disease 08/08/2020 Carotid artery dissection 01/23/2019 Acute ischemic stroke 01/23/2019 Chronic neck pain 02/02/2017 Panlobular emphysema 01/17/2017 Back pain 09/02/2016 Migraine 09/02/2016 Myalgia 09/02/2016 Restless leg syndrome 09/02/2016 Small fiber neuropathy 09/02/2016 Autonomic neuropathy 09/02/2016 Sensorimotor neuropathy 09/02/2016 Muscle spasm 08/23/2016 Primary insomnia 08/23/2016 Recurrent major depressive disorder 08/23/2016 Seasonal allergic rhinitis 08/23/2016 Vitamin D deficiency 08/23/2016 Anxiety disorder, unspecified 08/23/2016 Type 2 diabetes mellitus with hyperglycemia 07/30 Resolved Problems Problem Noted Date Diagnosed Date Resolved Date Abrasion 11/21/2023 11/18/2024 Acute kidney injury 11/21/2023 11/19/19 Altered mental status 11/21/20232024 Colitis 11/21/2023 11/18/2024 Fall 11/21/2023 11/18/2024 Intractable abdominal pain 11/21/2023 0 11/25/2024 Sepsis without septic shock 11/21/2023 11/18/2024 Sinusitis 11/21/2023 11/18/2024 Skin pustule 11/21/2023 11/18/2024 Urinary tract infection 11/21/202310/30 Vomiting 11/21/2023 11/18/2024 Overweight (BMI 25.0-29.9) 10/26/2023 0 11/18/2024 COVID-19 10/22/2020 11/18/2024 Muscle weakness (generalized) 08/08/2020 11/18/2024 Immunizations Immunization Administration Dates Next Due Influenza, injectable, quadrivalent, preservativ e free 01/23/2019,01/17/2017 [employer]Suit COVID-19 Vaccine (Purple Cap) 12 + 02/23/2021 Pneumococcal Conjugate PCV 13 01/17/2017 Pneumococcal Polysaccharide PPV23 12/12/2020, Tdap 10/17/2018 Family History Medical History Relation Name Comments Alzheimer's disease Other 1 Cancer Other 2 Diabetes Other 3 Heart disease Other 4 Stroke Other 5 Anesthesia problems Neg Hx Malig Hyperthermia Neg Hx Relation Name Status Comments Other 1 Other 2 Other 3 Other 4 Other 5 Social History Tobacco Use Types Packs/Day Years Used Date Smoking Tobacco: Every Day Cigarettes 0.3 1.2 Started: 09/29/2023 Passive Smoke Exposure: Current Smokeless Tobacco: Former Tobacco Cessation:Ready to Q uit: Not Asked; Counseling Given: Not Answered Alcohol Use Standard Drinks/Week Comments Not Currently 0 (1 standard drink = 0.6 oz pure alcohol) Alcoholic Drinks/day: Current non-drinker of alcohol Humiliation, Afraid, Rape, and Kick questionnair e Answer Date Recorded Within the last year, have y ou been afraid of your partner or ex-partner? No 10/27/2023 Within the last year, have y ou been humiliated or emotionally abused in other ways by your partner or ex-partner? No Within the last year, have y ou been kicked, hit, slapped, or otherwise physically hurt by your partner or ex-partner? No 10/27/2023 Within the last year, have y ou been raped or forced to have any kind of sexual activity by your partner or ex-partner? No 10/27/2023 PHQ-2 Answer Date Recorded Patient Health Questionnaire-2 Score 0 12/21/2023 Hunger Vital Sign Answer Date Recorded Within the past 12 months, y ou worried that your food would run out before you got the money to buy more. Never true 10/27/19 24 Within the past 12 months, t he food you bought just didn't last and you didn't have money to get more. Never true 10/27/2023 PRAPARE - Transportation Answer Date Re corded In the past 12 months, has l ack of transportation kept you from medical appointments or from getting medications? No 09/29 In the past 12 months, has l ack of transportation kept you from meetings, work, or from getting things needed for daily living? No 10/27/2023 Housing Stability Vital Sign Answer Konstantin e Recorded In the last 12 months, was t here a time when you were not able to pay the mortgage or rent on time? No 10/27/2023 [address] of [address] Lived in the Last Year Not on f ile 10/27/2023 In the last 12 months, was t here a time when you did not have a steady place to sleep or slept in a halfway (including now)? No 10/27/2023 CAGE ASSESSMENT Answer Date Recorded Cage unable to access Not on file 10/26/2023 Cage max number of drinks Not on file 2023 Cage Beverages a week Not on file 10/26/2023 Have you ever felt you should CUT down on your d rinking? 0 10/26/2023 Have you been ANNOYED by people criticizing your drinking? 0 10/26/2023 Have you felt GUILTY about your drinking? 0 10/26/2023 Have you had a drink first t gaurav in the morning ([employer]) to steady your nerves or to get rid of a hangover? 0 10/26/2023 CAGE Questionnaire Score 0 024 Utilities Answer Date Recorded In the past 12 months has th e electric, gas, oil, or water company threatened to shut off services in your home? No 10/27/2023 Sex and Gender Information Value Date Recorded Sex Assigned at Male 01/02/2024 9:37 AM EST Legal Sex Male 8:25 PM EDT Gender Identity Male 01/02/2024 9:37 AM EST Sexual Orientation Not on file Last Filed Vital Signs Vital Sign Reading Time Taken Comments Blood Pressure 141/85 02/15/2024 1:34 PM EST Pulse 79 02/15/2024 1:34 PM EST Temperature 36.4 C (97.6 F) 02/15/2024 1:26 PM EST Respiratory Rate 16 01/02/2024 3:45 PM EST Oxygen Saturation 99% 01/02/2024 3:45 PM EST Inhaled Oxygen Concentration - - Weight 104 kg (230 lb) 02/15/2024 1:26 PM EST Height 193 cm (6' 4 ) 02/15/2024 1:26 PM EST Body Mass Index 28 02/15/2024 1:26 PM EST Plan of Treatment Upcoming Encounters Date Type Department Care Team (Late st Contact Info) Description 12/26/2024 11:00 AM EDT Appointment Cardiac Imaging [address] [place] [address] 12/26/2024 12:30 PM EDT Office Visit [facility] [place] [address] [place] [address] Harpal Bell MD [address] [place] [address] Health Maintenance Due Date Last Done Comments [facility]-Infant/Child/Adol SDOH Screenings 1965 Diabetes: Dental Exam 07/30/1977 [facility]- SDOH Screenings 07/30/1985 [facility]-Adult SDOH Screenings 07/30/1985 [facility]-Hepatitis A Vaccines (1 of 2 - Risk 2-dose series) 07/30/1986 [facility]-Hepatitis B Vaccines (1 of 3 - 19+ 3-dose series) 07/30/1986 CT Colonography 07/30/2012 Colonoscopy 07/30/2012 FIT-DNA 07/30/2012 FIT 07/30/2012 FOBT 07/30/2012 Sigmoidoscopy 07/30/2012 [facility]-Colorectal Cancer Screening 07/30/2012 [facility]-Zoster Vaccines (1 of 2) 07/30/2017 [facility]-Medicare Annual Wellness (AWV) 01/25/2019 01/25/2018 [facility]-Diabetes: Hemoglobin A1C 01/24/2024, 03/27/2020, 01/17/2019, Additional history exists [id number] Vaccine (4 - season) 2024 08/10/2021, 04/30/2021, 02/23/2021 [facility]-Influenza Vaccine (#1) 2024 01/23/2019, [facility]-Depression Screening 12/20/2024 12/21/2023 [facility]-Pneumococcal Vaccine: 50+ Years (3 of 3 - PCV20 or PCV21) 12/12/2025 12/12/2020, 01/25/2018, 01/17/2017 [facility]-DTaP,Tdap,and Td Vaccines (2 - Td or Tdap) 10/17/2028 10/17/2018 [facility]-HIV Screening Completed 10/25/2023 [facility]-Hepatitis C Screening Completed 10/25/2023, [facility]-Obesity Intervention Completed 024, 12/28/2023, 12/21/2023, Additional history exists HPV Vaccines Aged Out No longer eligi ble based on patient's age to complete this topic [facility]-HIB Vaccines Aged Out No longer e ligible based on patient's age to complete this topic [facility]-IPV Vaccines Aged Out No longer e ligible based on patient's age to complete this topic [facility]-Rotavirus Vaccines Aged Out No lo nger eligible based on patient's age to complete this topic Medical Devices Implanted Type Area Production Broaching Machine Operator Device Identifier Shelf Expiration Date Model / Serial / Lot Stent Stent Right: Carotid Vip Vascular Closure Device 6 Fr - [id number] Implanted:Qty : 1 on 01/02/2024 by Raheel Mathis MD at [facility] Right: Arterial [id number] 07/28/2024 [id number] / / [id number] Procedures Procedure Name Priority Date/Time Associated Diagnosis Comments HEPATITIS C ANTIBODY - ED W/REFLEX TO HCV QUANT PCR STAT 10/25/2023 9:57 PM EDT ED HIV 1/2 ANTIBODY/ANTIGEN SCREEN WITH REFLEX TO HIV I/II DIFFERENTIATION STAT 10/25/2023 9:57 PM EDT HEMOGLOBIN A1C STAT Add-on 10/25/2023 9:57 PM EDT from Last 3 Months or Most Recently Relevant to Health Maintenance Results * ED HIV 1/2 Antibody/Antigen Screen w/Reflex to HIV 1/2 Differentiation (10/25/2023 9:57 PM EDT) HIV 1 & 2 Antibody/Antigen Screen Non Reactive Non Reactive 10/25/2023 10:57 PM EDT [facility] Comment:Screening for HIV 1 & 2 antibodies, and P24 antigen is NONREACTIVE. No confirmatory testing is required. Blood Venous blood specimen / Unknown Venipuncture / Unknown 10/25/2023 9:57 PM EDT 10/25/2023 10:16 PM EDT us Bibiana Luong MD LAB BLOOD ORDERABLES Final Res ult Performing Organization Address City/State/[facility] Co de Phone Number [facility] [address] [place] [address] * Hepatitis C Antibody - ED (10/25/2023 9:57 PM EDT) Hepatitis C Antibody Negative Negative 10/25/2023 10:58 PM EDT HEALTHCARE LAB Blood Venous blood specimen / Unknown Venipuncture / Unknown 10/25/2023 9:57 PM EDT 10/25/2023 10:16 PM EDT us Bibiana Luong MD LAB BLOOD ORDERABLES Final Res ult Performing Organization Address City/[facility] Co de Phone Number [facility] [address] [place] [address] * (ABNORMAL) Hemoglobin A1c (10/25/2023 9:57 PM EDT) Hemoglobin A1c 7.7(H) <5.7 % 10/26/2023 12:51 AM EDT [facility] Blood Venous blood specimen / Unknown Venipuncture / Unknown 10/25/2023 9:57 PM EDT 10/25/2023 10:00 PM EDT Narrative [facility] - 10/26/2023 12:51 AM EDT HA1C Interpretive Data: Diagnosis of Diabetes: Diabetic > or = 6.5% Pre-diabetic 5.7 to 6.4% Non-diabetic < or = 5.6% Glycemic Targets for Type I and Type II Diabetics: Non- Adults <7.0% Adults <6.0% Children and Adolescents <7.5% Source: [place] [employer]. Standards of medical care in diabetes,2017. Diabetes Care.2017:40 (suppl 1):S1-S135. HbA1c assay performed by an ion-exchange chromatography method that is certified traceable to the DCCT. 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 Yes Care Teams Patient Admitting Clerk Relationship Specialty Start Date End Date Maged Bermudez MD [address] [place] [id number] PCP - General Internal Medicine 02/28/23
--- OUTSIDE RECORDS SUMMARY | 2024-11-28 12:48 | XMS_ITS ---
Author Organization [facility] Care Team Providers Care Process Lead Name Role Phone Ro Nye) Unavailable Unavail able Maged Bermudez Unavailable Unavailable Allergies and adverse reactions Code CodeSystem Substance Reaction Severity StartDate Concern Status 257865731 SNOMED CT NSAIDs Unknown 08/08/2020 active 7052 RXNORM Morphine Unknown 08/08/2020 active 6809 RXNORM Metformin Unknown 08/08/2020 active Care Team Name Role Address Phone Organization Dates Maged Bermudez PCP [address], [place], [address], [place] (Office): [facility] 08/08/2020 - 08/18/2021 Ro Nye (Sara) [place], [address], [facility] (Office): : [facility] 08/08/2020 - 08/18/2021 Immunizations Immunization Status Vaccine Details Vaccine Code CodeSystem Date Notes Influenza completed Influenza, high-dose, split virus, quadrivalent, injectable, preservative free lotNumber: [id number] expiry: 07/22/2021 Mfg: Afluria Given 0.5 ml Left Deltoid intramuscularly 197 CVX created date: 11/29/2020 consent date: 11/28/2020 administer ed date: 11/28/2020 Influenza completed Influenza, high-dose, split virus, quadrivalent, injectable, preservative free Given 0.1 ml intramuscularly 197 CVX created date: 08/08/2020 administer ed date: 11/29/[address] Aburto's office Pneumovax Dose 1 completed pneumococcal polysaccharide vaccine, 23 valent lotNumber: [id number] expiry: 03/18/2022 Mfg: [id number] Given 0.5 ml Left Deltoid intramuscularly 33 CVX created date: 12/12/2020 consent date: 12/12/2020 administer ed date: 12/12/2020 Educated by on 12/12/2020 TB 1 Step Mantoux (PPD) completed tuberculin skin test; unspecified formulation lotNumber: [id number] expiry: 03/05/2022 Mfg: sanofi pasteur limited Given 0.1 ml Left Forearm intradermally 98 CVX created date: 09/19/2020 consent date: 09/19/2020 administer ed date: 09/12/2020 Given 09/12/20 by CHRISTIE Doran. Read 09/14/20, by Bibiana Vargas, negative TB 2 Step Mantoux Skin Test completed tuberculin skin test; unspecified formulation lotNumber: [id number] expiry: 03/05/2022 Mfg: sanofi pasteur limited Given 0.1 ml Left Forearm intradermally Step 1 of Multi-step 98 CVX created date: 09/19/2020 consent date: 09/19/2020 administer ed date: 09/19/2020 given 09/19/20, read 09/21/20 negative TB 2 Step Mantoux Skin Test completed tuberculin skin test; unspecified formulation lotNumber: [id number] expiry: 03/05/2022 Mfg: sanofi pasteur limited Given 0.1 ml Left Forearm intradermally Step 2 of Multi-step with next step required 98 CVX created date: 09/24/2020 consent date: 09/24/2020 administer ed date: 09/19/2020 given 09/19/20, read 09/21/20, negative TB 2 Step Mantoux Skin Test completed tuberculin skin test; unspecified formulation lotNumber: [id number] expiry: 03/05/2022 Mfg: sanofi pasteur limited Given 0.1 ml Left Forearm intradermally Step 2 of Multi-step with next step required 98 CVX created date: 09/24/2020 consent date: 09/24/2020 administer ed date: 09/19/2020 Given 09/19/20 by AO, read 09/21/20 by JS, results negative TB 2 Step Mantoux Skin Test completed tuberculin skin test; unspecified formulation lotNumber: [id number] expiry: 03/05/2022 Mfg: sanofi pasteur limited Given 0.1 ml Left Forearm intradermally Step 1 of Multi-step with next step required 98 CVX created date: 09/21/2020 consent date: 09/21/2020 administer ed date: 09/19/2020 Educated by on 09/21/2020 1st dose Pfizer-BioNTech COVID-19 Vaccine completed SARS-COV-2 (COVID-19) vaccine, mRNA, spike protein, LNP, preservative free, 30 mcg/0.3mL dose Given 0.3 ml Left Deltoid intramuscularly 208 CVX created date: 02/24/2021 consent date: 02/24/2021 administer ed date: 02/23/2021 Educated by Blair lester on 02/23/2021 2nd dose Pfizer-BioNTech COVID-19 Vaccine completed SARS-COV-2 (COVID-19) vaccine, mRNA, spike protein, LNP, preservative free, 30 mcg/0.3mL dose lotNumber: [id number] expiry: 06/03/2021 Mfg: Pfizer Given 0.3 ml Left Deltoid intramuscularly 208 CVX created date: 08/10/2021 consent date: 08/10/2021 administer ed date: 04/30/2021 3rd dose Pfizer-BioNTech COVID-19 Vaccine completed SARS-COV-2 (COVID-19) vaccine, mRNA, spike protein, LNP, preservative free, 30 mcg/0.3mL dose lotNumber: [id number] expiry: 09/11/2021 Mfg: Pfizer Given 0.3 ml Right Deltoid intramuscularly 208 CVX created date: 08/10/2021 consent date: 08/10/2021 administer ed date: 08/10/2021 Mental Status Section Date Assessment Total Score Description 07/02/2021 BIMS 13 cognitively int act CAM 0 No delirium ind icated PHQ-9 02 minimal depress ion Problems Problem # Description Date of onset Resolved Date Code CodeSystem Concern Status 1 METHICILLIN RESISTANT STAPHYLOCOCCUS AUREUS INFECTION, UNSPECIFIED SITE 01/03/[address] active 2 COVID-19 10/23/[address] active 3 HEMIPLEGIA AND HEMIPARESIS FOLLOWING CEREBRAL INFARCTION AFFECTING LEFT NON-DOMINANT SIDE 08/27/[address] active 4 UNSPECIFIED SEQUELAE OF CEREBRAL INFARCTION 08/27/[address] active 5 UNSTEADINESS ON FEET 08/27/[address] active 6 VASCULAR DEMENTIA WITH BEHAVIORAL DISTURBANCE 08/27/[address] active 7 HYPERTENSIVE HEART DISEASE WITHOUT HEART FAILURE 08/19/[address] active 8 ANXIETY DISORDER, UNSPECIFIED 08/09/[address] active 9 ATHEROSCLEROTIC HEART DISEASE OF [place] CORONARY ARTERY WITHOUT ANGINA PECTORIS 08/09/[address] active 10 COGNITIVE COMMUNICATION DEFICIT 08/09/[address] active 11 DYSPHAGIA, OROPHARYNGEAL PHASE 08/09/[address] active 12 HEART DISEASE, UNSPECIFIED 08/09/[address] active 13 HEMIPLEGIA AND HEMIPARESIS FOLLOWING CEREBRAL INFARCTION AFFECTING RIGHT NON-DOMINANT SIDE 08/09/[address] active 14 HYPERLIPIDEMIA, UNSPECIFIED 08/09/[address] active 15 HYPERTENSIVE ENCEPHALOPATHY 08/09/[address] active 16 SENIOR LIVING (CURRENT) USE OF INSULIN 08/09/[address] active 17 MAJOR DEPRESSIVE DISORDER, RECURRENT, MILD 08/09/[address] active 18 MUSCLE WEAKNESS (GENERALIZED) 08/09/[address] active 19 NONRHEUMATIC AORTIC (VALVE) STENOSIS 08/09/[address] active 20 ORTHOSTATIC HYPOTENSION 08/09/[address] active 21 PERSONAL HISTORY OF TRANSIENT ISCHEMIC ATTACK (TIA), AND CEREBRAL INFARCTION WITHOUT RESIDUAL DEFICITS 08/09/[address] active 22 PRESENCE OF CORONARY ANGIOPLASTY IMPLANT AND GRAFT 08/09/[address] active 23 PRESENCE OF OTHER VASCULAR IMPLANTS AND GRAFTS 08/09/[address] active 24 TYPE 2 DIABETES MELLITUS WITH DIABETIC NEUROPATHY, UNSPECIFIED 08/09/[address] active 25 TYPE 2 DIABETES MELLITUS WITH HYPERGLYCEMIA 08/09/[address] active Reason for Referral No Reasons for Referral Entered Social History Social History Observation Description Start Date End Date Code Code System Current Smoking Status Tobacco smoking consumption unknown 690193252 SNOMED CT Sex Assigned At Male 1965 28627-2 [facility] Gender Identity Sexual Orientation Vital Signs Code Code System Vitals Name Values and Units Timing Information 20053-6 [facility] Pain Level Value=0.0 08/18/2021 2339-0 [facility] Blood Sugar Ovbce=464.0 Units=mg/dL 08/18/2021 8310-5 [facility] Body Temperature Value=98.0 Units= F 08/18/2021 89450-7 [facility] O2 % BldC Oximetry Value=97.0 Units= % 08/18/2021 8867-4 [facility] Heart rate Value=79.0 Units=/min 8462-4 [facility] Blood Pressure-Diastolic Value=84 Un its=mmHg 08/18/2021 8480-6 [facility] Blood Pressure-Systolic Xwkur=199 Un its=mmHg 08/18/2021 9279-1 [facility] Respiratory Rate Value=16.0 Units=/m in 08/09/2021 80958-0 [facility] Weight Tunyh=003.8 Units=Lbs 03/2021 8302-2 [facility] Height Value=76.0 Units=Inches 08/08/2020
--- OUTSIDE RECORDS SUMMARY | 2024-11-28 12:48 | XMS_ITS | Clinical Summary ---
Author Organization [facility] Address [address] [place] [address] Phone Care Team Providers Care Document Management Technician Name Role Phone Unavailable Primary Care Provider Unavailabl e Active Problems Problem Noted Date Diagnosed Date Socially inappropriate behavior 09/15/2020 Irritability and anger 09/15/2020 Mood disturbance 09/15/2020 Cognitive decline 09/15/2020 Anxiety disorder, unspecified 08/16/2020 MDD (major depressive disorder), recurrent episo de, mild 08/16/2020 Sleep disturbance 08/16/2020 Adjustment disorder with mixed anxiety and depre ssed mood 08/16/2020 Medication monitoring encounter 08/16/2020 Social History Tobacco Use Types Packs/Day Years Used Date Smoking Tobacco: Never Assessed Sex and Gender Information Value Date Recorded Sex Assigned at Not on file Legal Sex Male 9:55 AM EDT Gender Identity Not on file Sexual Orientation Not on file Plan of Treatment Health Maintenance Due Date Last Done Comments Wellness Exam Medicare 07/30/1970 DTaP/TDaP/Td (1 - Tdap) 07/30/1986 Hepatitis B Vaccine (1 of 3 - 19+ 3-dose series) 07/30/1986 Cologuard 07/30/2012 Colon Cancer Screening 07/30/2012 Colonoscopy 07/30/2012 FIT 07/30/2012 Sigmoidoscopy 07/30/2012 Virtual Colonography 07/30/2012 Pneumococcal Vaccine 50+ (1 of 1 - PCV) 07/30/2017 Zoster (1 of 2) 07/30/2017 COVID-19 Vaccine ( - 2023-2 5 season) 2024 Influenza Vaccine (#1) 2024 Meningococcal B Vaccine Aged Out No l onger eligible based on patient's age to complete this topic Insurance [employer] MEDICARE PPO MR [facility] [place]
== END 2024-11-28 23:59 | disposition home or self-care (01) ==
LOC: RT 12:45
PROVIDERS: PCP Internal Medicine Adolescent Medicine; Visit Provider Nurse Practitioner Family
DX: I08.2 Rheumatic disorders of both aortic and tricuspid valves (principal); I25.10 Atherosclerotic heart disease of native coronary artery without angina pectoris; F17.200 Nicotine dependence, unspecified, uncomplicated; I73.9 Peripheral vascular disease, unspecified; E11.9 Type 2 diabetes mellitus without complications
CPT/HCPCS: 93306